=== PATIENT | female | born 1950 | race Caucasian/White ===

== ENCOUNTER → 2017-05-27 14:20 | Outpatient (CLI) | payer MEDICARE, OTHER, SELFPAY ==
[2017-05-27 20:05] LABS: Amphetamine/Metha Screen,Urine Negative ng/mL (<1000); Barbiturates Screen,Urine Negative ng/mL (<200); Benzodiazepines Screen,Urine Negative ng/mL (200); Cannabinoid Screen,Urine Negative ng/mL (<50); Cocaine Screen,Urine Negative ng/g (<300); Methadone Screen,Urine Negative ng/mL (<300); Opiate Screen,Urine Positive ng/mL (<300); Phencyclidine Screen,Urine Negative ng/mL (<25)
[2017-06-05 09:18] LABS: Oxycodone (GC/MS) 1440 ng/mL (Cutoff=100)
[2017-06-06 11:06] LABS: Opiates Negative (Cutoff=100); Oxymorphone (GC/MS) 922 ng/mL (Cutoff=100)
== END ==
PROVIDERS: PCP Family Medicine; Visit Provider Anesthesiology
DX: Z79.899 Other long term (current) drug therapy (principal)
CPT/HCPCS: 80305; 80361; G0480

== ENCOUNTER → 2017-06-06 11:23 | Day surgery (SDC) | payer MEDICARE, OTHER, SELFPAY ==
[2017-06-06 11:33] VITALS: BP 138/75; PULSE 75; RESP 18; TEMP 36.2; O2SAT 95; BMI 25.8
[2017-06-06 11:51] LABS: POC Glucose,Bedside 110 mg/dL
--- NOTE | 2017-06-06 12:01 | HMH.PMPROC ---
- Procedure Date: 06/06/17 Time: 12:01 Anesthesiologist:: Hemant Del Real MD Complications:: None Pre-procedure Diagnosis:: Sacroiliitis Post-procedure Diagnosis:: Same Indications for Procedure:: This patient is a pleasant 66-year-old white female who we are treating for neck pain and right hip pain. She has right-sided sacroiliitis with tenderness over the right SI joint. She does have positive Rebekah's test on the right side. She is also medically managed with Percocet 5 g 3 times a day. This does help her pain symptoms. Her Farhan and urine drug screen have been appropriate. We will do a right SI joint injection today to see if this helps further with her pain symptoms. Procedure Details:: Right SI joint injection under fluoroscopy Informed consent was obtained and the risks and benefits of the procedure was going to the patient. Patient was taken to the procedure room. Patient was placed prone on the procedure table. The right hip was prepped using ChloraPrep. The skin and subcutaneous tissues were anesthetized using lidocaine. I placed a 22-gauge spinal needle into the inferior aspect of the right SI joint. Needle placement was confirmed with dye. After this we injected 5 mL bupivacaine 0.25% and Depo-Medrol 20 mg into the right SI joint. The patient tolerated the procedure well with no complication. Plan and Disposition:: We will follow her in 2 weeks. We will reevaluate her symptoms at that time.
[2017-06-06 12:02] VITALS: BP 155/93; PULSE 75; RESP 20; O2SAT 99
[2017-06-06 12:03] VITALS: BP 153/85; PULSE 75; RESP 18; O2SAT 98
[2017-06-06 12:08] VITALS: BP 140/92; PULSE 81; RESP 16
== END ==
PROVIDERS: Family Provider Family Medicine; PCP Family Medicine; Visit Provider Anesthesiology
DX: M46.1 Sacroiliitis, not elsewhere classified (principal); Z79.899 Other long term (current) drug therapy
CPT/HCPCS: 27096; 82962; G0260; J1030; Q9966

== ENCOUNTER → 2017-07-14 14:13 | Outpatient (POV) | payer MEDICARE, OTHER, SELFPAY ==
[2017-07-14 14:21] VITALS: BP 126/70; PULSE 91; RESP 18; TEMP 36.4; O2SAT 100; BMI 25.8
--- NOTE | 2017-07-14 14:48 | HMH.PAINSOAP ---
[facility] Pain Management SOAP Note Subjective:: This patient is a pleasant 66-year-old white female who presents today to follow-up after a right SI joint injection. Patient states that she has 90% relief of her pain symptoms at this time. Patient states that her neck pain has become increasingly worse. Patient has had a cervical epidural steroid injection in the past and had significant relief with it. Patient states she had 80% relief for a year. Patient is also being managed medically managed on Percocet 5 mg 1 p.o. 3 times daily. Patient does not need any prescriptions today. She rates her pain a 6 out of 10 today. Most of her pain being in her neck and her right arm. She has shoulder trouble that she is seeing Dr. Taylor for. ROS General: no recent weight change, no fever, no sleep disturbances Respiratory: no cough, no shortness of air, no recurring pulmonary infections Cardiovascular/Peripheral Vascular: No chest pain, No palpitations, no edema, no shortness of breath. Gastrointestinal: no incontinence, normal bowel movements reported Genitourinary: no incontinence Musculoskeletal: Neck pain, right shoulder pain, sacroiliitis Psychiatric: normal mood/ affect, [denies depression], [denies anxiety] Neurological: [denies weakness in extremities], [denies balance issues] Objective:: Physical Exam General: Alert and oriented x3, no acute distress, pleasant and cooperative, [on room air] Lungs: Resps E/U, Symmetrical chest expansion, Eyes: PERRL Musculoskeletal: Flexion and extension of cervical spine somewhat guarded secondary to pain, deep tendon reflexes normal, strength in upper and lower extremities [5/5], normal gait noted Neurological: speech clear, transcription manager equal, no gross sensory deficits Assessment:: Cervical postlaminectomy, degenerative disc disease of the cervical spine, cervical radiculopathy, sacroiliitis, Plan:: We will plan a cervical epidural steroid injection for this patient. We will go and at C6-C7. Patient had 80% relief of her symptoms for a year after her last cervical epidural steroid injection. Patient's tried and failed medications, anti-inflammatories, physical therapy. Patient is also being medically managed with Percocet 5 mg 1 p.o. 3 times daily. She does not need prescriptions today. We will follow-up with this patient 2 weeks after her cervical epidural. This note was dictated using voice recognition software and may contain errors or omissions
--- NOTE | 2017-07-14 14:51 | P.CONS_ITS ---
[facility] Pain Management SOAP Note Subjective:: This patient is a pleasant 66-year-old white female who presents today to follow -up after a right SI joint injection. Patient states that she has 90% relief of her pain symptoms at this time. Patient states that her neck pain has become increasingly worse. Patient has had a cervical epidural steroid injection in the past and had significant relief with it. Patient states she had 80% relief for a year. Patient is also being managed medically managed on Percocet 5 mg 1 p.o. 3 times daily. Patient does not need any prescriptions today. She rates her pain a 6 out of 10 today. Most of her pain being in her neck and her right arm. She has shoulder trouble that she is seeing Dr. Taylor for. ROS General: no recent weight change, no fever, no sleep disturbances Respiratory: no cough, no shortness of air, no recurring pulmonary infections Cardiovascular/Peripheral Vascular: No chest pain, No palpitations, no edema, no shortness of breath. Gastrointestinal: no incontinence, normal bowel movements reported Genitourinary: no incontinence Musculoskeletal: Neck pain, right shoulder pain, sacroiliitis Psychiatric: normal mood/ affect, [denies depression], [denies anxiety] Neurological: [denies weakness in extremities], [denies balance issues] Objective:: Physical Exam General: Alert and oriented x3, no acute distress, pleasant and cooperative, [ on room air] Lungs: Resps E/U, Symmetrical chest expansion, Eyes: PERRL Musculoskeletal: Flexion and extension of cervical spine somewhat guarded secondary to pain, deep tendon reflexes normal, strength in upper and lower extremities [5/5], normal gait noted Neurological: speech clear, utility system repairer equal, no gross sensory deficits Assessment:: Cervical postlaminectomy, degenerative disc disease of the cervical spine, cervical radiculopathy, sacroiliitis, Plan:: We will plan a cervical epidural steroid injection for this patient. We will go and at C6-C7. Patient had 80% relief of her symptoms for a year after her last cervical epidural steroid injection. Patient's tried and failed medications, anti-inflammatories, physical therapy. Patient is also being medically managed with Percocet 5 mg 1 p.o. 3 times daily. She does not need prescriptions today. We will follow-up with this patient 2 weeks after her cervical epidural. This note was dictated using voice recognition software and may contain errors or omissions
== END ==
PROVIDERS: Family Provider Family Medicine; PCP Family Medicine; Visit Provider Clinical Nurse Specialist Family Health
DX: M54.12 Radiculopathy, cervical region (principal); M46.1 Sacroiliitis, not elsewhere classified
CPT/HCPCS: 99212

== ENCOUNTER → 2017-08-08 13:50 | Day surgery (SDC) | payer MEDICARE, OTHER, SELFPAY ==
[2017-08-08 13:54] VITALS: BP 148/83; PULSE 81; RESP 16; TEMP 36.6; O2SAT 95; BMI 25.8
[2017-08-08 14:22] VITALS: BP 136/91; PULSE 84; RESP 18
--- NOTE | 2017-08-08 14:25 | HMH.PMPROC ---
- Procedure Date: 08/08/17 Time: 14:25 Anesthesiologist:: Hemant Del Real MD Complications:: None Pre-procedure Diagnosis:: Degenerative disc disease of the cervical spine with previous cervical anterior cervical disc fusion and postlaminectomy syndrome of the cervical spine Post-procedure Diagnosis:: Same Indications for Procedure:: This patient is a pleasant 66-year-old white female who is doing well with her low back pain and right SI joint after injections. She presents with some neck pain. She has had previous ACDF. We will do a cervical epidural steroid injection today to see if this helps with her neck pain and cervical radicular symptoms. Procedure Details:: Cervical epidural steroid injection under fluoroscopy Informed consent was obtained and the risks and benefits of the procedure was explained to the patient. The patient was taken to the procedure room placed prone on the procedure table. The neck was prepped using ChloraPrep. The skin and subcutaneous tissues were anesthetized using lidocaine. I placed a 18-gauge epidural needle into the C5-C6 interspace and advanced using [id number] to air and fluoroscopic guidance. After confirmation of needle placement in the epidural space with dye, I injected 3 mL's lidocaine 1.5% and Depo-Medrol 20 mg. The patient tolerated the procedure well with no complications. We used less steroid because patient does have a reaction to increase steroid. Plan and Disposition:: We will follow-up with her in 2 weeks. We will reevaluate her symptoms at that time.
[2017-08-08 14:27] VITALS: BP 147/108; PULSE 89; RESP 20
--- NOTE | 2017-08-08 14:29 | P.PCN_ITS ---
- Procedure Date: 08/08/17 Time: 14:25 Anesthesiologist:: Hemant Del Real MD Complications:: None Pre-procedure Diagnosis:: Degenerative disc disease of the cervical spine with previous cervical anterior cervical disc fusion and postlaminectomy syndrome of the cervical spine Post-procedure Diagnosis:: Same Indications for Procedure:: This patient is a pleasant 66-year-old white female who is doing well with her low back pain and right SI joint after injections. She presents with some neck pain. She has had previous ACDF. We will do a cervical epidural steroid injection today to see if this helps with her neck pain and cervical radicular symptoms. Procedure Details:: Cervical epidural steroid injection under fluoroscopy Informed consent was obtained and the risks and benefits of the procedure was explained to the patient. The patient was taken to the procedure room placed prone on the procedure table. The neck was prepped using ChloraPrep. The skin and subcutaneous tissues were anesthetized using lidocaine. I placed a 18- gauge epidural needle into the C5-C6 interspace and advanced using loss-of- resistance to air and fluoroscopic guidance. After confirmation of needle placement in the epidural space with dye, I injected 3 mL's lidocaine 1.5% and Depo-Medrol 20 mg. The patient tolerated the procedure well with no complications. We used less steroid because patient does have a reaction to increase steroid. Plan and Disposition:: We will follow-up with her in 2 weeks. We will reevaluate her symptoms at that time.
[2017-08-08 14:31] LABS: POC Glucose,Bedside 103 (70-110)
[2017-08-08 14:38] VITALS: BP 131/79; PULSE 85; RESP 16; O2SAT 94
== END ==
PROVIDERS: Family Provider Family Medicine; PCP Family Medicine; Visit Provider Anesthesiology
DX: M50.30 Other cervical disc degeneration, unspecified cervical region (principal); M43.22 Fusion of spine, cervical region; M96.1 Postlaminectomy syndrome, not elsewhere classified; Z79.891 Long term (current) use of opiate analgesic
CPT/HCPCS: 62321; 82962; J1030; Q9966

== ENCOUNTER → 2017-08-25 15:00 | Outpatient (POV) | payer MEDICARE, OTHER, SELFPAY ==
[2017-08-25 15:34] VITALS: BP 129/82; PULSE 85; RESP 18; TEMP 36.6; BMI 26.6
--- NOTE | 2017-08-25 16:12 | P.CONS_ITS ---
[facility] Pain Management SOAP Note Subjective:: Patient is a pleasant 66-year-old white female who presents today for follow-up after cervical epidural steroid injection. Patient states that her neck pain has decreased however she is having extreme shoulder pain. Patient is seeing an orthopedic surgeon for this. Patient states that her neck pain is 80% better. Patient is also being medically managed with Percocet 5 mg 1 p.o. 3 times daily. Patient denies side effects to this medication. She states that it helps 60-70%. She rates her pain a 4 out of 10 today. Patient's CLAUDIO # [id number] reviewed and appropriate. ROS General: no recent weight change, no fever, no sleep disturbances Respiratory: no cough, no shortness of air, no recurring pulmonary infections Cardiovascular/Peripheral Vascular: No chest pain, No palpitations, no edema, no shortness of breath. Gastrointestinal: no incontinence, normal bowel movements reported Genitourinary: no incontinence Musculoskeletal: Neck pain, back pain, shoulder pain Psychiatric: normal mood/ affect, Neurological: [denies weakness in extremities], [denies balance issues] Objective:: Physical Exam General: Alert and oriented x3, no acute distress, pleasant and cooperative, [ on room air] Lungs: Resps E/U, Symmetrical chest expansion, Eyes: PERRL Musculoskeletal: Flexion and extension of cervical spine somewhat guarded secondary to pain, deep tendon reflexes normal, strength in upper and lower extremities [5/5], normal gait noted Neurological: speech clear, heel sprayer equal, no gross sensory deficits Assessment:: Cervical postlaminectomy, degenerative disc disease of the cervical spine, cervical radiculopathy, sacroiliitis, shoulder pain Plan:: We will follow-up with this patient in 3 months. She is going to call us if she needs this in the meantime. Patient is doing well after her cervical epidural steroid injection. Patient has been to continue with the orthopedic surgeon in regards to her shoulder. Patient is due medication refills today Percocet 5 mg 1 p.o. 3 times daily. We will give HER-2 months worth of prescriptions. Patient's Claudio and urine drug screen both reviewed. Dr. Del Real has reviewed this chart and agrees with this plan of care. This note was dictated using voice recognition software and may contain errors or omissions
== END ==
PROVIDERS: Family Provider Family Medicine; PCP Family Medicine; Visit Provider Clinical Nurse Specialist Family Health
DX: M46.1 Sacroiliitis, not elsewhere classified (principal); M54.12 Radiculopathy, cervical region
CPT/HCPCS: 99212

== ENCOUNTER → 2017-10-28 14:19 | Outpatient (CLI) | payer MEDICARE, OTHER, SELFPAY ==
[2017-10-28 16:37] LABS: Amphetamine/Metha Screen,Urine Negative ng/mL (<1000); Barbiturates Screen,Urine Negative ng/mL (<200); Benzodiazepines Screen,Urine Negative ng/mL (200); Cannabinoid Screen,Urine Negative ng/mL (<50); Cocaine Screen,Urine Negative ng/g (<300); Methadone Screen,Urine Negative ng/mL (<300); Opiate Screen,Urine Positive ng/mL (<300); Phencyclidine Screen,Urine Negative ng/mL (<25)
[2017-11-05 01:09] LABS: Codeine Negative (Cutoff=100); Hydrocodone Positive (.); Hydromorphone Negative (Cutoff=100); Morphine Negative (Cutoff=100); Oxycodone (GC/MS) 664 ng/mL (Cutoff=100)
[2017-11-05 12:25] LABS: Opiates Positive (.); Oxymorphone (GC/MS) 279 ng/mL (Cutoff=100)
== END ==
PROVIDERS: Visit Provider Clinical Nurse Specialist Family Health
DX: Z79.899 Other long term (current) drug therapy (principal)
CPT/HCPCS: 80305; 80361; 80365; G0480

== ENCOUNTER → 2017-11-24 13:28 | Outpatient (POV) | payer MEDICARE, OTHER, SELFPAY ==
--- NOTE | 2017-11-24 13:47 | HMH.PAINSOAP ---
[facility] Pain Management SOAP Note Subjective:: Patient is a pleasant 66-year-old white female who presents today for medication refills. Patient is currently being medically managed with Percocet 5 mg 1 p.o. 3 times daily. At her last urine drug screen she did test positive for [place] she states that she does not know how this happened. Patient is allergic to [place] and has reaction to it. We will send her for confirmation urine drug screen today. Patient has had injections in the past and done well with them. However at her last when she began to have an itching reaction to it. Patient has not had any recent lower back MRI or CT scan. Patient currently has a neurostimulator in place however she does not use it because she states it worsens her arthritic pain. She rates her pain a 7 out of 10 today. Mostly in her neck, shoulders and back. ROS General: no recent weight change, no fever, no sleep disturbances Respiratory: no cough, no shortness of air, no recurring pulmonary infections Cardiovascular/Peripheral Vascular: No chest pain, No palpitations, no edema, no shortness of breath. Gastrointestinal: no incontinence, normal bowel movements reported Genitourinary: no incontinence Musculoskeletal: Back pain, shoulder pain, neck pain Psychiatric: normal mood/ affect Neurological: [denies weakness in extremities], [denies balance issues] Objective:: Physical Exam General: Alert and oriented x3, no acute distress, pleasant and cooperative, [on room air] Lungs: Resps E/U, Symmetrical chest expansion, \ Eyes: PERRL Musculoskeletal: Flexion and extension of cervical and lumbar spine somewhat guarded secondary to pain, deep tendon reflexes normal, strength in upper and lower extremities [5/5], antalgic gait noted Neurological: speech clear, comptometrist equal, no gross sensory deficits Assessment:: Cervical postlaminectomy, degenerative disc disease of the cervical spine, cervical radiculopathy, sacroiliitis, shoulder pain Plan:: We will give the patient 1 month worth of Percocet 5 mg 1 p.o. 3 times daily after she produces a urine sample for us. We will continue to monitor for her for compliance. Patient's CLAUDIO #[id number] reviewed. Dr. Del Real has reviewed this chart and agrees with this plan of care. We will see the patient back in 1 month. Patient has been prescribed a controlled substance after being counseled on the medication, medication safety, and possible side effects. CLAUDIO report has been obtained and reviewed prior to prescription and found to be appropriate. Opioid contract was reviewed and signed by the patient, and that they have agreed to all of the terms set forth by our compliance program. This note was dictated using voice recognition software and may contain errors or omissions
[2017-11-24 13:50] VITALS: BP 141/82; PULSE 83; RESP 18; O2SAT 98; BMI 27.8
--- NOTE | 2017-11-24 13:50 | P.CONS_ITS ---
[facility] Pain Management SOAP Note Subjective:: Patient is a pleasant 66-year-old white female who presents today for medication refills. Patient is currently being medically managed with Percocet 5 mg 1 p.o. 3 times daily. At her last urine drug screen she did test positive for [place] she states that she does not know how this happened. Patient is allergic to [place] and has reaction to it. We will send her for confirmation urine drug screen today. Patient has had injections in the past and done well with them. However at her last when she began to have an itching reaction to it. Patient has not had any recent lower back MRI or CT scan. Patient currently has a neurostimulator in place however she does not use it because she states it worsens her arthritic pain. She rates her pain a 7 out of 10 today. Mostly in her neck, shoulders and back. ROS General: no recent weight change, no fever, no sleep disturbances Respiratory: no cough, no shortness of air, no recurring pulmonary infections Cardiovascular/Peripheral Vascular: No chest pain, No palpitations, no edema, no shortness of breath. Gastrointestinal: no incontinence, normal bowel movements reported Genitourinary: no incontinence Musculoskeletal: Back pain, shoulder pain, neck pain Psychiatric: normal mood/ affect Neurological: [denies weakness in extremities], [denies balance issues] Objective:: Physical Exam General: Alert and oriented x3, no acute distress, pleasant and cooperative, [ on room air] Lungs: Resps E/U, Symmetrical chest expansion, \ Eyes: PERRL Musculoskeletal: Flexion and extension of cervical and lumbar spine somewhat guarded secondary to pain, deep tendon reflexes normal, strength in upper and lower extremities [5/5], antalgic gait noted Neurological: speech clear, office associate equal, no gross sensory deficits Assessment:: Cervical postlaminectomy, degenerative disc disease of the cervical spine, cervical radiculopathy, sacroiliitis, shoulder pain Plan:: We will give the patient 1 month worth of Percocet 5 mg 1 p.o. 3 times daily after she produces a urine sample for us. We will continue to monitor for her for compliance. Patient's LCAUDIO #[id number] reviewed. Dr. Del Real has reviewed this chart and agrees with this plan of care. We will see the patient back in 1 month. Patient has been prescribed a controlled substance after being counseled on the medication, medication safety, and possible side effects. CLAUDIO report has been obtained and reviewed prior to prescription and found to be appropriate. Opioid contract was reviewed and signed by the patient, and that they have agreed to all of the terms set forth by our compliance program. This note was dictated using voice recognition software and may contain errors or omissions
[2017-11-24 17:49] LABS: Amphetamine/Metha Screen,Urine Negative ng/mL (<1000); Barbiturates Screen,Urine Negative ng/mL (<200); Benzodiazepines Screen,Urine Negative ng/mL (<200); Cannabinoid Screen,Urine Negative ng/mL (<50); Cocaine Screen,Urine Negative ng/mL (<300); Methadone Screen,Urine Negative ng/mL (<300); Opiate Screen,Urine Positive ng/mL (<300); Phencyclidine Screen,Urine Negative ng/mL (<25)
[2017-12-07 21:08] LABS: Oxycodone (GC/MS) 1471 ng/mL (Cutoff=100)
[2017-12-08 09:48] LABS: Opiates Negative (Cutoff=100); Oxymorphone (GC/MS) 438 ng/mL (Cutoff=100)
== END ==
PROVIDERS: Family Provider Family Medicine; PCP Family Medicine; Visit Provider Clinical Nurse Specialist Family Health
DX: M96.1 Postlaminectomy syndrome, not elsewhere classified (principal); M46.1 Sacroiliitis, not elsewhere classified; Z79.899 Other long term (current) drug therapy
CPT/HCPCS: 80305; 80361; 80365; 99212; G0480

== ENCOUNTER → 2017-11-26 08:08 | Outpatient (CLI) | payer MEDICARE, OTHER, SELFPAY ==
--- NOTE | 2017-11-26 08:11 | XR_ITS ---
XR shoulder RT min 2V Ordering Physician: Alan Santamaria MD Patient Age: 67 years: Female HISTORY: ITS.REASON: RT shoulder pain Right shoulder pain TECHNIQUE: 3 views right shoulder downward sloping acromion suggested on this study but adequate subacromial space on plain film. Underlying COPD. Post surgical changes right mike likely from previous right lobectomy COMPARISON previous right shoulder 10-15: FINDINGS Humeral head and neck intact. No fracture nor dislocation. There are degenerative changes at the glenohumeral joint with slight hypertrophic ridging inferior humeral head more so the glenoid at the glenohumeral joint on the [place] view IMPRESSION: No acute findings Degenerative changes at glenohumeral joint most evident at its inferior aspect.
== END ==
PROVIDERS: PCP Family Medicine; Visit Provider Orthopaedic Surgery
DX: M25.511 Pain in right shoulder (principal)
CPT/HCPCS: 73030

== ENCOUNTER → 2018-04-08 14:43 | Outpatient (CLI) | payer MEDICARE, SELFPAY ==
[2018-04-08 15:23] LABS: Amphetamine/Metha Screen,Urine Negative ng/mL (<1000); Barbiturates Screen,Urine Negative ng/mL (<200); Benzodiazepines Screen,Urine Negative ng/mL (<200); Cannabinoid Screen,Urine Negative ng/mL (<50); Cocaine Screen,Urine Negative ng/mL (<300); Methadone Screen,Urine Negative ng/mL (<300); Opiate Screen,Urine Negative ng/mL (<300); Phencyclidine Screen,Urine Negative ng/mL (<25)
[2018-04-15 07:03] LABS: Opiates Negative (Cutoff=100)
== END ==
PROVIDERS: Visit Provider Clinical Nurse Specialist Family Health
DX: Z79.899 Other long term (current) drug therapy (principal)
CPT/HCPCS: 80305; 80361; 80365; G0480

== ENCOUNTER → 2018-08-03 14:31 | Outpatient (POV) | payer MEDICARE, OTHER, SELFPAY ==
[2018-08-03 15:23] VITALS: BP 152/95; PULSE 92; RESP 18; O2SAT 98; BMI 26.6
--- NOTE | 2018-08-04 08:40 | HMH.PAINSOAP ---
[facility] Pain Management SOAP Note Subjective:: Patient is a pleasant 67-year-old white female who presents today for medication refills. She is currently being medically managed with Percocet 5 mg 1 p.o. 3 times daily. Patient states her pain has been quite a bit worse. Patient is being seen by orthopedics. Patient does have a [employer] stimulator however it has not been useful to her recently. Battery has been . Patient and I had a discussion about potentially switching this out. She may be interested in this in the future. She rates her pain 8 out of 10. She finds her medication not as effective as it has been. Patient Claudio #[id number] reviewed and appropriate. ROS General: no recent weight change, no fever, no sleep disturbances Respiratory: no cough, no shortness of air, no recurring pulmonary infections Cardiovascular/Peripheral Vascular: No chest pain, No palpitations, no edema, no shortness of breath. Gastrointestinal: no incontinence, normal bowel movements reported Genitourinary: no incontinence Musculoskeletal: Back pain, leg pain, shoulder pain Psychiatric: normal mood/ affect Neurological: [denies weakness in extremities], [denies balance issues] Objective:: Physical Exam General: Alert and oriented x3, no acute distress, pleasant and cooperative, on room air Lungs: Resps E/U, Symmetrical chest expansion, Eyes: PERRL Musculoskeletal: Flexion and extension of lumbar spine somewhat guarded secondary to pain, deep tendon reflexes normal, strength in upper and lower extremities [5/5], [abnormal gait noted] Neurological: speech clear, safety relief valve technician equal, no gross sensory deficits Assessment:: Cervical postlaminectomy, degenerative disc disease cervical spine with cervical radiculopathy sacroiliitis shoulder pain, back pain, leg pain Plan:: We will increase the patient's Percocet to 5 mg 1 p.o. 4 times daily. We will give her 2 months worth of medication see her back in 3 months. She has been instructed to call if she has any issues prior to her next appointment. She can picker and sorter load and unload her third month in the interim. Patient has been prescribed a controlled substance after being counseled on the medication, medication safety, and possible side effects. CLAUDIO report has been obtained and reviewed prior to prescription and found to be appropriate. Opioid contract was reviewed and signed by the patient, and that they have agreed to all of the terms set forth by our compliance program. Dr. Del Real has reviewed this note and agrees with this plan of care. This note was dictated using voice recognition software and may contain errors or omissions
== END ==
PROVIDERS: PCP Family Medicine; Visit Provider Clinical Nurse Specialist Family Health
DX: M96.1 Postlaminectomy syndrome, not elsewhere classified (principal); M50.10 Cervical disc disorder with radiculopathy, unspecified cervical region; M25.519 Pain in unspecified shoulder; M46.1 Sacroiliitis, not elsewhere classified; M54.9 Dorsalgia, unspecified; M79.606 Pain in leg, unspecified; Z79.899 Other long term (current) drug therapy
CPT/HCPCS: 80305; 80361; 80365; 99212; G0480

== ENCOUNTER → 2018-08-03 15:30 | Outpatient (CLI) | payer MEDICARE, OTHER, SELFPAY ==
[2018-08-03 18:28] LABS: Amphetamine/Metha Screen,Urine Positive ng/mL (<1000); Barbiturates Screen,Urine Negative ng/mL (<200); Benzodiazepines Screen,Urine Negative ng/mL (<200); Cannabinoid Screen,Urine Negative ng/mL (<50); Cocaine Screen,Urine Negative ng/mL (<300); Methadone Screen,Urine Negative ng/mL (<300); Opiate Screen,Urine Positive ng/mL (<300); Phencyclidine Screen,Urine Negative ng/mL (<25)
[2018-08-08 18:07] LABS: Oxycodone (GC/MS) >3000 ng/mL (Cutoff=100)
[2018-08-08 18:08] LABS: Opiates Negative (Cutoff=100); Oxymorphone (GC/MS) 1159 ng/mL (Cutoff=100)
== END ==
PROVIDERS: Visit Provider Clinical Nurse Specialist Family Health
DX: Z79.899 Other long term (current) drug therapy (principal)
CPT/HCPCS: 80305; 80361; 80365; G0480

== ENCOUNTER → 2018-08-11 13:33 | Outpatient (CLI) | payer MEDICARE, OTHER, SELFPAY ==
--- NOTE | 2018-08-11 13:41 | CT_ITS ---
CT CERVICAL SPINE WITHOUT CONTRAST CT RECONSTRUCTIONS HISTORY:Neck pain, cervical radiculopathy, degenerative changes of the spine, left arm weakness ORDERING PHYSICIAN: Romulo Francis MD PATIENT AGE: 67 years COMPARISON: 04/05/2015 Technique: All CT scans at the facility use one or more dose reduction, viz: automated exposure control, ma/kV adjustment per patient size (including targeted exams where dose is matched to indication, i.e. head), or iterative reconstruction technique PROCEDURE: Axial spiral CT scanning performed of the cervical spine beginning at the base of the skull and continuing to the upper T-spine. 3-D multiplanar reconstruction with 3-D manipulation of volumetric data set in image rendering was completed by the radiologist and/or technologist with the supervision of the radiologist on independent workstation. FINDINGS: There is no malalignment. There is slight reversal of the lower thoracic lordosis. There is multilevel cervical spondylosis and there has been prior anterior cervical disc fusion at C7-T1 There is opacification of the right aspect of the sphenoid sinus inferiorly and may be due to a retention cyst. Unremarkable craniocervical junction. C2-C3: Unremarkable. C3-C4: There is degenerative disc disease with mild facet arthritic changes on the left. Minimal anterolisthesis of C3 of 2 to 3 mm likely physiologic. C4-C5: Degenerative disc disease with mild uncovertebral hypertrophy on the left. C5-C6: Degenerative disc disease with endplate spurring and mild left-sided facet arthritic change. There is mild bilateral foraminal narrowing from the endplate and uncovertebral spurring. Is not significant change. C6-C7: Degenerative disc disease with mild endplate spurring and mild bilateral foraminal narrowing. C7-T1: Prior anterior cervical disc fusion. Fibrotic changes are present in the lung apices. IMPRESSION: Overall no significant change compared to the previous study with multilevel cervical spondylosis with degenerative disc disease and mild facet arthritic change. Please see above for detailed description at each level. Prior anterior cervical disc fusion C7-T1
== END ==
PROVIDERS: PCP Family Medicine; Visit Provider Family Medicine
DX: M47.22 Other spondylosis with radiculopathy, cervical region (principal); R29.898 Other symptoms and signs involving the musculoskeletal system; Z98.890 Other specified postprocedural states
CPT/HCPCS: 72125

== ENCOUNTER → 2018-08-31 13:43 | Outpatient (POV) | payer MEDICARE, OTHER, SELFPAY ==
[2018-08-31 13:55] VITALS: BP 137/86; PULSE 94; RESP 18; O2SAT 98; BMI 25.8
--- NOTE | 2018-09-01 08:31 | P.CONS_ITS ---
[facility] Pain Management SOAP Note Subjective:: She is a very pleasant 67-year-old white female who presents today for follow- up. Patient had new CT scan which did not show much change in regards to her cervical spine. She does have an appointment with Dr. Ehsan hernández to discuss potential options. Patient is currently being medically managed however she does not need refills today. Overall she rates her pain a 5 out of 10. Patient does have an old stimulator. We have discussed changing it out she is interested in this however she would like to wait until a better time and I believe that would be beneficial. I do think that she needs to see Dr. Dempsey for consultation. ROS General: no recent weight change, no fever, no sleep disturbances Respiratory: no cough, no shortness of air, no recurring pulmonary infections Cardiovascular/Peripheral Vascular: No chest pain, No palpitations, no edema, no shortness of breath. Gastrointestinal: no incontinence, normal bowel movements reported Genitourinary: no incontinence Musculoskeletal: Neck pain Psychiatric: normal mood/ affect Neurological: [denies weakness in extremities], [denies balance issues] Objective:: Physical Exam General: Alert and oriented x3, no acute distress, pleasant and cooperative, [on room air] Lungs: Resps E/U, Symmetrical chest expansion, Eyes: PERRL Musculoskeletal: Flexion and extension of cervical spine somewhat guarded secondary to pain, deep tendon reflexes normal, strength in upper and lower extremities [5/5], slightly antalgic gait noted Neurological: speech clear, deputy chief magistrate equal, no gross sensory deficits Assessment:: Cervical post laminectomy syndrome, degenerative disc disease cervical spine with cervical radiculopathy, sacroiliitis shoulder pain, back pain, leg pain Plan:: We will see the patient back for her next medication refills. She is been instructed call the office if she has any issues prior to her next appointment. Dr. Del Real has reviewed this note and agrees with this plan of care. This note was dictated using voice recognition software and may contain errors or omissions
== END ==
PROVIDERS: PCP Family Medicine; Visit Provider Clinical Nurse Specialist Family Health
DX: M96.1 Postlaminectomy syndrome, not elsewhere classified (principal); M50.10 Cervical disc disorder with radiculopathy, unspecified cervical region; M46.1 Sacroiliitis, not elsewhere classified; M54.9 Dorsalgia, unspecified; M79.606 Pain in leg, unspecified
CPT/HCPCS: 99212

== ENCOUNTER → 2018-11-11 15:14 | Outpatient (CLI) | payer MEDICARE, OTHER, SELFPAY ==
[2018-11-11 19:09] LABS: Amphetamine/Metha Screen,Urine Negative ng/mL (<1000); Barbiturates Screen,Urine Negative ng/mL (<200); Benzodiazepines Screen,Urine Negative ng/mL (<200); Cannabinoid Screen,Urine Negative ng/mL (<50); Cocaine Screen,Urine Negative ng/mL (<300); Methadone Screen,Urine Negative ng/mL (<300); Opiate Screen,Urine Negative ng/mL (<300); Phencyclidine Screen,Urine Negative ng/mL (<25)
[2018-11-18 04:00] LABS: Oxycodone (GC/MS) 1666 ng/mL (Cutoff=100)
[2018-11-19 19:59] LABS: Opiates Negative (Cutoff=100); Oxymorphone (GC/MS) 967 ng/mL (Cutoff=100)
== END ==
PROVIDERS: Visit Provider Clinical Nurse Specialist Family Health
DX: Z79.899 Other long term (current) drug therapy (principal)
CPT/HCPCS: 80305; 80361; 80365; G0480

== ENCOUNTER → 2018-12-07 13:20 | Outpatient (POV) | payer MEDICARE, OTHER, SELFPAY ==
[2018-12-07 14:04] VITALS: BP 157/98; PULSE 96; RESP 18; O2SAT 98; BMI 28.3
--- NOTE | 2018-12-14 13:10 | HMH.PAINSOAP ---
[facility] Pain Management SOAP Note Subjective:: She is a very pleasant 67-year-old white female who presents today for follow-up. Patient was seen by neurosurgery and it was recommended that she switch out her stimulator. I do believe that would be beneficial. At this point she is being medically managed with Percocet. She denies side effects. Claudio reviewed and appropriate. Patient is awaiting shoulder surgery she wants to complete this prior to changing her neurostimulator. She rates her pain a 5 out of 10 today. Respiratory: no cough, no shortness of air, no recurring pulmonary infections Cardiovascular/Peripheral Vascular: No chest pain, No palpitations, no edema, no shortness of breath. Gastrointestinal: no incontinence, normal bowel movements reported Genitourinary: no incontinence Musculoskeletal: Neck pain Psychiatric: normal mood/ affect Neurological: [denies weakness in extremities], [denies balance issues] Objective:: Physical Exam General: Alert and oriented x3, no acute distress, pleasant and cooperative, [on room air] Lungs: Resps E/U, Symmetrical chest expansion, Eyes: PERRL Musculoskeletal: Flexion and extension of cervical spine somewhat guarded secondary to pain, deep tendon reflexes normal, strength in upper and lower extremities [5/5], slightly antalgic gait noted Neurological: speech clear, oyster planter equal, no gross sensory deficits Assessment:: Degenerative disc disease cervical spine with cervical radiculopathy Plan:: We will refill the patient's Percocet 5 mg 1 p.o. 3 times daily give her 2 months worth of medication she can vegetable picker the third month in the interim. We will see her back in 3 months reassess her symptoms at that time. We will then discuss changing out her neurostimulator. Patient's been instructed to call the office if he has any issues prior to the next appointment. Patient has been prescribed a controlled substance after being counseled on the medication, medication safety, and possible side effects. CLAUDIO report has been obtained and reviewed prior to prescription and found to be appropriate. Opioid contract was reviewed and signed by the patient, and that they have agreed to all of the terms set forth by our compliance program. Dr. Del Real has reviewed this note and agrees with this plan of care. This note was dictated using voice recognition software and may contain errors or omissions Pain Management Hx Components *Have you ever received a pneumonia vaccine?: Yes *Have you received a flu vaccine this season?: Yes - *Social History *Occupational Status:: other *Travel in the last 8 weeks: None
--- NOTE | 2018-12-14 13:14 | P.CONS_ITS ---
[facility] Pain Management SOAP Note Subjective:: She is a very pleasant 67-year-old white female who presents today for follow- up. Patient was seen by neurosurgery and it was recommended that she switch out her stimulator. I do believe that would be beneficial. At this point she is being medically managed with Percocet. She denies side effects. Claudio reviewed and appropriate. Patient is awaiting shoulder surgery she wants to complete this prior to changing her neurostimulator. She rates her pain a 5 out of 10 today. Respiratory: no cough, no shortness of air, no recurring pulmonary infections Cardiovascular/Peripheral Vascular: No chest pain, No palpitations, no edema, no shortness of breath. Gastrointestinal: no incontinence, normal bowel movements reported Genitourinary: no incontinence Musculoskeletal: Neck pain Psychiatric: normal mood/ affect Neurological: [denies weakness in extremities], [denies balance issues] Objective:: Physical Exam General: Alert and oriented x3, no acute distress, pleasant and cooperative, [on room air] Lungs: Resps E/U, Symmetrical chest expansion, Eyes: PERRL Musculoskeletal: Flexion and extension of cervical spine somewhat guarded secondary to pain, deep tendon reflexes normal, strength in upper and lower extremities [5/5], slightly antalgic gait noted Neurological: speech clear, real estate closing coordinator equal, no gross sensory deficits Assessment:: Degenerative disc disease cervical spine with cervical radiculopathy Plan:: We will refill the patient's Percocet 5 mg 1 p.o. 3 times daily give her 2 months worth of medication she can pecan picker the third month in the interim. We will see her back in 3 months reassess her symptoms at that time. We will then discuss changing out her neurostimulator. Patient's been instructed to call the office if he has any issues prior to the next appointment. Patient has been prescribed a controlled substance after being counseled on the medication, medication safety, and possible side effects. CLAUDIO report has been obtained and reviewed prior to prescription and found to be appropriate. Opioid contract was reviewed and signed by the patient, and that they have agreed to all of the terms set forth by our compliance program. Dr. Del Real has reviewed this note and agrees with this plan of care. This note was dictated using voice recognition software and may contain errors or omissions Pain Management Hx Components *Have you ever received a pneumonia vaccine?: Yes *Have you received a flu vaccine this season?: Yes - *Social History *Occupational Status:: other *Travel in the last 8 weeks: None
== END ==
PROVIDERS: PCP Family Medicine; Visit Provider Clinical Nurse Specialist Family Health
DX: M50.10 Cervical disc disorder with radiculopathy, unspecified cervical region (principal)
CPT/HCPCS: 99212

== ENCOUNTER → 2018-12-18 14:58 | Outpatient (CLI) | payer MEDICARE, OTHER, SELFPAY ==
--- NOTE | 2018-12-18 15:09 | XR_ITS ---
PROCEDURE: XR MULTIPLE SPINE 4-5V CLINICAL INDICATION: BACK PAIN, STIMULATOR Low back pain COMPARISON: No exams were available for comparison FINDINGS: There is mild degenerate disc disease at L5-S1. There is normal alignment. No acute fracture or dislocation is evident. There is no epidural stimulator device which appears to enter the epidural region at L1-L2 with the upper aspect of the stimulator at the T9 level. IMPRESSION: The epidural stimulator device present with mild degenerative change Dictated by: Wade Calvo MD 12/18/2018 16:22 Signed by: <Electronically signed by Wade Calvo MD in [place]> 12/18/2018 16:22
== END ==
PROVIDERS: PCP Family Medicine; Visit Provider Anesthesiology
DX: M54.6 Pain in thoracic spine (principal); M54.5 Low back pain
CPT/HCPCS: 72083

== ENCOUNTER → 2018-12-21 14:37 | Outpatient (POV) | payer MEDICARE, OTHER, SELFPAY ==
[2018-12-21 15:01] VITALS: BP 148/88; PULSE 99; RESP 18; O2SAT 98; BMI 27.4
--- NOTE | 2018-12-21 15:20 | HMH.PAINSOAP ---
[facility] Pain Management SOAP Note Subjective:: Patient is a pleasant 68-year-old white female who presents today to discuss her neurostimulator. When the patient had not it was very beneficial for her. Patient rates her pain a 6 out of 10. Patient had x-ray showing leads were in good placement we will just get her prepared to change out the battery from a [employer] to a new [employer] system. ROS General: no recent weight change, no fever, no sleep disturbances Respiratory: no cough, no shortness of air, no recurring pulmonary infections Cardiovascular/Peripheral Vascular: No chest pain, No palpitations, no edema, no shortness of breath. Gastrointestinal: no incontinence, normal bowel movements reported Genitourinary: no incontinence Musculoskeletal: Back pain, leg pain Psychiatric: normal mood/ affect, Neurological: [denies weakness in extremities], [denies balance issues] Objective:: Physical Exam General: Alert and oriented x3, no acute distress, pleasant and cooperative, [on room air] Lungs: Resps E/U, Symmetrical chest expansion, Eyes: PERRL Musculoskeletal: Flexion and extension of lumbar spine somewhat guarded secondary to pain, deep tendon reflexes normal, strength in upper and lower extremities [5/5], slightly antalgic gait noted Neurological: speech clear, overlocker equal, no gross sensory deficits Assessment:: Degenerative disc disease cervical spinal cervical radiculopathy and degenerative disc disease lumbar spine with lumbar radiculopathy Plan:: We will get the patient to see Dr. Brooke Stockton for a generator change out. Dr. Del Real has reviewed this note and agrees with this plan of care. This note was dictated using voice recognition software and may contain errors or omissions Pain Management Hx Components *Have you ever received a pneumonia vaccine?: Yes *Have you received a flu vaccine this season?: Yes - *Social History *Occupational Status:: other *Travel in the last 8 weeks: None
== END ==
PROVIDERS: PCP Family Medicine; Visit Provider Clinical Nurse Specialist Family Health
DX: M50.10 Cervical disc disorder with radiculopathy, unspecified cervical region (principal); M51.16 Intervertebral disc disorders with radiculopathy, lumbar region
CPT/HCPCS: 99212

== ENCOUNTER → 2019-01-11 14:53 | Outpatient (POV) | payer MEDICARE, OTHER, SELFPAY ==
[2019-01-11 15:28] VITALS: BP 132/86; PULSE 89; RESP 18; O2SAT 98; BMI 27.4
--- NOTE | 2019-01-12 08:31 | P.CONS_ITS ---
[facility] Pain Management SOAP Note Subjective:: Patient is a very pleasant 68-year-old white female who presents today for medication refills. Patient is currently on Percocet 5 mg 1 p.o. 4 times daily she denies side effects. Claudio #[id number] reviewed and appropriate. Urine drug screens have been appropriate. Patient is being treated for pain secondary to degenerative disc disease lumbar spine with lumbar radiculopathy. She is also awaiting a consultation with Dr. Brooke Stockton for a generator change out for her neurostimulator. ROS General: no recent weight change, no fever, no sleep disturbances Respiratory: no cough, no shortness of air, no recurring pulmonary infections Cardiovascular/Peripheral Vascular: No chest pain, No palpitations, no edema, no shortness of breath. Gastrointestinal: no incontinence, normal bowel movements reported Genitourinary: no incontinence Musculoskeletal: Neck pain, back pain, leg pain, arm pain Psychiatric: normal mood/ affect Neurological: [denies weakness in extremities], [denies balance issues] Objective:: Physical Exam General: Alert and oriented x3, no acute distress, pleasant and cooperative, [on room air] Lungs: Resps E/U, Symmetrical chest expansion, Eyes: PERRL Musculoskeletal: Flexion and extension of cervical and lumbar spine somewhat guarded secondary to pain, deep tendon reflexes normal, strength in upper and lower extremities [5/5], slightly antalgic gait noted Neurological: speech clear, black pickler equal, no gross sensory deficits Assessment:: Degenerative disc disease cervical spinal cervical radiculopathy and degenerative disc disease lumbar spine with lumbar radiculopathy Plan:: We will refill her Percocet 5 mg 1 p.o. 4 times daily we will give her 2 months with medication. We will see her back at her next appointment. She is been instructed to call the office if she has any issues prior to her next appointment. Patient has been prescribed a controlled substance after being counseled on the medication, medication safety, and possible side effects. CLAUDIO report has been obtained and reviewed prior to prescription and found to be appropriate. Opioid contract was reviewed and signed by the patient, and that they have agreed to all of the terms set forth by our compliance program. Dr. Del Real has reviewed this note and agrees with this plan of care. This note was dictated using voice recognition software and may contain errors or omissions Pain Management Hx Components *Have you ever received a pneumonia vaccine?: Yes *Have you received a flu vaccine this season?: Yes - *Social History *Occupational Status:: other *Travel in the last 8 weeks: None
== END ==
PROVIDERS: PCP Family Medicine; Visit Provider Clinical Nurse Specialist Family Health
DX: M50.10 Cervical disc disorder with radiculopathy, unspecified cervical region (principal); M51.16 Intervertebral disc disorders with radiculopathy, lumbar region
CPT/HCPCS: 99212

== ENCOUNTER → 2019-01-20 07:55 | Outpatient (POV) | payer MEDICARE, OTHER, SELFPAY ==
--- NOTE | 2019-01-20 08:29 | HMH.PMCON ---
Assessment and Plan - Assessment and plan all Dx Assessment and Plan for all problems:: Mluuovgmgr-bbu-mt-life status, pain stimulator generator Plan-patient has upcoming shoulder surgery. After that procedure she will undergo removal and replacement of her pain stimulator generator HPI - Data of Consult Patient: new to practice Consult date: 01/20/19 Requesting Physician: Larry Gandara MD Primary Care Provider: Romulo Francis MD - Consult Narrative Reason for consult: End of life, pain stimulator generator History of present illness: Ms. Pennington is a 68 year old female who is referred for removal and replacement of pain stimulator generator. He this was replaced in the past approximately 11 years ago and is nearing end-of-life status. CC: Larry Gandara MD Back pain [facility] History I have reviewed the patient's past medical history: Yes Medical History: Reports:: Cancer, Diabetes Mellitus Type 2, Hyperlipidemia Denies:: Diabetes Mellitus Type 1, Internal Pacemaker, Lung Disease, MRSA, Seizures *Have you ever received a pneumonia vaccine?: Yes *Have you received a flu vaccine this season?: Yes Other Medical History: Reports: Arthritis. Denies: Blood Transfusion Reaction Comment:: Illnesses-degenerative disc disease of the cervical and lumbar spine, diabetes mellitus, GERD, hyperlipidemia, history of lung cancer Other Surgeries: No: Pacemaker Amputation: No Fractures: No Comment: Operations-TMJ surgery, cervical disc surgery, right wrist and ankle surgery, neurostimulator placement and replacement, cataract surgery, lung cancer surgery - *Social History Smoking Status: Never smoker Alcohol Intake: never *Occupational Status:: other Housing: house Household Members: spouse *Travel in the last 8 weeks: None Family Hx:: Cancer Review of Systems - Review of Systems Review of systems:: pertinent systems reviewed and negative unless documented below Meds Home Medications Medication Instructions Recorded Confirmed Type Dapagliflozin/Metformin HCl 1 each PO DAILY 08/08/17 03/11/18 History [Xigduo Xr 10 mg-1,000 mg Tab] Calcium Carbonate [Calcium] 500 mg PO DAILY 01/07/18 03/11/18 History Escitalopram Oxalate 10 mg PO DAILY 01/07/18 03/11/18 History Ibuprofen [Ibuprofen 600mg 600 mg PO DAILY 01/07/18 03/11/18 History Tablet] Omeprazole [Omeprazole 20mg 20 mg PO DAILY 01/07/18 03/11/18 History Capsule] Oxycodone HCl/Acetaminophen 0 each PO TID 01/07/18 03/11/18 History [Oxycodone W/Apap 325mg Tablet] Simvastatin 20 mg PO DAILY 01/07/18 03/11/18 History Syrge-Ndl,Ins 0.3 ml Half Lázaro 1 each MC DAILY 01/07/18 03/11/18 History [Insulin Syringe] Insulin Glargine,Hum.rec.anlog 20 unit SQ DAILY 01/26/18 03/11/18 History [Basaglar Kwikpen U-100] Allergies Allergy/AdvReac Type Severity Reaction Status Date / Time hydrocodone Allergy Intermediate I-HIVES Verified 03/11/18 10:05 [From Hycodan (with homatropin)] prednisone Allergy Intermediate I-HIVES Verified 03/11/18 10:05 sulfamethoxazole Allergy Intermediate I-HIVES Verified 03/11/18 10:05 [From Bactrim] trimethoprim [From Bactrim] Allergy Intermediate I-HIVES Verified 03/11/18 10:05 Objective Comments: Pale white female in no distress - *Routine Respiratory Exam Comments: Chest clear - *Routine Cardiovascular Exam Present: RRR - *Routine Abdominal Exam Present: soft
--- NOTE | 2019-01-20 08:33 | P.CONS_ITS ---
Assessment and Plan - Assessment and plan all Dx Assessment and Plan for all problems:: Iztsjhdxcg-iys-bj-life status, pain stimulator generator Plan-patient has upcoming shoulder surgery. After that procedure she will undergo removal and replacement of her pain stimulator generator HPI - Data of Consult Patient: new to practice Consult date: 01/20/19 Requesting Physician: Larry Gandara MD Primary Care Provider: Romulo Francis MD - Consult Narrative Reason for consult: End of life, pain stimulator generator History of present illness: Ms. Pennington is a 68 year old female who is referred for removal and replacement of pain stimulator generator. He this was replaced in the past approximately 11 years ago and is nearing end-of-life status. CC: Larry Gandara MD Back pain [facility] History I have reviewed the patient's past medical history: Yes Medical History: Reports:: Cancer, Diabetes Mellitus Type 2, Hyperlipidemia Denies:: Diabetes Mellitus Type 1, Internal Pacemaker, Lung Disease, MRSA, Seizures *Have you ever received a pneumonia vaccine?: Yes *Have you received a flu vaccine this season?: Yes Other Medical History: Reports: Arthritis. Denies: Blood Transfusion Reaction Comment:: Illnesses-degenerative disc disease of the cervical and lumbar spine, diabetes mellitus, GERD, hyperlipidemia, history of lung cancer Other Surgeries: No: Pacemaker Amputation: No Fractures: No Comment: Operations-TMJ surgery, cervical disc surgery, right wrist and ankle surgery, neurostimulator placement and replacement, cataract surgery, lung cancer surgery - *Social History Smoking Status: Never smoker Alcohol Intake: never *Occupational Status:: other Housing: house Household Members: spouse *Travel in the last 8 weeks: None Family Hx:: Cancer Review of Systems - Review of Systems Review of systems:: pertinent systems reviewed and negative unless documented below Meds Home Medications Medication Instructions Recorded Confirmed Type Dapagliflozin/Metformin HCl 1 each PO DAILY 08/08/17 03/11/18 History [Xigduo Xr 10 mg-1,000 mg Tab] Calcium Carbonate [Calcium] 500 mg PO DAILY 01/07/18 03/11/18 History Escitalopram Oxalate 10 mg PO DAILY 01/07/18 03/11/18 History Ibuprofen [Ibuprofen 600mg 600 mg PO DAILY 01/07/18 03/11/18 History Tablet] Omeprazole [Omeprazole 20mg 20 mg PO DAILY 01/07/18 03/11/18 History Capsule] Oxycodone HCl/Acetaminophen 0 each PO TID 01/07/18 03/11/18 History [Oxycodone W/Apap 325mg Tablet] Simvastatin 20 mg PO DAILY 01/07/18 03/11/18 History Syrge-Ndl,Ins 0.3 ml Half Lázaro 1 each MC DAILY 01/07/18 03/11/18 History [Insulin Syringe] Insulin Glargine,Hum.rec.anlog 20 unit SQ DAILY 01/26/18 03/11/18 History [Basaglar Kwikpen U-100] Allergies Allergy/AdvReac Type Severity Reaction Status Date / Time hydrocodone Allergy Intermediate I-HIVES Verified 03/11/18 10:05 [From Hycodan (with homatropin)] prednisone Allergy Intermediate I-HIVES Verified 03/11/18 10:05 sulfamethoxazole Allergy Intermediate I-HIVES Verified 03/11/18 10:05 [From Bactrim] trimethoprim [From Bactrim] Allergy Intermediate I-HIVES Verified 03/11/18 10:05 Objective Comments: Pale white female in no distress - *R
== END ==
PROVIDERS: PCP Family Medicine; Visit Provider Surgery
DX: Z45.1 Encounter for adjustment and management of infusion pump (principal)

== ENCOUNTER → 2019-03-03 11:40 | Outpatient (CLI) | payer MEDICARE, OTHER, SELFPAY ==
--- NOTE | 2019-03-03 11:43 | XR_ITS ---
PROCEDURE: XR SHOULDER RT MIN 2V CLINICAL INDICATION: right shoulder pain COMPARISON: [id number] VIEWS from 01/26/2013 SHOU3R [id number] VIEWS from 02/03/2015 SHOULDCMRT XR shoulder RT min 2V from 11/26/2017 FINDINGS: There are mild to moderate osteoarthritic changes of the glenohumeral joint with mild superior location of the humeral head. No fracture or dislocation. No lytic or blastic change. The AC joint has an unremarkable appearance. IMPRESSION: No change mild to moderate osteoarthritic change of the glenohumeral joint Dictated by: Wade Calvo MD 03/03/2019 12:31 Electronically signed by Wade Calvo MD in [place] 03/03/2019 12:31
== END ==
PROVIDERS: PCP Family Medicine; Visit Provider Orthopaedic Surgery
DX: M25.511 Pain in right shoulder (principal)
CPT/HCPCS: 73030

== ENCOUNTER 2019-03-03 14:36 | Outpatient (RCR) | payer MEDICARE, OTHER, SELFPAY | END 2019-03-03 14:53 | disposition home or self-care (01) | LOC: OT 14:36 | PROVIDERS: Visit Provider Orthopaedic Surgery | DX: G56.01 Carpal tunnel syndrome, right upper limb (principal) | CPT/HCPCS: 97763 ==

== ENCOUNTER → 2019-04-19 10:30 | Outpatient (POV) | payer MEDICARE, OTHER, SELFPAY ==
[2019-04-19 11:05] VITALS: BP 133/90; PULSE 88; RESP 18; O2SAT 99; BMI 27.4
--- NOTE | 2019-04-19 12:14 | HMH.PAINSOAP ---
[facility] Pain Management SOAP Note Subjective:: Patient is a very pleasant 68-year-old white female who presents today for medication refills. Patient is being treated for low back pain with lumbar radiculopathy symptoms. Patient has a [employer] spinal cord stimulator. She says that it is at end-of-life and she is scheduled to undergo a generator change, however, she is also scheduled for shoulder surgery. Patient says that Dr. Rivera's office did request an MRI, however, she was unable to undergo the MRI secondary to her spinal cord stimulator. She says she did try to explain this to Dr. Rivera's office, however, they were telling the patient that she was refusing the MRI . Patient says she is not refusing any type of treatment, that understands she is unable to undergo an MRI with her stimulator. Patient would like to postpone her generator change out until she completes her shoulder surgery. Patient also reports that her sister recently . She says that she is having a lot mental stress at this time. She says that she feels this is increased her pain. She was very close with her sister and says that she is having a hard time grieving at this time. She does, however, say that her medication regimen is working for her and gives her approximately 40% relief until she can get her stimulator working again. She does rate her pain is 7 out of 10 today. Patient is medically managed with Percocet 5 mg 1 tablet p.o. 4 times daily. She denies any side effects to her medications. Her Farhan #[id number] has been reviewed and is appropriate. Urine drug screens have been appropriate. Review of Systems General: No recent weight changes, no fever, no sleep disturbances Respiratory: No cough, no shortness of air, no recurring pulmonary infections Cardiovascular/peripheral vascular: No chest pain, no palpitations, no edema, no shortness of breath Gastrointestinal: No new onset incontinence, normal bowel movements reported Genitourinary: No new onset incontinence Musculoskeletal: Shoulder pain, low back pain Psychiatric: Normal mood/affect Neurological: [Denies weakness in extremities], [denies balance issues] Objective:: Physical exam General: Alert and oriented x3, no acute distress, pleasant and cooperative, [on room air] Lungs: Respirations even and unlabored, symmetrical chest expansion Eyes: PERRL Musculoskeletal: Flexion and extension of lumbar spine somewhat guarded secondary to pain, deep tendon reflexes normal, strength in upper and lower extremities [5/5], [abnormal gait noted] Neurological: Speech clear, defensive line coach equal, no gross sensory deficit Assessment:: Degenerative disc disease lumbar spine with lumbar radiculopathy symptoms Plan:: We will refill patient's Percocet 5 mg 1 tablet p.o. 4 times daily. She will continue with anti-inflammatories and a home stretching program. Following the patient's shoulder surgery, we will plan for the patient to undergo her generator change for her stimulator. We will also contact Dr. Rivera's office to inform them of why the patient cannot undergo an MRI. We will see the patient back in the clinic in 3 months to reassess her symptoms. We will give the patient 2 months worth of medication and she can shrimp picker her third month in the interim. Patient has been instructed to contact the clinic if she has any concerns before her next appointment. [facility] History I have reviewed the patient's past medical history: Yes Medical History: Reports:: Anxiety, Cancer (Lung), Depression, Diabetes Mellitus Type 2, Gastroesophageal Reflux Disease(GERD), Hyperlipidemia, Osteoporosis Denies:: Diabetes Mellitus Type 1, Internal Pacemaker, Lung Disease, MRSA, Seizures *Have you ever received a pneumonia vaccine?: Yes *Have you received a flu vaccine this season?: Yes Other Medical History: Reports: Arthritis, Osteoporosis. Denies: Blood Transfusion Reaction Laterality Cases: Right: Other
== END ==
PROVIDERS: PCP Family Medicine; Visit Provider Clinical Nurse Specialist Family Health
DX: M51.16 Intervertebral disc disorders with radiculopathy, lumbar region (principal)
CPT/HCPCS: 99212

== ENCOUNTER → 2019-07-05 12:38 | Outpatient (POV) | payer MEDICARE, OTHER, SELFPAY ==
[2019-07-05 13:07] VITALS: BP 152/77; PULSE 85; RESP 18; O2SAT 99
--- NOTE | 2019-07-05 13:18 | P.CONS_ITS ---
[facility] Pain Management SOAP Note Subjective:: Patient is a pleasant 68-year-old white female who presents today for medication refills he is being treated for low back pain with lumbar radiculopathy. Patient has a [employer] spinal cord stimulator which is at the end of life. At this time due to the factors in her personal life she is not wanting to move forward with the replacement. She does have surgery pending with Dr. Rivera for her shoulder. She rates her pain a 6 out of 10. She is currently on Percocet 5 mg 1 p.o. 4 times daily. She denies any side effects from this medication. She states it helps up to 80%. Patient's Farhan #[id number] reviewed and appropriate. ROS General: no recent weight change, no fever, no sleep disturbances Respiratory: no cough, no shortness of air, no recurring pulmonary infections Cardiovascular/Peripheral Vascular: No chest pain, No palpitations, no edema, no shortness of breath. Gastrointestinal: no new onset incontinence, normal bowel movements reported Genitourinary: no new onset incontinence Musculoskeletal: Back pain Psychiatric: normal mood/ affect Neurological: [denies new onset weakness in extremities], [denies new onset balance issues] Objective:: Physical Exam General: Alert and oriented x3, no acute distress, pleasant and cooperative, [on room air] Lungs: Resps E/U, Symmetrical chest expansion, Eyes: PERRL Musculoskeletal: Flexion and extension of lumbar spine somewhat guarded secondary to pain, deep tendon reflexes normal, strength in upper and lower extremities [5/5], [abnormal gait noted] Neurological: speech clear, foreign student adviser teacher equal, no gross sensory deficits Assessment:: Degenerative disc disease lumbar spine with lumbar radiculopathy Plan:: I will refill the patient's Percocet 5 mg 1 p.o. 4 times daily and give her 2 months worth of medication she can picker/puller the third month in her. I will follow-up with her in 3 months reassess her symptoms at that time she has been instructed to call the office if she has any issues prior to her next appointment. Dr. Del Real has reviewed this note and agrees with this plan of care. This note was dictated using voice recognition software and may contain errors or omissions [facility] History I have reviewed the patient's past medical history: Yes Medical History: Reports:: Anxiety, Cancer (Lung), Depression, Diabetes Mellitus Type 2, Gastroesophageal Reflux Disease(GERD), Hyperlipidemia, Osteoporosis Denies:: Diabetes Mellitus Type 1, Internal Pacemaker, Lung Disease, MRSA, Seizures *Have you ever received a pneumonia vaccine?: Yes *Have you received a flu vaccine this season?: Yes Other Medical History: Reports: Arthritis, Osteoporosis. Denies: Blood Transfusion Reaction Laterality Cases: Right: Other (RT wrist/ RT ankle) Other Surgeries: Yes: Cancer Surgery, Colonoscopy. No: Pacemaker Amputation: No Fractures: No - *Social History Smoking Status: Never smoker Alcohol Intake: never *Occupational Status:: other Housing: house Household Members: spouse *Travel in the last 8 weeks: None - Psychiatric History Pschychiatric History:: Reports:: Anxiety, Depression Family Hx:: Cancer
[2019-07-05 18:45] LABS: Amphetamine/Metha Screen,Urine Negative ng/ml (<1000); Barbiturates Screen,Urine Negative ng/ml (<200)
[2019-07-05 18:46] LABS: Benzodiazepines Screen,Urine Negative ng/ml (<200)
[2019-07-05 18:47] LABS: Cannabinoid Screen,Urine Negative ng/ml (<50); Cocaine Screen,Urine Negative ng/ml (<300)
[2019-07-05 18:48] LABS: Methadone Screen,Urine Negative ng/ml (<300); Opiate Screen,Urine Positive ng/ml (<300)
[2019-07-05 18:49] LABS: Phencyclidine Screen,Urine Negative ng/ml (<25)
[2019-07-10 03:14] LABS: Oxycodone (GC/MS) >3000 ng/mL (Cutoff=100)
[2019-07-10 20:41] LABS: Opiates Negative (Cutoff=100); Oxymorphone (GC/MS) >3000 ng/mL (Cutoff=100)
== END ==
PROVIDERS: PCP Family Medicine; Visit Provider Clinical Nurse Specialist Family Health
DX: M51.16 Intervertebral disc disorders with radiculopathy, lumbar region (principal); Z79.899 Other long term (current) drug therapy
CPT/HCPCS: 80305; 80361; 80365; 99212; G0480

== ENCOUNTER → 2019-07-14 06:22 | Outpatient (CLI) | payer MEDICARE, OTHER, SELFPAY ==
--- NOTE | 2019-07-14 06:54 | NM_ITS ---
APPROVED REPORT Exam: Nuclear Stress Test Indication: SOB, DM, High cholesterol, Former tobacco use, Family history Patient Location: Outpatient Stress Tech: Aure Flores PA Tech:Ivet Hoover, ARRT, RT (R)(N) Ht: 5 ft 6 in Wt: 173 lbs Bra Size: 40C HR: 72 bpm BP: 158/87 mmHg BSA: 1.88 m2 BMI: 27.9 History: SOB, DM, High cholesterol, Former tobacco use, Family history Procedure: Patient received a 0.4 mg of intravenous Lexiscan, resting heart rate 72 bpm, resting blood pressure 158/87 mmHg, with Lexiscan maximum heart rate achived was 105 bpm which is % of the maximum predicted heart rate and blood pressure was 133/99 mmHg. With Lexiscan, patient denied any complaint of chest pain. Cardiac Stress and Resting SPECT Images: Cardiac Stress and Resting SPECT images were obtained using technetium 99m Myoview 30.3 mCi stress and 10.13 mCi at rest. EF normal at 72% with no wall motion abnormalities No fixed or reversible defects Conclusion: Normal exam Electronically signed by : Wade Calvo MD 07/14/2019 17:12:40
--- NOTE | 2019-07-14 07:24 | HMH.ITSHM ---
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 []SIMVASTATIN OXYCODONE OMEPRAZOLE INSULIN IBUPROFEN ESCITALOPRAM METFORMIN CALCIUM
--- NOTE | 2019-07-14 08:00 | CA_ITS ---
APPROVED REPORT Exam: Pharmacologic Technologist: VERNELL JOHNSON, Ht: 5 ft 6 in Wt: 173 lbs BSA: 1.88 m2 HR: 72 bpm BP: 158/87 mmHg Rhythm: NSR Indications: CP Medical History Medications: Omeprazole,,,,, Metformin,,,,, Escitalopram,,,,, INSULIN,,,,, Calcium,,,,, Ibuprofen,,,,, OxYCODONE,,,,, SimIVASTATIN,,,,, Stress Test Details Test: LEXISCAN Reversal agent Aminophyline 100.0 mg, given intravenously for nauseadyspnea. HR Resting HR: 77 bpm Max Heart Rate (APMHR): 152 bpm Max HR Achieved: 106 bpm Target HR (85% APMHR): 129 bpm % of APMHR: 69 Recovery HR: 98 bpm BP Resting BP: 158/87 mmHg Max BP: 169/78 mmHg Recovery BP: 169.0/78.0 mmHg ECG Clinical Reason for Termination: Completed protocol Exercise duration: 04:01 min Highest Stage Achieved: Exercise capacity: 1.0 METs Stress ECG Conclusion Symptoms - SOA, stomach cramps, malaise, - no chest pain. No arrhythmias No ST-T changes. Conclusion - Umremarkable Lexiscan stree. Myoview images reported separately. Test Summary REST . . . . . . . Sitting REST 05:32 . . 77 . 158/ 87 . . Stage 1 01:00 . . 86 . . . . Stage 2 01:00 . . 102 . 160/ 86 . . Stage 3 01:00 . . 105 . 133/ 99 . . Stage 4 01:00 . . 99 . 154/ 78 . . Stage 4 01:01 . . 99 . 154/ 78 . Stop exercise at 04:01 RECOVERY 01:00 . . 95 . . . . RECOVERY 02:00 . . 92 . 164/ 86 . . RECOVERY 03:00 . . 96 . 151/ 80 . . RECOVERY 04:00 . . 96 . 151/ 80 . . RECOVERY 05:00 . . 100 . 169/ 78 . . RECOVERY 05:14 . . 94 . 169/ 78 . . Electronically signed by : Amos Cleveland, 07/15/2019 12:04:27
== END ==
PROVIDERS: PCP Family Medicine; Visit Provider Family Medicine
DX: I20.8 Other forms of angina pectoris (principal)
CPT/HCPCS: 78452; 93017; A9502; J2785

== ENCOUNTER → 2019-07-22 12:48 | Outpatient (CLI) | payer MEDICARE, OTHER, SELFPAY ==
--- NOTE | 2019-07-22 13:02 | CT_ITS ---
PROCEDURE: CT SHOULDER RT W CON CLINICAL HISTORY: CT arthrogram; evaluate for rotator cuff tear COMPARISON: IR ARTHROGRAM SHOULDER RT from 07/22/2019 TECHNIQUE: Axial images obtained with sagittal and coronal reformats. All CT scans at the facility use one or more dose reduction, viz: automated exposure control, ma/kV adjustment per patient size (including targeted exams where dose is matched to indication, i.e. head), or iterative reconstruction technique. FINDINGS: There is appropriate localization of contrast within the shoulder joint with no evidence of contrast in the infra acromial region. No evidence of rotator cuff tear. There is some irregularity of the superior aspect of the glenoid labrum best demonstrated on the oblique coronal re-formatted images suggesting a nondisplaced SLAP lesion of the superior labrum. The bicipital tendon is in place. Prominent osteophyte formation is present involving the humeral head anteriorly.. IMPRESSION: 1. No evidence of rotator cuff tear. 2. SLAP lesion of the glenoid labrum 3. Osteoarthritic change Dictated by: Wade Calvo MD 07/24/2019 08:57 Electronically signed by Wade Calvo MD in [place] 07/24/2019 08:57
--- NOTE | 2019-07-22 13:02 | IR_ITS ---
PROCEDURE: IR ARTHROGRAM SHOULDER RT CLINICAL INDICATION: CT arthogram; evaluate for rotator cuff tear Right shoulder pain with limited range of motion COMPARISON: XR SHOULDER RT MIN 2V from 03/03/2019 FINDINGS: Technique: Following obtaining informed consent and time-out procedure with fluoroscopic guidance and local anesthesia with 1 percent buffered lidocaine, a 22 gauge spinal needle was inserted into the shoulder joint capsule via the anterior approach. Approximately 10 mL of a 50: 50 mixture of Optiray 320 and lidocaine was injected into the shoulder joint. The patient tolerated the procedure well without evidence of immediate complication. Post exercise images within obtained. The patient was then taken to CT with thin section images were obtained with multiplanar reformats. Fluoroscopy time: 39 seconds There are mild osteoarthritic changes of the glenohumeral joint with mild superior location of the humeral head. There is appropriate localization of the contrast with no evidence of rotator cuff tear. Contrast injected easily with no evidence of adhesive capsulitis. IMPRESSION: 1. No evidence of rotator cuff tear. Please see CT arthrography report 2. Mild osteoarthritic change Dictated by: Wade Calvo MD 07/24/2019 08:32 Electronically signed by Wade Calvo MD in [place] 07/24/2019 08:32
== END ==
PROVIDERS: PCP Family Medicine; Visit Provider Orthopaedic Surgery
DX: G89.29 Other chronic pain (principal); M25.511 Pain in right shoulder
CPT/HCPCS: 73040; 73201; Q9967

== ENCOUNTER → 2019-09-20 14:25 | Outpatient (POV) | payer MEDICARE, OTHER, SELFPAY | PROVIDERS: PCP Specialist; Visit Provider Specialist | DX: M79.601 Pain in right arm (principal); R20.2 Paresthesia of skin | CPT/HCPCS: 95886; 95908 ==

== ENCOUNTER → 2019-10-05 10:05 | Outpatient (POV) | payer MEDICARE, OTHER, SELFPAY ==
[2019-10-05 10:27] VITALS: BP 148/75; PULSE 75; RESP 18; TEMP 36.8; O2SAT 97; BMI 27.4
--- NOTE | 2019-10-05 15:23 | HMH.PAINSOAP ---
[facility] Pain Management SOAP Note Subjective:: Patient is a pleasant 68-year-old white female who presents today for medication refills. She is being treated for low back pain with lumbar radiculopathy. She has a [employer] spinal cord stimulator which is at the end of life. At this time due to the factors in her personal life she is not wanting to move forward with a replacement. She has surgery pending with Dr. Rivera for her shoulder. She rates her pain a 7 out of 10 which is getting worse and worse. She is unable to take injective therapy due to a severe reaction to steroids. Patient and I discussed adding Lyrica to her Percocet regimen. She is currently on Percocet 5 mg 1 p.o. 4 times daily. [facility] #[id number] reviewed and appropriate. Urine drug screens have been appropriate. ROS General: no recent weight change, no fever, no sleep disturbances Respiratory: no cough, no shortness of air, no recurring pulmonary infections Cardiovascular/Peripheral Vascular: No chest pain, No palpitations, no edema, no shortness of breath. Gastrointestinal: no new onset incontinence, normal bowel movements reported Genitourinary: no new onset incontinence Musculoskeletal: Back pain, leg pain Psychiatric: normal mood/ affect Neurological: [denies new onset weakness in extremities], [denies new onset balance issues] Objective:: Physical Exam General: Alert and oriented x3, no acute distress, pleasant and cooperative, [on room air] Lungs: Resps E/U, Symmetrical chest expansion, Eyes: PERRL Musculoskeletal: Flexion and extension of lumbar spine somewhat guarded secondary to pain, deep tendon reflexes normal, strength in upper and lower extremities [5/5], [abnormal gait noted] Neurological: speech clear, account services manager equal, no gross sensory deficits Assessment:: Degenerative disc disease lumbar spine with lumbar radiculopathy and shoulder pain Plan:: We will refill the patient's Percocet 5 mg 1 p.o. 4 times daily give her 2 months with medication. We will also start her on Lyrica 75 mg 1 p.o. twice daily. I will follow-up with her 1 month reassess her symptoms at that time she has been instructed to call the office if she has any issues prior to her next appointment. Dr. Del Real has reviewed this note and agrees with this plan of care. This note was dictated using voice recognition software and may contain errors or omissions Patient has been prescribed a controlled substance after being counseled on the medication, medication safety, and possible side effects. CLAUDIO report has been obtained and reviewed prior to prescription and found to be appropriate. Opioid contract was reviewed and signed by the patient, and that they have agreed to all of the terms set forth by our compliance program. [facility] History I have reviewed the patient's past medical history: Yes Medical History: Reports:: Anxiety, Cancer, Depression, Diabetes Mellitus Type 2, Gastroesophageal Reflux Disease(GERD), Hyperlipidemia, Osteoporosis Denies:: Diabetes Mellitus Type 1, Internal Pacemaker, Lung Disease, MRSA, Seizures *Have you ever received a pneumonia vaccine?: Yes *Have you received a flu vaccine this season?: Yes Other Medical History: Reports: Arthritis, Osteoporosis. Denies: Blood Transfusion Reaction Laterality Cases: Right: Other Other Surgeries: Yes: Cancer Surgery, Colonoscopy. No: Pacemaker Amputation: No Fractures: No - *Social History Smoking Status: Never smoker Alcohol Intake: never *Occupational Status:: other Housing: house Household Members: spouse *Travel in the last 8 weeks: None - Psychiatric History Pschychiatric History:: Reports:: Anxiety, Depression Family Hx:: Cancer
== END ==
PROVIDERS: PCP Family Medicine; Visit Provider Clinical Nurse Specialist Family Health
DX: M51.16 Intervertebral disc disorders with radiculopathy, lumbar region (principal); M25.519 Pain in unspecified shoulder
CPT/HCPCS: 99212

== ENCOUNTER → 2019-10-26 11:07 | Outpatient (POV) | payer MEDICARE, OTHER, SELFPAY ==
[2019-10-26 11:47] VITALS: BP 131/78; PULSE 86; RESP 18; O2SAT 99; BMI 27.4
--- NOTE | 2019-10-26 14:48 | HMH.PAINSOAP ---
[facility] Pain Management SOAP Note Subjective:: Patient is a pleasant 68-year-old white female who presents today for medication refills. She is being treated for low back pain with lumbar radiculopathy. She has a [employer] spinal cord stimulator which is at end-of-life. At this time due to the factors in her personal life she is not wanting to move forward with a replacement. She is currently on Percocet 5 mg 1 p.o. 4 times daily we started her on Lyrica 75 mg 1 p.o. twice daily. She is doing well with this. Claudio reviewed and appropriate. We will continue her on this. She rates her pain a 7 out of 10. ROS General: no recent weight change, no fever, no sleep disturbances Respiratory: no cough, no shortness of air, no recurring pulmonary infections Cardiovascular/Peripheral Vascular: No chest pain, No palpitations, no edema, no shortness of breath. Gastrointestinal: no new onset incontinence, normal bowel movements reported Genitourinary: no new onset incontinence Musculoskeletal: Back pain, leg pain Psychiatric: normal mood/ affect Neurological: [denies new onset weakness in extremities], [denies new onset balance issues] Objective:: Physical Exam General: Alert and oriented x3, no acute distress, pleasant and cooperative, [on room air] Lungs: Resps E/U, Symmetrical chest expansion, Eyes: PERRL Musculoskeletal: Flexion and extension of lumbar spine somewhat guarded secondary to pain, deep tendon reflexes normal, strength in upper and lower extremities [5/5], slightly antalgic gait noted Neurological: speech clear, transverse abdominal muscle surgeon equal, no gross sensory deficits Assessment:: Degenerative disc disease lumbar spine with radiculopathy and shoulder pain Plan:: We will continue her Percocet 5 mg 1 p.o. 4 times daily and her Lyrica 75 mg 1 p.o. twice daily. We will follow-up with her in 3 months reassess her symptoms at that time she has been instructed to call the office if she has any issues prior to her next appointment. Claudio #[id number] reviewed and appropriate. Patient has been prescribed a controlled substance after being counseled on the medication, medication safety, and possible side effects. CLAUDIO report has been obtained and reviewed prior to prescription and found to be appropriate. Opioid contract was reviewed and signed by the patient, and that they have agreed to all of the terms set forth by our compliance program. Dr. Del Real has reviewed this note and agrees with this plan of care. This note was dictated using voice recognition software and may contain errors or omissions [facility] History I have reviewed the patient's past medical history: Yes Medical History: Reports:: Anxiety, Cancer, Depression, Diabetes Mellitus Type 2, Gastroesophageal Reflux Disease(GERD), Hyperlipidemia, Osteoporosis Denies:: Diabetes Mellitus Type 1, Internal Pacemaker, Lung Disease, MRSA, Seizures *Have you ever received a pneumonia vaccine?: Yes *Have you received a flu vaccine this season?: Yes Other Medical History: Reports: Arthritis, Osteoporosis. Denies: Blood Transfusion Reaction Laterality Cases: Right: Other Other Surgeries: Yes: Cancer Surgery, Colonoscopy. No: Pacemaker Amputation: No Fractures: No - *Social History Smoking Status: Never smoker Alcohol Intake: never *Occupational Status:: other Housing: house Household Members: spouse *Travel in the last 8 weeks: None - Psychiatric History Pschychiatric History:: Reports:: Anxiety, Depression Family Hx:: Cancer
== END ==
PROVIDERS: PCP Family Medicine; Visit Provider Clinical Nurse Specialist Family Health
DX: M51.16 Intervertebral disc disorders with radiculopathy, lumbar region (principal); M25.519 Pain in unspecified shoulder
CPT/HCPCS: 99212

== ENCOUNTER → 2020-01-31 11:01 | Outpatient (POV) | payer MEDICARE, OTHER, SELFPAY ==
[2020-01-31 11:19] VITALS: BP 154/89; PULSE 89; RESP 18; TEMP 36.8; O2SAT 98; BMI 27.4
--- NOTE | 2020-01-31 12:00 | HMH.PAINSOAP ---
[facility] Pain Management SOAP Note Subjective:: Patient is a pleasant 69-year-old white female who presents today for medication refills. She is being treated for pain secondary to lumbar degenerative disc disease and lumbar radiculopathy. She has a [employer] stimulator which is at end-of-life. Patient however is currently caring for her who has been diagnosed with stage IV cancer he is also been recently admitted into the hospital for blood clots in his lungs. At this time patient would like to hold off on any kind of adjustment in her regimen or replacement of her stimulator until things improve in her personal life. Claudio #[id number] reviewed and appropriate. Currently she is on Percocet 5 mg 1 p.o. 4 times daily. She denies side effects to this medication. She states that helps significantly. She rates her pain today an 8 out of 10. ROS General: no recent weight change, no fever, no sleep disturbances Respiratory: no cough, no shortness of air, no recurring pulmonary infections Cardiovascular/Peripheral Vascular: No chest pain, No palpitations, no edema, no shortness of breath. Gastrointestinal: no new onset incontinence, normal bowel movements reported Genitourinary: no new onset incontinence Musculoskeletal: Back pain, leg pain Psychiatric: normal mood/ affect Neurological: [denies new onset weakness in extremities], [denies new onset balance issues] Objective:: Physical Exam General: Alert and oriented x3, no acute distress, pleasant and cooperative, [on room air] Lungs: Resps E/U, Symmetrical chest expansion, Eyes: PERRL Musculoskeletal: Flexion and extension of lumbar spine somewhat guarded secondary to pain, deep tendon reflexes normal, strength in upper and lower extremities [5/5], [abnormal gait noted] Neurological: speech clear, pharm tech equal, no gross sensory deficits Assessment:: Degenerative disc disease lumbar spine lumbar radiculopathy Plan:: We will refill the patient's Percocet 5 mg 1 p.o. 4 times daily. She is due to fill on February 11. I will follow-up with her in 3 months reassess her symptoms at that time she has been instructed to call the office if she has any issues prior to her next appointment. Patient has been prescribed a controlled substance after being counseled on the medication, medication safety, and possible side effects. CLAUDIO report has been obtained and reviewed prior to prescription and found to be appropriate. Opioid contract was reviewed and signed by the patient, and that they have agreed to all of the terms set forth by our compliance program. Dr. Del Real has reviewed this note and agrees with this plan of care. This note was dictated using voice recognition software and may contain errors or omissions [facility] History I have reviewed the patient's past medical history: Yes Medical History: Reports:: Anxiety, Cancer, Depression, Diabetes Mellitus Type 2, Gastroesophageal Reflux Disease(GERD), Hyperlipidemia, Osteoporosis Denies:: Diabetes Mellitus Type 1, Internal Pacemaker, Lung Disease, MRSA, Seizures *Have you ever received a pneumonia vaccine?: Yes *Have you received a flu vaccine this season?: Yes Other Medical History: Reports: Arthritis, Osteoporosis. Denies: Blood Transfusion Reaction Laterality Cases: Right: Other Other Surgeries: Yes: Cancer Surgery, Colonoscopy. No: Pacemaker Amputation: No Fractures: No - *Social History Smoking Status: Never smoker Alcohol Intake: never *Occupational Status:: other Housing: house Household Members: spouse *Travel in the last 8 weeks: None - Psychiatric History Pschychiatric History:: Reports:: Anxiety, Depression Family Hx:: Cancer
== END ==
PROVIDERS: PCP Family Medicine; Visit Provider Clinical Nurse Specialist Family Health
DX: M51.36 Other intervertebral disc degeneration, lumbar region (principal)
CPT/HCPCS: 99212

== ENCOUNTER → 2020-05-01 11:22 | Outpatient (POV) | payer MEDICARE, OTHER, SELFPAY ==
[2020-05-01 11:44] VITALS: BP 133/77; PULSE 74; RESP 18; TEMP 36.8; O2SAT 98; BMI 28.2
--- NOTE | 2020-05-01 12:23 | P.CONS_ITS ---
[facility] Pain Management SOAP Note Subjective:: Patient is a pleasant 69-year-old white female who presents today for follow-up and medication refills. We are currently treating her for pain secondary to degenerative disc disease lumbar spine with lumbar radiculopathy. Patient's recently . Patient also is recently overcome Covid. She is currently on Percocet 5 mg 1 p.o. 4 times a day. She denies side effects to this medication. She states that is beneficial. Patient is having a lot of right SI joint pain. She rates her pain today a 7 out of 10. Patient has had SI joint injections in the past with good relief. She would like to repeat this. She has a positive Yasir test Rebekah's test SI joint compression test a nd distraction test on the right side. [facility] #[id number] reviewed and appropriate. ROS General: no recent weight change, no fever, no sleep disturbances Respiratory: no cough, no shortness of air, no recurring pulmonary infections Cardiovascular/Peripheral Vascular: No chest pain, No palpitations, no edema, no shortness of breath. Gastrointestinal: no new onset incontinence, normal bowel movements reported Genitourinary: no new onset incontinence Musculoskeletal: Back pain, SI joint pain Psychiatric: normal mood/ affect, Neurological: [denies new onset weakness in extremities], [denies new onset balance issues] Objective:: Physical Exam General: Alert and oriented x3, no acute distress, pleasant and cooperative, [on room air] Lungs: Resps E/U, Symmetrical chest expansion, Eyes: PERRL Musculoskeletal: Flexion and extension of lumbar spine somewhat guarded secondary to pain, deep tendon reflexes normal, strength in upper and lower extremities [5/5], [abnormal gait noted] Neurological: speech clear, director of vital statistics equal, no gross sensory deficits Assessment:: Degenerative disc disease lumbar spine lumbar radiculopathy Plan:: We will set the patient up for right SI joint injection. We will continue her Percocet at this time. Patient has tried over 6 months of conservative therapy. Patient does have a [employer] stimulator that is end-of-life. Patient and I discussed replacing this at a more opportune time for her. I will follow- up with her after her injection reassess her symptoms at that time she has been instructed to call the office if she has any issues prior to her next appointment. Dr. Del Real has reviewed this note and agrees with this plan of care. This note was dictated using voice recognition software and may contain errors or omissions [facility] History I have reviewed the patient's past medical history: Yes Medical History: Reports:: Anxiety, Cancer, Depression, Diabetes Mellitus Type 2, Gastroesophageal Reflux Disease(GERD), Hyperlipidemia, Osteoporosis Denies:: Diabetes Mellitus Type 1, Internal Pacemaker, Lung Disease, MRSA, Seizures *Have you ever received a pneumonia vaccine?: Yes *Have you received a flu vaccine this season?: Yes Other Medical History: Reports: Arthritis, Osteoporosis. Denies: Blood Transfusion Reaction Laterality Cases: Right: Other Other Surgeries: Yes: Cancer Surgery, Colonoscopy. No: Pacemaker Amputation: No Fractures: No - *Social History Smoking Status: Never smoker Alcohol Intake: never *Occupational Status:: other Housing: house Household Members: spouse *Travel in the last 8 weeks: None - Psychiatric History Pschychiatric History:: Reports:: Anxiety, Depression Family Hx:: Cancer
== END ==
PROVIDERS: PCP Family Medicine; Visit Provider Clinical Nurse Specialist Family Health
DX: M46.1 Sacroiliitis, not elsewhere classified (principal); M51.16 Intervertebral disc disorders with radiculopathy, lumbar region
CPT/HCPCS: 99212

== ENCOUNTER 2020-05-12 09:38 | Day surgery (SDC) | payer MEDICARE, OTHER, SELFPAY ==
[2020-05-12 10:11] VITALS: BP 141/84; PULSE 75; RESP 18; TEMP 36.4; O2SAT 98; BMI 28.2
[2020-05-12 10:42] LABS: POC Glucose,Bedside 133 (70-110)
[2020-05-12 10:52] VITALS: BP 132/85; PULSE 85; RESP 18
[2020-05-12 10:53] VITALS: BP 133/74; PULSE 85; RESP 18; O2SAT 98
--- NOTE | 2020-05-12 10:54 | HMH.PMPROC ---
- Procedure Date: 05/12/20 Time: 10:54 Anesthesiologist:: Hemant Del Real MD Complications:: None Pre-procedure Diagnosis:: Sacroiliitis Post-procedure Diagnosis:: Same Indications for Procedure:: Patient is a pleasant 69-year-old white female who we are treating for low back pain with lumbar radicular symptoms. She is having some increasing pain over her right SI joint. She is tender over her right SI joint. She has a positive Rebekah's test on the right side. She has a positive Yasir test on the right side. She has a positive SI joint compression test on the right side. She is positive SI distraction test on the right side. We will do a right SI joint injection under fluoroscopy today to help her with her pain symptoms. Procedure Details:: Right SI joint injection under fluoroscopy Informed consent was obtained and the risks and benefits of the procedure was going to the patient. Patient was taken to the procedure room. Patient was placed prone on the procedure table. The right hip was prepped using ChloraPrep. The skin and subcutaneous tissues were anesthetized using lidocaine. I placed a 22-gauge spinal needle into the inferior aspect of the right SI joint. Needle placement was confirmed with dye. After this we injected 5 mL bupivacaine 0.25% and Depo-Medrol 40 mg into the right SI joint. The patient tolerated the procedure well with no complication. Plan and Disposition:: We will follow-up with her in 2 weeks. Will reevaluate symptoms at that time.
[2020-05-12 11:00] VITALS: BP 160/76; PULSE 74; RESP 18; O2SAT 98
== END 2020-05-12 11:00 | disposition home or self-care (01) ==
LOC: SC.PAINP 09:39
PROVIDERS: PCP Family Medicine; Visit Provider Anesthesiology
DX: M46.1 Sacroiliitis, not elsewhere classified (principal); I10 Essential (primary) hypertension; E11.9 Type 2 diabetes mellitus without complications; K21.9 Gastro-esophageal reflux disease without esophagitis; F41.9 Anxiety disorder, unspecified; F32.9 Major depressive disorder, single episode, unspecified; Z85.118 Personal history of other malignant neoplasm of bronchus and lung; Z88.2 Allergy status to sulfonamides; Z79.899 Other long term (current) drug therapy; Z79.4 Long term (current) use of insulin
CPT/HCPCS: 27096; 82962; G0260; J1040; Q9966

== ENCOUNTER → 2020-06-08 10:57 | Outpatient (POV) | payer MEDICARE, OTHER, SELFPAY ==
[2020-06-08 11:19] VITALS: BP 138/88; PULSE 65; RESP 18; TEMP 36.8; O2SAT 98; BMI 28.2
--- NOTE | 2020-06-08 13:05 | P.CONS_ITS ---
[facility] Pain Management SOAP Note Subjective:: Patient is pleasant 69-year-old white female who presents today for follow-up after right SI joint injection. Patient got no relief from this. She rates her pain a 7 out of 10. Patient had a reaction to the medication having itching and other issues. Patient is also being medically managed with Percocet 5 mg 1 p.o. 4 times daily. She denies any issues with this. Patient Claudio #[id number] reviewed and appropriate. Patient currently does not need refills. We will continue these medications. ROS General: no recent weight change, no fever, no sleep disturbances Respiratory: no cough, no shortness of air, no recurring pulmonary infections Cardiovascular/Peripheral Vascular: No chest pain, No palpitations, no edema, no shortness of breath. Gastrointestinal: no new onset incontinence, normal bowel movements reported Genitourinary: no new onset incontinence Musculoskeletal: Back pain, leg pain Psychiatric: normal mood/ affect Neurological: [denies new onset weakness in extremities], [denies new onset balance issues] Objective:: Physical Exam General: Alert and oriented x3, no acute distress, pleasant and cooperative, [on room air] Lungs: Resps E/U, Symmetrical chest expansion, Eyes: PERRL Musculoskeletal: Flexion and extension of lumbar spine somewhat guarded secondary to pain, deep tendon reflexes normal, strength in upper and lower extremities [5/5], antalgic gait noted Neurological: speech clear, chain builder loom control equal, no gross sensory deficits Assessment:: Degenerative disc disease lumbar spine lumbar radiculopathy, sacroiliitis, back pain Plan:: we will Continue her medications Percocet 5 mg 1 p.o. 3 times daily. We'll see her back in 3 months reassess her symptoms at that time she has been instructed to call the office if she has any issues prior to her next appointment. Dr. Del Real has reviewed this note and agrees with this plan of care. This note was dictated using voice recognition software and may contain errors or omissions Patient has been prescribed a controlled substance after being counseled on the medication, medication safety, and possible side effects. CLAUDIO report has been obtained and reviewed prior to prescription and found to be appropriate. Opioid contract was reviewed and signed by the patient, and that they have agreed to all of the terms set forth by our compliance program. [facility] History I have reviewed the patient's past medical history: Yes Medical History: Reports:: Anxiety, Cancer, Depression, Diabetes Mellitus Type 1, Gastroesophageal Reflux Disease(GERD), Hyperlipidemia, Osteoporosis Denies:: Diabetes Mellitus Type 2, Internal Pacemaker, Lung Disease, MRSA, Seizures *Have you ever received a pneumonia vaccine?: Yes *Have you received a flu vaccine this season?: Yes Other Medical History: Reports: Arthritis, Osteoporosis. Denies: Blood Transfusion Reaction Laterality Cases: Right: Other Other Surgeries: Yes: Cancer Surgery (lobectomy right lung), Colonoscopy, Other (TMJ). No: Pacemaker Amputation: No Fractures: No - *Social History Smoking Status: Never smoker Alcohol Intake: never *Occupational Status:: other Housing: house Household Members: spouse *Travel in the last 8 weeks: None - Psychiatric History Pschychiatric History:: Reports:: Anxiety, Depression Family Hx:: Cancer
== END ==
PROVIDERS: PCP Family Medicine; Visit Provider Clinical Nurse Specialist Family Health
DX: M51.16 Intervertebral disc disorders with radiculopathy, lumbar region (principal); M46.1 Sacroiliitis, not elsewhere classified; M54.9 Dorsalgia, unspecified
CPT/HCPCS: 99212; G0463

== ENCOUNTER → 2020-09-07 09:15 | Outpatient (POV) | payer MEDICARE, OTHER, SELFPAY ==
[2020-09-07 09:29] VITALS: BP 154/83; PULSE 78; RESP 18; O2SAT 98; BMI 27.9
--- NOTE | 2020-09-07 09:44 | P.CONS_ITS ---
[facility] Pain Management SOAP Note Subjective:: She is a pleasant 69-year-old white female who presents today for follow-up. Patient currently rates her pain a 7 out of 10. Patient has bilateral shoulder pain. She would like a second orthopedic opinion. We will send her to Dr. Jensen again at [facility]. Patient currently not medically managed with Percocet 5 mg 1 p.o. 4 times daily for Claudio #[id number]. Patient denies any side effects to her medication and states that it is beneficial for her. ROS General: no recent weight change, no fever, no sleep disturbances Respiratory: no cough, no shortness of air, no recurring pulmonary infections Cardiovascular/Peripheral Vascular: No chest pain, No palpitations, no edema, no shortness of breath. Gastrointestinal: no new onset incontinence, normal bowel movements reported Genitourinary: no new onset incontinence Musculoskeletal: Back pain, leg pain, shoulder pain Psychiatric: normal mood/ affect Neurological: [denies new onset weakness in extremities], [denies new onset balance issues] Objective:: Physical Exam General: Alert and oriented x3, no acute distress, pleasant and cooperative, [on room air] Lungs: Resps E/U, Symmetrical chest expansion, Eyes: PERRL Musculoskeletal: Flexion and extension of lumbar spine somewhat guarded secondary to pain, deep tendon reflexes normal, strength in upper and lower extremities [5/5], slightly antalgic gait noted Neurological: speech clear, recreational therapy aide equal, no gross sensory deficits Assessment:: Degenerative disc disease lumbar spine lumbar radiculopathy, shoulder pain Plan:: We will set the patient to [facility] to Dr. Beyer for consultation in regards to her shoulders we will continue her Percocet 5 mg 1 p.o. 4 times daily. Patient's been instructed to call the office if she has any issues prior to her next appointment. We will follow up with her in 2 months reassess her symptoms at that time she has been instructed to call the office if she has any issues prior to her next appointment. Patient has been prescribed a controlled substance after being counseled on the medication, medication safety, and possible side effects. CLAUDIO report has been obtained and reviewed prior to prescription and found to be appropriate. Opioid contract was reviewed and signed by the patient, and that they have agreed to all of the terms set forth by our compliance program. Dr. Del Real has reviewed this note and agrees with this plan of care. This note was dictated using voice recognition software and may contain errors or omissions [facility] History I have reviewed the patient's past medical history: Yes Medical History: Reports:: Anxiety, Cancer, Depression, Diabetes Mellitus Type 1, Gastroesophageal Reflux Disease(GERD), Hyperlipidemia, Osteoporosis Denies:: Diabetes Mellitus Type 2, Internal Pacemaker, Lung Disease, MRSA, Seizures *Have you ever received a pneumonia vaccine?: Yes *Have you received a flu vaccine this season?: Yes Other Medical History: Reports: Arthritis, Osteoporosis. Denies: Blood Transfusion Reaction Laterality Cases: Right: Other Other Surgeries: Yes: Cancer Surgery (lobectomy right lung), Colonoscopy, Other (TMJ). No: Pacemaker Amputation: No Fractures: No - *Social History Smoking Status: Never smoker Alcohol Intake: never *Occupational Status:: other Housing: house Household Members: spouse *Travel in the last 8 weeks: None - Psychiatric History Pschychiatric History:: Reports:: Anxiety, Depression Family Hx:: Cancer
== END ==
PROVIDERS: Visit Provider Clinical Nurse Specialist Family Health
DX: M51.16 Intervertebral disc disorders with radiculopathy, lumbar region (principal); M25.519 Pain in unspecified shoulder
CPT/HCPCS: 99212; G0463

== ENCOUNTER → 2020-10-21 11:15 | Outpatient (CLI) | payer MEDICARE, OTHER, SELFPAY | PROVIDERS: Visit Provider Ophthalmology | DX: Z01.812 Encounter for preprocedural laboratory examination (principal); Z20.822 Contact with and (suspected) exposure to COVID-19 | CPT/HCPCS: U0003 ==

== ENCOUNTER → 2020-11-09 09:29 | Outpatient (POV) | payer MEDICARE, OTHER, SELFPAY ==
--- NOTE | 2020-11-09 10:11 | HMH.PAINSOAP ---
[facility] Pain Management SOAP Note Subjective:: Patient is a pleasant 69-year-old white female who presents today for follow-up. Patient is being treated for bilateral shoulder pain. She is also having worsening neck pain. She has tried injective therapy in our clinic in the past, however, did have a reaction to steroids despite lowering the dose of steroids she received. She was sent to Dr. Rivera back to our clinic. He did recommend the patient undergo shoulder surgery, however, she feels her pain is lower than her shoulders. As a result she was referred to [facility] for assessment of her cervical spine. She says they will be undergoing studies of her cervical spine on November 29. She has had cervical spine surgery in the past with Dr. Dempsey. She is managed in our clinic with Percocet 5 mg 1 tablet p.o. 4 times daily. She denies any side effects. The medicine is working well for her at this time. Her Claudio #[id number] has been reviewed. It is appropriate. Drug screen is appropriate. Patient does have a history of chronic low back pain as well. Review of Systems General: No recent weight changes, no fever, no sleep disturbances Respiratory: No cough, no shortness of air, no recurring pulmonary infections Cardiovascular/peripheral vascular: No chest pain, no palpitations, no edema, no shortness of breath Gastrointestinal: No new onset incontinence, normal bowel movements reported Genitourinary: No new onset incontinence Musculoskeletal: Neck pain Psychiatric: Normal mood/affect Neurological: [Denies weakness in extremities], [denies balance issues] Objective:: Physical exam General: Alert and oriented x3, no acute distress, pleasant and cooperative, [on room air] Lungs: Respirations even and unlabored, symmetrical chest expansion Eyes: PERRL Musculoskeletal: Flexion and extension of [] cervical and lumbar spine somewhat guarded secondary to pain, deep tendon reflexes normal, strength in upper and lower extremities [5/5], normal gait noted Neurological: Speech clear, cook fast food equal, no gross sensory deficit Assessment:: Degenerative disc disease cervical spine with cervical radicular symptoms, shoulder pain, degenerative disc disease lumbar spine with lumbar radiculopathy symptoms Plan:: We will refill the patient's Percocet 5 mg 1 tablet p.o. 4 times daily. She will get a month medication be seen in the clinic in 1 month for reevaluation of symptoms. Patient has been prescribed a controlled substance after being counseled on the medication, medication safety, and possible side effects. CLAUDIO report has been obtained and reviewed prior to prescription and found to be appropriate. Opioid contract was reviewed and signed by the patient, and that they have agreed to all of the terms set forth by our compliance program. Risks and benefits of the medication have been explained in detail to the patient. The patient has been advised to consult with his/her primary care provider and pharmacist regarding drug-drug interaction of medications currently prescribed. Patient has been instructed to contact the clinic with any concerns before the next appointment. Dr. Del Real has reviewed this note and agrees with this plan of care. This note was dictated using voice recognition software and make contain errors or omissions. [facility] History I have reviewed the patient's past medical history: Yes Medical History: Reports:: Anxiety, Cancer (lung), Depression, Diabetes Mellitus Type 2, Gastroesophageal Reflux Disease(GERD), Hyperlipidemia, Osteoporosis Denies:: Diabetes Mellitus Type 1, Internal Pacemaker, Lung Disease, MRSA, Seizures *Have you ever received a pneumonia vaccine?: Yes *Have you received a flu vaccine this season?: Yes Other Medical History: Reports: Arthritis, Osteoporosis. Denies: Blood Transfusion Reaction Laterality Cases: Right: Other Other Surgeries: Yes: Cancer Surgery (lobectomy right lung), Colonoscopy, Other (TMJ). N
[2020-11-09 10:26] VITALS: BP 149/84; PULSE 80; RESP 18; O2SAT 95; BMI 27.7
== END ==
PROVIDERS: Visit Provider Clinical Nurse Specialist Family Health
DX: M50.10 Cervical disc disorder with radiculopathy, unspecified cervical region (principal); M25.519 Pain in unspecified shoulder; M51.16 Intervertebral disc disorders with radiculopathy, lumbar region
CPT/HCPCS: 99212; G0463

== ENCOUNTER → 2020-12-07 09:23 | Outpatient (POV) | payer MEDICARE, OTHER, SELFPAY ==
[2020-12-07 09:34] VITALS: BP 154/76; PULSE 83; RESP 18; O2SAT 95; BMI 27.4
--- NOTE | 2020-12-07 09:37 | HMH.PAINSOAP ---
[facility] Pain Management SOAP Note Subjective:: Patient is a pleasant 70-year-old white female that presents today for follow-up and medication refills. Patient is currently being treated for degenerative disc disease of the cervical and lumbar spine with cervical and lumbar radiculopathy symptoms. The patient is currently also being treated at [facility] for discomfort in her neck and shoulder. The patient states that they are going to deaden the nerves in her neck. Apparently she went to [facility] for her shoulder and they determined that it might be coming from her neck so they started the process of RFA procedures to her neck. Patient is currently managed with Percocet five 1 tablet p.o. 4 times a day from our office. She states that this medication combination with are helping her discomfort. She is needing refills on this prescription her Farhan number she has active morphine 30. Objective:: Physical exam General: Alert and oriented x3 no acute distress, pleasant and cooperative, [on room air] Lungs: Respirations even and unlabored, symmetrical chest expansion Eyes: PERRL Musculoskeletal: Flexion and extension of the cervical and lumbar spine nonguarded, deep tendon reflexes normal, strength in upper and lower extremities 5 out of 5 normal gait noted Neurological: Speech clear, teletypewriter installer equal, no gross sensory deficit Assessment:: Degenerative disc disease of the cervical and lumbar spine with cervical and lumbar radiculopathy, shoulder pain Plan:: We will continue the patient's Percocet five 1 tablet p.o. 4 times a day. We will provide the patient with 1 month worth of medication refills. Will need to follow-up with the patient in the clinic in 1 month. She is welcome to contact clinic prior to her next appointment date if she has any questions or concerns. Dr. Del Real has reviewed this note and agrees with this plan of care. This note was dictated using voice recognition software and make contain errors or omissions. [facility] History Medical History: Reports:: Anxiety, Cancer (lung), Depression, Diabetes Mellitus Type 2, Gastroesophageal Reflux Disease(GERD), Hyperlipidemia, Osteoporosis Denies:: Diabetes Mellitus Type 1, Internal Pacemaker, Lung Disease, MRSA, Seizures *Have you ever received a pneumonia vaccine?: Yes *Have you received a flu vaccine this season?: Yes Other Medical History: Reports: Arthritis, Osteoporosis. Denies: Blood Transfusion Reaction Laterality Cases: Right: Other Other Surgeries: Yes: Cancer Surgery (lobectomy right lung), Colonoscopy, Other (TMJ). No: Pacemaker Amputation: No Fractures: No - *Social History Smoking Status: Never smoker Alcohol Intake: current Alcohol Intake Frequency:: holidays/special occasions only *Occupational Status:: unemployed Housing: house Household Members: spouse *Travel in the last 8 weeks: None - Psychiatric History Pschychiatric History:: Reports:: Anxiety, Depression Family Hx:: Cancer
== END ==
PROVIDERS: Visit Provider Family Medicine
DX: M50.10 Cervical disc disorder with radiculopathy, unspecified cervical region (principal); M51.16 Intervertebral disc disorders with radiculopathy, lumbar region; M25.519 Pain in unspecified shoulder
CPT/HCPCS: 99212; G0463

== ENCOUNTER → 2021-01-22 10:47 | Outpatient (POV) | payer MEDICARE, OTHER, SELFPAY ==
[2021-01-22 11:15] VITALS: BP 155/90; PULSE 83; RESP 18; O2SAT 97; BMI 28.0
--- NOTE | 2021-01-22 11:15 | HMH.PAINSOAP ---
[facility] Pain Management SOAP Note Subjective:: Patient is a 70-year-old white female who presents today for follow-up. She is being treated for degenerative disc disease lumbar spine with lumbar radiculopathy symptoms and degenerative disc disease cervical spine with cervical radicular symptoms. She does see [facility] as well for injective therapy. She is continued to have significant pain in her neck and low back. She reports to have a side effect to corticosteroids. When she does undergo injective therapy it is with lidocaine only. She is scheduled for an RFA of her cervical spine at [facility]. She is complaining of right low back pain with radiation into her right buttock and right hip today. She is also having severe right groin pain. The pain is worse when she is standing in 1 spot for prolonged period. She has tried a SI injection in the past, however, due to inability to have corticosteroid, the injection is short-term. We did discuss corner lock versus RFA. Patient is currently scheduled for cervical RFA at [facility]. She would like to complete this procedure and then discuss possible SI RFA in our clinic. She is managed in our clinic with oral medications of Percocet 5 mg 1 tablet p.o. 4 times daily. She denies any side effects to the medication. Patient is not due this medication until 02/10/2021. Patient was scheduled early for a follow-up appointment. Review of Systems General: No recent weight changes, no fever, no sleep disturbances Respiratory: No cough, no shortness of air, no recurring pulmonary infections Cardiovascular/peripheral vascular: No chest pain, no palpitations, no edema, no shortness of breath Gastrointestinal: No new onset incontinence, normal bowel movements reported Genitourinary: No new onset incontinence Musculoskeletal: Neck pain, bilateral arm pain, low back pain with radiation into right groin and right buttock and right hip Psychiatric: [Normal mood/affect] Neurological: [Denies weakness in extremities], [denies balance issues] Objective:: Physical exam General: Alert and oriented x3, no acute distress, pleasant and cooperative, [on room air] Lungs: Respirations even and unlabored, symmetrical chest expansion Eyes: PERRL Musculoskeletal: Flexion and extension of cervical and lumbar [spine] somewhat guarded secondary to pain, strength in upper and lower extremities [5/5], [antalgic gait noted], positive Rebekah's test, positive distraction test, positive compression test, positive Shira's test Neurological: Speech clear, [roll examiner equal], no gross sensory deficit Assessment:: Degenerative disc disease cervical and lumbar spine with cervical and lumbar radicular symptoms, facet arthropathy cervical spine, sacroiliitis right Plan:: We will refill the patient's Percocet 5 mg 1 tablet p.o. 4 times daily. She will get a month medication. We will also order the patient compounding cream to apply topically to her cervical lumbar spine as well as her SI joint right side. We will follow-up with the patient in 1 month for reevaluation of symptoms. Risks and benefits of the medication have been explained in detail to the patient. The patient has been advised to consult with his/her primary care provider and pharmacist regarding drug-drug interaction of medications currently prescribed. Patient has been prescribed a controlled substance after being counseled on the medication, medication safety, and possible side effects. CLAUDIO report has been obtained and reviewed prior to prescription and found to be appropriate. Opioid contract was reviewed and signed by the patient, and that they have agreed to all of the terms set forth by our compliance program. Patient has been instructed to contact the clinic with any concerns before the next appointment. Dr. Del Real has reviewed this note and agrees with this plan of care. This note was dictated using voice recognition softw
== END ==
PROVIDERS: Visit Provider Clinical Nurse Specialist Family Health
DX: M50.10 Cervical disc disorder with radiculopathy, unspecified cervical region (principal); M51.16 Intervertebral disc disorders with radiculopathy, lumbar region; M46.1 Sacroiliitis, not elsewhere classified; M47.896 Other spondylosis, lumbar region
CPT/HCPCS: 99212; G0463

== ENCOUNTER → 2021-02-12 09:57 | Outpatient (POV) | payer MEDICARE, OTHER, SELFPAY ==
[2021-02-12 10:26] VITALS: BP 153/86; PULSE 65; RESP 18; O2SAT 96; BMI 27.4
--- NOTE | 2021-02-12 10:40 | HMH.PAINSOAP ---
[facility] Pain Management SOAP Note Subjective:: Patient is a 70-year-old white female who presents today for follow-up. The patient is having low back pain with radiation into bilateral hips. Patient says that it is worse with standing. She is also having pain that is worse with bending forward and with extension at waist. She did undergo injective therapy in the past with corticosteroids, but had a severe reaction. The patient rates her pain a 7 out of 10 today. She says that she feels as though her legs are starting to weaken. She has taken gabapentin as well as Lyrica in the past and has not gotten any significant relief. She does have numbness in her bilateral lower extremities. She has had a lumbar epidural steroid injection in the past but got no significant relief. She does say undergoing injective therapy with lidocaine only does give her short-term relief. She says the pain gets worse when she is standing in 1 spot for prolonged periods such as well washing dishes or when cooking. Patient does have cervical RFA scheduled at [facility]. She understands we will not be able to perform injective therapy until she completes the RFA at [facility]. She does get Percocet 5 mg 1 tablet p.o. nightly day with her clinic as well. She does not need refills at this time. Review of Systems General: No recent weight changes, no fever, no sleep disturbances Respiratory: No cough, no shortness of air, no recurring pulmonary infections Cardiovascular/peripheral vascular: No chest pain, no palpitations, no edema, no shortness of breath Gastrointestinal: No new onset incontinence, normal bowel movements reported Genitourinary: No new onset incontinence Musculoskeletal: Low back pain with radiation into hips Psychiatric: [Normal mood/affect] Neurological: [Denies weakness in extremities], [denies balance issues] Objective:: Physical exam General: Alert and oriented x3, no acute distress, pleasant and cooperative Lungs: Respirations even and unlabored, symmetrical chest expansion Eyes: PERRL Musculoskeletal: Flexion and extension of lumbar [spine] somewhat guarded secondary to pain, [antalgic gait noted] Neurological: Speech clear, no gross sensory deficit Assessment:: 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 She does have pain with extension and twisting at waist. She will be having an RFA at the [facility] [place]. Following that RFA, we we will schedule her for the medial branch block/facet joint injections to the lumbar spine. She is continue with home stretching. She has tried failed conservative therapies of physical therapy for more than 6 weeks and has tried taking oral anti-inflammatories. She also uses compounding cream and Percocet. She is starting to develop worsening symptoms in her lower extremities with numbness and tingling as well. Gabapentin and Lyrica have not worked for the patient in the past. Epidural steroid injections have not given the patient relief. Patient is not on any anticoagulation therapy. Possible side effects of corticosteroids have been discussed with the patient. Risks and benefits of the procedure have been explained to the patient. Patient would like to proceed with the procedure. Patient has been instructed to contact the clinic with any concerns before the next appointment. Dr. Del Real has reviewed this note and agrees with this plan of care. This note was dictated using voice recognition software and make contain errors or omissions. [facility] History I have reviewed the patient's past medical history: Yes Medical History: Reports:: Anxiety, Cancer (lung), Depression, Diabetes Mellitus Type 2, Gastroesophageal Reflux Disease(GERD), Hyperlipidemia, Osteoporosis Denies:: Diabetes Mellitus T
== END ==
PROVIDERS: Visit Provider Clinical Nurse Specialist Family Health
DX: M51.36 Other intervertebral disc degeneration, lumbar region (principal); M47.816 Spondylosis without myelopathy or radiculopathy, lumbar region; M54.06 Panniculitis affecting regions of neck and back, lumbar region
CPT/HCPCS: 99212; G0463

== ENCOUNTER → 2021-03-20 11:07 | Outpatient (POV) | payer MEDICARE, OTHER, SELFPAY ==
[2021-03-20 11:38] VITALS: BP 147/82; PULSE 91; RESP 18; O2SAT 96; BMI 28.2
--- NOTE | 2021-03-20 12:26 | HMH.PAINSOAP ---
[facility] Pain Management SOAP Note Subjective:: Patient is a 70-year-old white female who presents today for medication review. The patient has chronic low back pain with radiation into bilateral legs and hips. Pain is made worse with standing and walking. She has had injective therapy in the past but does not do well with the injections. She had a severe reaction to the corticosteroids in the past. She does have weakness in her bilateral lower extremities. She has tried gabapentin as well as Lyrica in the past and has not gotten any significant relief. She did have a fall approximately 2 weeks ago. She has declined imaging at this time. We do manage patient with Percocet 5 mg 1 tablet p.o. 4 times daily. She denies any side effects to the medication. Does not need refills. [facility] #[id number] has been reviewed and is appropriate. Directions are appropriate. Morphine equivalent 30. She is reporting to be having significant depression since loss of her . She does say her medication for depression was recently changed. She feels that she is now numb and void since changing the medication dosing. She does report to be having a difficult time with coping. She denies any suicidal ideation or thoughts of harm. She does rate her pain an 8 out of 10 today. Review of Systems General: No recent weight changes, no fever, no sleep disturbances Respiratory: No cough, no shortness of air, no recurring pulmonary infections Cardiovascular/peripheral vascular: No chest pain, no palpitations, no edema, no shortness of breath Gastrointestinal: No new onset incontinence, normal bowel movements reported Genitourinary: No new onset incontinence Musculoskeletal: Low back pain with radiation into bilateral lower extremities with heaviness and weakness Psychiatric: [Normal mood/affect] Neurological: Heaviness weakness bilateral lower extremities Objective:: Physical exam General: Alert and oriented x3, no acute distress, pleasant and cooperative Lungs: Respirations even and unlabored, symmetrical chest expansion Eyes: PERRL Musculoskeletal: Flexion and extension of lumbar [spine] somewhat guarded secondary to pain, [antalgic gait noted] Neurological: Speech clear, no gross sensory deficit Assessment:: Degenerative disc disease lumbar spine with lumbar radiculopathy symptoms Plan:: We will continue the patient's Percocet 10 mg 1 tablet p.o. 4 times daily. She has deferred on any imaging at this time. Patient is having difficult time coping loss of her 1 year ago. We discussed a behavioral health referral to see if this will help with some of her symptoms and medication adjustment. Patient is on Lexapro and says that her dose was recently increased. She does not feel that that has helped but has caused her to become stoic. We will get her a referral to behavioral health implant see the patient back in 1 month for medication refill. Risks and benefits of the medication have been explained in detail to the patient. The patient does understand the risk of dependence on the medication when given over a prolonged period. Patient has been advised of risks of oversedation with the prescribed medication. Narcan has been offered to the paitent in the event of oversedation. Patient has been advised that a family member should also be educated regarding administration of Narcan. The patient has been advised to consult with his/her primary care provider and pharmacist regarding drug-drug interaction of medications currently prescribed. Patient has been prescribed a controlled substance after being counseled on the medication, medication safety, and possible side effects. CLAUDIO report has been obtained and reviewed prior to prescription and found to be appropriate. Opioid contract was reviewed and signed by the patient, and that they have agreed to all of the terms set forth by our compliance program. Patient has been in
[2021-03-20 13:28] LABS: Amphetamine/Metha Screen,Urine Negative ng/ml (<1000); Benzodiazepines Screen,Urine Negative ng/ml (<200)
[2021-03-20 13:29] LABS: Barbiturates Screen,Urine Negative ng/ml (<200)
[2021-03-20 13:30] LABS: Cannabinoid Screen,Urine Negative ng/ml (<50); Cocaine Screen,Urine Negative ng/ml (<300)
[2021-03-20 13:31] LABS: Methadone Screen,Urine Negative ng/ml (<300); Opiate Screen,Urine Positive ng/ml (<300)
[2021-03-20 13:32] LABS: Phencyclidine Screen,Urine Negative ng/ml (<25)
== END ==
PROVIDERS: Visit Provider Clinical Nurse Specialist Family Health
DX: M51.16 Intervertebral disc disorders with radiculopathy, lumbar region (principal); Z79.891 Long term (current) use of opiate analgesic
CPT/HCPCS: 80305; 99212; G0463

== ENCOUNTER → 2021-04-23 10:12 | Outpatient (POV) | payer MEDICARE, OTHER, SELFPAY ==
[2021-04-23 10:42] VITALS: BP 144/84; PULSE 84; RESP 18; O2SAT 95; BMI 28.2
--- NOTE | 2021-04-23 11:15 | HMH.PAINSOAP ---
[facility] Pain Management SOAP Note Subjective:: Patient is a pleasant 70-year-old female who comes in here today for follow-up and medication refills. She is currently being treated for degenerative disc disease of the lumbar spine with lumbar radiculopathy symptoms. Patient is currently being managed with Percocet 5 mg / 325 mg 4 times a day. Patient denies any side effects from this medication. Patient denies any change to location type of pain. Patient also states that she has a [employer] stimulator that was placed 12 years ago that she currently is not using. At some point next year, she wants to start her stimulator again. She says that she has similar things going on right now including oral surgery that she does not have time to get her stimulator going again. She rates her pain today as 7 out of 10. Her Claudio number is [id number] with an active morphine equivalent of 30. Review of Systems General: No recent weight changes, no fever, no sleep disturbances Respiratory: No cough, no shortness of air, no recurring pulmonary infections Cardiovascular/peripheral vascular: No chest pain, no palpitations, no edema, no shortness of breath Gastrointestinal: No new onset incontinence, normal bowel movements reported Genitourinary: No new onset incontinence Musculoskeletal: Low back pain Psychiatric: [Normal mood/affect] Neurological: [Denies weakness in extremities], [denies balance issues] Objective:: Physical exam General: Alert and oriented x3, no acute distress, pleasant and cooperative Lungs: Respirations even and unlabored, symmetrical chest expansion Eyes: PERRL Musculoskeletal: Flexion and extension of lumbar [spine] somewhat guarded secondary to pain, [antalgic gait noted] Neurological: Speech clear, no gross sensory deficit Assessment:: Degenerative disc disease of the lumbar spine with lumbar radiculopathy Plan:: We will continue the patient's Percocet 5 mg 4 times a day. We will provide the patient with [1 month] of refills. We would like to see the patient back in [1 month] for follow-up. Risks and benefits of the medication have been explained in detail to the patient. The patient does understand the risk of dependence on the medication when given over a prolonged period. Patient has been advised of risks of oversedation with the prescribed medication. Narcan has been offered to the paitent in the event of oversedation. Patient has been advised that a family member should also be educated regarding administration of Narcan. The patient has been advised to consult with his/her primary care provider and pharmacist regarding drug-drug interaction of medications currently prescribed. Patient has been prescribed a controlled substance after being counseled on the medication, medication safety, and possible side effects. CLAUDIO report has been obtained and reviewed prior to prescription and found to be appropriate. Opioid contract was reviewed and signed by the patient, and that they have agreed to all of the terms set forth by our compliance program. Patient has been instructed to contact the clinic with any concerns before the next appointment. Dr. Del Real has reviewed this note and agrees with this plan of care. This note was dictated using voice recognition software and make contain errors or omissions. [facility] History Medical History: Reports:: Anxiety, Cancer (lung), Depression, Diabetes Mellitus Type 2, Gastroesophageal Reflux Disease(GERD), Hyperlipidemia, Osteoporosis Denies:: Diabetes Mellitus Type 1, Internal Pacemaker, Lung Disease, MRSA, Seizures *Have you ever received a pneumonia vaccine?: Yes *Have you received a flu vaccine this season?: Yes Other Medical History: Reports: Arthritis, Osteoporosis. Denies: Blood Transfusion Reaction Laterality Cases: Right: Other Other Surgeries: Yes: Cancer Surgery (lobectomy right lung), Colonoscopy, Other (TMJ). No: Pacemaker Amputation: No
== END ==
PROVIDERS: Visit Provider Clinical Nurse Specialist Family Health
DX: M51.16 Intervertebral disc disorders with radiculopathy, lumbar region (principal)
CPT/HCPCS: 99212; G0463

== ENCOUNTER → 2021-06-04 08:41 | Outpatient (POV) | payer MEDICARE, OTHER, SELFPAY ==
--- NOTE | 2021-06-04 08:59 | HMH.PAINSOAP ---
[facility] Pain Management SOAP Note Subjective:: Patient is a pleasant 70-year-old female who comes in today for follow-up and medication refills. Patient is being treated for degenerative disc disease of lumbar spine with lumbar radiculopathy symptoms and osteoarthritis of shoulders, knees, hands. Patient is currently being managed with Percocet 5 mg 4 times a day. Patient denies any side effects from this medication. Today, patient is complaining of increasing pain on her joints. She is seeing ortho for this and was getting injections from them until she got reactions from the steroid injections. She feels like the Percocet is not helping her as much however, she states that she cannot take any higher dose than what she is taking because she gets a itchiness. Patient also has a [employer] stimulator has been placed 12 years ago. She says that she is not using this at the moment. She wants to turn it back on after her oral surgery in July. She rates her pain today as 7 out of 10. Her Farhan number is [id number] with an active morphine equivalent of 30. ORT score is 0, low risk. Drug screens have been reviewed and appropriate. Review of Systems General: No recent weight changes, no fever, no sleep disturbances Respiratory: No cough, no shortness of air, no recurring pulmonary infections Cardiovascular/peripheral vascular: No chest pain, no palpitations, no edema, no shortness of breath Gastrointestinal: No new onset incontinence, normal bowel movements reported Genitourinary: No new onset incontinence Musculoskeletal: Low back pain, joint pains Psychiatric: [Normal mood/affect] Neurological: [Denies weakness in extremities], [denies balance issues] Objective:: Physical exam General: Alert and oriented x3, no acute distress, pleasant and cooperative Lungs: Respirations even and unlabored, symmetrical chest expansion Eyes: PERRL Musculoskeletal: Flexion and extension of lumbar [spine] somewhat guarded secondary to pain, limited range of motion of shoulders and knees secondary to pain. Neurological: Speech clear, no gross sensory deficit Assessment:: Degenerative disease of lumbar spine with lumbar radiculopathy symptoms Osteoarthritis of the shoulders, hands, and knees Plan:: We will continue the patient's Percocet 5 mg 4 times a day. We will also start the patient on meloxicam 5 mg daily. Patient needs to take this medication with meals all the time. We will provide the patient with [1 month] of refills. We would like to see the patient back in [1 month] for follow-up and reevaluation of chronic pain syndrome. Patient likes the idea of scheduling joint injections with us in the future. She also would like to turn her stimulator on after her oral surgery in July. We will revisit this idea in July. Patient has been instructed to contact the clinic with any concerns before the next appointment. Dr. Del Real has reviewed this note and agrees with this plan of care. This note was dictated using voice recognition software and make contain errors or omissions. [facility] History Medical History: Reports:: Anxiety, Cancer (lung), Depression, Diabetes Mellitus Type 2, Gastroesophageal Reflux Disease(GERD), Hyperlipidemia, Osteoporosis Denies:: Diabetes Mellitus Type 1, Internal Pacemaker, Lung Disease, MRSA, Seizures *Have you ever received a pneumonia vaccine?: Yes *Have you received a flu vaccine this season?: Yes Other Medical History: Reports: Arthritis, Osteoporosis. Denies: Blood Transfusion Reaction Laterality Cases: Right: Other Other Surgeries: Yes: Cancer Surgery (lobectomy right lung), Colonoscopy, Other (TMJ). No: Pacemaker Amputation: No Fractures: No - *Social History Smoking Status: Never smoker Alcohol Intake: current Alcohol Intake Frequency:: holidays/special occasions only *Occupational Status:: unemployed Housing: house Household Members: spouse *Travel in the last 8 weeks: Inside
[2021-06-04 09:23] VITALS: BP 144/90; PULSE 85; RESP 18; O2SAT 95; BMI 27.4
== END ==
PROVIDERS: Visit Provider Clinical Nurse Specialist Family Health
DX: M51.16 Intervertebral disc disorders with radiculopathy, lumbar region (principal); M19.019 Primary osteoarthritis, unspecified shoulder; M19.049 Primary osteoarthritis, unspecified hand; M17.10 Unilateral primary osteoarthritis, unspecified knee
CPT/HCPCS: 99212; G0463

== ENCOUNTER → 2021-07-02 13:50 | Outpatient (POV) | payer MEDICARE, OTHER, SELFPAY ==
[2021-07-02 14:08] VITALS: BP 146/72; PULSE 88; RESP 20; O2SAT 94; BMI 27.9
[2021-07-02 17:08] LABS: Barbiturates Screen,Urine Negative ng/ml (<200); Benzodiazepines Screen,Urine Negative ng/ml (<200)
[2021-07-02 17:09] LABS: Cannabinoid Screen,Urine Negative ng/ml (<50); Cocaine Screen,Urine Negative ng/ml (<300)
[2021-07-02 17:10] LABS: Methadone Screen,Urine Negative ng/ml (<300)
[2021-07-02 17:11] LABS: Opiate Screen,Urine Negative ng/ml (<300); Phencyclidine Screen,Urine Negative ng/ml (<25)
[2021-07-02 17:18] LABS: Amphetamine/Metha Screen,Urine Negative ng/ml (<1000)
--- NOTE | 2021-07-07 13:48 | HMH.PAINSOAP ---
[facility] Pain Management SOAP Note Subjective:: This patient is a very pleasant 70 year old white female who presents today for follow up. She is currently being treated for DDD of the lumbar spine with lumbar radiculopathy. She is currently prescribed Percocet 5mg 4 times a day and states that this current pain regimen is adequately managing pain symptoms. She denies any adverse effects to this medication and is requesting refills on her medication today. She states the medication allows her to maintain functionality and overall mobility. She also has a SCS with the [employer] system and states that she would like to undergo reprogramming for better pain relief. She also notes pain in her neck and shoulder region. She rates her pain as a 7 out of 10. Objective:: General: Alert and oriented x3, no acute distress, pleasant and cooperative Lungs: Resps E/U, symmetric chest expansion Eyes: PERRL Musculoskeletal: limited flexion and extension of the lumbar spine secondary to pain. Deep tendon reflexes were normal in bilateral lower extremities. Motor exam was grossly intact in the bilateral lower extremities, antalgic gait noted. TTP over bilateral upper trapezius and cervical paraspinal muscles. Neurological: Speech is clear, clinical training specialist equal, no gross sensory deficits Assessment:: DDD of the lumbar spine lumbar radiculopathy myofascial pain Plan:: I discussed with the patient I will refill Percocet 5mg 1 tab qid #120 for a 1 month supply. We will also facilitate for the patient to undergo SCS reprogramming with the [employer] sales representative. I will also schedule her to undergo TPI to bilateral upper trapezius and cervical paraspinal muscles. We will follow up with the patient in 1 month for reassessment of her chronic pain symptoms and medication refills. [facility] #[id number] and prior drug screens were reviewed and appropriate. [facility] History Medical History: Reports:: Anxiety, Cancer (lung), Depression, Diabetes Mellitus Type 2, Gastroesophageal Reflux Disease(GERD), Hyperlipidemia, Osteoporosis Denies:: Diabetes Mellitus Type 1, Internal Pacemaker, Lung Disease, MRSA, Seizures *Have you ever received a pneumonia vaccine?: Yes *Have you received a flu vaccine this season?: Yes Other Medical History: Reports: Arthritis, Osteoporosis. Denies: Blood Transfusion Reaction Laterality Cases: Right: Other Other Surgeries: Yes: Cancer Surgery (lobectomy right lung), Colonoscopy, Other (TMJ). No: Pacemaker Amputation: No Fractures: No - *Social History Smoking Status: Never smoker Alcohol Intake: current Alcohol Intake Frequency:: holidays/special occasions only *Occupational Status:: other Housing: house Household Members: spouse *Travel in the last 8 weeks: None - Psychiatric History Pschychiatric History:: Reports:: Anxiety, Depression Family Hx:: Cancer
[2021-07-17 19:27] LABS: Opiates Negative (Cutoff=100); Oxycodone (GC/MS) 1301 ng/mL (Cutoff=100); Oxymorphone (GC/MS) 385 ng/mL (Cutoff=100)
== END ==
PROVIDERS: PCP Family Medicine; Visit Provider Anesthesiology Pain Medicine
DX: M51.16 Intervertebral disc disorders with radiculopathy, lumbar region (principal); M79.18 Myalgia, other site; Z79.891 Long term (current) use of opiate analgesic
CPT/HCPCS: 80305; 80361; 80365; 99212; G0463; G0480

== ENCOUNTER 2021-08-10 08:08 | Day surgery (SDC) | payer MEDICARE, OTHER, SELFPAY ==
[2021-08-10 08:34] VITALS: BP 144/84; BP 148/84; PULSE 91; PULSE 92; RESP 20; TEMP 36.7; O2SAT 93; BMI 27.4
[2021-08-10 08:40] VITALS: BP 145/88; PULSE 86; RESP 20; O2SAT 94
--- NOTE | 2021-08-10 08:42 | HMH.PMPROC ---
- Procedure Date: 08/10/21 Time: 08:30 Anesthesiologist:: Abbe Agosto CRNA Complications:: None Pre-procedure Diagnosis:: Bilateral cervical and trapezius muscle spasms. Post-procedure Diagnosis:: Same Indications for Procedure:: Pleasant 70-year-old white female who presents today for chronic treatment of cervical paraspinous as well as bilateral trapezius muscle spasm. However, she will not be injected with any steroid today. Patient is having allergy reactions to steroids in the past. We will simply inject her in 3-4 different places spanning the distal cervical paraspinals as well as bilateral trapezius muscles bilaterally. This will be done with a long and short acting local anesthetic. Procedure Details:: Details of the procedure were explained to the patient. The patient was placed in a sitting position. The area over this posterior cervical spinous muscles as well as bilateral trapezius muscle was cleaned using chlorhexidine as a cleansing solution. In a fanning fashion using a 25-gauge inch and a half needle a mixture of 5 cc of 0.5 Marcaine and 1% lidocaine was injected bilaterally. Patient tolerated the procedure without difficulty. There were no complications. Plan and Disposition:: Patient was essentially without posterior cervical and or bilateral trapezius pain when discharged. Patient tolerated procedure very well. She will return to see us as needed.
[2021-08-10 08:43] VITALS: BP 140/83; PULSE 91; RESP 20; TEMP 36.7; O2SAT 96
== END 2021-08-10 08:44 | disposition home or self-care (01) ==
LOC: SC.PAINP 08:10
PROVIDERS: PCP Internal Medicine Adolescent Medicine; Visit Provider Nurse Anesthetist, Certified Registered
DX: M79.12 Myalgia of auxiliary muscles, head and neck (principal); M79.18 Myalgia, other site; F41.9 Anxiety disorder, unspecified; F32.A Depression, unspecified; E11.9 Type 2 diabetes mellitus without complications; K21.9 Gastro-esophageal reflux disease without esophagitis; E78.5 Hyperlipidemia, unspecified; M81.0 Age-related osteoporosis without current pathological fracture; Z85.9 Personal history of malignant neoplasm, unspecified; Z88.2 Allergy status to sulfonamides; Z88.8 Allergy status to other drugs, medicaments and biological substances
CPT/HCPCS: 20552

== ENCOUNTER → 2021-08-30 14:38 | Outpatient (POV) | payer MEDICARE, OTHER, SELFPAY ==
[2021-08-30 14:59] VITALS: BP 116/77; PULSE 84; RESP 18; TEMP 36.7; O2SAT 96; BMI 30.4
--- NOTE | 2021-08-30 16:56 | HMH.PAINSOAP ---
[facility] Pain Management SOAP Note Subjective:: Patient is a pleasant 70-year-old female who presents today for follow-up after a trigger point injections on bilateral cervical and upper trapezius on August 10, 2021. After procedure, patient had significant relief of about 80 to 90%. Patient states that she has been able to increase the range of motion of her neck and shoulders since injection. Denies any issues with injections. Today, patient is complaining of right shoulder pain. She has had multiple steroid injections in the past that provided minimal relief. She was evaluated for a right shoulder replacement. Patient says that because of her age, she does not want to move forward with any surgical intervention. She wants to know if there is something else that we can do for her in regards to her shoulder pain. She rates her pain today as 6 out of 10. Patient is also prescribed Percocet 5 mg 4 times a day. Denies any side effects from these medications. Patient states that she does not need any refills at this time. We will refill her medication at the next visit. Review of Systems: General: No recent weight changes, no fever, no sleep disturbances Respiratory: No cough, no shortness of air, no recurring pulmonary infections Cardiovascular/peripheral vascular: No chest pain, no palpitations, no edema, no shortness of breath Gastrointestinal: No new onset incontinence, normal bowel movements reported Genitourinary: No new onset incontinence Musculoskeletal: Improving neck pain, right shoulder pain Psychiatric: [Normal mood/affect] Neurological: [Denies weakness in extremities], [denies balance issues] Objective:: Physical Exam: General: Alert and oriented x3, no acute distress, pleasant and cooperative Lungs: Respirations even and unlabored, symmetrical chest expansion Eyes: PERRL Musculoskeletal: Flexion and extension of lumbar [spine] somewhat guarded secondary to pain, [antalgic gait noted]; limited range of motion of the right shoulder secondary to pain Neurological: Speech clear, no gross sensory deficit Assessment:: Degenerative disc disease of lumbar spine with lumbar radiculopathy symptoms, myofascial pain, osteoarthritis of the right shoulder Plan:: Patient continues to have significant relief after the trigger point injections on bilateral cervical paraspinous and upper trapezius. Patient is complaining of right shoulder pain today. She states that she has had multiple steroid injections in her right shoulder. She does not want to move forward with any shoulder replacement surgeries. We will schedule the patient for a right suprascapular nerve block. Risks and benefits of the procedure have been explained to the patient. Patient would like to proceed with the procedure. Patient is also prescribed Percocet 5 mg 4 times a day. Patient is not needing refills at this time. We will refill the patient's medication at the next visit. Patient has been instructed to contact the clinic with any concerns before the next appointment. Dr. Del Real has reviewed this note and agrees with this plan of care. This note was dictated using voice recognition software and make contain errors or omissions. [facility] History Medical History: Reports:: Anxiety, Cancer (lung), Depression, Diabetes Mellitus Type 2, Gastroesophageal Reflux Disease(GERD), Hyperlipidemia, Hypertension, Osteoporosis Denies:: Diabetes Mellitus Type 1, Internal Pacemaker, Lung Disease, MRSA, Seizures *Have you ever received a pneumonia vaccine?: Yes *Have you received a flu vaccine this season?: Yes Other Medical History: Reports: Arthritis, Osteoporosis. Denies: Blood Transfusion Reaction Laterality Cases: Right: Other Other Surgeries: Yes: Cancer Surgery (lobectomy right lung), Colonoscopy, Other (TMJ). No: Pacemaker Amputation: No Fractures: No - *Social History Smoking Status: Never smoker Alcohol Intake: never Alcohol Intake Frequency:: holidays/special occa
== END ==
PROVIDERS: Visit Provider Student in an Organized Health Care Education/Training Program
DX: M51.16 Intervertebral disc disorders with radiculopathy, lumbar region (principal); M79.18 Myalgia, other site; M19.011 Primary osteoarthritis, right shoulder
CPT/HCPCS: 99212; G0463

== ENCOUNTER → 2021-10-15 08:51 | Outpatient (POV) | payer MEDICARE, OTHER, SELFPAY ==
[2021-10-15 11:00] VITALS: BP 118/87; PULSE 89; RESP 20; TEMP 36.2; O2SAT 95; BMI 29.9
--- NOTE | 2021-10-15 11:04 | HMH.PAINSOAP ---
[facility] Pain Management SOAP Note Subjective:: Patient is a pleasant 70-year-old female who is here for medication refill and follow-up. Patient is currently being treated for chronic neck pain, myofascial pain, osteoarthritis of the right shoulder, degenerative disc disease of cervical spine. Patient is being managed with Percocet 5 mg 4 times a day. Patient denies any side effects from the medications. Patient denies any changes to the location and type of pain. Patient states that this is adequately helping manage their pain. Rates pain as 5 out of 10. [facility] number [phone] with an active morphine equivalent 0. Drug screens have been reviewed and appropriate. When we last saw this patient, she was also complaining of right shoulder pain. She was considered a surgical candidate but she does not want to move forward with any surgical intervention at this time. We have scheduled the patient for a right suprascapular block but she had to cancel this appointment because she fell ill. She presents today to reschedule this injection. In the past, we also have done trigger point injections around her bilateral cervical and upper trapezius that provided her 80 to 90% relief. Her neck and upper trapezius are not bothering her as much today. Review of Systems: General: No recent weight changes, no fever, no sleep disturbances Respiratory: No cough, no shortness of air, no recurring pulmonary infections Cardiovascular/peripheral vascular: No chest pain, no palpitations, no edema, no shortness of breath Gastrointestinal: No new onset incontinence, normal bowel movements reported Genitourinary: No new onset incontinence Musculoskeletal: Neck pain, shoulder pain Psychiatric: [Normal mood/affect] Neurological: [Denies weakness in extremities], [denies balance issues] Objective:: Physical Exam: General: Alert and oriented x3, no acute distress, pleasant and cooperative Lungs: Respirations even and unlabored, symmetrical chest expansion Eyes: PERRL Musculoskeletal: Flexion and extension of cervical [spine] somewhat guarded secondary to pain, [antalgic gait noted]; limited range of motion of the right shoulder secondary to pain Neurological: Speech clear, no gross sensory deficit Assessment:: Degenerative disc disease of the cervical spine, myofascial pain, osteoarthritis of the right shoulder Plan:: We will schedule the patient for a right suprascapular nerve block. Risks and benefits of the procedure have been explained to the patient. Patient would like to proceed with the procedure. We will continue the patient's Percocet 5 mg 4 times a day. We will provide the patient with 1 month worth of refill. We will follow-up with this patient in 1 month for reevaluation of chronic pain syndrome and medication refill. Patient has been instructed to contact the clinic with any concerns before the next appointment. Dr. Del Real has reviewed this note and agrees with this plan of care. This note was dictated using voice recognition software and make contain errors or omissions. [facility] History Medical History: Reports:: Anxiety, Cancer (lung), Depression, Diabetes Mellitus Type 2, Gastroesophageal Reflux Disease(GERD), Hyperlipidemia, Hypertension, Osteoporosis Denies:: Diabetes Mellitus Type 1, Internal Pacemaker, Lung Disease, MRSA, Seizures *Have you ever received a pneumonia vaccine?: No *Have you received a flu vaccine this season?: No Other Medical History: Reports: Arthritis, Osteoporosis. Denies: Blood Transfusion Reaction Laterality Cases: Right: Other Other Surgeries: Yes: Cancer Surgery (lobectomy right lung), Colonoscopy, Other (TMJ). No: Pacemaker Amputation: No Fractures: No - *Social History Smoking Status: Never smoker Alcohol Intake: never Alcohol Intake Frequency:: holidays/special occasions only *Occupational Status:: retired Housing: house Household Members: spouse *Travel in the last 8 weeks: [facility]
== END ==
PROVIDERS: Visit Provider Student in an Organized Health Care Education/Training Program
DX: M50.30 Other cervical disc degeneration, unspecified cervical region (principal); M79.18 Myalgia, other site; M19.011 Primary osteoarthritis, right shoulder; Z79.891 Long term (current) use of opiate analgesic
CPT/HCPCS: 80305; 80361; 80365; 99212; G0463; G0480

== ENCOUNTER → 2021-10-15 09:33 | Outpatient (CLI) | payer MEDICARE, OTHER, SELFPAY ==
[2021-10-15 10:26] LABS: Barbiturates Screen,Urine Negative ng/ml (<200); Benzodiazepines Screen,Urine Negative ng/ml (<200)
[2021-10-15 10:27] LABS: Amphetamine/Metha Screen,Urine Negative ng/ml (<1000)
[2021-10-15 10:28] LABS: Cocaine Screen,Urine Negative ng/ml (<300); Methadone Screen,Urine Negative ng/ml (<300)
[2021-10-15 10:29] LABS: Cannabinoid Screen,Urine Negative ng/ml (<50)
[2021-10-15 10:30] LABS: Opiate Screen,Urine Negative ng/ml (<300); Phencyclidine Screen,Urine Negative ng/ml (<25)
[2021-10-23 23:07] LABS: Opiates Negative (Cutoff=100); Oxycodone (GC/MS) 2248 ng/mL (Cutoff=100); Oxymorphone (GC/MS) 806 ng/mL (Cutoff=100)
== END ==
PROVIDERS: Student in an Organized Health Care Education/Training Program; PCP Internal Medicine Adolescent Medicine; Visit Provider Anesthesiology
DX: Z79.891 Long term (current) use of opiate analgesic (principal)
CPT/HCPCS: 80305; 80361; 80365; G0480

== ENCOUNTER 2021-11-09 09:41 | Day surgery (SDC) | payer MEDICARE, OTHER, SELFPAY ==
[2021-11-09 09:49] VITALS: BP 133/73; PULSE 78; RESP 18; TEMP 36.3; O2SAT 93; BMI 29.5
[2021-11-09 10:16] VITALS: BP 118/81; PULSE 80; RESP 20; O2SAT 95
--- NOTE | 2021-11-09 10:16 | HMH.PMPROC ---
- Procedure Date: 11/09/21 Time: 10:16 Anesthesiologist:: Abbe Agosto CRNA Complications:: None Pre-procedure Diagnosis:: Osteoarthritis right shoulder. Chronic right shoulder pain. Post-procedure Diagnosis:: Same Indications for Procedure:: Patient is a very pleasant 70-year-old female who comes to our clinic today for suprascapular Marcaine and lidocaine injection on the right. Patient has had intra-articular shoulder injections on the right with minimal relief. She has chronic osteoarthritis pain in the right shoulder. Difficulty with range of motion. Procedure Details:: Details of the procedure were explained with the patient. The patient was taken the procedure room placed in the sitting position. The area of the right scapula was cleansed using chlorhexidine as a cleansing solution. 3 markers were placed on the across the suprascapular border. Medial to lateral. Using a solution of 0.25% Marcaine and 1% lidocaine as well as 40 mg of Depo-Medrol all 3 locations were injected with a 25-gauge needle making contact with the suprascapular border of the right scapula. 3 cc was injected into each location. Patient tolerated the procedure without difficulty. There are no complications. Plan and Disposition:: Patient was discharged without incident.
[2021-11-09 10:23] VITALS: BP 135/74; PULSE 80; RESP 20
== END 2021-11-09 10:17 | disposition home or self-care (01) ==
LOC: SC.PAINP 09:42
PROVIDERS: PCP Internal Medicine Adolescent Medicine; Visit Provider Nurse Anesthetist, Certified Registered
DX: M19.011 Primary osteoarthritis, right shoulder (principal); G89.29 Other chronic pain
CPT/HCPCS: 64418

== ENCOUNTER → 2021-11-26 14:30 | Outpatient (POV) | payer MEDICARE, OTHER, SELFPAY ==
[2021-11-26 15:09] VITALS: BP 148/88; PULSE 90; RESP 20; TEMP 36.7; O2SAT 95; BMI 29.5
--- NOTE | 2021-11-26 15:42 | HMH.PAINSOAP ---
[facility] Pain Management SOAP Note Subjective:: Patient is a pleasant 71-year-old female who presents today for follow-up. Patient is currently being treated for osteoarthritis of the right shoulder, chronic neck pain, myofascial pain, degenerative disc disease of the cervical spine. When we last saw this patient, she had a right-sided suprascapular nerve block. She states that she had significant relief for about 2 days however, she states that she had worsening neck and shoulder blade pain after 2 days. We also had the use just bupivacaine and no steroids for her injection. Patient is very sensitive to steroids. In regards to her right shoulder, she has been evaluated by orthopedics and was told that she is a good candidate for surgery. She is not interested in any surgical intervention at this time. Today, she is also complaining of pain around her bilateral shoulder blades. She previously had trigger point injections around this area that seem to have helped. She has not done any physical therapy lately. She rates her pain a 7 out of 10. Review of Systems: General: No recent weight changes, no fever, no sleep disturbances Respiratory: No cough, no shortness of air, no recurring pulmonary infections Cardiovascular/peripheral vascular: No chest pain, no palpitations, no edema, no shortness of breath Gastrointestinal: No new onset incontinence, normal bowel movements reported Genitourinary: No new onset incontinence Musculoskeletal: Right shoulder pain, neck pain Psychiatric: [Normal mood/affect] Neurological: [Denies weakness in extremities], [denies balance issues] Objective:: Physical Exam: General: Alert and oriented x3, no acute distress, pleasant and cooperative Lungs: Respirations even and unlabored, symmetrical chest expansion Eyes: PERRL Musculoskeletal: Flexion and extension of cervical [spine] somewhat guarded secondary to pain, [antalgic gait noted]; right shoulder is tender to palpation. Patient also has point of tenderness around the bilateral shoulder blades and cervical paraspinous muscles. Neurological: Speech clear, no gross sensory deficit Assessment:: Myofascial pain, right shoulder pain, degenerative disc disease of the cervical spine Plan:: I will refer this patient for physical therapy specifically for dry needling and deep tissue manipulation around her cervical paraspinous and bilateral shoulder blades. I will start this patient on a compounding cream. She states that she had this before and it worked really well. We will start the patient on lidocaine patches 5%. We are also managing this patient with Percocet 5 mg 4 times a day. She is not needing any refills at this time. We will follow up with this patient for her Rx refill before December 15. Patient has been instructed to contact the clinic with any concerns before the next appointment. Dr. Del Real has reviewed this note and agrees with this plan of care. This note was dictated using voice recognition software and make contain errors or omissions. [facility] History Medical History: Reports:: Anxiety, Cancer (lung), Depression, Diabetes Mellitus Type 2, Gastroesophageal Reflux Disease(GERD), Hyperlipidemia, Hypertension, Osteoporosis Denies:: Diabetes Mellitus Type 1, Internal Pacemaker, Lung Disease, MRSA, Seizures *Have you ever received a pneumonia vaccine?: Yes *Have you received a flu vaccine this season?: Yes Other Medical History: Reports: Arthritis, Osteoporosis. Denies: Blood Transfusion Reaction Laterality Cases: Right: Other Other Surgeries: Yes: Cancer Surgery (lobectomy right lung), Colonoscopy, Other (TMJ). No: Pacemaker Amputation: No Fractures: No - *Social History Smoking Status: Never smoker Alcohol Intake: never Alcohol Intake Frequency:: holidays/special occasions only *Occupational Status:: other Housing: house Household Members: spouse *Travel in the last 8 weeks: None - Psychiatric History Pschychiatric History:: Reports:: Anxi
== END ==
PROVIDERS: PCP Internal Medicine Adolescent Medicine; Visit Provider Student in an Organized Health Care Education/Training Program
DX: M50.30 Other cervical disc degeneration, unspecified cervical region (principal); M79.18 Myalgia, other site; M25.511 Pain in right shoulder
CPT/HCPCS: 99212; G0463

== ENCOUNTER 2021-12-10 13:53 | Outpatient (RCR) | payer MEDICARE, OTHER, SELFPAY ==
--- NOTE | 2021-12-10 14:48 | HMH.PTOPEV ---
PT Outpatient Evaluation Rehab PT Outpatient Evaluation Start: 12/10/21 14:36 Freq: Status: Active Protocol: Document 12/10/21 14:37 LATRICIAVICTOR MANUEL (Rec: 12/10/21 14:48 PAUL [id number]) Electronically Signed By Ozzie Iqbal, ROSEANNA 12/10/21 14:37 Outpatient Therapy Subjective History Subjective History This is the initial Physical Therapy evaluation for Domonique Pennington. Pt is a 71 y/o female referred to PT for c/o chronic neck, shoulder and christa-scapular pain. Pt reports long history of neck issues, including degenerative disc disease, arthritis and past surgical history. Pt states she had cervical disc replacement greater than 10-15 years ago. Pt has been to pain management had injections with decreasing benefits afterwards. Chief Complaint Pain,Spasms,Stiff Symptom Type Ache,Sharp,Dull Symptoms Relieved By Ice Symptoms Aggravated By Physical Activity,Lifting Prior Functional Limitations None Current Functional Limitations Lifting,Housework,Sleeping, Recreation Activity Symptom Description Constant but Variable Level of pain today (0-10) 7 Pain scale - at its best (0-10) 4 Pain scale - at its worst (0-10) 8 Cervical Eval Palpation Cervical Muscles R Cervical Paraspinal,L Cervical Paraspinal,R Suboccipital,L Suboccipital,R SCM,L SCM,R CT Junction,L CT Junction,R Upper Trapezius,L Upper Trapezius Cervical/Thoracic Palpation Findings Tenderness,Spasm,Muscle Guarding Posture Head/C-Spine Posture Sitting Position C-Spine Flattened Head/C-Spine Posture Standing Position C-Spine Flattened AROM Cervical Spine Extension Active Range of 20 Motion (degrees) Cervical Spine Flexion Active Range of 40 Motion (degrees) Cervical Spine Right Lateral Flexion 10 Active Range of Motion (degrees) Cervical Spine Left Lateral Flexion 15 Active Range of Motion (degrees) Cervical Spine Right Rotation Active 50 Range of Motion (degrees) Cervical Spine Left Rotation Active 40 Range of Motion (degrees) MMT Bilateral Deltoid (C5) 4 Good Biceps Brachii Strength Grade
== END 2021-12-10 13:55 | disposition home or self-care (01) ==
LOC: PT 13:53
PROVIDERS: PCP Internal Medicine Adolescent Medicine; Visit Provider Student in an Organized Health Care Education/Training Program
DX: M54.2 Cervicalgia (principal); M79.18 Myalgia, other site; M25.512 Pain in left shoulder; M25.511 Pain in right shoulder
CPT/HCPCS: 97110; 97163

== ENCOUNTER → 2021-12-13 14:05 | Outpatient (POV) | payer MEDICARE, OTHER, SELFPAY ==
[2021-12-13 14:10] VITALS: BP 147/84; PULSE 74; RESP 20; BMI 29.5
--- NOTE | 2021-12-13 14:20 | HMH.PAINSOAP ---
[facility] Pain Management SOAP Note Subjective:: Patient is a pleasant 71-year-old female who presents today for medication refill and follow-up. We are currently treating the patient for osteoarthritis of the right shoulder, chronic neck pain, myofascial pain, degenerative disc disease of cervical spine. Today she rates her pain a 7 out of 10. She states that majority of her pain today is in her right shoulder. She states that she felt like she slept funny on it last night however it does hurt all the time. Patient denies no new injury or trauma to this location. She denies any change to the location or type of pain she experiences. Patient has had injective therapy in the past however patient states she did develop an allergy to the steroid. She stated it burned her skin . Patient does currently use compounding cream and she states this does give relief. She is also managed with Percocet 5 mg 4 times a day. Patient denies any side effects from this medication. She states it does adequately manage her pain. She is requesting a refill at today's visit. She states she does take ibuprofen 600 mg however it does cause significant itching. She stated that she has started going to physical therapy. She has 2 visits this week and 2 visits next week. Her Farhan is [phone]. It has been reviewed and appropriate. Review of Systems: General: No recent weight changes, no fever, no sleep disturbances Respiratory: No cough, no shortness of air, no recurring pulmonary infections Cardiovascular/peripheral vascular: No chest pain, no palpitations, no edema, no shortness of breath Gastrointestinal: No new onset incontinence, normal bowel movements reported Genitourinary: No new onset incontinence Musculoskeletal: Right shoulder pain, chronic neck pain Psychiatric: [Normal mood/affect] Neurological: [Denies weakness in extremities], [denies balance issues] Objective:: Physical Exam: General: Alert and oriented x3, no acute distress, pleasant and cooperative Lungs: Respirations even and unlabored, symmetrical chest expansion Eyes: PERRL Musculoskeletal: Flexion and extension of cervical [spine] somewhat guarded secondary to pain, [antalgic gait noted] Neurological: Speech clear, no gross sensory deficit Assessment:: Degenerative disc disease of cervical spine, right shoulder pain, chronic neck pain, myofascial pain Plan:: Patient is adequately managing her pain with her current medication regimen. I will refill the patient's Percocet 5 mg 4 times a day. I will give her a 1 month supply of this medication. I did discuss with the patient regarding starting her on diclofenac 75 mg twice daily. Patient denies any cardiac or kidney issues. I have counseled her on taking this medication with food to decrease side effects as well as discontinuing her ibuprofen and any other NSAIDs while using this. I will give her a 1 month supply of this medication. Patient will follow-up in 1 month. Patient will return to clinic in 1 month for reevaluation of symptoms and follow-up. Patient has been instructed to contact the clinic with any concerns before the next appointment. Dr. Del Real has reviewed this note and agrees with this plan of care. This note was dictated using voice recognition software and make contain errors or omissions. [facility] History I have reviewed the patient's past medical history: Yes Medical History: Reports:: Anxiety, Cancer (lung), Depression, Diabetes Mellitus Type 2, Gastroesophageal Reflux Disease(GERD), Hyperlipidemia, Hypertension, Osteoporosis Denies:: Diabetes Mellitus Type 1, Internal Pacemaker, Lung Disease, MRSA, Seizures *Have you ever received a pneumonia vaccine?: Yes *Have you received a flu vaccine this season?: Yes Other Medical History: Reports: Arthritis, Osteoporosis. Denies: Blood Transfusion Reaction Laterality Cases: Right: Other Other Surgeries: Yes: Cancer Surgery (lobectomy right lung), Colonoscopy, Other (TMJ). No: Pacemaker
== END ==
PROVIDERS: PCP Internal Medicine Adolescent Medicine; Visit Provider Nurse Practitioner Family
DX: M50.30 Other cervical disc degeneration, unspecified cervical region (principal); M79.18 Myalgia, other site; M25.511 Pain in right shoulder; G89.29 Other chronic pain
CPT/HCPCS: 99212; G0463

== ENCOUNTER → 2022-01-10 14:00 | Outpatient (POV) | payer MEDICARE, OTHER, SELFPAY ==
[2022-01-10 14:09] VITALS: BP 147/99; PULSE 70; RESP 20; BMI 29.5
--- NOTE | 2022-01-10 14:28 | EXP.PAIN.SOA ---
[facility] Pain Management SOAP Note Subjective:: Patient is a pleasant 71-year-old female who presents today for medication refill and follow-up. We are currently treating the patient for osteoarthritis of the right shoulder, chronic neck pain, myofascial pain, degenerative disc disease of cervical spine. Today she rates her pain a 2 out of 10. She states the pain is primarily in her neck and shoulders and upper back. Patient denies any new trauma or injury to the site. She denies any change to the location or type of pain she experiences. Patient is not a candidate for injective therapy due to a allergy to steroids. We have tried injective therapy previously however she stated it felt like it burned her skin. Patient does currently use a compounding cream that she states gives some relief of her symptoms. She is also managed with Percocet 5 mg 4 times a day and diclofenac 75 mg twice daily. Patient denies any side effects from these medications. She states these medications are adequately managing her pain. Patient did states she does have GI issues in general and she has talked to her primary care regarding these for possible follow-up. Patient denies any cardiac or kidney issues. Patient had been going to physical therapy however she has stopped recently due to continued issues with her teeth. Patient had a tooth break that ultimately caused issues causing her to get a bone graft. Patient would like to restart physical therapy once she gets her dental issues taken care of. Her Farhan is [id number]. It is been reviewed and appropriate. Review of Systems: General: No recent weight changes, no fever, no sleep disturbances Respiratory: No cough, no shortness of air, no recurring pulmonary infections Cardiovascular/peripheral vascular: No chest pain, no palpitations, no edema, no shortness of breath Gastrointestinal: No new onset incontinence, normal bowel movements reported Genitourinary: No new onset incontinence Musculoskeletal: Shoulder pain, neck pain, upper back pain Psychiatric: [Normal mood/affect] Neurological: [Denies weakness in extremities], [denies balance issues] Objective:: Physical Exam: General: Alert and oriented x3, no acute distress, pleasant and cooperative Lungs: Respirations even and unlabored, symmetrical chest expansion Eyes: PERRL Musculoskeletal: Flexion and extension of cervical [spine] somewhat guarded secondary to pain, [antalgic gait noted] Neurological: Speech clear, no gross sensory deficit Assessment:: Degenerative disc disease of cervical spine, right shoulder pain, chronic neck pain, myofascial pain Plan:: Patient has had significant improvement in her pain symptoms with her current medication regimen. I will refill the patient's Percocet 5 mg 4 times a day and provide a 1 month supply. I will also give refills on her diclofenac 75 mg twice daily and do a 3-month supply. I have discussed with the patient regarding following up with gastroenterology and having an upper and lower endoscopy due to her continued GI issues of constipation and diarrhea. I have told the patient that when she is ready to restart physical therapy that we will send a new referral. Patient will follow-up in clinic in 1 month for reevaluation of symptoms and medication refill. Patient has been advised of risks of oversedation with the prescribed medication. Narcan has been offered to the patient in the event of oversedation. Patient has been advised that a family member should also be educated regarding administration of Narcan. Patient has been instructed to contact the clinic with any concerns before the next appointment. Dr. Del Real has reviewed this note and agrees with this plan of care. This note was dictated using voice recognition software and make contain errors or omissions. PFSH PFS Social History Smoking Status: Never smoker second hand exposure: No alcohol intake: never current occupational status: retired Travel in
== END | disposition home or self-care (01) ==
PROVIDERS: PCP Internal Medicine Adolescent Medicine; Visit Provider Nurse Practitioner Family
DX: M50.30 Other cervical disc degeneration, unspecified cervical region (principal); M25.511 Pain in right shoulder; G89.29 Other chronic pain; M79.18 Myalgia, other site
CPT/HCPCS: 99212; G0463

== ENCOUNTER → 2022-02-07 14:48 | Outpatient (POV) | payer MEDICARE, OTHER, SELFPAY ==
[2022-02-07 15:04] VITALS: BP 130/79; PULSE 81; RESP 18; TEMP 37.4; O2SAT 96; BMI 27.4
--- NOTE | 2022-02-07 15:16 | EXP.PAIN.SOA ---
[facility] Pain Management SOAP Note Subjective:: Patient is a pleasant 71-year-old female who presents today for follow-up and medication refill. We are currently treating the patient for osteoarthritis of her right shoulder, chronic neck pain, myofascial pain, degenerative disc disease of cervical spine. Today she rates her pain a 7 out of 10. She does states she has pain along her neck and shoulders and upper back. Patient denies any new trauma or injury. She denies any change to the location or type of pain she experiences. We have done injective therapy in the past however the patient did state that she felt like she had an allergy to the steroids and it caused burning sensation. Patient does use a compounding cream that provides significant improvement of her symptoms. She is also managed with Percocet 5 mg 4 times a day and diclofenac 75 mg twice a day. Patient denies any side effects from these medications. She states these medications do adequately help her pain. She is requesting refills at today's visit. Patient does have frequent flareups of her diverticulitis as well as allergy issues that do cause occasional dizziness. Patient still denies any cardiac or kidney issues. She has been going to physical therapy in the past however she did have to stop due to breaking a tooth that ultimately caused her to get a bone graft in her mouth. Patient states she is still dealing with this issue and has not started back or physical therapy. Her Farhan is [id number]. It has been reviewed and appropriate. Review of Systems: General: No recent weight changes, no fever, no sleep disturbances Respiratory: No cough, no shortness of air, no recurring pulmonary infections Cardiovascular/peripheral vascular: No chest pain, no palpitations, no edema, no shortness of breath Gastrointestinal: No new onset incontinence, normal bowel movements reported Genitourinary: No new onset incontinence Musculoskeletal: Shoulder pain, neck pain Psychiatric: [Normal mood/affect] Neurological: [Denies weakness in extremities], [denies balance issues] Objective:: Physical Exam: General: Alert and oriented x3, no acute distress, pleasant and cooperative Lungs: Respirations even and unlabored, symmetrical chest expansion Eyes: PERRL Musculoskeletal: Flexion and extension of cervical [spine] somewhat guarded secondary to pain, [antalgic gait noted] Neurological: Speech clear, no gross sensory deficit Assessment:: Degenerative disc disease of cervical spine, osteoarthritis right shoulder, chronic neck pain, myofascial pain Plan:: Patient continues to have significant pain in her neck and bilateral shoulders however she does do well with her current medication regimen. I will refill her diclofenac 75 mg twice daily and provide a 3-month supply of this medication. I will also refill her Percocet 5 mg 4 times a day and provide a 1 month supply of this medication. Patient will return to clinic in 1 month. I have also discussed with the patient regarding doing some trigger point injections at her cervical paraspinous and trapezius area on the right side and that we can do it without the steroid to help provide better relief. We will wait at this time for those injections. Patient will return to clinic in 1 month for reevaluation of symptoms and medication refill. Patient has been advised of risks of oversedation with the prescribed medication. Narcan has been offered to the patient in the event of oversedation. Patient has been advised that a family member should also be educated regarding administration of Narcan. Patient has been instructed to contact the clinic with any concerns before the next appointment. Dr. Del Real has reviewed this note and agrees with this plan of care. This note was dictated using voice recognition software and make contain errors or omissions. PFSH PFSH Social History Smoking Status: Never smoker second hand exposure: No alcohol intake: never cu
== END | disposition home or self-care (01) ==
PROVIDERS: Visit Provider Nurse Practitioner Family
DX: M50.30 Other cervical disc degeneration, unspecified cervical region (principal); M19.011 Primary osteoarthritis, right shoulder; M79.18 Myalgia, other site
CPT/HCPCS: 99212; G0463

== ENCOUNTER → 2022-03-14 11:17 | Outpatient (POV) | payer MEDICARE, OTHER, SELFPAY ==
[2022-03-14 11:36] VITALS: BP 151/86; PULSE 71; RESP 18; O2SAT 94; BMI 27.6
--- NOTE | 2022-03-14 11:40 | EXP.PAIN.SOA ---
[facility] Pain Management SOAP Note Subjective:: Patient is a pleasant 71-year-old female who presents today for medication refill and follow-up. We are currently treating the patient for osteoarthritis of her right shoulder, chronic neck pain, myofascial pain, degenerative disc disease of cervical spine. Today she rates her pain a 5 out of 10. Patient denies any new trauma or injury. Patient denies any change in location or type pain she experiences. Patient does describe this as a aching, throbbing sensation that is worse with increased activity or certain positioning. Patient states it has been quite a while since she has had imaging of her cervical spine. Patient states that she did notice that she has to use more support such as pillows at the base of her neck when she is sitting to help with the pain. Patient is managed with compounding cream that she states provides significant improvement however short-term. She is also prescribed Percocet 5 mg 4 times a day and diclofenac 75 mg twice a day. Patient denies any side effects from these medications. She states these medications do adequately help her pain symptoms. She is requesting a refill of both of these medications at today's visit. Patient states she is done much better following adding the diclofenac and stopping the ibuprofen. She states she did have significant itching with this medication. Patient did state that she has had several flareups of her diverticulitis and has been put on Linzess. Patient also states that she is scheduled for a colonoscopy coming up. Patient has seen physical therapy in the past however she had to stop due to getting a bone graft in her mouth following a chipped tooth. Patient has had injective therapy in the past however she had an allergic reaction to the steroids that caused a burning sensation that lasted for approximately 2 weeks. Her Farhan is [id number]. It has been reviewed and appropriate. Review of Systems: General: No recent weight changes, no fever, no sleep disturbances Respiratory: No cough, no shortness of air, no recurring pulmonary infections Cardiovascular/peripheral vascular: No chest pain, no palpitations, no edema, no shortness of breath Gastrointestinal: No new onset incontinence, normal bowel movements reported Genitourinary: No new onset incontinence Musculoskeletal: Neck pain Psychiatric: [Normal mood/affect] Neurological: [Denies weakness in extremities], [denies balance issues] Objective:: Physical Exam: General: Alert and oriented x3, no acute distress, pleasant and cooperative Lungs: Respirations even and unlabored, symmetrical chest expansion Eyes: PERRL Musculoskeletal: Flexion and extension of cervical [spine] somewhat guarded secondary to pain, [antalgic gait noted] Neurological: Speech clear, no gross sensory deficit Assessment:: Degenerative disc disease of cervical spine, chronic neck pain, osteoarthritis right shoulder, myofascial pain Plan:: Patient is experiencing significant pain in her neck during today's visit. She did have limited range of motion of her cervical spine. I will order the patient a cervical CT scan without contrast. I will refill the patient's diclofenac 75 mg twice daily and provide a 3-month supply of this medication as well as refill her Percocet 5 mg 4 times a day and provide a 1 month supply of this medication. Patient will return to clinic for follow-up and reevaluation of symptoms following her cervical CT. Patient has been advised of risks of oversedation with the prescribed medication. Narcan has been offered to the patient in the event of oversedation. Patient has been advised that a family member should also be educated regarding administration of Narcan. Patient has been instructed to contact the clinic with any concerns before the next appointment. Dr. Del Real has reviewed this note and agrees with this plan of care. This note was dictated using voice recognition software and make contain er
== END | disposition home or self-care (01) ==
PROVIDERS: PCP Internal Medicine Adolescent Medicine; Visit Provider Nurse Practitioner Family
DX: M19.011 Primary osteoarthritis, right shoulder (principal); M79.18 Myalgia, other site; M50.10 Cervical disc disorder with radiculopathy, unspecified cervical region
CPT/HCPCS: 99212; G0463

== ENCOUNTER → 2022-03-14 11:52 | Outpatient (CLI) | payer MEDICARE, OTHER, SELFPAY ==
[2022-03-14 12:49] LABS: Amphetamine/Metha Screen,Urine Negative ng/ml (<1000)
[2022-03-14 12:50] LABS: Barbiturates Screen,Urine Negative ng/ml (<200); Benzodiazepines Screen,Urine Negative ng/ml (<200)
[2022-03-14 12:51] LABS: Cannabinoid Screen,Urine Negative ng/ml (<50)
[2022-03-14 12:52] LABS: Cocaine Screen,Urine Negative ng/ml (<300); Methadone Screen,Urine Negative ng/ml (<300)
[2022-03-14 12:53] LABS: Opiate Screen,Urine Negative ng/ml (<300); Phencyclidine Screen,Urine Negative ng/ml (<25)
[2022-03-22 00:07] LABS: Opiates Negative (Cutoff=100); Oxycodone (GC/MS) 1493 ng/mL (Cutoff=100); Oxymorphone (GC/MS) 970 ng/mL (Cutoff=100)
== END ==
PROVIDERS: Nurse Practitioner Family; PCP Internal Medicine Adolescent Medicine; Visit Provider Anesthesiology
DX: Z79.891 Long term (current) use of opiate analgesic (principal); Z79.899 Other long term (current) drug therapy
CPT/HCPCS: 80305; 80361; 80365; 99212; G0463; G0480

== ENCOUNTER → 2022-04-08 14:41 | Outpatient (CLI) | payer MEDICARE, OTHER, SELFPAY ==
--- NOTE | 2022-04-08 14:46 | CT_ITS ---
FINAL REPORT TECHNIQUE: Axial images were obtained from skull base to the thoracic inlet by computed tomography. Coronal and sagittal reconstruction process performed. This study was performed with techniques to keep radiation doses as low as reasonably achievable (ALARA). Individualized dose reduction techniques using automated exposure control or adjustment of mA and/or kV according to the patient''s size were employed. CLINICAL HISTORY: NECK PAIN, postoperative COMPARISON: 08/11/2018 FINDINGS: There are postoperative changes of fusion at C7 and T1. There are multilevel, moderate degenerative changes with disc space narrowing and osteophytes. There is mild kyphosis centered at C5. There is no acute fracture or subluxation. The facets are normally aligned. The soft tissues are unremarkable. Limited images of the lung apices are unremarkable. C2-3: Unremarkable. C3-4: Unremarkable. C4-5: Disc osteophyte complex with mild left neural foraminal narrowing. C5-6: Disc osteophyte complex with mild right and moderate left neural foraminal narrowing. C6-7: Disc osteophyte complex with mild right and moderate left neural foraminal narrowing. C7-T1: Postoperative changes of fusion. IMPRESSION: Postoperative and degenerative changes as above with moderate left neural foraminal narrowing at C5-6 and C6-7. Reviewed, Interpreted and Dictated by Darius Sosa III, MD Transcribed by Moriah Kapadia Authenticated and [facility]
== END ==
PROVIDERS: PCP Internal Medicine Adolescent Medicine; Visit Provider Nurse Practitioner Family
DX: M54.2 Cervicalgia (principal)
CPT/HCPCS: 72125

== ENCOUNTER → 2022-04-15 10:08 | Outpatient (POV) | payer MEDICARE, OTHER, SELFPAY ==
[2022-04-15 10:41] VITALS: BP 123/78; PULSE 78; RESP 18; O2SAT 95; BMI 28.3
--- NOTE | 2022-04-15 10:58 | EXP.PAIN.SOA ---
[facility] Pain Management SOAP Note Subjective:: Patient is a pleasant 71-year-old female who presents today for medication refill, and MRI follow-up. We are currently treating the patient for osteoarthritis right shoulder, chronic neck pain, myofascial pain, degenerative disc disease of cervical spine with cervical radiculopathy symptoms. Today the patient rates her pain a 6 out of 10. Patient denies any new trauma or injury. Patient denies any change location or type of pain she experiences. Patient states her pain is in her upper back and neck with continued pain along her right jaw from a previous bone graft. Patient is currently managed with Percocet 5 mg 4 times a day. Patient denies any side effects from this medication. She states this medication does help her pain symptoms. She is requesting a refill at today's visit. She is also prescribed compounding cream along with diclofenac 75 mg twice daily. Patient denies any side effects from these medications. Patient states the cream does provide significant improvement. Patient states she does occasionally have constipation issues and was given Linzess which did help with the symptoms. Patient states she is scheduled for colonoscopy and esophagogastroduodenoscopy in June. Patient states she has not had any recent follow-ups with her bone graft surgeon. Her Farhan is [id number]. It is been reviewed and appropriate. Review of Systems: General: No recent weight changes, no fever, no sleep disturbances Respiratory: No cough, no shortness of air, no recurring pulmonary infections Cardiovascular/peripheral vascular: No chest pain, no palpitations, no edema, no shortness of breath Gastrointestinal: No new onset incontinence, normal bowel movements reported Genitourinary: No new onset incontinence Musculoskeletal: Upper back pain/right jaw pain Psychiatric: [Normal mood/affect] Neurological: [Denies weakness in extremities], [denies balance issues] Objective:: Physical Exam: General: Alert and oriented x3, no acute distress, pleasant and cooperative Lungs: Respirations even and unlabored, symmetrical chest expansion Eyes: PERRL Musculoskeletal: Flexion and extension of cervical [spine] somewhat guarded secondary to pain, [antalgic gait noted] Neurological: Speech clear, no gross sensory deficit FINAL REPORT TECHNIQUE: Axial images were obtained from skull base to the thoracic inlet by computed tomography.? Coronal and sagittal reconstruction process performed. This study was performed with techniques to keep radiation doses as low as reasonably achievable (ALARA). Individualized dose reduction techniques using automated exposure control or adjustment of mA and/or kV according to the patient''s size were employed. CLINICAL HISTORY: NECK PAIN, postoperative COMPARISON: 08/11/2018 FINDINGS: There are postoperative changes of fusion at C7 and T1.? There are multilevel, moderate degenerative changes with disc space narrowing and osteophytes.? There is mild kyphosis centered at C5.? There is no acute fracture or subluxation.? The facets are normally aligned.? The soft tissues are unremarkable.? Limited images of the lung apices are unremarkable.? C2-3: Unremarkable. C3-4: Unremarkable.? ? C4-5:? Disc osteophyte complex with mild left neural foraminal narrowing.? ? C5-6:? Disc osteophyte complex with mild right and moderate left neural foraminal narrowing.? ? C6-7:? Disc osteophyte complex with mild right and moderate left neural foraminal narrowing.? ? C7-T1: Postoperative changes of fusion. IMPRESSION: Postoperative and degenerative changes as above with moderate left neural foraminal narrowing at C5-6 and C6-7. Reviewed, Interpreted and Dictated by Darius Sosa III, MD Transcribed by Moriah Kapadia Authenticated and [facility] Assessment:: Degenerative disc disease of cervical spine with cervical
== END | disposition home or self-care (01) ==
PROVIDERS: PCP Internal Medicine Adolescent Medicine; Visit Provider Nurse Practitioner Family
DX: M50.123 Cervical disc disorder at C6-C7 level with radiculopathy (principal); M19.011 Primary osteoarthritis, right shoulder; M79.10 Myalgia, unspecified site
CPT/HCPCS: 99212; G0463

== ENCOUNTER → 2022-05-16 13:17 | Outpatient (POV) | payer MEDICARE, OTHER, SELFPAY ==
[2022-05-16 13:29] VITALS: BP 149/92; PULSE 89; RESP 18; O2SAT 97; BMI 20.3
--- NOTE | 2022-05-16 13:36 | A.OFFVIS_ITS ---
[facility] Pain Management SOAP Note Subjective:: Patient is a pleasant 71-year-old female who presents today for medication refill and follow-up. We are currently treating the patient for jaw pain, osteoarthritis right shoulder, chronic neck pain, myofascial pain, degenerative disc disease of cervical spine with cervical radiculopathy symptoms. Today the patient rates her pain a 7 out of 10. Patient denies any new trauma or injury. Patient denies any change location or type of pain she experiences. Patient does state that from our last visit where we had to change her medication to oxycodone 5 mg 3 times a day due to her pharmacy not having her Percocet that she has had increased pain. Patient would like to be put back on her Percocet 5 mg 4 times a day. Patient is also prescribed compounding cream and diclofenac 75 mg twice daily. Patient denies any side effects from these medications. She states they do significantly improve her symptoms. Patient states she does occasionally have constipation still but she does take Linzess as needed. Patient does have a colonoscopy and EGD scheduled in June. Patient did pre viously have a issue with her teeth that did end up requiring a bone graft and caused significant pain. Patient's Farhan is [id number]. Its been reviewed and appropriate. Review of Systems: General: No recent weight changes, no fever, no sleep disturbances Respiratory: No cough, no shortness of air, no recurring pulmonary infections Cardiovascular/peripheral vascular: No chest pain, no palpitations, no edema, no shortness of breath Gastrointestinal: No new onset incontinence, normal bowel movements reported Genitourinary: No new onset incontinence Musculoskeletal: Neck pain, jaw pain Psychiatric: [Normal mood/affect] Neurological: [Denies weakness in extremities], [denies balance issues] Objective:: Physical Exam: General: Alert and oriented x3, no acute distress, pleasant and cooperative Lungs: Respirations even and unlabored, symmetrical chest expansion Eyes: PERRL Musculoskeletal: Flexion and extension of cervical [spine] somewhat guarded secondary to pain, [antalgic gait noted] Neurological: Speech clear, no gross sensory deficit ORT score updated with minimal risk Assessment:: Jaw pain, osteoarthritis right shoulder, chronic neck pain, myofascial pain, degenerative disc disease of cervical spine with cervical radiculopathy symptoms Plan:: Patient is experiencing significant pain in her neck and jaw however she does do well with her previous medication of Percocet 5 mg 4 times a day. I will send in a refill of this medication along with her diclofenac 75 mg twice daily and provide a 1 month supply of these. I have counseled the patient to contact our office if her pharmacy continues to have trouble with the Percocet prescription. Patient will return to clinic in 1 month for reevaluation of symptoms, medication refill and follow-up. Patient has been instructed to contact the clinic with any concerns before the next appointment. Dr. Del Real has reviewed this note and agrees with this plan of care. This note was dictated using voice recognition software and make contain errors or omissions. [facility] Disclaimer: The information contained in this section may have been updated after the patient was seen, as this information can be updated by other users. Social History Smoking Status: Never smoker second hand exposure: No alcohol intake: never current occupational status: retired Travel in the last 8 weeks: None household members: spouse housing: house current occupational exposures/hazards: No caffeine:
== END | disposition home or self-care (01) ==
PROVIDERS: PCP Internal Medicine Adolescent Medicine; Visit Provider Nurse Practitioner Family
DX: M50.10 Cervical disc disorder with radiculopathy, unspecified cervical region (principal); M79.10 Myalgia, unspecified site; G89.29 Other chronic pain; M19.011 Primary osteoarthritis, right shoulder; R68.84 Jaw pain
CPT/HCPCS: 99212; G0463

== ENCOUNTER → 2022-05-16 13:56 | Outpatient (CLI) | payer MEDICARE, OTHER, SELFPAY ==
[2022-05-16 15:13] LABS: Amphetamine/Metha Screen,Urine Negative ng/ml (<1000); Barbiturates Screen,Urine Negative ng/ml (<200)
[2022-05-16 15:14] LABS: Benzodiazepines Screen,Urine Negative ng/ml (<200)
[2022-05-16 15:15] LABS: Cannabinoid Screen,Urine Negative ng/ml (<50); Cocaine Screen,Urine Negative ng/ml (<300)
[2022-05-16 15:16] LABS: Methadone Screen,Urine Negative ng/ml (<300)
[2022-05-16 15:17] LABS: Opiate Screen,Urine Positive ng/ml (<300); Phencyclidine Screen,Urine Negative ng/ml (<25)
[2022-05-22 14:17] LABS: Codeine Negative (Cutoff=100); Hydrocodone Positive (.); Hydromorphone Negative (Cutoff=100); Morphine Negative (Cutoff=100); Opiates Positive (.); Oxymorphone (GC/MS) 130 ng/mL (Cutoff=100)
== END ==
PROVIDERS: Nurse Practitioner Family; PCP Internal Medicine Adolescent Medicine; Visit Provider Anesthesiology
DX: Z79.891 Long term (current) use of opiate analgesic (principal)
CPT/HCPCS: 80305; 80361; 80365; 99212; G0463; G0480

== ENCOUNTER → 2022-06-19 13:13 | Outpatient (POV) | payer MEDICARE, OTHER, SELFPAY ==
[2022-06-19 13:37] VITALS: BP 130/81; PULSE 89; RESP 18; O2SAT 97; BMI 29.2
--- NOTE | 2022-06-19 13:44 | EXP.PAIN.SOA ---
[facility] Pain Management SOAP Note Subjective:: Patient is a pleasant 71-year-old female who presents today for medication refill and follow-up. We are currently treating the patient for jaw pain, osteoarthritis right shoulder, chronic neck pain, myofascial pain, degenerative disc disease of cervical spine with cervical radiculopathy symptoms. Today she rates her pain a 5 out of 10. Patient denies any new trauma or injury. Patient denies any change to the location or type of pain she experiences. Patient is currently managed with Percocet 5 mg 4 times a day. Patient denies any side effects from this medication. Patient is also prescribed compounding cream and diclofenac 75 mg twice a day. Patient does state these medications do help improve her symptoms. Patient does occasionally have constipation issues however she takes Linzess as needed. Patient states she has recently been under the weather the last 2 weeks with the virus and did have to reschedule her EGD and colonoscopy for sometime in August. Patient states as of right now her previous jaw pain is doing well and that she has not been back to see the doctor who did the bone graft. Her Farhan is [id number]. Its been reviewed and appropriate. Review of Systems: General: No recent weight changes, no fever, no sleep disturbances Respiratory: No cough, no shortness of air, no recurring pulmonary infections Cardiovascular/peripheral vascular: No chest pain, no palpitations, no edema, no shortness of breath Gastrointestinal: No new onset incontinence, normal bowel movements reported Genitourinary: No new onset incontinence Musculoskeletal: Neck pain Psychiatric: [Normal mood/affect] Neurological: [Denies weakness in extremities], [denies balance issues] Objective:: Physical Exam: General: Alert and oriented x3, no acute distress, pleasant and cooperative Lungs: Respirations even and unlabored, symmetrical chest expansion Eyes: PERRL Musculoskeletal: Flexion and extension of cervical [spine] somewhat guarded secondary to pain, [antalgic gait noted] Neurological: Speech clear, no gross sensory deficit Assessment:: Jaw pain, osteoarthritis right shoulder, chronic neck pain, myofascial pain, degenerative disc disease of cervical spine with cervical radiculopathy symptoms Plan:: Patient continues to experience significant pain in her neck however she is doing well with her current medication regiment. We will refill her Percocet 5 mg 4 times a day and provide a 1 month supply of this medication as well as refill her diclofenac 75 mg twice daily with a 3-month supply of this medication. Patient will return to clinic in 1 month for reevaluation of symptoms, medication refill and follow-up. Patient has been advised of risks of oversedation with the prescribed medication. Narcan has been offered to the patient in the event of oversedation. Patient has been advised that a family member should also be educated regarding administration of Narcan. Patient has been instructed to contact the clinic with any concerns before the next appointment. Dr. Del Real has reviewed this note and agrees with this plan of care. This note was dictated using voice recognition software and make contain errors or omissions. [facility] Disclaimer: The information contained in this section may have been updated after the patient was seen, as this information can be updated by other users. Medical History (Updated 06/04/22 @ 09:04 by Quynh Ramirez RN) Hx of cancer of lung Surgical History (Updated 06/04/22 @ 09:05 by Quynh Ramirez RN) History of appendectomy History of section Hx of neck surgery S/P insertion of spinal cord stimulator Family History (Updated 06/04/22 @ 09:03 by Quynh Ramirez RN) Other Family history of acute heart failure Family history of hyperlipidemia Lung cancer Social History (Updated 06/04/22 @ 09:02 by Quynh Ramirez RN) Smoking Status: Never smoker second hand exposure:
== END | disposition home or self-care (01) ==
PROVIDERS: PCP Internal Medicine Adolescent Medicine; Visit Provider Nurse Practitioner Family
DX: M50.10 Cervical disc disorder with radiculopathy, unspecified cervical region (principal); M79.10 Myalgia, unspecified site; M19.011 Primary osteoarthritis, right shoulder; R68.84 Jaw pain; G89.29 Other chronic pain
CPT/HCPCS: 99212; G0463

== ENCOUNTER → 2022-06-19 13:53 | Outpatient (CLI) | payer MEDICARE, OTHER, SELFPAY ==
[2022-06-19 16:08] LABS: Amphetamine/Metha Screen,Urine Negative ng/ml (<1000)
[2022-06-19 16:09] LABS: Barbiturates Screen,Urine Negative ng/ml (<200); Benzodiazepines Screen,Urine Negative ng/ml (<200)
[2022-06-19 16:10] LABS: Cannabinoid Screen,Urine Negative ng/ml (<50)
[2022-06-19 16:11] LABS: Cocaine Screen,Urine Negative ng/ml (<300); Methadone Screen,Urine Negative ng/ml (<300)
[2022-06-19 16:12] LABS: Opiate Screen,Urine Negative ng/ml (<300); Phencyclidine Screen,Urine Negative ng/ml (<25)
[2022-06-25 08:15] LABS: Opiates Negative (Cutoff=100); Oxycodone (GC/MS) 1259 ng/mL (Cutoff=100); Oxymorphone (GC/MS) 424 ng/mL (Cutoff=100)
== END ==
PROVIDERS: PCP Internal Medicine Adolescent Medicine; Visit Provider Nurse Practitioner Family
DX: Z79.891 Long term (current) use of opiate analgesic (principal)
CPT/HCPCS: 80305; 80361; 80365; 99212; G0463; G0480

== ENCOUNTER → 2022-07-17 12:47 | Outpatient (POV) | payer MEDICARE, OTHER, SELFPAY ==
--- NOTE | 2022-07-17 13:11 | EXP.PAIN.SOA ---
[facility] Pain Management SOAP Note Subjective:: Patient is a pleasant 71-year-old female who presents today for medication refill and follow-up. We are currently treating the patient for chronic neck pain, osteoarthritis right shoulder, myofascial pain, degenerative disc disease of cervical spine with cervical radiculopathy symptoms. Today she rates her pain a 7 out of 10. Patient denies any new trauma or injury. She does state that she feels like her right leg and right hip pain has gotten worse. She describes this as a aching sensation that does seem sore in general to touch and that it does seem weaker when she is walking. Patient is currently managed with Percocet 5 mg 4 times a day, diclofenac 75 mg twice a day and compounding cream. Patient denies any side effects from this medication. She does take Linzess as needed for constipation issues. She is still scheduled for an EGD and colonoscopy on August 09. Patient has done injections in the past however she did have a reaction to the steroid of rash and has not had any additional injective therapy since. She does state that she has had oral steroids in the past and not had any issues with these. Her Farhan is [id number]. Its been reviewed and appropriate. Review of Systems: General: No recent weight changes, no fever, no sleep disturbances Respiratory: No cough, no shortness of air, no recurring pulmonary infections Cardiovascular/peripheral vascular: No chest pain, no palpitations, no edema, no shortness of breath Gastrointestinal: No new onset incontinence, normal bowel movements reported Genitourinary: No new onset incontinence Musculoskeletal: Right hip pain, right leg pain Psychiatric: [Normal mood/affect] Neurological: [Denies weakness in extremities], [denies balance issues] Objective:: Physical Exam: General: Alert and oriented x3, no acute distress, pleasant and cooperative Lungs: Respirations even and unlabored, symmetrical chest expansion Eyes: PERRL Musculoskeletal: Flexion and extension of lumbar [spine] somewhat guarded secondary to pain, [antalgic gait noted] Neurological: Speech clear, no gross sensory deficit Assessment:: Degenerative disc disease of cervical spine with cervical and lumbar radiculopathy symptoms, chronic neck pain, osteoarthritis right shoulder, myofascial pain Plan:: Patient is experiencing worsening symptoms in her right leg and right hip with limited range of motion. I we will refill her Percocet 5 mg 4 times a day, diclofenac 75 mg twice a day and provide a 1 month supply of this medication. I will also order the patient prednisone 20 mg twice daily for 5 days. I have counseled the patient to discontinue this medication if she has any side effects such as rash. Patient will return to clinic in 1 month for reevaluation of symptoms, medication refill and follow-up. Patient has been advised of risks of oversedation with the prescribed medication. Narcan has been offered to the patient in the event of oversedation. Patient has been advised that a family member should also be educated regarding administration of Narcan. Patient has been instructed to contact the clinic with any concerns before the next appointment. Dr. Del Real has reviewed this note and agrees with this plan of care. This note was dictated using voice recognition software and make contain errors or omissions. [facility] Disclaimer: The information contained in this section may have been updated after the patient was seen, as this information can be updated by other users. Medical History (Updated 06/04/22 @ 09:04 by Quynh Ramirez RN) Hx of cancer of lung Surgical History (Updated 06/04/22 @ 09:05 by Quynh Ramirez RN) History of appendectomy History of section Hx of neck surgery S/P insertion of spinal cord stimulator Family History (Updated 06/04/22 @ 09:03 by Quynh Ramirez RN) Other Family history of acute heart failure Family history of hyperlipidemia Lung canc
[2022-07-17 13:40] VITALS: BP 150/85; PULSE 83; RESP 18; O2SAT 98; BMI 28.7
== END | disposition home or self-care (01) ==
PROVIDERS: PCP Internal Medicine Adolescent Medicine; Visit Provider Nurse Practitioner Family
DX: M50.10 Cervical disc disorder with radiculopathy, unspecified cervical region (principal); M51.36 Other intervertebral disc degeneration, lumbar region; M19.011 Primary osteoarthritis, right shoulder; M79.10 Myalgia, unspecified site
CPT/HCPCS: 99212; G0463

== ENCOUNTER 2022-08-09 07:29 | Day surgery (SDC) | payer MEDICARE, OTHER, SELFPAY ==
[2022-06-04 09:05] VITALS: BMI 29.2
[2022-08-08 13:38] VITALS: BMI 27.8
[2022-08-09 07:51] VITALS: BP 125/69; PULSE 76; RESP 18; TEMP 36.4; O2SAT 98
[2022-08-09 08:34] VITALS: O2SAT 98
--- NOTE | 2022-08-09 09:16 | HMH.SCOPE ---
Procedure: Date: 08/09/22 Patient Date of :: 1950 Procedure Performed:: EGD with biopsy Total colonoscopy to terminal ileum Indications:: Patient is a 71-year-old female from [facility] with referred by Dr. Romulo Gleason for EGD and colonoscopy.? She has numerous drug allergies. She has been extensively under the care of of pain management. She does state that she had previously undergone EGD and colonoscopy many years ago.? Exact details are unknown and I detect no record at this facility. She describes a lot of stomach pain. .? She describes a longstanding history of reflux type symptoms.? She has been on omeprazole for some time but this no longer seems to be helping her.? She also has some chronic constipation.? She states that she does often move her bowels daily but it starts out of rather hard and then proceeds to looser bowel movement throughout the day.? She also feels incomplete evacuation.? This is been ongoing for couple of years.? She has been started on Linzess.? She states that her abdomen is generally sore to touch.? She has had some symptoms also of fecal incontinence/soiling.? She has a prior history of lung cancer 13 years ago.? Her had esophageal cancer. Performing Provider:: Darius Foley MD Referring Provider:: Romulo Gleason MD Sedation:: MAC sedation Procedure:: Patient history was obtained and appropriate physical examination was performed. Patient's medications and allergies were reviewed. Informed consent was obtained after explaining the benefits, alternatives, and risks of the procedure including, but not limited to, bleeding, perforation, missed lesions, and adverse reaction to anesthesia medications. Patient was transported to endoscopy procedure room. Patient was connected to monitoring devices. Throughout the procedure the patient's blood pressure, pulse, and oxygen saturations were monitored continuously. Patient identification and planned procedure were verified by the staff. Attention was first turned to upper endoscopy. Olympus endoscope was inserted via the oropharynx. Esophagus was cannulated. There were findings consistent with possible esophageal dysmotility. Gastroesophageal junction was encountered at approximately 40 cm. Stomach was cannulated and insufflated. Retroflexion revealed no evidence of any significant hiatal hernia. There was some diffuse nonerosive moderate gastropathy. Pylorus was traversed. Duodenum appeared unremarkable. Biopsy was obtained in the gastric lumen. Biopsy was obtained at the gastroesophageal junction. Stomach was desufflated. Patient was positioned in lateral decubitus position. Digital anorectal exam was performed. Variable stiffness Olympus colonoscope was inserted and advanced under direct visualization to the cecum. Adequacy of the colonic preparation was noted. The colonoscope was advanced a short distance into the terminal ileum. The colonoscope was then slowly withdrawn while carefully examining the color, texture, anatomy, and integrity of the mucosoa circumferentially. Within the rectum retroflexion was unable to safely be performed. Colonoscope was then withdrawn. She had rather poor colonic preparation with particulate liquid stool and undigested vegetable matter throughout the colon. With extensive suctioning and high-volume trans colonoscopic irrigation decent visualization was achieved. There was a nonbleeding AVM in the right colon. Overall colonoscopy unremarkable for any polyps, masses, or diverticuli. She did have some redundancy of the colon. Findings:: Possible esophageal dysmotility Gastroesophageal junction at 40 cm Diffuse moderate nonerosive gastropathy Fair colonic preparation Single nonbleeding AVM Recommendations:: Etiology of patient's symptoms of abdominal pain which is sore to touch and alteration of bowel habits likely functional. May benefit from actual gastroenterology evaluation. Likely
[2022-08-09 09:17] VITALS: BP 88/58; PULSE 100; RESP 14; TEMP 36.6; O2SAT 91
[2022-08-09 09:27] VITALS: BP 92/54; PULSE 94; RESP 16; O2SAT 92
[2022-08-09 09:37] VITALS: BP 116/68; PULSE 93; RESP 17; O2SAT 94
[2022-08-09 09:47] VITALS: BP 113/64; PULSE 91; RESP 16; O2SAT 94
[2022-08-09 10:20] LABS: POC Glucose,Bedside 131 (70-110)
== END 2022-08-09 10:25 | disposition home or self-care (01) ==
PROVIDERS: PCP Internal Medicine Adolescent Medicine; Visit Provider Surgery
PROC: 0DJ08ZZ Inspection of Upper Intestinal Tract, Via Natural or Artificial Opening Endoscopic (ICD-10-PCS; CPT 43235; principal; 2022-08-09 08:30)
DX: R10.9 Unspecified abdominal pain (principal); Z79.899 Other long term (current) drug therapy; K31.9 Disease of stomach and duodenum, unspecified
CPT/HCPCS: 43239; 45378; 82962; 88305; 88313; J2704

== ENCOUNTER → 2022-08-15 14:37 | Outpatient (POV) | payer MEDICARE, OTHER, SELFPAY ==
--- NOTE | 2022-08-15 15:07 | EXP.PAIN.SOA ---
[facility] Pain Management SOAP Note Subjective:: Patient is a pleasant 71-year-old female who presents today for medication refill and follow-up. We are currently treating the patient for degenerative disc disease of cervical spine with cervical radiculopathy symptoms, chronic neck pain, osteoarthritis right shoulder, myofascial pain. Today she rates her pain a 7 out of 10. Patient denies any new trauma or injury. She does state that she recently had to drive for long distance to take her brother to his consulting practice director and this along with the recent colonoscopy and EGD may have worsened her symptoms overall. She does state her pain is all in her neck with radiating symptoms into her bilateral shoulders and arms. She does describe it as an aching, stiff soreness that is worse with increased activity. She does state it interferes with her ability to perform activities of daily living such as cooking and cleaning. Patient has had injections in the past that did provide significant relief however she did have a reaction to a steroid and now only gets the numbing medication. Patient at our last visit was given oral steroids that she had had in the past with no reactions however she states the prednisone did cause significant itching so she stopped after 2 pills. Patient is currently managed with Percocet 5 mg 4 times a day and diclofenac 75 mg twice a day. Patient denies any side effects from these medications. She also continues to use her compounding cream. Her Farhan is [id number]. Its been reviewed and appropriate. Review of Systems: General: No recent weight changes, no fever, no sleep disturbances Respiratory: No cough, no shortness of air, no recurring pulmonary infections Cardiovascular/peripheral vascular: No chest pain, no palpitations, no edema, no shortness of breath Gastrointestinal: No new onset incontinence, normal bowel movements reported Genitourinary: No new onset incontinence Musculoskeletal: Neck pain, shoulder pain Psychiatric: [Normal mood/affect] Neurological: [Denies weakness in extremities], [denies balance issues] Objective:: Physical Exam: General: Alert and oriented x3, no acute distress, pleasant and cooperative Lungs: Respirations even and unlabored, symmetrical chest expansion Eyes: PERRL Musculoskeletal: Flexion and extension of cervical [spine] somewhat guarded secondary to pain, [antalgic gait noted] Neurological: Speech clear, no gross sensory deficit Assessment:: Degenerative disc disease of cervical spine with cervical radiculopathy symptoms, chronic neck pain, osteoarthritis right shoulder, myofascial pain Plan:: Patient is experiencing significant pain in her neck with radiating symptoms to her bilateral upper extremities. Patient did have limited range of motion of her cervical spine during today's visit. I have discussed with the patient that she may benefit from a cervical epidural. Risk and benefits were discussed with the patient and she would like to proceed forward with this plan of care. I will also refill her diclofenac 75 mg twice daily and Percocet 5 mg 4 times a day and provide a 1 month supply of this medication. Patient will be scheduled for a cervical epidural injection of C6-C7 with no steroid. Patient has been advised of risks of oversedation with the prescribed medication. Narcan has been offered to the patient in the event of oversedation. Patient has been advised that a family member should also be educated regarding administration of Narcan. Patient has been instructed to contact the clinic with any concerns before the next appointment. Dr. Del Real has reviewed this note and agrees with this plan of care. This note was dictated using voice recognition software and make contain errors or omissions. [facility] Disclaimer: The information contained in this section may have been updated after the patient was seen, as this information can be updated by other users. Medical History (Reviewed
[2022-08-15 15:17] VITALS: BP 117/76; PULSE 81; RESP 18; O2SAT 98; BMI 27.8
== END | disposition home or self-care (01) ==
PROVIDERS: PCP Internal Medicine Adolescent Medicine; Visit Provider Nurse Practitioner Family
DX: M50.123 Cervical disc disorder at C6-C7 level with radiculopathy (principal); M19.011 Primary osteoarthritis, right shoulder; M79.10 Myalgia, unspecified site
CPT/HCPCS: 99212; G0463

== ENCOUNTER → 2022-08-20 14:25 | Outpatient (POV) | payer MEDICARE, OTHER, SELFPAY ==
--- NOTE | 2022-08-20 14:41 | EXP.PAIN.PRO ---
Procedure Date: 08/20/22 Time: 14:45 Anesthesiologist:: Abbe Agosto CRNA Complications:: None
[2022-08-20 14:43] VITALS: BP 124/69; PULSE 86; RESP 18; TEMP 36.1; O2SAT 95; BMI 27.8
--- NOTE | 2022-08-20 14:43 | A.OFFVIS_ITS ---
[facility] Pain Management SOAP Note Subjective:: This patient is a pleasant 71-year-old female that comes our clinic today for proposed cervical epidural steroid injection. However, patient is highly allergic to steroids. She has had difficulty with injected and/or p.o. steroids. Patient's CT scan from 1 year ago of the cervical spine shows Postoperative and degenerative changes as above with moderate left neural foraminal narrowing at C5-6 and C6-7. Patient has difficulty with flexion, extension, left and right rotation at times. Patient not really interested in repeating CT scan due to increased radiation exposure. Patient unable to have MRI due to battery pack for an old stimulator that is no longer functioning. Robert salgado describes her cervical neck pain as intermittent, aching at times. Objective:: Patient is awake alert [place] x3. No acute distress. Flexion-extension cervical spine guarded secondary to pain deep tendon reflexes upper lower extremities normal. Motor strength upper and lower extremities normal. There is no gross sensory deficit. Gait is normal. Assessment:: Degenerative disc disease cervical spine multilevels. Cervical postlaminectomy syndrome. Plan:: Discussed in detail with the patient regarding treatment options. Patient had some moderate degree of success with physical therapy in 2020. I recommend we repeat physical therapy for the cervical spine. We will schedule this for her today. Patient will return to see us following physical therapy. [facility] Disclaimer: The information contained in this section may have been updated after the patient was seen, as this information can be updated by other users. Medical History Hx of cancer of lung Surgical History History of appendectomy History of section Hx of neck surgery S/P insertion of spinal cord stimulator Family History Other Family history of acute heart failure Family history of hyperlipidemia Lung cancer Social History Smoking Status: Never smoker second hand exposure: No alcohol intake: never substance use type: denies use current occupational status: retired Travel in the last 8 weeks: None household members: family housing: house marital status: education level: college current occupational exposures/hazards: No caffeine: Yes special alison needs: No agree to transfusion: No do you feel safe at home: Yes victim of physical abuse: No victim of emotional abuse: No victim of sexual abuse: No would you like helpful sources: No
== END | disposition home or self-care (01) ==
PROVIDERS: PCP Internal Medicine Adolescent Medicine; Visit Provider Nurse Anesthetist, Certified Registered
DX: M50.323 Other cervical disc degeneration at C6-C7 level (principal); M96.1 Postlaminectomy syndrome, not elsewhere classified
CPT/HCPCS: 99212; G0463

== ENCOUNTER → 2022-09-09 15:18 | Outpatient (POV) | payer MEDICARE, OTHER, SELFPAY ==
--- NOTE | 2022-09-09 15:24 | EXP.PAIN.SOA ---
[facility] Pain Management SOAP Note Subjective:: Patient is a pleasant 71-year-old female who presents today for medication refill and follow-up.? We are currently treating the patient for degenerative disc disease of cervical spine with cervical radiculopathy symptoms, chronic neck pain, osteoarthritis right shoulder, myofascial pain.? She does rate her pain today an 8 out of 10. Patient denies any new trauma or injury. She does state that she is having more increased pain that runs down her right leg. She states this has just been going on the last couple days and now is experiencing an aching sensation with spasms down the leg. She states that she did go to her great nieces birthday libertarian here recently and that she was sitting on a picnic table for an extended period of time and believes this may be related to the new pain. She also states that she is concerned that she may be allergic to the diclofenac. She states that she has noticed more itching around her legs and scalp. Patient does have allergies to ibuprofen and steroids for this side effects alone. She was scheduled for physical therapy last week as well however she had a severe sinus headache and had to reschedule this appointment to next week. Patient is currently managed with Percocet 5 mg 4 times a day.? Patient denies any side effects from these medications.? She also continues to use her compounding cream.? Her Farhan is [id number]. Its been reviewed and appropriate..? Its been reviewed and appropriate. Review of Systems: General: No recent weight changes, no fever, no sleep disturbances Respiratory: No cough, no shortness of air, no recurring pulmonary infections Cardiovascular/peripheral vascular: No chest pain, no palpitations,? no edema, no shortness of breath Gastrointestinal: No new onset incontinence, normal bowel movements reported Genitourinary: No new onset incontinence Musculoskeletal: Neck pain, shoulder pain Psychiatric: [Normal mood/affect] Neurological: [Denies weakness in extremities], [denies balance issues] Objective:: Physical Exam: General: Alert and oriented x3, no acute distress, pleasant and cooperative Lungs: Respirations even and unlabored, symmetrical chest expansion Eyes: PERRL Musculoskeletal: Flexion and extension of cervical [spine] somewhat guarded secondary to pain, [antalgic gait noted] Neurological: Speech clear, no gross sensory deficit Assessment:: Degenerative disc disease of cervical spine with cervical radiculopathy symptoms, chronic neck pain, osteoarthritis right shoulder, myofascial pain Plan:: I will refill the patient's Percocet 5 mg 4 times a day and provide a 1 month supply of this medication. I have counseled the patient to try Tylenol arthritis and to discontinue her diclofenac at this time to see if the itching resolves. Patient has been counseled to contact our office and let us know if the itching remains unchanged and if she would like additional refills on the diclofenac. Patient will return to clinic in 1 month for reevaluation of symptoms and plan of care. Patient has been advised of risks of oversedation with the prescribed medication. Narcan has been offered to the patient in the event of oversedation. Patient has been advised that a family member should also be educated regarding administration of Narcan. Patient has been instructed to contact the clinic with any concerns before the next appointment. Dr. Del Real has reviewed this note and agrees with this plan of care. This note was dictated using voice recognition software and make contain errors or omissions. [facility] Disclaimer: The information contained in this section may have been updated after the patient was seen, as this information can be updated by other users. Medical History Hx of cancer of lung Surgical History History of appendectomy History of
[2022-09-09 15:32] VITALS: BP 127/78; PULSE 81; RESP 18; O2SAT 97; BMI 27.4
== END ==
PROVIDERS: PCP Internal Medicine Adolescent Medicine; Visit Provider Nurse Practitioner Family
DX: M50.10 Cervical disc disorder with radiculopathy, unspecified cervical region (principal); M79.10 Myalgia, unspecified site; M19.011 Primary osteoarthritis, right shoulder
CPT/HCPCS: 99212; G0463

== ENCOUNTER → 2022-09-09 15:52 | Outpatient (CLI) | payer MEDICARE, OTHER, SELFPAY ==
[2022-09-09 17:00] LABS: Barbiturates Screen,Urine Negative ng/ml (<200)
[2022-09-09 17:01] LABS: Amphetamine/Metha Screen,Urine Negative ng/ml (<1000); Benzodiazepines Screen,Urine Negative ng/ml (<200)
[2022-09-09 17:02] LABS: Cannabinoid Screen,Urine Negative ng/ml (<50)
[2022-09-09 17:03] LABS: Cocaine Screen,Urine Negative ng/ml (<300); Methadone Screen,Urine Negative ng/ml (<300)
[2022-09-09 17:04] LABS: Opiate Screen,Urine Negative ng/ml (<300); Phencyclidine Screen,Urine Negative ng/ml (<25)
[2022-09-17 20:15] LABS: Opiates Negative (Cutoff=100); Oxycodone (GC/MS) 1947 ng/mL (Cutoff=100); Oxymorphone (GC/MS) 681 ng/mL (Cutoff=100)
== END ==
PROVIDERS: PCP Internal Medicine Adolescent Medicine; Visit Provider Nurse Practitioner Family
DX: Z79.891 Long term (current) use of opiate analgesic (principal)
CPT/HCPCS: 80305; 80361; 80365; 99212; G0463; G0480

== ENCOUNTER → 2022-10-10 14:18 | Outpatient (POV) | payer MEDICARE, OTHER, SELFPAY ==
--- NOTE | 2022-10-10 14:33 | EXP.PAIN.SOA ---
[facility] Pain Management SOAP Note Subjective:: Patient is a pleasant 71-year-old female who presents today for medication refill and follow-up. We are currently treating the patient for degenerative disc disease of cervical spine with cervical radiculopathy symptoms, chronic neck pain, osteoarthritis right shoulder, myofascial pain. Today she rates her pain a 6 out of 10. Patient states she has been experiencing more pain in her left shoulder with limited range of motion. She does describe this as an aching sensation that is worse with increased activity. She states that she has been having extreme difficulty with range of motion. She states she is able to raise that arm however bringing it back down causes significant pain. She does state this is interfering with her ability to perform activities of daily living such as cooking and cleaning. Patient denies any imaging on this joint. Patient is currently managed with Percocet 5 mg 4 times a day. Patient denies any side effects from this medication. She is also prescribed compounding cream that she is requesting a new order for today. Her Farhan is [id number]. Its been reviewed and appropriate. Review of Systems: General: No recent weight changes, no fever, no sleep disturbances Respiratory: No cough, no shortness of air, no recurring pulmonary infections Cardiovascular/peripheral vascular: No chest pain, no palpitations, no edema, no shortness of breath Gastrointestinal: No new onset incontinence, normal bowel movements reported Genitourinary: No new onset incontinence Musculoskeletal: Left shoulder pain Psychiatric: [Normal mood/affect] Neurological: [Denies weakness in extremities], [denies balance issues] Objective:: Physical Exam: General: Alert and oriented x3, no acute distress, pleasant and cooperative Lungs: Respirations even and unlabored, symmetrical chest expansion Eyes: PERRL Musculoskeletal: Flexion and extension of left shoulder somewhat guarded secondary to pain, [antalgic gait noted] Neurological: Speech clear, no gross sensory deficit Assessment:: Degenerative disc disease of cervical spine with cervical radiculopathy symptoms, chronic neck pain, osteoarthritis right shoulder, myofascial pain, left shoulder pain Plan:: Patient is experiencing significant pain in her left shoulder with limited range of motion. I will send the patient for referral for Dr. Isauro Lu office for possible surgical intervention. I will also order x-ray imaging of the left shoulder during today's visit and proceed forward with ordering a CT without contrast as well. Patient does have a implantable device and cannot tolerate an MRI. I will refill the patient's Percocet 5 mg 4 times a day and provide a 1 month supply of this medication. I will also send in a new order of her compounding cream. Patient will return to clinic in 1 month for reevaluation of symptoms, medication refill and follow-up. Patient has been advised of risks of oversedation with the prescribed medication. Narcan has been offered to the patient in the event of oversedation. Patient has been advised that a family member should also be educated regarding administration of Narcan. Patient has been instructed to contact the clinic with any concerns before the next appointment. Dr. Del Real has reviewed this note and agrees with this plan of care. This note was dictated using voice recognition software and make contain errors or omissions. [facility] Disclaimer: The information contained in this section may have been updated after the patient was seen, as this information can be updated by other users. Medical History Hx of cancer of lung Surgical History History of appendectomy History of section Hx of neck surgery S/P insertion of spinal cord stimulator Family History (Reviewed 08/20/22 @ 14:36 by Zahra
[2022-10-10 14:46] VITALS: BP 123/88; PULSE 79; RESP 18; O2SAT 97; BMI 28.3
== END | disposition home or self-care (01) ==
PROVIDERS: PCP Internal Medicine Adolescent Medicine; Visit Provider Nurse Practitioner Family
DX: M50.10 Cervical disc disorder with radiculopathy, unspecified cervical region (principal); M19.011 Primary osteoarthritis, right shoulder; M25.512 Pain in left shoulder; M79.10 Myalgia, unspecified site
CPT/HCPCS: 99212; G0463

== ENCOUNTER → 2022-10-10 14:42 | Outpatient (CLI) | payer MEDICARE, OTHER, SELFPAY ==
--- NOTE | 2022-10-10 14:48 | XR_ITS ---
FINAL REPORT CLINICAL HISTORY: WEAR AND TEAR COMPARISON: 03/03/2019 FINDINGS: Three views of the left shoulder show no evidence of acute displaced fracture or dislocation of the visualized bony architecture. There are severe degenerative changes of the glenohumeral joint. Mild degenerative changes of the AC joint. There is calcification along the lateral humeral head which could be joint body or calcific tendinitis. IMPRESSION: Degenerative changes. Possible joint body versus calcific tendinitis. Reviewed, Interpreted and Dictated by Odilon Malave MD Transcribed by Destiny De Luna Authenticated and [facility]
== END ==
PROVIDERS: PCP Internal Medicine Adolescent Medicine; Visit Provider Anesthesiology
DX: M25.512 Pain in left shoulder (principal); M25.612 Stiffness of left shoulder, not elsewhere classified
CPT/HCPCS: 73030; 99212; G0463

== ENCOUNTER → 2022-11-07 14:34 | Outpatient (POV) | payer MEDICARE, OTHER, SELFPAY ==
--- NOTE | 2022-11-07 14:52 | EXP.PAIN.SOA ---
[facility] Pain Management SOAP Note Subjective:: Patient is a pleasant 71-year-old female who presents today for medication refill and follow-up. We are currently treating the patient for degenerative disc disease of cervical spine with cervical radiculopathy symptoms, chronic neck pain, osteoarthritis right shoulder, myofascial pain, left shoulder pain. Today she rates her pain a 5 out of 10. Patient denies any new trauma or injury. Patient denies any change to location or type of pain she experiences. At our last visit she had came down with a stomach bug from a grandchild and she states this continued to be an issue over the last several weeks. She states just yesterday was the first time she was able to cook and start feeling a little bit more like herself. We did previously order a CT without contrast of her left shoulder however she stated that she was unable to go to this appointment due to her illness and will be calling to reschedule the imaging. We were waiting to send the referral to Dr. Isauro Lu office until we had the CT imaging. Patient is currently managed with compounding cream and Percocet 5 mg 4 times a day. Patient denies any side effects from this medication. Her Farhan is [id number]. Its been reviewed and appropriate. Review of Systems: General: No recent weight changes, no fever, no sleep disturbances Respiratory: No cough, no shortness of air, no recurring pulmonary infections Cardiovascular/peripheral vascular: No chest pain, no palpitations, no edema, no shortness of breath Gastrointestinal: No new onset incontinence, normal bowel movements reported Genitourinary: No new onset incontinence Musculoskeletal: Neck pain, left shoulder pain Psychiatric: [Normal mood/affect] Neurological: [Denies weakness in extremities], [denies balance issues] Objective:: Physical Exam: General: Alert and oriented x3, no acute distress, pleasant and cooperative Lungs: Respirations even and unlabored, symmetrical chest expansion Eyes: PERRL Musculoskeletal: Flexion and extension of cervical [spine] somewhat guarded secondary to pain, [antalgic gait noted] Neurological: Speech clear, no gross sensory deficit Assessment:: Degenerative disc disease of cervical spine with cervical radiculopathy symptoms, chronic neck pain, osteoarthritis right shoulder, myofascial pain, left shoulder pain Plan:: I will refill the patient's Percocet 5 mg 4 times a day and provide a 1 month supply of this medication. I have counseled the patient to let us know if she has any difficulty rescheduling her CT imaging. We will plan on sending the orthopedic referral once this imaging is complete. Patient will return to clinic in 1 month for reevaluation of symptoms and medication refill. Patient has been advised of risks of oversedation with the prescribed medication. Narcan has been offered to the patient in the event of oversedation. Patient has been advised that a family member should also be educated regarding administration of Narcan. Patient has been instructed to contact the clinic with any concerns before the next appointment. Dr. Del Real has reviewed this note and agrees with this plan of care. This note was dictated using voice recognition software and make contain errors or omissions. [facility] Disclaimer: The information contained in this section may have been updated after the patient was seen, as this information can be updated by other users. Medical History Hx of cancer of lung Surgical History History of appendectomy History of section Hx of neck surgery S/P insertion of spinal cord stimulator Family History Other Family history of acute heart failure Family history of hyperlipidemia Lung cancer Social History (Reviewed 08/20/22 @ 14:36 by Geraldine Jacobson
[2022-11-07 16:01] VITALS: BP 136/93; PULSE 85; RESP 18; O2SAT 98; BMI 27.8
== END | disposition home or self-care (01) ==
PROVIDERS: PCP Internal Medicine Adolescent Medicine; Visit Provider Nurse Practitioner Family
DX: M50.10 Cervical disc disorder with radiculopathy, unspecified cervical region (principal); G89.29 Other chronic pain; M19.011 Primary osteoarthritis, right shoulder; M79.10 Myalgia, unspecified site; M25.512 Pain in left shoulder
CPT/HCPCS: 99212; G0463

== ENCOUNTER → 2022-12-05 11:36 | Outpatient (POV) | payer MEDICARE, OTHER, SELFPAY ==
--- NOTE | 2022-12-05 11:46 | EXP.PAIN.SOA ---
[facility] Pain Management SOAP Note Subjective:: Patient is a pleasant 72-year-old female who presents today for follow-up and medication refill. We are currently treating the patient for degenerative disc disease of cervical spine with cervical radiculopathy symptoms, chronic pain syndrome, neck pain, osteoarthritis bilateral shoulders, myofascial pain. Today she rates her pain a 7 out of 10. Patient denies any new trauma or injury. At our last visit she was trying to get a CT without contrast of her left shoulder however she had to reschedule the appointments and she does state that she needs a new order today. Patient is currently waiting to be sent for referral to Dr. uL office once this imaging is complete. Patient is currently managed with compounding cream and Percocet 5 mg 4 times a day. She denies any side effects from this medication. Her Farhan is [phone]. Its been reviewed and appropriate. Review of Systems: General: No recent weight changes, no fever, no sleep disturbances Respiratory: No cough, no shortness of air, no recurring pulmonary infections Cardiovascular/peripheral vascular: No chest pain, no palpitations, no edema, no shortness of breath Gastrointestinal: No new onset incontinence, normal bowel movements reported Genitourinary: No new onset incontinence Musculoskeletal: Left shoulder pain Psychiatric: [Normal mood/affect] Neurological: [Denies weakness in extremities], [denies balance issues] Objective:: Physical Exam: General: Alert and oriented x3, no acute distress, pleasant and cooperative Lungs: Respirations even and unlabored, symmetrical chest expansion Eyes: PERRL Musculoskeletal: Flexion and extension of left shoulder somewhat guarded secondary to pain, [antalgic gait noted] Neurological: Speech clear, no gross sensory deficit Assessment:: Degenerative disc disease of cervical spine with cervical radiculopathy symptoms, chronic pain syndrome, neck pain, osteoarthritis bilateral shoulders, myofascial pain, left shoulder pain Plan:: .I will refill the patient's Percocet 5 mg for 4 times a day and provide a 1 month supply of this medication. I will also order a new left shoulder CT without contrast patient will return to clinic in 1 month for reevaluation of symptoms, medication refill and follow-up. Patient has been advised of risks of oversedation with the prescribed medication. Narcan has been offered to the patient in the event of oversedation. Patient has been advised that a family member should also be educated regarding administration of Narcan. Patient has been instructed to contact the clinic with any concerns before the next appointment. Dr. Del Real has reviewed this note and agrees with this plan of care. This note was dictated using voice recognition software and make contain errors or omissions. [facility] Disclaimer: The information contained in this section may have been updated after the patient was seen, as this information can be updated by other users. Medical History Hx of cancer of lung Surgical History History of appendectomy History of section Hx of neck surgery S/P insertion of spinal cord stimulator Family History Other Family history of acute heart failure Family history of hyperlipidemia Lung cancer Social History Smoking Status: Former smoker second hand exposure: No alcohol intake: never substance use type: denies use current occupational status: retired Travel in the last 8 weeks: None household members: family housing: house marital status: education level: college current occupational exposures/hazards: No caffeine: Yes special alison needs: No agree to transfusion: No do you feel saf
[2022-12-05 13:20] VITALS: BP 135/81; PULSE 76; RESP 20; O2SAT 94; BMI 27.4
== END | disposition home or self-care (01) ==
PROVIDERS: Visit Provider Nurse Practitioner Family
DX: M50.10 Cervical disc disorder with radiculopathy, unspecified cervical region (principal); G89.4 Chronic pain syndrome; M19.011 Primary osteoarthritis, right shoulder; M19.012 Primary osteoarthritis, left shoulder; M79.10 Myalgia, unspecified site; M25.512 Pain in left shoulder
CPT/HCPCS: 99212; G0463

== ENCOUNTER → 2022-12-16 15:12 | Outpatient (CLI) | payer MEDICARE, OTHER, SELFPAY ==
--- NOTE | 2022-12-16 15:16 | CT_ITS ---
FINAL REPORT CLINICAL HISTORY: LT SHOULDER PAIN FINDINGS: Axial CT images of the left shoulder were obtained without contrast. Multiplanar and 3D reformatted images were obtained and reviewed. There is no evidence of fracture or dislocation. Mild degenerative changes are noted at the AC joint. There are moderate degenerative changes of the glenohumeral joint. Subchondral cysts are noted in the glenoid. There is probable calcification of the posterior labrum. A calcification is seen in and adjacent to the long head of the biceps tendon in the bicipital groove measuring up to 12 mm in length. A 2 mm calcification is seen superior to the glenohumeral joint of uncertain etiology. The musculature is intact. No soft tissue mass is identified. IMPRESSION: Mild and moderate degenerative changes. Calcification in and adjacent to the long head of the biceps tendon in the bicipital groove worrisome for calcific tendinitis. Small calcification superior to the glenohumeral joint of uncertain etiology but could represent a small loose body. Authenticated and ERN
== END ==
PROVIDERS: PCP Internal Medicine Adolescent Medicine; Visit Provider Nurse Practitioner Family
DX: M25.512 Pain in left shoulder (principal)
CPT/HCPCS: 73200

== ENCOUNTER → 2023-01-13 12:42 | Outpatient (POV) | payer MEDICARE, OTHER, SELFPAY ==
--- NOTE | 2023-01-13 13:35 | EXP.PAIN.SOA ---
[facility] Pain Management SOAP Note Subjective:: Patient is a pleasant 72-year-old female who presents today for medication refill. We are currently treating the patient for degenerative disc disease of cervical spine with cervical radiculopathy symptoms, chronic pain, neck pain, osteoarthritis bilateral shoulders, myofascial pain, low back pain, left leg pain. Today she rates her pain an 8 out of 10. Patient denies any new trauma or injury. She is scheduled to see orthopedics this coming Friday for her shoulder pain. Patient did also have updated imaging of her left shoulder done and is here to review the findings. Patient is currently managed with compounded cream and Percocet 5 mg 4 times a day. She denies any side effects from this medication. Patient does state that this morning she got out of the shower and noticed a rash on her forehead as well as a fever blister however she denies any recent changes to her laundry soap or body wash. She states she has been having worsening itching all over and has taken Benadryl. Patient does state that she has tried a new shampoo but she has used it a few times with no issues. Patient does have a history of reaction to steroids and cannot tolerate injections due to this. Her Farhan is [phone]. Its been reviewed and appropriate. Review of Systems: General: No recent weight changes, no fever, no sleep disturbances Respiratory: No cough, no shortness of air, no recurring pulmonary infections Cardiovascular/peripheral vascular: No chest pain, no palpitations, no edema, no shortness of breath Gastrointestinal: No new onset incontinence, normal bowel movements reported Genitourinary: No new onset incontinence Musculoskeletal: Low back pain, left leg pain Psychiatric: [Normal mood/affect] Neurological: [Denies weakness in extremities], [denies balance issues] Objective:: Physical Exam: General: Alert and oriented x3, no acute distress, pleasant and cooperative Lungs: Respirations even and unlabored, symmetrical chest expansion Eyes: PERRL Musculoskeletal: Flexion and extension of lumbar [spine] somewhat guarded secondary to pain, [antalgic gait noted] Neurological: Speech clear, no gross sensory deficit Assessment:: Degenerative disc disease of cervical spine with cervical radiculopathy symptoms, chronic pain, neck pain, osteoarthritis bilateral shoulders, myofascial pain, low back pain with left leg pain Plan:: Patient is doing well with her current medication regimen. I will refill her Percocet 5 mg 4 times a day and provide a 1 month supply of this medication. I will also send in a prescription of hydroxyzine 25 mg twice daily as needed for her itching and provide a 1 month supply of this medication. Patient will return to clinic in 1 month for reevaluation of symptoms and plan of care. Patient has been advised of risks of oversedation with the prescribed medication. Narcan has been offered to the patient in the event of oversedation. Patient has been advised that a family member should also be educated regarding administration of Narcan. Patient has been instructed to contact the clinic with any concerns before the next appointment. Dr. Del Real has reviewed this note and agrees with this plan of care. This note was dictated using voice recognition software and make contain errors or omissions. [facility] Disclaimer: The information contained in this section may have been updated after the patient was seen, as this information can be updated by other users. Medical History Hx of cancer of lung Surgical History History of appendectomy History of section Hx of neck surgery S/P insertion of spinal cord stimulator Family History Other Family history of acute heart failure Family history of hyperlipidemia Lung canc
[2023-01-13 14:24] VITALS: BP 149/87; PULSE 86; RESP 18; O2SAT 96; BMI 27.1
== END | disposition home or self-care (01) ==
PROVIDERS: PCP Internal Medicine Adolescent Medicine; Visit Provider Nurse Practitioner Family
DX: M50.10 Cervical disc disorder with radiculopathy, unspecified cervical region (principal); G89.29 Other chronic pain; M19.011 Primary osteoarthritis, right shoulder; M19.012 Primary osteoarthritis, left shoulder; M79.10 Myalgia, unspecified site; M79.605 Pain in left leg
CPT/HCPCS: 99212; G0463

== ENCOUNTER 2023-01-19 18:10 | Emergency (ER) | payer MEDICARE, OTHER, SELFPAY ==
[2023-01-19 18:15] VITALS: BP 186/103; PULSE 89; RESP 20; TEMP 36.8; O2SAT 96; BMI 23.0
--- NOTE | 2023-01-19 18:51 | XR_ITS ---
PROCEDURE INFORMATION: Exam: XR Left Forearm Exam date and time: 01/19/2023 7:12 PM Age: 72 years old Clinical indication: Pain; Lower or forearm; Left; Additional info: Fall, deformity TECHNIQUE: Imaging protocol: Radiologic exam of the left forearm. Views: 2 views. COMPARISON: No relevant prior studies available. FINDINGS: Bones/joints: Mildly displaced, mildly comminuted, fracture of the distal radial metaphysis with extension to the distal articular surface. Ulnar styloid fracture could be old. Severe degenerative change at the distal radioulnar joint. Soft tissues: Normal. IMPRESSION: 1. Mildly displaced, mildly comminuted, fracture of the distal radial metaphysis with extension to the distal articular surface. 2. Ulnar styloid fracture could be old.
--- NOTE | 2023-01-19 18:51 | XR_ITS ---
PROCEDURE INFORMATION: Exam: XR Left Humerus Exam date and time: 01/19/2023 7:12 PM Age: 72 years old Clinical indication: Pain; Upper arm; Left; Additional info: Fall, deformity TECHNIQUE: Imaging protocol: Radiologic exam of the left humerus. Views: 2 or more views. COMPARISON: CT SHOULDER LT WO CON 12/16/2022 3:19 PM FINDINGS: Bones/joints: Mildly displaced and mildly angulated fracture of the mid left humeral diaphysis. The distal humeral shaft is displaced medially approximately a half shaft width. Mild degenerative change of the acromioclavicular and glenohumeral joints. Soft tissues: Normal. IMPRESSION: Mildly displaced and mildly angulated fracture of the mid left humeral diaphysis.
--- NOTE | 2023-01-19 18:51 | XR_ITS ---
PROCEDURE INFORMATION: Exam: XR Left Wrist Exam date and time: 01/19/2023 7:12 PM Age: 72 years old Clinical indication: Pain; Wrist; Left; Additional info: Fall deformity TECHNIQUE: Imaging protocol: Radiologic exam of the left wrist. Views: 3 or more views. COMPARISON: No relevant prior studies available. FINDINGS: Bones/joints: Mildly displaced, mildly comminuted, fracture of the distal radial metaphysis with intra-articular extension. Old ulnar styloid fracture. Severe degenerative change of the distal radioulnar joint. Moderate degenerative change of the 1st carpometacarpal joint. Soft tissues: Normal. IMPRESSION: 1. Mildly displaced, mildly comminuted, fracture of the distal radial metaphysis with intra-articular extension. 2. Old ulnar styloid fracture.
--- NOTE | 2023-01-19 18:52 | HMH.EDGENADL ---
Discharge Plan Disposition Patient Disposition: Home, Self-Care Prescriptions Prescriptions: New oxycodone 5 mg capsule 5 mg PO Q8H PRN (Reason: pain) 3 Days Qty: 12 0RF No Action alendronate 70 MG tablet, effervescent 70 mg PO WEEKLY rosuvastatin 20 mg Tablet 20 mg PO DAILY oxycodone-acetaminophen [Percocet] 5-325 mg tablet 1 tab PO QID Qty: 120 0RF fexofenadine 60 mg tablet 60 mg PO BID Qty: 60 0RF omeprazole 20 MG capsule,delayed release(DR/EC) 20 mg PO DAILY calcium carbonate 500 MG tablet,chewable 500 mg PO DAILY escitalopram oxalate 10 MG tablet 20 mg PO DAILY insulin glargine 100 UNIT/ML insulin pen 25 unit SQ DAILY dapaglifloz propaned-metformin 1 EACH tablet, IR - ER, biphasic 24hr 10 - 1,000 tab PO DAILY diclofenac sodium 75 mg tablet,delayed release (DR/EC) 75 mg PO BID Qty: 60 0RF Referrals Follow up/Referrals: Carmelo Singh DO [Staff Physician] - See instructions (next available appointment ) Romulo Gleason MD [Primary Care Provider] - See instructions Activity Restrictions/Add. Instructions Additional Instructions/Restrictions: Call and make next available ointment with Dr. Singh's return to the emergency part with any worsening symptoms or concerns. Please keep your splints and your sling on as often as you can. You may take it off to change or bathe. Clinical Impressions Clinical Impression: Fracture, humerus, Distal radius fracture, left, Fracture of styloid process of left ulna Discharge ED Provider: Bobbi Stockton General Adult HPI General Chief complaint: PAIN Stated complaint: left arm injury Time Seen by Provider: 01/19/23 18:47 Mode of Arrival: Ambulatory Source of Information: Patient Limitations: No Limitations Description of Symptoms (Recalled from ER Triage Doc. by RN): pt to ed c/o left arm pain. pt states she fell off the porch and fell onto her arm. pt denies hitting her head and denies LOC. History of Present Illness HPI narrative: Patient is a 72-year-old female here with a left upper extremity injury after mechanical fall. She missed stepped walking downstairs and fell down a few stairs landing onto her left arm having an obvious deformity of the left humerus and left distal radius location. She states she is able to extend and flex and has normal sensation in her distal left upper extremity. She denies any injuries elsewhere did not hit her head is not on any anticoagulants denies any neck chest abdomen pelvis or other long bone pain. Related Data Home Medications Medication Instructions Recorded Confirmed calcium carbonate 500 mg calcium 500 mg PO DAILY Supplement 01/07/18 01/13/23 (1,250 mg) chewable tablet escitalopram oxalate 10 mg tablet 20 mg PO DAILY Anxiety 01/07/18 01/13/23 omeprazole 20 mg capsule,delayed 20 mg PO DAILY stomach 01/07/18 01/13/23 release insulin glargine 100 unit/mL (3 25 unit SQ DAILY Diabetes 01/26/18 01/13/23 mL) subcutaneous pen dapagliflozin propaned 10 10 - 1,000 tab PO DAILY Diabetes 10/15/21 01/13/23 mg-metformin ER 1,000 mg tablet,ext rel 24hr alendronate 70 mg effervescent 70 mg PO WEEKLY Osteoarthritis 12/13/21 01/13/23 tablet rosuvastatin 20 mg tablet 20 mg PO DAILY Cholesterol 08/08/22 01/13/23 Previous Rx's Medication Instructions Recorded diclofenac sodium 75 mg 75 mg PO BID Pain #60 tabs 08/15/22 tablet,delayed release fexofenadine 60 mg tablet 60 mg PO BID #60 tabs 01/13/23 oxycodone-acetaminophen 5 mg-325 1 tab PO QID Pain #120 tabs 01/13/23 mg tablet (Percocet) oxycodone 5 mg capsule 5 mg PO Q8H PRN pain 3 days #12 01/19/23 caps Allergies Allergy/AdvReac Type Severity Reaction Status Date / Time methylprednisolone Allergy Intermediate Rash Verified 08/20/22 14:36 [From Depo-Medrol] prednisone Allergy Intermediate I-HIVES Verified 08/20/22 14:36 sulfamethoxazole Allergy Intermediate I-HIVES Verified 08/20/22 14:36
[2023-01-19 19:30] VITALS: BP 148/86; PULSE 85; O2SAT 94
[2023-01-19 21:12] VITALS: BP 142/82; PULSE 74; RESP 20; TEMP 36.8; O2SAT 99
--- NOTE | 2023-01-20 09:01 | PC.NURSE ---
[facility] pharmacy called stated oxycodone capsules prescription for pt, pharmacist states unable to get capsules of this medication. Notified Dr. Hicks who is on shift today, notified him of what pt was in ED for. States to have pharmacist cancel the capsules prescription and he will send in an a new RX for pt.
== END 2023-01-19 21:14 | disposition home or self-care (01) ==
PROVIDERS: Emergency Provider Student in an Organized Health Care Education/Training Program; PCP Internal Medicine Adolescent Medicine
DX: S42.302A Unspecified fracture of shaft of humerus, left arm, initial encounter for closed fracture (principal); S52.572A Other intraarticular fracture of lower end of left radius, initial encounter for closed fracture; S52.612A Displaced fracture of left ulna styloid process, initial encounter for closed fracture; W10.9XXA Fall (on) (from) unspecified stairs and steps, initial encounter
CPT/HCPCS: 73060; 73090; 73110; 96374; 96375; 99284; J2405

== ENCOUNTER → 2023-02-27 14:12 | Outpatient (POV) | payer MEDICARE, OTHER, SELFPAY ==
--- NOTE | 2023-02-27 14:13 | EXP.PAIN.SOA ---
[facility] Pain Management SOAP Note Subjective:: Patient is a pleasant 72-year-old female who presents today for 1 month follow-up and medication refill. We are currently treating the patient for degenerative disc disease of cervical spine with cervical radiculopathy symptoms, chronic pain, neck pain, osteoarthritis bilateral shoulders, myofascial pain, low back pain, left leg pain. Today she rates her pain an 5 out of 10. Since our last visit she has had a fall and broke her left humerus and wrist in multiple places. Patient states this occurred on February 18 and that she did come to [facility] for evaluation and had imaging done that showed the multiple fractures. She states she could not get into Ortho here quickly so she did end up going on to . She states initially they had just done a cast however she had significant swelling and blisters around this area. She stated that she did end up having to have surgery and is doing much better today. She is still experiencing an aching sensation that is worse with increased activity. She states she has very limited range of motion in her left arm and shoulder due to this injury. She does still have swelling to her left hand and is in a sling today. Patient is currently managed with compounded cream and Percocet 5 mg 4 times a day. She denies any side effects from this medication. Her Farhan has been reviewed. Review of Systems: General: No recent weight changes, no fever, no sleep disturbances Respiratory: No cough, no shortness of air, no recurring pulmonary infections Cardiovascular/peripheral vascular: No chest pain, no palpitations, no edema, no shortness of breath Gastrointestinal: No new onset incontinence, normal bowel movements reported Genitourinary: No new onset incontinence Musculoskeletal: Left shoulder pain, left arm pain, left hand pain Psychiatric: [Normal mood/affect] Neurological: [Denies weakness in extremities], [denies balance issues] Objective:: Physical Exam: General: Alert and oriented x3, no acute distress, pleasant and cooperative Lungs: Respirations even and unlabored, symmetrical chest expansion Eyes: PERRL Musculoskeletal: Flexion and extension of left shoulder somewhat guarded secondary to pain, [antalgic gait noted] Neurological: Speech clear, no gross sensory deficit Assessment:: Degenerative disc disease of cervical spine with cervical radiculopathy symptoms, chronic pain syndrome, neck pain, osteoarthritis bilateral shoulders, myofascial pain, low back pain, left leg pain Plan:: Patient is experiencing more pain related to a recent fall that resulted in multiple fractures of her left arm and wrist. I have discussed with the patient in future we can see about possibly doing injections once she is healed. I will refill the patient's Percocet 5 mg 4 times a day and provide a 1 month supply of this medication. Patient will return to clinic in 1 month for reevaluation of symptoms and medication refill. Patient has been advised of risks of oversedation with the prescribed medication. Narcan has been offered to the patient in the event of oversedation. Patient has been advised that a family member should also be educated regarding administration of Narcan. Patient has been instructed to contact the clinic with any concerns before the next appointment. Dr. Del Real has reviewed this note and agrees with this plan of care. This note was dictated using voice recognition software and make contain errors or omissions. [facility] Disclaimer: The information contained in this section may have been updated after the patient was seen, as this information can be updated by other users. Medical History (Updated 01/19/23 @ 21:07 by Bobbi Stockton MD) Hx of cancer of lung Surgical History History of appendectomy History of section Hx of neck surgery S/P insertion of spinal cord stimulator Family Hist
[2023-02-27 15:03] VITALS: BP 148/86; PULSE 98; RESP 18; O2SAT 95; BMI 26.6
== END | disposition home or self-care (01) ==
PROVIDERS: PCP Internal Medicine Adolescent Medicine; Visit Provider Nurse Practitioner Family
DX: M50.10 Cervical disc disorder with radiculopathy, unspecified cervical region (principal); G89.4 Chronic pain syndrome; M19.011 Primary osteoarthritis, right shoulder; M19.012 Primary osteoarthritis, left shoulder; M79.10 Myalgia, unspecified site; M54.50 Low back pain, unspecified; M79.605 Pain in left leg
CPT/HCPCS: 99212; G0463

== ENCOUNTER → 2023-02-27 14:40 | Outpatient (CLI) | payer MEDICARE, OTHER, SELFPAY ==
[2023-02-27 16:09] LABS: Amphetamine/Metha Screen,Urine Negative ng/ml (<1000); Barbiturates Screen,Urine Negative ng/ml (<200)
[2023-02-27 16:10] LABS: Benzodiazepines Screen,Urine Negative ng/ml (<200)
[2023-02-27 16:11] LABS: Cannabinoid Screen,Urine Negative ng/ml (<50); Cocaine Screen,Urine Negative ng/ml (<300)
[2023-02-27 16:12] LABS: Methadone Screen,Urine Negative ng/ml (<300); Opiate Screen,Urine Positive ng/ml (<300)
[2023-02-27 16:13] LABS: Phencyclidine Screen,Urine Negative ng/ml (<25)
[2023-03-05 13:04] LABS: Opiates Negative (Cutoff=100); Oxycodone (GC/MS) >3000 ng/mL (Cutoff=100); Oxymorphone (GC/MS) 1747 ng/mL (Cutoff=100)
== END ==
LOC: LAB 14:41
PROVIDERS: PCP Internal Medicine Adolescent Medicine; Visit Provider Nurse Practitioner Family
DX: Z79.891 Long term (current) use of opiate analgesic (principal)
CPT/HCPCS: 80305; 80307; 80361; 80365; 99212; G0463; G0480

== ENCOUNTER → 2023-03-26 13:23 | Outpatient (POV) | payer MEDICARE, OTHER, SELFPAY ==
[2023-03-26 13:33] VITALS: BP 129/84; PULSE 91; RESP 18; O2SAT 95; BMI 25.4
--- NOTE | 2023-03-26 13:52 | EXP.PAIN.SOA ---
[facility] Pain Management SOAP Note Subjective:: Patient is a pleasant 72-year-old female who presents today for medication refill. We are currently treating the patient for degenerative disc disease of cervical spine with cervical radiculopathy symptoms, chronic pain syndrome, neck pain, osteoarthritis bilateral shoulders, myofascial pain, low back pain with lumbar radiculopathy symptoms. Today she rates her pain a 4 out of 10. Patient states she is doing better from our last visit. She states she does continue to have some swelling in her left arm related to her fracture with some limited range of motion still. She states she has been able to increase her activity and today was the first day that she is driven since her surgery. Patient also states she has been able to start doing more around the kitchen and cooking. She does state that her pain medication helps manage her pain on a daily basis. Patient is currently prescribed Percocet 5 mg 4 times a day and compounded cream. She denies any side effects from this medication. Her Farhan has been reviewed and is appropriate. Review of Systems: General: No recent weight changes, no fever, no sleep disturbances Respiratory: No cough, no shortness of air, no recurring pulmonary infections Cardiovascular/peripheral vascular: No chest pain, no palpitations, no edema, no shortness of breath Gastrointestinal: No new onset incontinence, normal bowel movements reported Genitourinary: No new onset incontinence Musculoskeletal: Left arm pain Psychiatric: [Normal mood/affect] Neurological: [Denies weakness in extremities], [denies balance issues] Objective:: Physical Exam: General: Alert and oriented x3, no acute distress, pleasant and cooperative Lungs: Respirations even and unlabored, symmetrical chest expansion Eyes: PERRL Musculoskeletal: Flexion and extension of left arm somewhat guarded secondary to pain, [antalgic gait noted] Neurological: Speech clear, no gross sensory deficit Assessment:: Degenerative disc disease of cervical spine with cervical radiculopathy symptoms, chronic pain syndrome, neck pain, osteoarthritis bilateral shoulders, myofascial pain, low back pain with lumbar radiculopathy symptoms, left arm pain related to recent fracture Plan:: Patient is doing well with her current medication regimen. I will refill her Percocet 5 mg 4 times a day and provide 1 month of his medication. Patient will return to clinic in 1 month for reevaluation of symptoms and plan of care. Patient has been advised of risks of oversedation with the prescribed medication. Narcan has been offered to the patient in the event of oversedation. Patient has been advised that a family member should also be educated regarding administration of Narcan. Patient has been instructed to contact the clinic with any concerns before the next appointment. Dr. Del Real has reviewed this note and agrees with this plan of care. This note was dictated using voice recognition software and make contain errors or omissions. [facility] Disclaimer: The information contained in this section may have been updated after the patient was seen, as this information can be updated by other users. Medical History (Updated 01/19/23 @ 21:07 by Bobbi Stockton MD) Hx of cancer of lung Surgical History History of appendectomy History of section Hx of neck surgery S/P insertion of spinal cord stimulator Family History Other Family history of acute heart failure Family history of hyperlipidemia Lung cancer Social History Smoking Status: Never smoker second hand exposure: No alcohol intake: never substance use type: denies use current occupational status: retired Travel in the last 8 weeks: None household members: family housing: house
== END | disposition home or self-care (01) ==
PROVIDERS: PCP Internal Medicine Adolescent Medicine; Visit Provider Nurse Practitioner Family
DX: M50.10 Cervical disc disorder with radiculopathy, unspecified cervical region (principal); G89.29 Other chronic pain; M19.011 Primary osteoarthritis, right shoulder; M19.012 Primary osteoarthritis, left shoulder; M79.10 Myalgia, unspecified site; M54.16 Radiculopathy, lumbar region; M79.602 Pain in left arm
CPT/HCPCS: 99212; G0463

== ENCOUNTER → 2023-05-12 10:53 | Outpatient (POV) | payer MEDICARE, OTHER, SELFPAY ==
--- NOTE | 2023-05-12 11:56 | EXP.PAIN.SOA ---
[facility] Pain Management SOAP Note Subjective:: Patient is a pleasant 72-year-old female who presents today for medication refill and follow-up. We are currently treating the patient for degenerative disc disease of cervical spine with cervical radiculopathy symptoms, chronic pain syndrome, neck pain, osteoarthritis bilateral shoulders, myofascial pain, low back pain with lumbar radiculopathy symptoms. Today she rates her pain a 10 out of 10. Patient denies any new trauma or injury. Patient does state that she is experiencing worsening pain in and around her hips and low back. Patient does state that the pain is often directly under where her spinal cord stimulator is as well. Patient does state that it is very tender and painful and that she does not really even use this device and has thought about having it explanted. Patient states it has been over a year since she has had this reprogrammed by [employer]. Patient does state initially that it did really seem to help and that she has had a spinal cord stimulator in approximately 15 years in total between the different devices. Patient is currently managed with Percocet 5 mg 4 times a day and compounded cream. Patient denies any side effects from this medication. She is requesting refills on both of these. Patient has had an issue with steroids in the past and cannot tolerate the steroid injections. Her Farhan has been reviewed and is appropriate. Review of Systems: General: No recent weight changes, no fever, no sleep disturbances Respiratory: No cough, no shortness of air, no recurring pulmonary infections Cardiovascular/peripheral vascular: No chest pain, no palpitations, no edema, no shortness of breath Gastrointestinal: No new onset incontinence, normal bowel movements reported Genitourinary: No new onset incontinence Musculoskeletal: Low back pain, bilateral hip pain Psychiatric: [Normal mood/affect] Neurological: [Denies weakness in extremities], [denies balance issues] Objective:: Physical Exam: General: Alert and oriented x3, no acute distress, pleasant and cooperative Lungs: Respirations even and unlabored, symmetrical chest expansion Eyes: PERRL Musculoskeletal: Flexion and extension of lumbar [spine] somewhat guarded secondary to pain, [antalgic gait noted] point tenderness along bilateral SIs with positive bilateral Rebekah's, Shira's, Gaenslen's, compression and distraction exam Neurological: Speech clear, no gross sensory deficit Assessment:: Degenerative disc disease of cervical spine with cervical radiculopathy symptoms, chronic pain syndrome, neck pain, osteoarthritis bilateral shoulders, myofascial pain, low back pain with lumbar radiculopathy symptoms, sacroiliitis Plan:: Patient is experiencing significant pain in her low back and hips with limited range of motion. Patient did have bilateral point tenderness along her bilateral SIs and a positive bilateral Rebekah's, Shira's, Gaenslen's, compression and distraction exam. I have discussed with the patient due to her inability to have the steroid injections due to a reaction that I do think it would be beneficial to reach out to [employer] premium service representative for reprogramming. I have discussed with the patient the risk and benefits of having the device explanted and we will follow-up with this after her reprogramming to see if she still would like to proceed forward with this option. I will refill the patient's Percocet 5 mg 4 times a day and compounded cream with an additional 5 refills. Patient will return to clinic in 1 month for reevaluation of symptoms and plan of care. Patient has been advised of risks of oversedation with the prescribed medication. Narcan has been offered to the patient in the event of oversedation. Patient has been advised that a family member should also be educated regarding administration of Narcan. Patient has been instructed to contact the clinic with any concerns before the next appointment. Dr. Del Real has reviewed this note and agrees with this plan of care. This note was dictated using voice recognition software and make contain errors or omissions. [facility] Disclaimer: The information contained in this section may have been updated after the patient was seen, as this information can be updated by other users. Medical History (Updated 01/19/23 @ 21:07 by Bobbi Stockton MD) Hx of cancer of lung Surgical History History of appendectomy History of section Hx of neck surgery S/P insertion of spinal cord stimulator Family History Other Family history of acute heart failure Family history of hyperlipidemia Lung cancer Social History Smoking Status: Never smoker second hand exposure: No alcohol intake: never substance use type: denies use current occupational status: retired Travel in the last 8 weeks: None household members: family housing: house marital status: education level: college current occupational exposures/hazards: No caffeine: Yes special alison needs: No agree to transfusion: No do you feel safe at home: Yes victim of physical abuse: No victim of emotional abuse: No victim of sexual abuse: No would you like helpful sources: No
[2023-05-12 12:21] VITALS: BP 151/83; PULSE 78; RESP 18; O2SAT 95; BMI 24.3
== END | disposition home or self-care (01) ==
PROVIDERS: PCP Internal Medicine Adolescent Medicine; Visit Provider Nurse Practitioner Family
DX: M50.10 Cervical disc disorder with radiculopathy, unspecified cervical region (principal); G89.4 Chronic pain syndrome; M19.011 Primary osteoarthritis, right shoulder; M19.012 Primary osteoarthritis, left shoulder; M79.10 Myalgia, unspecified site; M54.16 Radiculopathy, lumbar region; M46.1 Sacroiliitis, not elsewhere classified; Z96.82 Presence of neurostimulator
CPT/HCPCS: 99212; G0463

== ENCOUNTER → 2023-06-12 13:33 | Outpatient (POV) | payer MEDICARE, OTHER, SELFPAY ==
[2023-06-12 14:39] VITALS: BP 126/84; PULSE 86; RESP 18; O2SAT 95; BMI 24.5
--- NOTE | 2023-06-12 14:53 | A.OFFVIS_ITS ---
[facility] Pain Management SOAP Note Subjective:: Patient is a pleasant 72-year-old female who presents today for medication refill and 1 month follow-up. We are currently treating the patient for degenerative disc disease of cervical spine with cervical radiculopathy symptoms, chronic pain syndrome, neck pain, bilateral shoulder pain, myofascial pain, low back pain with lumbar radiculopathy symptoms. Today she rates her pain a 9 out of 10. Patient denies any new trauma or injury from our last visit. She does state that she continues to have tenderness around the lower portion of her spinal cord stimulator. Patient did hear from [employer] representatives to be reprogrammed however she could not find her device application programmer analyst and that she stated that she is planning on contacting representatives once she locates this at the house. Patient did previously have a fall months ago and that the pain around her SCS device started months later. Patient does state that she is unsure if she did anything more significant. Patient is currently managed with Percocet 5 mg 4 times a day and compounded cream. She denies any side effects from this medication. Patient is unable to tolerate steroids. Her Farhan has been reviewed and is appropriate. Review of Systems: General: No recent weight changes, no fever, no sleep disturbances Respiratory: No cough, no shortness of air, no recurring pulmonary infections Cardiovascular/peripheral vascular: No chest pain, no palpitations, no edema, no shortness of breath Gastrointestinal: No new onset incontinence, normal bowel movements reported Genitourinary: No new onset incontinence Musculoskeletal: Low back pain, left hip pain/buttocks pain Psychiatric: [Normal mood/affect] Neurological: [Denies weakness in extremities], [denies balance issues] Objective:: Physical Exam: General: Alert and oriented x3, no acute distress, pleasant and cooperative Lungs: Respirations even and unlabored, symmetrical chest expansion Eyes: PERRL Musculoskeletal: Flexion and extension of lumbar [spine] somewhat guarded secondary to pain, [antalgic gait noted] Neurological: Speech clear, no gross sensory deficit Assessment:: Degenerative disc disease of cervical spine with cervical radiculopathy symptoms, chronic pain syndrome, neck pain, bilateral shoulder pain, myofascial pain, low back pain with lumbar radiculopathy symptoms Plan:: I will refill the patient's Percocet 5 mg 4 times a day and provide a 1 month supply of this medication. I have discussed with the patient that I will order x-ray imaging of her lumbar spine and left SI joint as well as more advanced imaging of a CT with contrast of her lumbar and sacral spine. Patient will return to clinic in 1 month for reevaluation of symptoms and plan of care. Risks and benefits of the medication have been explained in detail to the patient. The patient does understand the risk of dependence on the medication when given over a prolonged period. Patient has been advised of risks of oversedation with the prescribed medication. Narcan has been offered to the paitent in the event of oversedation. Patient has been advised that a family member should also be educated regarding administration of Narcan. The patient has been advised to consult with his/her primary care provider and pharmacist regarding drug-drug interaction of medications currently prescribed. Patient has been prescribed a controlled substance after being counseled on the medication, medication safety, and possible side effects. Opioid contract was reviewed and signed by the patient, and that they have agreed to all of the terms set forth by our compliance program. Patient has been instructed to contact the clinic with any concerns before the next appointment. Dr. Del Real has reviewed this note and agrees with this plan of care. This note was dictated using voice recognition software and make contain errors or omissions. [facility] Disclaimer: The information contained in this section may have been updated after the patient was seen, as this information can be updated by other users. Medical History (Updated 01/19/23 @ 21:07 by Bobbi Stockton MD) Hx of cancer of lung Surgical History History of appendectomy History of section Hx of neck surgery S/P insertion of spinal cord stimulator Family History Other Family history of acute heart failure Family history of hyperlipidemia Lung cancer Social History Smoking Status: Never smoker second hand exposure: No alcohol intake: never substance use type: denies use current occupational status: retired Travel in the last 8 weeks: None household members: family housing: house marital status: education level: college current occupational exposures/hazards: No caffeine: Yes special alison needs: No agree to transfusion: No do you feel safe at home: Yes victim of physical abuse: No victim of emotional abuse: No victim of sexual abuse: No would you like helpful sources: No
[2023-06-12 16:53] LABS: Phencyclidine Screen,Urine Negative ng/ml (<25)
[2023-06-12 17:14] LABS: Amphetamine/Metha Screen,Urine Negative ng/ml (<1000)
[2023-06-12 17:19] LABS: Opiate Screen,Urine Negative ng/ml (<300)
[2023-06-12 17:27] LABS: Barbiturates Screen,Urine Negative ng/ml (<200)
[2023-06-12 17:29] LABS: Cocaine Screen,Urine Negative ng/ml (<300)
[2023-06-12 18:22] LABS: Benzodiazepines Screen,Urine Negative ng/ml (<200)
[2023-06-12 18:24] LABS: Methadone Screen,Urine Negative ng/ml (<300)
[2023-06-12 22:13] LABS: Cannabinoid Screen,Urine Negative ng/ml (<50)
== END | disposition home or self-care (01) ==
PROVIDERS: PCP Internal Medicine Adolescent Medicine; Visit Provider Nurse Practitioner Family
DX: Z79.891 Long term (current) use of opiate analgesic (principal); M50.10 Cervical disc disorder with radiculopathy, unspecified cervical region; G89.4 Chronic pain syndrome; M25.511 Pain in right shoulder; M25.512 Pain in left shoulder; M79.10 Myalgia, unspecified site
CPT/HCPCS: 80307; 99212; G0463

== ENCOUNTER 2023-06-12 14:35 | Outpatient (CLI) | payer MEDICARE, OTHER, SELFPAY ==
--- NOTE | 2023-06-12 15:03 | XR_ITS ---
FINAL REPORT CLINICAL HISTORY: . FINDINGS: 5 views of the lumbar spine were obtained. There is no evidence of fracture or dislocation. The vertebral alignment is normal. There are mild and moderate degenerative changes with multilevel facet arthropathy. A spinal stimulator is noted. There are mild vascular calcifications present. No paraspinous soft tissue abnormalities identified. IMPRESSION: No acute bony abnormality. Reviewed, Interpreted and Dictated by Darius Sosa III, MD Transcribed by Moriah Kapadia Authenticated and [facility]
--- NOTE | 2023-06-12 15:03 | XR_ITS ---
FINAL REPORT CLINICAL HISTORY: LBP W LT HIP PAIN FINDINGS: SI JOINTS 3 views were obtained. There is no acute fracture or dislocation. Visualized joint spaces are normally aligned. There are mild degenerative changes. Soft tissues are unremarkable. IMPRESSION: No acute bony abnormality. Reviewed, Interpreted and Dictated by Darius Sosa III, MD Transcribed by Moriah Kapadia Authenticated and [facility]
== END 2023-06-12 23:59 ==
LOC: LAB 14:36
PROVIDERS: PCP Internal Medicine Adolescent Medicine; Visit Provider Nurse Practitioner Family
DX: M54.50 Low back pain, unspecified (principal); M25.552 Pain in left hip; M53.3 Sacrococcygeal disorders, not elsewhere classified; Z79.891 Long term (current) use of opiate analgesic
CPT/HCPCS: 72110; 72202; 80307; 99212; G0463

== ENCOUNTER → 2023-07-10 13:00 | Outpatient (POV) | payer MEDICARE, OTHER, SELFPAY ==
[2023-07-10 13:06] VITALS: BP 111/72; PULSE 77; RESP 20; BMI 24.9
--- NOTE | 2023-07-10 13:20 | EXP.PAIN.SOA ---
[facility] Pain Management SOAP Note Subjective:: Patient is a pleasant 72-year-old female who presents today for medication refill. Today she rates her pain a 6 out of 10. Patient denies any new trauma or injury. She does state that she still has not found her spinal cord stimulator remote. Patient is planning on still looking around and contacting [employer] sales representative wire rope once she finds this to get reprogrammed. Patient does also state that that she has since been diagnosed with an abdominal hernia along the right side and states that her provider is concerned that they may need to do something regarding this in the future. She states she is scheduled for CT coming up for this hernia. Patient does also state that she has been having a little bit more pain and trouble with the previous bone graft and around her jaw along the right side. She states that she does note that she is needing to make a follow-up appointment with that specialist soon. Patient states she is expecting her twin grandchildren coming up soon. Patient does have family who have moved in with her and states that there is been a lot going on since then. Patient is currently managed with Percocet 5 mg 4 times a day and compounded cream. She denies any side effects from this medication. Her Farhan has been reviewed and is appropriate. Review of Systems: General: No recent weight changes, no fever, no sleep disturbances Respiratory: No cough, no shortness of air, no recurring pulmonary infections Cardiovascular/peripheral vascular: No chest pain, no palpitations, no edema, no shortness of breath Gastrointestinal: No new onset incontinence, normal bowel movements reported Genitourinary: No new onset incontinence Musculoskeletal: Abdominal pain right-sided Psychiatric: [Normal mood/affect] Neurological: [Denies weakness in extremities], [denies balance issues] Objective:: Physical Exam: General: Alert and oriented x3, no acute distress, pleasant and cooperative Lungs: Respirations even and unlabored, symmetrical chest expansion Eyes: PERRL Musculoskeletal: Flexion and extension of lumbar [spine] somewhat guarded secondary to pain, [antalgic gait noted] Neurological: Speech clear, no gross sensory deficit Assessment:: Degenerative disc disease of cervical and lumbar spine with cervical and lumbar radiculopathy symptoms, shoulder pain, myofascial pain Plan:: I will refill the patient's Percocet 5 mg 4 times a day and provide a 1 month supply of this medication. Patient will return to clinic in 1 month for reevaluation of symptoms and plan of care. Risks and benefits of the medication have been explained in detail to the patient. The patient does understand the risk of dependence on the medication when given over a prolonged period. Patient has been advised of risks of oversedation with the prescribed medication. Narcan has been offered to the paitent in the event of oversedation. Patient has been advised that a family member should also be educated regarding administration of Narcan. The patient has been advised to consult with his/her primary care provider and pharmacist regarding drug-drug interaction of medications currently prescribed. Patient has been prescribed a controlled substance after being counseled on the medication, medication safety, and possible side effects. Opioid contract was reviewed and signed by the patient, and that they have agreed to all of the terms set forth by our compliance program. Patient has been instructed to contact the clinic with any concerns before the next appointment. Dr. Del Real has reviewed this note and agrees with this plan of care. This note was dictated using voice recognition software and make contain errors or omissions. [facility] Disclaimer: The information contained in this section may have been updated after the patient was seen, as this information can be updated by other users. Medical History (Updated 01/19/23 @ 21:07 by Bobbi Stockton MD) Hx of cancer of lung Surgical History S/P insertion of spinal cord stimulator Hx of neck surgery History of appendectomy History of section Family History Other Family history of acute heart failure Family history of hyperlipidemia Lung cancer Social History Smoking Status: Never smoker second hand exposure: No alcohol intake: never substance use type: denies use current occupational status: other Travel in the last 8 weeks: None household members: family housing: house marital status: education level: college current occupational exposures/hazards: No caffeine: Yes special alison needs: No agree to transfusion: No do you feel safe at home: Yes victim of physical abuse: No victim of emotional abuse: No victim of sexual abuse: No would you like helpful sources: No
== END | disposition home or self-care (01) ==
PROVIDERS: PCP Internal Medicine Adolescent Medicine; Visit Provider Nurse Practitioner Family
DX: M50.10 Cervical disc disorder with radiculopathy, unspecified cervical region (principal); M51.16 Intervertebral disc disorders with radiculopathy, lumbar region; M25.519 Pain in unspecified shoulder; M79.10 Myalgia, unspecified site
CPT/HCPCS: 99212; G0463

== ENCOUNTER 2023-08-11 13:32 | Outpatient (POV) | payer MEDICARE, OTHER, SELFPAY ==
[2023-08-11 13:40] VITALS: BP 134/72; PULSE 85; RESP 18; O2SAT 95; BMI 24.9
--- NOTE | 2023-08-11 13:47 | EXP.PAIN.SOA ---
[facility] Pain Management SOAP Note Subjective:: Patient is a pleasant 72-year-old female who presents today for medication refill and 1 month follow-up. Today she rates her pain a 6 out of 10. She denies any new trauma or injury. She does state that she is still not found her spinal cord stimulator remote. She does also state that from her last visit her [id number] did give to her twins and they are doing well. Patient denies any other updates from our last appointment. She is managed with Percocet 5 mg 4 times a day and compounded cream. She denies any side effects from this medication. Her Farhan has been reviewed and is appropriate. Review of Systems: General: No recent weight changes, no fever, no sleep disturbances Respiratory: No cough, no shortness of air, no recurring pulmonary infections Cardiovascular/peripheral vascular: No chest pain, no palpitations, no edema, no shortness of breath Gastrointestinal: No new onset incontinence, normal bowel movements reported Genitourinary: No new onset incontinence Musculoskeletal: Low back pain Psychiatric: [Normal mood/affect] Neurological: [Denies weakness in extremities], [denies balance issues] Objective:: Physical Exam: General: Alert and oriented x3, no acute distress, pleasant and cooperative Lungs: Respirations even and unlabored, symmetrical chest expansion Eyes: PERRL Musculoskeletal: Flexion and extension of lumbar [spine] somewhat guarded secondary to pain, [antalgic gait noted] Neurological: Speech clear, no gross sensory deficit Assessment:: Degenerative disc disease of cervical and lumbar spine with cervical and lumbar radiculopathy symptoms, shoulder pain, myofascial pain Plan:: I will refill the patient's Percocet 5 mg 4 times a day and provide a 1 month supply of this medication. I will also reach out to [employer] sales representative about seeing about a replacement for her stimulator device. Patient will return to clinic in 1 month for reevaluation of symptoms and plan of care. Risks and benefits of the medication have been explained in detail to the patient. The patient does understand the risk of dependence on the medication when given over a prolonged period. Patient has been advised of risks of oversedation with the prescribed medication. Narcan has been offered to the paitent in the event of oversedation. Patient has been advised that a family member should also be educated regarding administration of Narcan. The patient has been advised to consult with his/her primary care provider and pharmacist regarding drug-drug interaction of medications currently prescribed. Patient has been prescribed a controlled substance after being counseled on the medication, medication safety, and possible side effects. Opioid contract was reviewed and signed by the patient, and that they have agreed to all of the terms set forth by our compliance program. Patient has been instructed to contact the clinic with any concerns before the next appointment. Dr. Del Real has reviewed this note and agrees with this plan of care. This note was dictated using voice recognition software and make contain errors or omissions. [facility] Disclaimer: The information contained in this section may have been updated after the patient was seen, as this information can be updated by other users. Medical History (Updated 01/19/23 @ 21:07 by Bobbi Stockton MD) Hx of cancer of lung Surgical History S/P insertion of spinal cord stimulator Hx of neck surgery History of appendectomy History of section Family History Other Family history of acute heart failure Family history of hyperlipidemia Lung cancer Social History Smoking Status: Never smoker second hand exposure: No alcohol intake: never substance use type: denies use current occupational status: retired Travel in the last 8 weeks: None household members: family housing: house marital status: education level: college current occupational exposures/hazards: No caffeine: Yes special alison needs: No agree to transfusion: No do you feel safe at home: Yes victim of physical abuse: No victim of emotional abuse: No victim of sexual abuse: No would you like helpful sources: No
== END 2023-08-11 23:59 | disposition home or self-care (01) ==
PROVIDERS: PCP Internal Medicine Adolescent Medicine; Visit Provider Nurse Practitioner Family
DX: M50.10 Cervical disc disorder with radiculopathy, unspecified cervical region (principal); M51.16 Intervertebral disc disorders with radiculopathy, lumbar region; M25.519 Pain in unspecified shoulder; M79.10 Myalgia, unspecified site
CPT/HCPCS: 99212; G0463

== ENCOUNTER 2023-08-18 10:35 | Outpatient (CLI) | payer MEDICARE, OTHER, SELFPAY ==
--- NOTE | 2023-08-18 10:39 | CT_ITS ---
FINAL REPORT TECHNIQUE: Axial images through the abdomen and pelvis were performed without contrast. This study was performed with techniques to keep radiation doses as low as reasonably achievable, (ALARA). Individualized dose reduction techniques using automated exposure control or adjustment of mA and/or kV according to the patient's size were employed. CLINICAL HISTORY: INGUINAL BULGE COMPARISON: None FINDINGS: Abdomen: Scarring is present in the lung bases. The liver parenchyma is homogeneous. The gallbladder is present and distended. The spleen, pancreas, adrenals and kidneys are unremarkable. Pelvis: The urinary bladder is unremarkable. The uterus is retroverted. The appendix is not visualized. There is no pelvic mass or inflammation. There is streak artifact overlying the pelvis from a left gluteal stimulator device. IMPRESSION: No acute abnormality. Reviewed, Interpreted and Dictated by Kip Joshi MD Transcribed by Danyell Freire Authenticated and [facility]
== END 2023-08-18 23:59 ==
LOC: RAD 10:36
PROVIDERS: PCP Internal Medicine Adolescent Medicine; Visit Provider Internal Medicine Adolescent Medicine
DX: R19.09 Other intra-abdominal and pelvic swelling, mass and lump (principal)
CPT/HCPCS: 74176

== ENCOUNTER 2023-09-10 13:25 | Outpatient (POV) | payer MEDICARE, OTHER, SELFPAY ==
[2023-09-10 14:44] VITALS: BP 116/70; PULSE 81; RESP 18; O2SAT 94; BMI 24.9
--- NOTE | 2023-09-10 15:47 | A.OFFVIS_ITS ---
[facility] Pain Management SOAP Note Subjective:: Patient is a pleasant 72-year-old female who presents today for medication refill. Today she rates her pain a 5 out of 10. She states overall she is doing well. She does states she still has been having issues with the hernia and that she does have a follow-up appointment with Dr. Gleason coming up regarding this. She states that between the hernia and her IBS it seems to cause flareups between the 2. She does state that she sometimes will have to stop and sit down and take a break due to the worsening pain. Patient does have a spinal cord stimulator in place however has misplaced her device remote. Patient is prescribed Percocet 5 mg 4 times a day and compounded cream. She denies any side effects from this medication. Her Farhan has been reviewed and is appropriate. Review of Systems: General: No recent weight changes, no fever, no sleep disturbances Respiratory: No cough, no shortness of air, no recurring pulmonary infections Cardiovascular/peripheral vascular: No chest pain, no palpitations, no edema, no shortness of breath Gastrointestinal: No new onset incontinence, normal bowel movements reported Genitourinary: No new onset incontinence Musculoskeletal: Abdominal pain Psychiatric: [Normal mood/affect] Neurological: [Denies weakness in extremities], [denies balance issues] Objective:: Physical Exam: General: Alert and oriented x3, no acute distress, pleasant and cooperative Lungs: Respirations even and unlabored, symmetrical chest expansion Eyes: PERRL Musculoskeletal: Flexion and extension of lumbar [spine] somewhat guarded secondary to pain, [antalgic gait noted] Neurological: Speech clear, no gross sensory deficit Assessment:: Degenerative disc disease of cervical and lumbar spine with cervical and lumbar radiculopathy symptoms, myofascial pain, shoulder pain Plan:: I will refill the patient's Percocet and provide a 1 month supply of this medication. Patient will return to clinic in 1 month for reevaluation of symptoms and plan of care. Risks and benefits of the medication have been explained in detail to the patient. The patient does understand the risk of dependence on the medication when given over a prolonged period. Patient has been advised of risks of oversedation with the prescribed medication. Narcan has been offered to the paitent in the event of oversedation. Patient has been advised that a family member should also be educated regarding administration of Narcan. The patient has been advised to consult with his/her primary care provider and pharmacist regarding drug-drug interaction of medications currently prescribed. Patient has been prescribed a controlled substance after being counseled on the medication, medication safety, and possible side effects. Opioid contract was reviewed and signed by the patient, and that they have agreed to all of the terms set forth by our compliance program. Patient has been instructed to contact the clinic with any concerns before the next appointment. Dr. Del Real has reviewed this note and agrees with this plan of care. This note was dictated using voice recognition software and make contain errors or omissions. [facility] Disclaimer: The information contained in this section may have been updated after the patient was seen, as this information can be updated by other users. Medical History (Updated 01/19/23 @ 21:07 by Bobbi Stockton MD) Hx of cancer of lung Surgical History S/P insertion of spinal cord stimulator Hx of neck surgery History of appendectomy History of section Family History Other Family history of acute heart failure Family history of hyperlipidemia Lung cancer Social History Smoking Status: Never smoker second hand exposure: No alcohol intake: never substance use type: denies use current occupational status: retired Travel in the last 8 weeks: None household members: family housing: house marital status: education level: college current occupational exposures/hazards: No caffeine: Yes special alison needs: No agree to transfusion: No do you feel safe at home: Yes victim of physical abuse: No victim of emotional abuse: No victim of sexual abuse: No would you like helpful sources: No
== END 2023-09-10 23:59 | disposition home or self-care (01) ==
PROVIDERS: PCP Internal Medicine Adolescent Medicine; Visit Provider Nurse Practitioner Family
DX: M50.10 Cervical disc disorder with radiculopathy, unspecified cervical region (principal); M51.16 Intervertebral disc disorders with radiculopathy, lumbar region; M79.10 Myalgia, unspecified site; M25.519 Pain in unspecified shoulder
CPT/HCPCS: 99212; G0463

== ENCOUNTER 2023-10-20 10:00 | Outpatient (POV) | payer MEDICARE, OTHER, SELFPAY ==
--- NOTE | 2023-10-20 10:04 | EXP.PAIN.SOA ---
[facility] Pain Management SOAP Note Subjective:: Patient is a pleasant 72-year-old female who presents today for medication refill and follow-up. Today she rates her pain a 7 out of 10. She denies any new trauma or injury. She does state however she is experiencing more pain in and around her low back with radiating symptoms down her right leg. Patient states that her medicine does help however she still feels like she may be having more allergic reaction to Tylenol so she has decreased how much she is using of it. Patient states that the Benadryl just does not seem like it is working as well as it did. Patient does states she also uses Claritin. Patient does state that she recently saw Benadryl specifically for hives and is going to try and see about ordering some of this medication. Patient does have a [employer] spinal cord stimulator in place however she has misplaced her remote. Patient is prescribed Percocet 5 mg 4 times a day and compounded cream. She denies any side effects from this medication. She has been tried on injections in the past and got really good relief however over time she ended up having allergic reaction to the steroid and cannot do these injections except with local and that she only typically gets a day or 2 out of them. Her Farhan has been reviewed and is appropriate. Review of Systems: General: No recent weight changes, no fever, no sleep disturbances Respiratory: No cough, no shortness of air, no recurring pulmonary infections Cardiovascular/peripheral vascular: No chest pain, no palpitations, no edema, no shortness of breath Gastrointestinal: No new onset incontinence, normal bowel movements reported Genitourinary: No new onset incontinence Musculoskeletal: Low back pain, right leg pain Psychiatric: [Normal mood/affect] Neurological: [Denies weakness in extremities], [denies balance issues] Objective:: Physical Exam: General: Alert and oriented x3, no acute distress, pleasant and cooperative Lungs: Respirations even and unlabored, symmetrical chest expansion Eyes: PERRL Musculoskeletal: Flexion and extension of lumbar [spine] somewhat guarded secondary to pain, [antalgic gait noted] Neurological: Speech clear, no gross sensory deficit Assessment:: Degenerative disc disease of cervical and lumbar spine with cervical and lumbar radiculopathy symptoms, myofascial pain, shoulder pain Plan:: We will refill the patient's Percocet and provide a 1 month supply of this medication. Will also send in a 14-day supply of methocarbamol 500 mg twice daily. I have counseled patient to contact our office if it helps and she would like additional refills between now and her next visit. I will also send in refills of her compounded cream. Patient will return to clinic in 1 month for reevaluation of symptoms and plan of care. Risks and benefits of the medication have been explained in detail to the patient. The patient does understand the risk of dependence on the medication when given over a prolonged period. Patient has been advised of risks of oversedation with the prescribed medication. Narcan has been offered to the paitent in the event of oversedation. Patient has been advised that a family member should also be educated regarding administration of Narcan. The patient has been advised to consult with his/her primary care provider and pharmacist regarding drug-drug interaction of medications currently prescribed. Patient has been prescribed a controlled substance after being counseled on the medication, medication safety, and possible side effects. Opioid contract was reviewed and signed by the patient, and that they have agreed to all of the terms set forth by our compliance program. Patient has been instructed to contact the clinic with any concerns before the next appointment. Dr. Del Real has reviewed this note and agrees with this plan of care. This note was dictated using voice recognition software and make contain errors or omissions. [facility] Disclaimer: The information contained in this section may have been updated after the patient was seen, as this information can be updated by other users. Medical History (Updated 01/19/23 @ 21:07 by Bobbi Stockton MD) Hx of cancer of lung Surgical History S/P insertion of spinal cord stimulator Hx of neck surgery History of appendectomy History of section Family History Other Family history of acute heart failure Family history of hyperlipidemia Lung cancer Social History Smoking Status: Never smoker second hand exposure: No alcohol intake: never substance use type: denies use current occupational status: retired Travel in the last 8 weeks: None household members: family housing: house marital status: education level: college current occupational exposures/hazards: No caffeine: Yes special alison needs: No agree to transfusion: No do you feel safe at home: Yes victim of physical abuse: No victim of emotional abuse: No victim of sexual abuse: No would you like helpful sources: No
[2023-10-20 10:20] VITALS: BP 129/78; PULSE 99; RESP 18; O2SAT 96; BMI 24.9
== END 2023-10-20 23:59 | disposition home or self-care (01) ==
PROVIDERS: PCP Internal Medicine Adolescent Medicine; Visit Provider Nurse Practitioner Family
DX: M50.10 Cervical disc disorder with radiculopathy, unspecified cervical region (principal); M51.16 Intervertebral disc disorders with radiculopathy, lumbar region; M79.10 Myalgia, unspecified site; M25.519 Pain in unspecified shoulder; Z96.82 Presence of neurostimulator
CPT/HCPCS: 99212; G0463

== ENCOUNTER 2023-11-19 13:07 | Outpatient (POV) | payer MEDICARE, OTHER, SELFPAY ==
--- NOTE | 2023-11-19 13:12 | A.OFFVIS_ITS ---
[facility] Disclaimer: The information contained in this section may have been updated after the patient was seen, as this information can be updated by other users. Medical History (Updated 11/19/23 @ 13:14 by Jerrica Singh APRN) Hx of cancer of lung Surgical History S/P insertion of spinal cord stimulator Hx of neck surgery History of appendectomy History of section Family History Other Family history of acute heart failure Family history of hyperlipidemia Lung cancer Social History Smoking Status: Never smoker second hand exposure: No alcohol intake: never substance use type: denies use current occupational status: retired Travel in the last 8 weeks: None household members: family housing: house marital status: education level: college current occupational exposures/hazards: No caffeine: Yes special alison needs: No agree to transfusion: No do you feel safe at home: Yes victim of physical abuse: No victim of emotional abuse: No victim of sexual abuse: No would you like helpful sources: No PM Subjective & Objective Subjective Subjective:: Patient is a pleasant 72-year-old female who presents today for medication refill and follow-up. Today she rates her pain a 6 out of 10. She denies any new trauma or injury. She does state that the muscle relaxer we sent in last month made no change to her symptoms. Patient states that she does recall that she had been tried on that once before by the hand doctor and does not think she had improvement then either. Patient does state today she just feels like that she has no energy that she does not want to do anything due to the pain. patient does have a [employer] spinal cord stimulator in place however she still has not been able to locate her remote for this device. Patient is prescribed Percocet 5 mg 4 times a day and compounded cream. She denies any side effects from this medication.Her Farhan has been reviewed and is appropriate. Review of Systems: General: No recent weight changes, no fever, no sleep disturbances Respiratory: No cough, no shortness of air, no recurring pulmonary infections Cardiovascular/peripheral vascular: No chest pain, no palpitations, no edema, no shortness of breath Gastrointestinal: No new onset incontinence, normal bowel movements reported Genitourinary: No new onset incontinence Musculoskeletal: Low back pain Psychiatric: [Normal mood/affect] Neurological: [Denies weakness in extremities], [denies balance issues] Pain at rest (0-10 scale): 6 Objective Objective:: Physical Exam: General: Alert and oriented x3, no acute distress, pleasant and cooperative Lungs: Respirations even and unlabored, symmetrical chest expansion Eyes: PERRL Musculoskeletal: Flexion and extension of lumbar [spine] somewhat guarded secondary to pain, [antalgic gait noted] Neurological: Speech clear, no gross sensory deficit Has patient had previous pain injection?: No Conservative treatment options previously tried: Home exercise plan Length of treatment: Longer than 6 weeks and Prescription medications Length of treatment: Longer than 6 weeks Meds Home Medications and Allergies Home Medications Medication Instructions Recorded Confirmed Type calcium carbonate 500 mg PO DAILY Supplement 01/07/18 11/19/23 History escitalopram oxalate 10 mg tablet 20 mg PO DAILY Anxiety 01/07/18 11/19/23 History omeprazole 20 mg capsule,delayed 20 mg PO DAILY stomach 01/07/18 11/19/23 History release insulin glargine 100 unit/mL (3 25 unit SQ DAILY Diabetes 01/26/18 11/19/23 History mL) subcutaneous pen dapagliflozin propaned 10 10 - 1,000 tab PO DAILY Diabetes 10/15/21 11/19/23 History mg-metformin ER 1,000 mg tablet,ext rel 24hr alendronate 70 mg effervescent 70 mg PO WEEKLY Osteoarthritis 12/13/21 11/19/23 History tablet rosuvastatin 20 mg tablet 20 mg PO DAILY Cholesterol 08/08/22 11/19/23 History diclofenac sodium 75 mg 75 mg PO BID Pain #60 tabs 08/15/22 11/19/23 Rx tablet,delayed release fexofenadine 60 mg tablet 60 mg PO BID #60 tabs 06/25/23 11/19/23 Rx methocarbamol 500 mg tablet 500 mg PO BID #28 tabs 10/20/23 11/19/23 Rx oxycodone-acetaminophen 5 mg-325 1 tab PO QID #120 tabs 10/20/23 11/19/23 Rx mg tablet (Percocet) New Prescriptions to Start Prescriptions: Allergies Allergy/AdvReac Type Severity Reaction Status Date / Time methylprednisolone Allergy Intermediate Rash Verified 08/20/22 14:36 [From Depo-Medrol] prednisone Allergy Intermediate I-HIVES Verified 08/20/22 14:36 sulfamethoxazole Allergy Intermediate I-HIVES Verified 08/20/22 14:36 [From Bactrim] trimethoprim [From Bactrim] Allergy Intermediate I-HIVES Verified 08/20/22 14:36 hydrocodone Allergy Mild I-HIVES Verified 08/20/22 14:36 [From Hycodan (with homatropin)] ibuprofen Allergy Mild Verified 08/20/22 14:36 Corticosteroids Allergy Hives Verified 08/20/22 14:36 (Glucocorticoids) Assessment and Plan *Assessment and plan (1) Degenerative disc disease, lumbar: Status: Acute Category: Medical Code(s): M51.36 - Other intervertebral disc degeneration, lumbar region (2) Lumbar radiculopathy: Status: Acute Category: Medical Code(s): M54.16 - Radiculopathy, lumbar region Plan We will refill the patient's Percocet and provide a 1 month supply of this medication. I will also send in a 2-week supply of tizanidine 4 mg at bedtime. Patient was counseled that I will reach back out to [employer] representatives and see whether or not if they can supply her with a new remote and also schedule them to be here for her next follow-up for reprogramming. Patient is agreeable to this plan of care. Patient will return to clinic in 1 month for reevaluation of symptoms and plan of care. Risks and benefits of the medication have been explained in detail to the patient. The patient does understand the risk of dependence on the medication when given over a prolonged period. Patient has been advised of risks of oversedation with the prescribed medication. Narcan has been offered to the paitent in the event of oversedation. Patient has been advised that a family member should also be e ducated regarding administration of Narcan. The patient has been advised to consult with his/her primary care provider and pharmacist regarding drug-drug interaction of medications currently prescribed. Patient has been prescribed a controlled substance after being counseled on the medication, medication safety, and possible side effects. Opioid contract was reviewed and signed by the patient, and that they have agreed to all of the terms set forth by our compliance program. Patient has been instructed to contact the clinic with any concerns before the next appointment. Dr. Del Real has reviewed this note and agrees with this plan of care. This note was dictated using voice recognition software and make contain errors or omissions.
[2023-11-19 13:24] VITALS: BP 113/69; PULSE 79; RESP 18; O2SAT 95; BMI 24.9
== END 2023-11-19 23:59 | disposition home or self-care (01) ==
PROVIDERS: PCP Internal Medicine Adolescent Medicine; Visit Provider Nurse Practitioner Family
DX: M51.36 Other intervertebral disc degeneration, lumbar region (principal); M54.16 Radiculopathy, lumbar region
CPT/HCPCS: 99212; G0463

== ENCOUNTER 2023-12-17 15:16 | Outpatient (CLI) | payer MEDICARE, OTHER, SELFPAY ==
--- NOTE | 2023-12-17 15:19 | XR_ITS ---
FINAL REPORT TECHNIQUE: Bone densitometry calculations of the lumbar spine and left hip were obtained. CLINICAL HISTORY: SCREENING FINDINGS: Using L1-4, the bone mineral density of the spine is 1.012 g/cm2, corresponding to T-score of -0.3. Using the left hip, the bone mineral density of the femoral neck is 0.556 g/cm2, corresponding to a T-score of -2.6. NOTE: T-score: Standard deviation compared with peak bone mass of young adult mean. *Following the recommendations of the International Society of Bone Densitometry, classification of hip BMD is based on the lower of two T-scores; total hip or femoral neck. IMPRESSION: Osteoporosis: Lowest T-score is at or below -2.5. This patient''s T-score meets the World Health Organization criteria for osteoporosis. Normal bone mineral density of the lumbar spine, although this likely is falsely elevated secondary to sclerotic changes in the lumbar spine. Reviewed, Interpreted and Dictated by Darius Sosa III, MD Transcribed by Danyell Freire Authenticated and [facility]
== END 2023-12-17 23:59 | disposition home or self-care (01) ==
LOC: RAD 15:17
PROVIDERS: PCP Internal Medicine Adolescent Medicine; Visit Provider Internal Medicine Adolescent Medicine
DX: M81.0 Age-related osteoporosis without current pathological fracture (principal)
CPT/HCPCS: 77080

== ENCOUNTER 2023-12-18 14:51 | Outpatient (POV) | payer MEDICARE, OTHER, SELFPAY ==
[2023-12-18 14:58] VITALS: BP 144/83; PULSE 84; RESP 16; O2SAT 96; BMI 25.5
--- NOTE | 2023-12-18 16:25 | EXP.PAIN.SOA ---
[facility] Disclaimer: The information contained in this section may have been updated after the patient was seen, as this information can be updated by other users. Medical History (Updated 11/19/23 @ 13:14 by Jerrica Singh APRN) Hx of cancer of lung Surgical History S/P insertion of spinal cord stimulator Hx of neck surgery History of appendectomy History of section Family History Other Family history of acute heart failure Family history of hyperlipidemia Lung cancer Social History Smoking Status: Never smoker second hand exposure: No alcohol intake: never substance use type: denies use current occupational status: other Travel in the last 8 weeks: None household members: family housing: house marital status: education level: college current occupational exposures/hazards: No caffeine: Yes special alison needs: No agree to transfusion: No do you feel safe at home: Yes victim of physical abuse: No victim of emotional abuse: No victim of sexual abuse: No would you like helpful sources: No PM Subjective & Objective Subjective Subjective:: Patient is a pleasant 77-year-old female who presents today for medication refill and follow-up. Today she rates her pain a 5 out of 10. Patient denies any new trauma or injury. Patient does state that she continues to have her chronic pain throughout her low back and legs. Patient does have a [employer] spinal cord stimulator in place however this was implanted back in 2007. Patient no longer has a functioning remote and is not able to charge the device either. Patient does state when it was working she did get significant relief. She does state that she is interested in replacing her generator battery. Patient is still having active pain throughout her low back that is an aching, throbbing sensation with numbness and tingling down into her extremities. She does state the pain interferes with her ability perform activities of daily living such as cooking and cleaning. Patient is currently managed with Percocet 5 mg 4 times a day and compounded cream. She denies any side effects from this medication. At her last visit we did try her on tizanidine however it ended up keeping her awake at night and did even cause some blurred vision. Patient does state that she discontinued this medication. Her Farhan has been reviewed and is appropriate. Review of Systems: General: No recent weight changes, no fever, no sleep disturbances Respiratory: No cough, no shortness of air, no recurring pulmonary infections Cardiovascular/peripheral vascular: No chest pain, no palpitations, no edema, no shortness of breath Gastrointestinal: No new onset incontinence, normal bowel movements reported Genitourinary: No new onset incontinence Musculoskeletal: Low back pain, leg pain Psychiatric: [Normal mood/affect] Neurological: [Denies weakness in extremities], [denies balance issues] Pain at rest (0-10 scale): 5 Objective Objective:: Physical Exam: General: Alert and oriented x3, no acute distress, pleasant and cooperative Lungs: Respirations even and unlabored, symmetrical chest expansion Eyes: PERRL Musculoskeletal: Flexion and extension of lumbar [spine] somewhat guarded secondary to pain, [antalgic gait noted] Neurological: Speech clear, no gross sensory deficit Has patient had previous pain injection?: No Conservative treatment options previously tried: Home exercise plan Length of treatment: Longer than 6 weeks and Prescription medications Length of treatment: Longer than 6 weeks Meds Home Medications and Allergies Home Medications ?Medication ?Instructions ?Recorded ?Confirmed ?Type calcium carbonate 500 mg PO DAILY Supplement 01/07/18 12/18/23 History escitalopram oxalate 10 mg tablet 20 mg PO DAILY Anxiety 01/07/18 12/18/23 History omeprazole 20 mg capsule,delayed 20 mg PO DAILY stomach 01/07/18 12/18/23 History release insulin glargine 100 unit/mL (3 25 unit SQ DAILY Diabetes 01/26/18 12/18/23 History mL) subcutaneous pen dapagliflozin propaned 10 10 - 1,000 tab PO DAILY Diabetes 10/15/21 12/18/23 History mg-metformin ER 1,000 mg tablet,ext rel 24hr alendronate 70 mg effervescent 70 mg PO WEEKLY Osteoarthritis 12/13/21 12/18/23 History tablet rosuvastatin 20 mg tablet 20 mg PO DAILY Cholesterol 08/08/22 12/18/23 History diclofenac sodium 75 mg 75 mg PO BID Pain #60 tabs 08/15/22 12/18/23 Rx tablet,delayed release fexofenadine 60 mg tablet 60 mg PO BID #60 tabs 02/21/24 08/15/24 Rx methocarbamol 500 mg tablet 500 mg PO BID #28 tabs 10/20/23 12/18/23 Rx oxycodone-acetaminophen 5 mg-325 1 tab PO QID #120 tabs 11/19/23 12/18/23 Rx mg tablet (Percocet) tizanidine 4 mg tablet (Zanaflex) 4 mg PO BID #28 tabs 11/19/23 12/18/23 Rx New Prescriptions to Start Prescriptions: Allergies Allergy/AdvReac Type Severity Reaction Status Date / Time methylprednisolone Allergy Intermediate Rash Verified 08/20/22 14:36 [From Depo-Medrol] prednisone Allergy Intermediate I-HIVES Verified 08/20/22 14:36 sulfamethoxazole Allergy Intermediate I-HIVES Verified 08/20/22 14:36 [From Bactrim] trimethoprim [From Bactrim] Allergy Intermediate I-HIVES Verified 08/20/22 14:36 hydrocodone Allergy Mild I-HIVES Verified 08/20/22 14:36 [From Hycodan (with homatropin)] ibuprofen Allergy Mild Verified 08/20/22 14:36 Corticosteroids Allergy Hives Verified 08/20/22 14:36 (Glucocorticoids) Assessment and Plan *Assessment and plan (1) Degenerative disc disease, lumbar: Status: Acute Category: Medical Code(s): M51.36 - Other intervertebral disc degeneration, lumbar region (2) Lumbar radiculopathy: Status: Acute Category: Medical Code(s): M54.16 - Radiculopathy, lumbar region Plan I will refill the patient's Percocet and provide a 1 month supply of this medication. Patient was also discussed regarding her spinal cord stimulator replacement due to end-of-life and is no longer functioning. Risk and benefits were discussed with the patient and she would like to proceed forward with this plan of care. Patient is not on any blood thinners. Patient has had this device since 2007 and did have significant improvement of her overall function with this device. Patient would like to proceed forward with the generator/battery replacement. Patient has tried and failed conservative therapy including continued at home stretching exercise for longer than 12 weeks. We will submit to insurance for the spinal cord stimulator generator/battery replacement due to end-of-life. Risks and benefits of the medication have been explained in detail to the patient. The patient does understand the risk of dependence on the medication when given over a prolonged period. Patient has been advised of risks of oversedation with the prescribed medication. Narcan has been offered to the paitent in the event of oversedation. Patient has been advised that a family member should also be educated regarding administration of Narcan. The patient has been advised to consult with his/her primary care provider and pharmacist regarding drug-drug interaction of medications currently prescribed. Patient has been prescribed a controlled substance after being counseled on the medication, medication safety, and possible side effects. Opioid contract was reviewed and signed by the patient, and that they have agreed to all of the terms set forth by our compliance program. Patient has been instructed to contact the clinic with any concerns before the next appointment. Dr. Del Real has reviewed this note and agrees with this plan of care. This note was dictated using voice recognition software and make contain errors or omissions.
== END 2023-12-18 23:59 | disposition home or self-care (01) ==
PROVIDERS: PCP Internal Medicine Adolescent Medicine; Visit Provider Nurse Practitioner Family
DX: M51.16 Intervertebral disc disorders with radiculopathy, lumbar region (principal); Z96.82 Presence of neurostimulator; Z73.89 Other problems related to life management difficulty; Z79.899 Other long term (current) drug therapy
CPT/HCPCS: 99212; G0463

== ENCOUNTER 2024-01-19 13:39 | Outpatient (POV) | payer MEDICARE, OTHER, SELFPAY ==
--- NOTE | 2024-01-19 14:37 | A.OFFVIS_ITS ---
[facility] Disclaimer: The information contained in this section may have been updated after the patient was seen, as this information can be updated by other users. Medical History (Updated 11/19/23 @ 13:14 by Jerrica Singh APRN) Hx of cancer of lung Surgical History S/P insertion of spinal cord stimulator Hx of neck surgery History of appendectomy History of section Family History Other Family history of acute heart failure Family history of hyperlipidemia Lung cancer Social History Smoking Status: Never smoker second hand exposure: No alcohol intake: never substance use type: denies use current occupational status: other Travel in the last 8 weeks: None household members: family housing: house marital status: education level: college current occupational exposures/hazards: No caffeine: Yes special alison needs: No agree to transfusion: No do you feel safe at home: Yes victim of physical abuse: No victim of emotional abuse: No victim of sexual abuse: No would you like helpful sources: No PM Subjective & Objective Subjective Subjective:: Patient is a pleasant 73-year-old female who presents today for medication refill and follow-up. Today she rates her pain a 6 out of 10. She denies any new trauma or injury. She does state that she has not heard a surgical date for her spinal cord stimulator replacement yet. Patient does state that she is assuming that it is still pending. Patient is currently managed with Percocet 5 mg 4 times a day and compounded cream. She denies any side effects from this medication. Her Farhan has been reviewed and is appropriate. Review of Systems: General: No recent weight changes, no fever, no sleep disturbances Respiratory: No cough, no shortness of air, no recurring pulmonary infections Cardiovascular/peripheral vascular: No chest pain, no palpitations, no edema, no shortness of breath Gastrointestinal: No new onset incontinence, normal bowel movements reported Genitourinary: No new onset incontinence Musculoskeletal: Low back pain, leg pain, Psychiatric: [Normal mood/affect] Neurological: [Denies weakness in extremities], [denies balance issues] Pain at rest (0-10 scale): 6 Objective Objective:: Physical Exam: General: Alert and oriented x3, no acute distress, pleasant and cooperative Lungs: Respirations even and unlabored, symmetrical chest expansion Eyes: PERRL Musculoskeletal: Flexion and extension of lumbar [spine] somewhat guarded secondary to pain, [antalgic gait noted] Neurological: Speech clear, no gross sensory deficit Has patient had previous pain injection?: No Conservative treatment options previously tried: Home exercise plan Length of treatment: Longer than 12 weeks and Prescription medications Length of treatment: Longer than 12 weeks Meds Home Medications and Allergies Home Medications ?Medication ?Instructions ?Recorded ?Confirmed ?Type calcium carbonate 500 mg PO DAILY Supplement 01/07/18 12/18/23 History escitalopram oxalate 10 mg tablet 20 mg PO DAILY Anxiety 01/07/18 12/18/23 History omeprazole 20 mg capsule,delayed 20 mg PO DAILY stomach 01/07/18 12/18/23 History release insulin glargine 100 unit/mL (3 25 unit SQ DAILY Diabetes 01/26/18 12/18/23 History mL) subcutaneous pen dapagliflozin propaned 10 10 - 1,000 tab PO DAILY Diabetes 10/15/21 12/18/23 History mg-metformin ER 1,000 mg tablet,ext rel 24hr alendronate 70 mg effervescent 70 mg PO WEEKLY Osteoarthritis 12/13/21 12/18/23 History tablet rosuvastatin 20 mg tablet 20 mg PO DAILY Cholesterol 08/08/22 12/18/23 History diclofenac sodium 75 mg 75 mg PO BID Pain #60 tabs 08/15/22 12/18/23 Rx tablet,delayed release fexofenadine 60 mg tablet 60 mg PO BID #60 tabs 06/25/23 12/18/23 Rx methocarbamol 500 mg tablet 500 mg PO BID #28 tabs 10/20/23 12/18/23 Rx tizanidine 4 mg tablet (Zanaflex) 4 mg PO BID #28 tabs 11/19/23 12/18/23 Rx oxycodone-acetaminophen 5 mg-325 1 tab PO QID #120 tabs 12/18/23 Rx mg tablet (Percocet) New Prescriptions to Start Prescriptions: Allergies Allergy/AdvReac Type Severity Reaction Status Date / Time methylprednisolone Allergy Intermediate Rash Verified 08/20/22 14:36 [From Depo-Medrol] prednisone Allergy Intermediate I-HIVES Verified 08/20/22 14:36 sulfamethoxazole Allergy Intermediate I-HIVES Verified 08/20/22 14:36 [From Bactrim] trimethoprim [From Bactrim] Allergy Intermediate I-HIVES Verified 08/20/22 14:36 hydrocodone Allergy Mild I-HIVES Verified 08/20/22 14:36 [From Hycodan (with homatropin)] ibuprofen Allergy Mild Verified 08/20/22 14:36 Corticosteroids Allergy Hives Verified 08/20/22 14:36 (Glucocorticoids) Assessment and Plan *Assessment and plan (1) Lumbar radiculopathy: Status: Acute Category: Medical Code(s): M54.16 - Radiculopathy, lumbar region (2) Degenerative disc disease, lumbar: Status: Acute Category: Medical Code(s): M51.36 - Other intervertebral disc degeneration, lumbar region Plan We will refill the patient's Percocet and provide a 1 month supply of this medication. Patient is still scheduled for upcoming spinal cord stimulator replacement. Patient is scheduled to go on vacation around February 08. We will plan on doing the spinal cord stimulator replacement after she returns from this. Patient agrees with this plan of care. Risks and benefits of the medication have been explained in detail to the patient. The patient does understand the risk of dependence on the medication when given over a prolonged period. Patient has been advised of risks of oversedation with the prescribed medication. Narcan has been offered to the paitent in the event of oversedation. Patient has been advised that a family member should also be edu cated regarding administration of Narcan. The patient has been advised to consult with his/her primary care provider and pharmacist regarding drug-drug interaction of medications currently prescribed. Patient has been prescribed a controlled substance after being counseled on the medication, medication safety, and possible side effects. Opioid contract was reviewed and signed by the patient, and that they have agreed to all of the terms set forth by our compliance program. Patient has been instructed to contact the clinic with any concerns before the next appointment. Dr. Del Real has reviewed this note and agrees with this plan of care. This note was dictated using voice recognition software and make contain errors or omissions.
[2024-01-19 16:06] VITALS: BP 116/72; PULSE 81; RESP 16; O2SAT 95; BMI 25.2
== END 2024-01-19 23:59 | disposition home or self-care (01) ==
PROVIDERS: PCP Internal Medicine Adolescent Medicine; Visit Provider Nurse Practitioner Family
DX: M51.16 Intervertebral disc disorders with radiculopathy, lumbar region (principal); Z79.899 Other long term (current) drug therapy
CPT/HCPCS: 99212; G0463

== ENCOUNTER 2024-03-03 10:56 | Outpatient (POV) | payer MEDICARE, OTHER, SELFPAY ==
[2024-03-03 11:15] VITALS: BP 112/71; PULSE 79; RESP 16; O2SAT 94; BMI 29.0
--- NOTE | 2024-03-03 11:20 | EXP.PAIN.SOA ---
[facility] Disclaimer: The information contained in this section may have been updated after the patient was seen, as this information can be updated by other users. Medical History (Updated 11/19/23 @ 13:14 by Jerrica Singh APRN) Hx of cancer of lung Surgical History S/P insertion of spinal cord stimulator Hx of neck surgery History of appendectomy History of section Family History Other Family history of acute heart failure Family history of hyperlipidemia Lung cancer Social History Smoking Status: Never smoker second hand exposure: No alcohol intake: never substance use type: denies use current occupational status: other Travel in the last 8 weeks: None household members: family housing: house marital status: education level: college current occupational exposures/hazards: No caffeine: Yes special alison needs: No agree to transfusion: No do you feel safe at home: Yes victim of physical abuse: No victim of emotional abuse: No victim of sexual abuse: No would you like helpful sources: No PM Subjective & Objective Subjective Subjective:: Patient is a pleasant 73-year-old female who presents today for medication refill and follow-up. Today she rates her pain a 8 out of 10. Patient denies any new trauma or injury however does state over the last week or 2 she has had much worse pain all in her low back with radiating symptoms down into her right leg. She describes this as an aching, throbbing sensation and that she states the only thing she is really done is picked up her grandbaby's which they are getting bigger. Patient is scheduled for her spinal cord stimulator replacement coming up on March 19. She is currently managed with Percocet 5 mg 4 times a day and compounded cream. She is requesting refills. Her Farhan has been reviewed and is appropriate. Review of Systems: General: No recent weight changes, no fever, no sleep disturbances Respiratory: No cough, no shortness of air, no recurring pulmonary infections Cardiovascular/peripheral vascular: No chest pain, no palpitations, no edema, no shortness of breath Gastrointestinal: No new onset incontinence, normal bowel movements reported Genitourinary: No new onset incontinence Musculoskeletal: Low back pain, right leg pain Psychiatric: [Normal mood/affect] Neurological: [Denies weakness in extremities], [denies balance issues] Pain at rest (0-10 scale): 8 Objective Objective:: Physical Exam: General: Alert and oriented x3, no acute distress, pleasant and cooperative Lungs: Respirations even and unlabored, symmetrical chest expansion Eyes: PERRL Musculoskeletal: Flexion and extension of lumbar [spine] somewhat guarded secondary to pain, [antalgic gait noted] Neurological: Speech clear, no gross sensory deficit Has patient had previous pain injection?: No Conservative treatment options previously tried: Home exercise plan Length of treatment: Longer than 12 weeks Meds Home Medications and Allergies Home Medications ?Medication ?Instructions ?Recorded ?Confirmed ?Type calcium carbonate 500 mg PO DAILY Supplement 01/07/18 03/03/24 History escitalopram oxalate 10 mg tablet 20 mg PO DAILY Anxiety 01/07/18 03/03/24 History omeprazole 20 mg capsule,delayed 20 mg PO DAILY stomach 01/07/18 03/03/24 History release insulin glargine 100 unit/mL (3 25 unit SQ DAILY Diabetes 01/26/18 03/03/24 History mL) subcutaneous pen dapagliflozin propaned 10 10 - 1,000 tab PO DAILY Diabetes 10/15/21 03/03/24 History mg-metformin ER 1,000 mg tablet,ext rel 24hr alendronate 70 mg effervescent 70 mg PO WEEKLY Osteoarthritis 12/13/21 03/03/24 History tablet rosuvastatin 20 mg tablet 20 mg PO DAILY Cholesterol 08/08/22 03/03/24 History diclofenac sodium 75 mg 75 mg PO BID Pain #60 tabs 08/15/22 03/03/24 Rx tablet,delayed release fexofenadine 60 mg tablet 60 mg PO BID #60 tabs 06/25/23 03/03/24 Rx methocarbamol 500 mg tablet 500 mg PO BID #28 tabs 10/20/23 03/03/24 Rx tizanidine 4 mg tablet (Zanaflex) 4 mg PO BID #28 tabs 11/19/23 03/03/24 Rx oxycodone-acetaminophen 5 mg-325 1 tab PO QID #120 tabs 01/19/24 03/03/24 Rx mg tablet (Percocet) oxycodone-acetaminophen 5 mg-325 1 tab PO QID #44 tabs 02/23/24 03/03/24 Rx mg tablet (Percocet) New Prescriptions to Start Prescriptions: Allergies Allergy/AdvReac Type Severity Reaction Status Date / Time methylprednisolone Allergy Intermediate Rash Verified 08/20/22 14:36 [From Depo-Medrol] prednisone Allergy Intermediate I-HIVES Verified 08/20/22 14:36 sulfamethoxazole Allergy Intermediate I-HIVES Verified 08/20/22 14:36 [From Bactrim] trimethoprim [From Bactrim] Allergy Intermediate I-HIVES Verified 08/20/22 14:36 hydrocodone Allergy Mild I-HIVES Verified 08/20/22 14:36 [From Hycodan (with homatropin)] ibuprofen Allergy Mild Verified 08/20/22 14:36 Corticosteroids Allergy Hives Verified 08/20/22 14:36 (Glucocorticoids) Assessment and Plan *Assessment and plan (1) Lumbar radiculopathy: Status: Acute Category: Medical Code(s): M54.16 - Radiculopathy, lumbar region (2) Degenerative disc disease, lumbar: Status: Acute Category: Medical Code(s): M51.36 - Other intervertebral disc degeneration, lumbar region Plan We will refill the patient's Percocet and compounded cream. Due to the patient's worsening pain I did discuss with her that I will order a CT of her lumbar spine to see if there have been any significant changes from her prior imaging. Patient agrees with this plan of care. Patient is scheduled for her upcoming surgery on March 19 and we will follow-up with her 1 week postop. Risks and benefits of the medication have been explained in detail to the patient. The patient does understand the risk of dependence on the medication when given over a prolonged period. Patient has been advised of risks of oversedation with the prescribed medication. Narcan has been offered to the paitent in the event of oversedation. Patient has been advised that a family member should also be educated regarding administration of Narcan. The patient has been advised to consult with his/her primary care provider and pharmacist regarding drug-drug interaction of medications currently prescribed. Patient has been prescribed a controlled substance after being counseled on the medication, medication safety, and possible side effects. Opioid contract was reviewed and signed by the patient, and that they have agreed to all of the terms set forth by our compliance program. Patient has been instructed to contact the clinic with any concerns before the next appointment. Dr. Del Real has reviewed this note and agrees with this plan of care. This note was dictated using voice recognition software and make contain errors or omissions.
== END 2024-03-03 23:59 | disposition home or self-care (01) ==
PROVIDERS: PCP Internal Medicine Adolescent Medicine; Visit Provider Nurse Practitioner Family
DX: M51.16 Intervertebral disc disorders with radiculopathy, lumbar region (principal); Z96.82 Presence of neurostimulator
CPT/HCPCS: 99212; G0463

== ENCOUNTER → 2024-03-19 07:57 | Day surgery (SDC) | payer MEDICARE, OTHER, SELFPAY ==
[2024-03-17 10:04] VITALS: BMI 25.5
--- OUTSIDE RECORDS SUMMARY | 2024-03-19 07:58 | XMS_ITS | Encounter Summary ---
Author Organization [facility] Address [address] [place] [address] Care Team Providers Care Hard Rock Miner Blasting Name Role Phone Romulo Francis MD Primary Care Provider + Encounter Details Date Type Department Care Team (Latest Contact Info) Description 03/20/2015 2:32 PM EST - 03/20/2015 11:59 PM EST Hospital Encounter [facility] DEPART[facility] [address] [place] [phone] Deon Yeager MD [address] [place] [phone] Discharge Disposition: Home or Self Care Social History Tobacco Use Types Packs/Day Years Used Date Smoking Tobacco: Never Assessed Comments Unknown Sex and Gender Information Value Date Recorded Sex Assigned at Not on file Legal Sex Female 10:55 AM EDT Gender Identity Not on file Sexual Orientation Not on file documented as of this encounter Plan of Treatment Not on file documented as of this encounter Procedures Procedure Name Priority Date/Time Associated Diagnosis Comments POCT CREATININE Routine 03/20/2015 2:[address] CHEST W CONTRAST Routine 03/20/2015 2 :41 PM EST documented in this encounter Results * POCT creatinine (03/20/2015 2:52 PM EST) Creatinine 0.8 0.6 - 1.3 mg/dL [facility] Blood specimen (specimen) 03/20/2015 2:52 PM EST 03/21/2015 8:10 AM EST Narrative [facility] - 03/21/2015 8:10 AM EST Specimen Type : Blood Deon Yeager MD POINT OF CARE TEST ORDERABLES Final Result [facility]
[address] [id number], * CT chest w contrast (03/20/2015 2:41 PM EST) Anatomical Region Laterality Modality Chest N/A Computed Tomogra phy 03/20/2015 2:41 PM EST Narrative 03/23/2015 2:20 PM EST EXAMINATION- OC-CHEST W CONTRAST INDICATION-CARCINOMA OF LUNG ? TECHNIQUE- Multiple axial CT imaging was obtained of the chest from the thoracic inlet through the adrenal glands following administration of intravenous contrast. The radiation dose reduction device was turned on for each scan per the ALARA (As Low as Reasonably Achievable) protocol. COMPARISON- 01/31/2014 FINDINGS- Thyroid is homogeneous in appearance. There is no mediastinal mass or lymphadenopathy. Cardiac chambers are within normal limits. No pericardial effusion. There is an area of pleural thickening seen along the right lateral chest wall which is stable when compared to the prior study. The lung parenchyma itself is otherwise unremarkable. Minimal scarring seen anteriorly within the right upper lung field as well as within the right lung base. Surgical clips are present. No evidence of recurrence. There is a low-density area seen within the liver as well as within the spleen which are stable and unchanged in the interval. One area seen near the dome of the liver has decreased in size in the interval. IMPRESSION- Decrease seen in size of one of the liver lesions at the dome. The appearance of the chest is stable and unremarkable with no evidence of recurrence or progression of disease. DT- ??03/20/2015 DE- ??03/20/2015 ? Reading Radiologist- SUSAN BYRD ? Releasing Radiologist- SUSAN BYRD ? Released Date Time- 03/23/15 1420 ? Dispatch Manager- Felipe Procedure Note Susan Ferrera MD - 03/23/2015 EXAMINATION- OC-CHEST W CONTRAST INDICATION-CARCINOMA OF LUNG TECHNIQUE- Multiple axial CT imaging was obtained of the chest from the thoracic inlet through the adrenal glands following administration of intravenous contrast. The radiation dose reduction device was turned on for each scan per the ALARA (As Low as Reasonably Achievable) protocol. COMPARISON- 01/31/2014 FINDINGS- Thyroid is homogeneous in appearance. There is no mediastinal mass or lymphadenopathy. Cardiac chambers are within normal limits. No pericardial effusion. There is an area of pleural thickening seen along the right lateral chest wall which is stable when compared to the prior study. The lung parenchyma itself is otherwise unremarkable. Minimal scarring seen anteriorly within the right upper lung field as well as within the right lung base. Surgical clips are present. No evidence of recurrence. There is a low-density area seen within the liver as well as within the spleen which are stable and unchanged in the interval. One area seen near the dome of the liver has decreased in size in the interval. IMPRESSION- Decrease seen in size of one of the liver lesions at the dome. The appearance of the chest is stable and unremarkable with no evidence of recurrence or progression of disease. DT- 03/20/2015 DE- 03/20/2015 Reading Radiologist- SUSAN BYRD Releasing Radiologist- SUSAN BYRD Released Date Time- 03/23/15 1420 Dispatch Manager- D.M.EKristy Deon LAM CT ORDERABLES Final Resul t documented in this encounter Visit Diagnoses Not on filedocumented in this encounter Care Teams Hard Rock Miner Blasting Relationship Specialty Start Date End Date Romulo Francis MD PCP - General 03/08/15 documented as of this encounter
--- OUTSIDE RECORDS SUMMARY | 2024-03-19 07:58 | XMS_ITS | Clinical Summary ---
Author Organization [facility] Address [address] [place] [id number] Care Team Providers Care Motion Picture Projectionist Name Role Phone Romulo Francis MD Primary Care Provider + Social History Tobacco Use Types Packs/Day Years Used Date Smoking Tobacco: Never Assessed Abuse Screen Answer Date Recorded Unsafe at Home or Work/School Not on file Feels Threatened by Someone? Not on file 01/2023 Does Anyone Keep You from Co ntacting Others or Doint Things Outside the Home? Not on file 02/10/2023 Physical Sign of Abuse Present Not on file 1 Housing Stability Answer Date Recorded Current Living Arrangements Not on file 01/2023 Potentially Unsafe Housing Conditions Not on oriana e 02/10/2023 Family and Community Support Answer Luis e Recorded Help with Day-to-Day Activities Not on file 02/10/2023 Lonely or Isolated Not on file 02/10/2023 Employment Answer Date Recorded Do you want help finding or keeping work or a ligia b? Not on file 02/10/2023 Disabilities Answer Date Recorded Concentrating, Remembering, or Making Decisions Difficulty Not on file 02/10/2023 Doing Errands Independently Difficulty Not on fi le 02/10/2023 Education Answer Date Recorded Help with school or training? Not on file Preferred Language Not on file 02/10/2023 Comments Unknown Sex and Gender Information Value Date Recorded Sex Assigned at Not on file Legal Sex Female 10:55 AM EDT Gender Identity Not on file Sexual Orientation Not on file Last Filed Vital Signs Vital Sign Reading Time Taken Comments Blood Pressure 119/86 03/18/2014 10:09 AM EST Pulse 90 01/19/2013 3:11 PM EDT Temperature 35.8 ??C (96.4 ??F) 03/18/2014 10:[address] Respiratory Rate - - Oxygen Saturation 94% 01/19/2013 3:11 PM EDT Inhaled Oxygen Concentration - - Weight 72.6 kg (160 lb 0.2 oz) 03/18/2014 10:09 AM EST Height 165.1 cm (5' 5 ) 03/18/2014 10:09 AM EST Body Mass Index 26.63 03/18/2014 10:09 AM EST Plan of Treatment Health Maintenance Due Date Last Done Comments ANNUAL PHYSICAL 1950 COLOGUARD 1950 COLON CANCER SCREENING 5 YEAR SIGMOIDOSCOPY 1950 COLONOSCOPY 1950 COLORECTAL CANCER SCREENING 1950 CT COLONOGRAPHY 1950 DXA SCAN 1950 FECAL OCCULT BLOOD TEST 1950 FIT Testing (1 year) 1950 HEPATITIS C SCREENING 1950 MAMMOGRAM 1950 TDAP/TD VACCINES (1 - Tdap) 1969 ZOSTER VACCINE (1 of 2) 2000 Pneumococcal Vaccine 65+ (1 of 1 - PCV) 11/27/2015 INFLUENZA VACCINE 12/04/2023 COVID-19 Vaccine (1 - 2023- season) 2024 Care Teams Motion Picture Projectionist Relationship Specialty Start Date End Date Romulo Francis MD PCP - General 03/08/15
--- OUTSIDE RECORDS SUMMARY | 2024-03-19 07:58 | XMS_ITS | Encounter Summary ---
Author Organization [facility] Address [address] [place] [address] Care Team Providers Care Lead Furnace Operator Name Role Phone Unavailable Primary Care Provider Unavailabl e Encounter Details Date Type Department Care Team (Late st Contact Info) Description 01/31/2014 12:54 PM EDT - 01/31/2014 11:59 PM EDT Hospital Encounter [facility] DEPARTMENT [address] [place] [phone] Deon Yeager MD [address] [address] Social History Tobacco Use Types Packs/Day Years [...] Procedure Name Priority Date/Time Associated Diagnosis Comments CT CHEST WO CONTRAST DIAGNOSTIC Routine 01/31/2014 1:01 PM EDT documented in this encounter Results * CT chest wo contrast (01/31/2014 1:01 PM EDT) Anatomical Region Laterality Modality Chest N/A Computed Tomogra phy 01/31/2014 1:01 PM EDT Narrative 01/31/2014 3:[address] CHEST WITHOUT CONTRAST ON 01/31/2014: INDICATION: ??Lung cancer. TECHNIQUE: ??Multiple axial CT imaging was obtained of the chest from the thoracic inlet through the adrenal glands without the administration of intravenous contrast. The radiation dose reduction device was turned on for each scan per the ALARA (As Low as Reasonably Achievable) protocol. COMPARISON: ??The study is compared to a prior study done on 01/06/2013. FINDINGS: ?? CHEST: There is a surgical staple line identified within the right upper lobe. ?? Increased markings are identified within the left lung base. There is no pleural effusion or pneumothorax identified. No parenchymal consolidation, pulmonary mass or nodule present. Degenerative changes are identified within the spine. The thyroid is homogeneous. No mediastinal mass or lymphadenopathy. Cardiac chambers are within normal limits. No pericardial effusion. Cysts are identified at the dome of the liver. There is also a cyst identified within the left lobe of the liver. Spleen is homogeneous. Degenerative changes are identified within the spine. The axillary regions are unremarkable. Surgical clips are seen within the right hilar region. There is no evidence of recurrence or metastatic disease. IMPRESSION- Stable appearance of the chest with no evidence of progression of disease or recurrence. DT: ??01/31/2014 DE: ??01/31/2014 ? Reading Radiologist- SUSAN BYRD ? Releasing Radiologist- SUSAN BYRD ? Released Date Time- 01/31/14 1559 ? Mud Mill Tender- D.M.E. Procedure Note Susan Ferrera MD - 01/25/2015 CT CHEST WITHOUT CONTRAST ON 01/31/2014: INDICATION: Lung cancer. TECHNIQUE: Multiple axial CT imaging was obtained of the chest from the thoracic inlet through the adrenal glands without the administration of intravenous contrast. The radiation dose reduction device was turned on for each scan per the ALARA (As Low as Reasonably Achievable) protocol. COMPARISON: The study is compared to a prior study done on 01/06/2013. FINDINGS: CHEST: There is a surgical staple line identified within the right upper lobe. Increased markings are identified within the left lung base. There is no pleural effusion or pneumothorax identified. No parenchymal consolidation, pulmonary mass or nodule present. Degenerative changes are identified within the spine. The thyroid is homogeneous. No mediastinal mass or lymphadenopathy. Cardiac chambers are within normal limits. No pericardial effusion. Cysts are identified at the dome of the liver. There is also a cyst identified within the left lobe of the liver. Spleen is homogeneous. Degenerative changes are identified within the spine. The axillary regions are unremarkable. Surgical clips are seen within the right hilar region. There is no evidence of recurrence or metastatic disease. IMPRESSION- Stable appearance of the chest with no evidence of progression of disease or recurrence. DE: 01/31/2014 Reading Radiologist- SUSAN BYRD Releasing Radiologist- SUSAN BYRD Released Date Time- 01/31/14 3680 Mud Mill Tender- Felipe us Deon Yeager MD IMG CT ORDERABLES Final Resul t documented in this encounter Visit Diagnoses Not on filedocumented in this encounter
--- OUTSIDE RECORDS SUMMARY | 2024-03-19 07:58 | XMS_ITS | Encounter Summary ---
Author Organization [facility] Address [address] [place] [address] Care Team Providers Care Logistics Project Manager Name Role Phone Unavailable Primary Care Provider Unavailabl e Encounter Details Date Type Department Care Team (Late st Contact Info) Description 03/18/2014 Office Visit Converted [facility] [address] [facility] [address] [place] [phone] Deon Yeager MD [address] [facility] [address] [place] [address] Social History Tobacco Use Types Packs/Day Years Used Date Smoking Tobacco: Never Assessed Comments Unknown Sex and Gender Information Value Date Recorded Sex Assigned at Not on file Legal Sex Female 10:55 AM EDT Gender Identity Not on file Sexual Orientation Not on file documented as of this encounter Last Filed Vital Signs Vital Sign Reading Time Taken Comments Blood Pressure 119/86 03/18/2014 10:09 AM EST Pulse - - Temperature 35.8 ??C (96.4 ??F) 03/18/2014 10:[address] Respiratory Rate - - Oxygen Saturation - - Inhaled Oxygen Concentration - - Weight 72.6 kg (160 lb 0.2 oz) 03/18/2014 10:09 AM EST Height 165.1 cm (5' 5 ) 03/18/2014 10:09 AM EST Body Mass Index 26.63 03/18/2014 10:09 AM EST documented in this encounter Progress Notes * Deon Yeager - 03/18/2014 10:00 AM EST 'PCP/Referring Physician' Primary Care Provider: Dr. Romulo Francis. Chief Complaint [address] Chest Per [facility] 01/19/13 Hx of Right Upper Lobectomy by [facility] History of Present Illness HPI: Mrs. Pennington is here today for follow-up. She has a known history of Stage 1 lung cancer, treated with a right upper lobectomy by Dr. Underwood. She is complaining of some weight loss over the last year or so. She is scheduled to see her family doctor this afternoon. The patient denies any hemoptysis, chest pain, abdominal pain or any symptoms whatsoever except for her back which she has had fora long time. Review of Systems Constitutional: fatigued, recent weight loss and 40 LBs in 1 YR, but no fever, no chills, showed nodiaphoresis and no recent weight gain. Eyes: no double vision and no glaucoma. ENT: no hearing loss, no nosebleeds, no mouth sores, no sore throat and no dysphagia. Respiratory: shortness of breath during exertion, but no cough, no wheezing and no hemoptysis. Gastrointestinal: diarrhea, but no abdominal pain, no vomiting and no nausea. Cardiovascular: pain in legs when walking, but no swelling in legs, no loss of hair on legs, no discoloration of legs and no chest pain or discomfort. Right Leg Numbness Related to Back Pain Hematology: a tendency for easy bruising, but no tendency for easy bleeding, no venous thrombosis of the deep vessels of the lower extremity and no intermittent claudication. Musculoskeletal: joint pain, but no limb swelling. Skin: no rashes, no itching and no open wounds. Neurological: headache, but no seizures, not feeling weak, no numbness, no passing out, no fainting, no tingling and no stroke like symptoms. Psychiatric: no known mental illness and no depression. Endocrine: no goiter and no tremor was seen. Genitourinary: no difficulty urinating, no blood in urine, no burning sensation during urination and no dysuria. Active Problems 1. History of Adenocarcinoma Of The Lung (V10.11) 2. History of Ankle Surgery 3. History of Back Pain 4. History of Section ?? x2 5. History of CT Lung Pulmonary Nodule Multiple, Bilateral 6. 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 History of blurred vision (V12.49) 8. History of heartburn (V12.79) 9. History of pneumothorax (V12.69) 10. History of shortness of breath (V13.89) 11. History of shortness of breath (V13.89) 12. History of Lung Lobectomy 13. History of Wrist Surgery Past Medical History 1. History of Adenocarcinoma Of The Lung (V10.11) 2. History of Back Pain 3. History of CT Lung Pulmonary Nodule Multiple, Bilateral 4. History of Hepatic cyst (573.8) 5. History of blurred vision (V12.49) 6. History of heartburn (V12.79) 7. History of pneumothorax (V12.69) 8. History of shortness of breath (V13.89) 9. History of shortness of breath (V13.89) Surgical History 1. History of Ankle Surgery 2. History of Section ?? x2 3. History of Lung Lobectomy 4. Thoracotomy 5. History of Wrist Surgery Family History 1. Family history of Cancer 2. Family history of Cancer 3. Family history of Cancer 4. Family history of Diabetes Mellitus (V18.0) 5. Family history of Hypertension (V17.49) 6. Family history of Stroke Syndrome (V17.1) Social History 1. Denied: History of Alcohol 2. Daily Coffee Consumption (2 Cups/Day) 3. Former smoker (V15.82) ?? Previously smoked 1 pack per day for 20 years, stopped 17 years ago (07/05/08) Current Meds Medication Name Instruction Ibuprofen CAPS Omeprazole 20 MG Oral Capsule Delayed Release Oxycodone-Acetaminophen 5-325 MG Oral Tablet Progesterone Micronized 200 MG Oral Capsule Simvastatin 40 MG Oral Tablet Super B Complex TABS Venlafaxine HCl ER 75 MG Oral Capsule Extended Release 24 Hour Allergies 1. Hydrocodone-Acetaminophen TABS 2. PredniSONE TABS Vitals Recorded: 18Mar2014 10:09AM Temperature 96.4 F Systolic 119, RUE, Sitting Diastolic 86, RUE, Sitting Height 5 ft 5 in Weight 160 lb BMI Calculated 26.63 BSA Calculated 1.8 Physical Exam CHEST: Incision healed well. LUNGS: Good breath sounds bilaterally. ABDOMEN: Soft and nontender. There are no masses palpable. Results/Data I reviewed her CT scan which revealed a stable appearance with no evidence of progression of disease. Assessment Doing well with no evidence of progression of disease. Plan I think that we just need to follow-up with another CT scan in a year. She can follow-up with her family physician. She is scheduled to see her family physician this afternoon about her weight loss. I will see her back in about a year. End of Encounter Meds Medication Name Instruction Ibuprofen CAPS Omeprazole 20 MG Oral Capsule Delayed Release Oxycodone-Acetaminophen 5-325 MG Oral Tablet Progesterone Micronized 200 MG Oral Capsule Simvastatin 40 MG Oral Tablet Super B Complex TABS Venlafaxine HCl ER 75 MG Oral Capsule Extended Release 24 Hour Signatures Electronically signed by : Deon Yeager M.D.; Mar 23 2014 11:24AM EST (Author) documented in this encounter Miscellaneous Notes * Letter - Deon Yeager - 03/18/2014 10:00 AM EST Chief Complaint [address] Chest Per [facility] 01/19/13 Hx of Right Upper Lobectomy by MICHAEL History of Present Illness HPI: Mrs. Pennington is here today for follow-up. She has a known history of Stage 1 lung cancer, treated with a right upper lobectomy by Dr. Underwood. She is complaining of some weight loss over the last year or so. She is scheduled to see her family doctor this afternoon. The patient denies any hemoptysis, chest pain, abdominal pain or any symptoms whatsoever except for her back which she has had fora long time. Review of Systems Constitutional: fatigued, recent weight loss and 40 LBs in 1 YR, but no fever, no chills, showed nodiaphoresis and no recent weight gain. Eyes: no double vision and no glaucoma. ENT: no hearing loss, no nosebleeds, no mouth sores, no sore throat and no dysphagia. Respiratory: shortness of breath during exertion, but no cough, no wheezing and no hemoptysis. Gastrointestinal: diarrhea, but no abdominal pain, no vomiting and no nausea. Cardiovascular: pain in legs when walking, but no swelling in legs, no loss of hair on legs, no discoloration of legs and no chest pain or discomfort. Right Leg Numbness Related to Back Pain Hematology: a tendency for easy bruising, but no tendency for easy bleeding, no venous thrombosis of the deep vessels of the lower extremity and no intermittent claudication. Musculoskeletal: joint pain, but no limb swelling. Skin: no rashes, no itching and no open wounds. Neurological: headache, but no seizures, not feeling weak, no numbness, no passing out, no fainting, no tingling and no stroke like symptoms. Psychiatric: no known mental illness and no depression. Endocrine: no goiter and no tremor was seen. Genitourinary: no difficulty urinating, no blood in urine, no burning sensation during urination and no dysuria. Active Problems 1. History of Adenocarcinoma Of The Lung (V10.11) 2. History of Ankle Surgery 3. History of Back Pain 4. History of Section ?? x2 5. History of CT Lung Pulmonary Nodule Multiple, Bilateral 6. 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 History of blurred vision (V12.49) 8. History of heartburn (V12.79) 9. History of pneumothorax (V12.69) 10. History of shortness of breath (V13.89) 11. History of shortness of breath (V13.89) 12. History of Lung Lobectomy 13. History of Wrist Surgery Past Medical History ?? History of Adenocarcinoma Of The Lung (V10.11) ?? History of Back Pain ?? History of CT Lung Pulmonary Nodule Multiple, Bilateral ?? History of Hepatic cyst (573.8) ?? History of blurred vision (V12.49) ?? History of heartburn (V12.79) ?? History of pneumothorax (V12.69) ?? History of shortness of breath (V13.89) ?? History of shortness of breath (V13.89) Surgical History ?? History of Ankle Surgery ?? History of Section ?? x2 ?? History of Lung Lobectomy ?? Thoracotomy ?? History of Wrist Surgery Family History ?? Family history of Cancer ?? Family history of Cancer ?? Family history of Cancer ?? Family history of Diabetes Mellitus (V18.0) ?? Family history of Hypertension (V17.49) ?? Family history of Stroke Syndrome (V17.1) Social History ?? Denied: History of Alcohol ?? Daily Coffee Consumption (2 Cups/Day) ?? Former smoker (V15.82) ?? Previously smoked 1 pack per day for 20 years, stopped 17 years ago (07/05/08) Current Meds Medication Name Instruction Ibuprofen CAPS Omeprazole 20 MG Oral Capsule Delayed Release Oxycodone-Acetaminophen 5-325 MG Oral Tablet Progesterone Micronized 200 MG Oral Capsule Simvastatin 40 MG Oral Tablet Super B Complex TABS Venlafaxine HCl ER 75 MG Oral Capsule Extended Release 24 Hour Allergies 1. Hydrocodone-Acetaminophen TABS Recorded By: Rowena Cuba; 03/18/2014 10:16:06 AM 2. PredniSONE TABS Recorded By: Xuan Zuñiga; 01/19/2013 3:20:49 PM Vitals Recorded: 18Mar2014 10:09AM Temperature 96.4 F Systolic 119, RUE, Sitting Diastolic 86, RUE, Sitting Height 5 ft 5 in Weight 160 lb BMI Calculated 26.63 BSA Calculated 1.8 Physical Exam CHEST: Incision healed well. LUNGS: Good breath sounds bilaterally. ABDOMEN: Soft and nontender. There are no masses palpable. Results/Data I reviewed her CT scan which revealed a stable appearance with no evidence of progression of disease. Assessment Doing well with no evidence of progression of disease. Plan I think that we just need to follow-up with another CT scan in a year. She can follow-up with her family physician. She is scheduled to see her family physician this afternoon about her weight loss. I will see her back in about a year. End of Encounter Meds Medication Name Instruction Ibuprofen CAPS Omeprazole 20 MG Oral Capsule Delayed Release Oxycodone-Acetaminophen 5-325 MG Oral Tablet Progesterone Micronized 200 MG Oral Capsule Simvastatin 40 MG Oral Tablet Super B Complex TABS Venlafaxine HCl ER 75 MG Oral Capsule Extended Release 24 Hour 'PCP/Referring Physician' BH PCP_Requesting Physician: Primary Care Provider: Dr. Romulo Francis. Signatures Electronically signed by : Deon Yeager M.D.; Mar 23 2014 11:24AM EST (Author) documented in this encounter Plan of Treatment Not on file documented as of this encounter Visit Diagnoses Not on filedocumented in this encounter
--- OUTSIDE RECORDS SUMMARY | 2024-03-19 07:58 | XMS_ITS | Encounter Summary ---
Author Organization [facility] Address [address] [place] [id number] Care Team Providers Care Embossing Press Operator Apprentice Name Role Phone Unavailable Primary Care Provider Unavailabl e Encounter Details Date Type Department Care Team (Late st Contact Info) Description 01/19/2013 Office Visit Converted [facility] [address] [place] [address] Bari Easton MD [address] [place] [address] Social History Tobacco Use Types Packs/Day Years Used Date Smoking Tobacco: Never Assessed Comments Unknown Sex and Gender Information Value Date Recorded Sex Assigned at Not on file Legal Sex Female 10:55 AM EDT Gender Identity Not on file Sexual Orientation Not on file documented as of this encounter Last Filed Vital Signs Vital Sign Reading Time Taken Comments Blood Pressure 124/76 01/19/2013 3:11 PM EDT Pulse 90 01/19/2013 3:11 PM EDT Temperature 36.8 ??C (98.2 ??F) 01/19/2013 3:11 PM ED T Respiratory Rate - - Oxygen Saturation 94% 01/19/2013 3:11 PM EDT Inhaled Oxygen Concentration - - Weight 83 kg (183 lb 0.1 oz) 01/19/2013 3:11 PM EDT Height 165.1 cm (5' 5 ) 01/19/2013 3:11 PM EDT Body Mass Index 30.45 01/19/2013 3:11 PM EDT documented in this encounter Progress Notes * Bari Easton MD - 01/19/2013 2:45 PM EDT Chief Complaint 1YR FU WITH CT CHEST/HX OF LUNG CANCER History of Present Illness Patient returns for annual followup status post 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 She has had no weight loss and no constitutional symptoms. She denies cough or sputum production. CT scan of the chest mediastinum done on 01/06/2013 reveals no evidence of residual or recurrent disease or malignancy in the chest. No distractive component 2 rib fractures involving the anterolateral left mid to upper chest which have occurred since the previous examinations but again no distractive component. Review of Systems Constitutional: negative. Eyes: negative. ENT: negative. Respiratory: negative. Gastrointestinal: negative. Cardiovascular: lower extremity edema, but negative. Hematology: a tendency for easy bruising, but negative. Musculoskeletal: joint pain, but negative. Skin: negative. Neurological: negative. Psychiatric: negative. Endocrine: negative. Genitourinary: negative. Active Problems 1. History of Adenocarcinoma Of The Lung V10.11 2. History of Ankle Surgery Right 3. History of Back Pain 4. History of Blurry Vision 368.8 5. History of Section x2 6. History of CT Lung Pulmonary Nodule Multiple, Bilateral 7. History of Heartburn 787.1 8. History of Hepatic Cyst 573.8 9. History of Lung Lobectomy Right V45.76 10. History of Pneumothorax 512.8 11. History of Shortness Of Breath 786.05 12. History of Shortness Of Breath 786.05 13. History of Wrist Surgery Right Past Medical History ?? History of Adenocarcinoma Of The Lung V10.11 ?? History of Back Pain ?? History of Blurry Vision 368.8 ?? History of CT Lung Pulmonary Nodule Multiple, Bilateral ?? History of Heartburn 787.1 ?? History of Hepatic Cyst 573.8 ?? History of Pneumothorax 512.8 ?? History of Shortness Of Breath 786.05 ?? History of Shortness Of Breath 786.05 Surgical History ?? History of Ankle Surgery Right ?? History of Section x2 ?? History of Lung Lobectomy Right V45.76 ?? Thoracotomy Right ?? History of Wrist Surgery Right Family History ?? Family history of Cancer ?? Family history of Diabetes Mellitus V18.0 ?? Family history of Hypertension V17.49 ?? Family history of Stroke Syndrome V17.1 Social History ?? Daily Coffee Consumption (2 Cups/Day) ?? Former Smoker V15.82 Previously smoked 1 pack per day for 20 years, stopped 17 years ago (07/05/08) Denied ?? History of Alcohol Current Meds 1. Actonel 35 MG Oral Tablet; Therapy: (Recorded:[id number]) to Recorded; Dispense: 0 Days ; #: Sufficient TABS; Refill: 0; Record; Last Updated By: Xuan Zuñiga 2. Ibuprofen CAPS; Therapy: (Recorded:19Jan2013) to Recorded; Dispense: 0 Days ; #: Sufficient CAPS; Refill: 0; Record; Last Updated By: Xuan Zuñiga 3. Meloxicam 15 MG Oral Tablet; Therapy: (Recorded:[id number]) to Recorded; Dispense: 0 Days ; #: Sufficient TABS; Refill: 0; Record; Last Updated By: Xuan Zuñiga 4. Omeprazole 20 MG Oral Capsule Delayed Release; Therapy: (Recorded:19Jan2013) to Recorded; Dispense: 0 Days ; #: Sufficient CPDR; Refill: 0; Record; Last Updated By: Xuan Zuñiga 5. Progesterone Micronized 200 MG Oral Capsule; Therapy: (Recorded:19Jan2013) to Recorded; Dispense: 0 Days ; #: Sufficient CAPS; Refill: 0; Record; Last Updated By: Xuan Zuñiga 6. Simvastatin 40 MG Oral Tablet; Therapy: (Recorded:[id number]) to Recorded; Dispense: 0 Days ; #: Sufficient TABS; Refill: 0; Record; Last Updated By: Xuan Zuñiga 7. Venlafaxine HCl ER 75 MG Oral Capsule Extended Release 24 Hour; Therapy: (Recorded:[id number]) to Recorded; Dispense: 0 Days ; #: Sufficient CP24; Refill: 0; Record; Last Updated By: Xuan Zuñiga Allergies 1. PredniSONE TABS Vitals Signs [Data Includes: Current Encounter] Temperature: 98.2 F, Heart Rate: 90, Systolic: 124, Diastolic: 76, BMI Calculated: 30.49, BSA Calculated: 1.9, Height: 5 ft 5 in, Weight: 183 lb , O2 Saturation: 94 Physical Exam Lungs clear bilaterally. Surgical site incision is well healed cardiac regular rate and rhythm. Assessment History of stage I adenocarcinoma, status post right upper lobectomy. There are no signs of recurrence or new disease. Discussion/Summary REFERRING DOCTOR ANANTH JIMENEZ Plan ?? CT CHEST WO CONTRAST - 22348 Requested for: [id number] ?? 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 She has had no weight loss and no constitutional symptoms. She denies cough or sputum production. CT scan of the chest mediastinum done on 01/06/2013 reveals no evidence of residual or recurrent disease or malignancy in the chest. No distractive component 2 rib fractures involving the anterolateral left mid to upper chest which have occurred since the previous examinations but again no distractive component. Review of Systems Constitutional: negative. Eyes: negative. ENT: negative. Respiratory: negative. Gastrointestinal: negative. Cardiovascular: lower extremity edema, but negative. Hematology: a tendency for easy bruising, but negative. Musculoskeletal: joint pain, but negative. Skin: negative. Neurological: negative. Psychiatric: negative. Endocrine: negative. Genitourinary: negative. Active Problems 1. History of Adenocarcinoma Of The Lung V10.11 2. History of Ankle Surgery Right 3. History of Back Pain 4. History of Blurry Vision 368.8 5. History of Section x2 6. History of CT Lung Pulmonary Nodule Multiple, Bilateral 7. History of Heartburn 787.1 8. History of Hepatic Cyst 573.8 9. History of Lung Lobectomy Right V45.76 10. History of Pneumothorax 512.8 11. History of Shortness Of Breath 786.05 12. History of Shortness Of Breath 786.05 13. History of Wrist Surgery Right Past Medical History ?? History of Adenocarcinoma Of The Lung V10.11 ?? History of Back Pain ?? History of Blurry Vision 368.8 ?? History of CT Lung Pulmonary Nodule Multiple, Bilateral ?? History of Heartburn 787.1 ?? History of Hepatic Cyst 573.8 ?? History of Pneumothorax 512.8 ?? History of Shortness Of Breath 786.05 ?? History of Shortness Of Breath 786.05 Surgical History ?? History of Ankle Surgery Right ?? History of Section x2 ?? History of Lung Lobectomy Right V45.76 ?? Thoracotomy Right ?? History of Wrist Surgery Right Family History ?? Family history of Cancer ?? Family history of Diabetes Mellitus V18.0 ?? Family history of Hypertension V17.49 ?? Family history of Stroke Syndrome V17.1 Social History ?? Daily Coffee Consumption (2 Cups/Day) ?? Former Smoker V15.82 Previously smoked 1 pack per day for 20 years, stopped 17 years ago (07/05/08) Denied ?? History of Alcohol Current Meds 1. Actonel 35 MG Oral Tablet; Therapy: (Recorded:19Jan2013) to Recorded; Dispense: 0 Days ; #: Sufficient TABS; Refill: 0; Record; Last Updated By: Xuan Zuñiga 2. Ibuprofen CAPS; Therapy: (Recorded:19Jan2013) to Recorded; Dispense: 0 Days ; #: Sufficient CAPS; Refill: 0; Record; Last Updated By: Xuan Zuñiga 3. Meloxicam 15 MG Oral Tablet; Therapy: (Recorded:[id number]) to Recorded; Dispense: 0 Days ; #: Sufficient TABS; Refill: 0; Record; Last Updated By: Xuan Zuñiga 4. Omeprazole 20 MG Oral Capsule Delayed Release; Therapy: (Recorded:[id number]) to Recorded; Dispense: 0 Days ; #: Sufficient CPDR; Refill: 0; Record; Last Updated By: Xuan Zuñiga 5. Progesterone Micronized 200 MG Oral Capsule; Therapy: (Recorded:[id number]) to Recorded; Dispense: 0 Days ; #: Sufficient CAPS; Refill: 0; Record; Last Updated By: Xuan Zuñiga 6. Simvastatin 40 MG Oral Tablet; Therapy: (Recorded:[id number]) to Recorded; Dispense: 0 Days ; #: Sufficient TABS; Refill: 0; Record; Last Updated By: Xuan Zuñiga 7. Venlafaxine HCl ER 75 MG Oral Capsule Extended Release 24 Hour; Therapy: (Recorded:[id number]) to Recorded; Dispense: 0 Days ; #: Sufficient CP24; Refill: 0; Record; Last Updated By: Xuan Zuñiga Allergies 1. PredniSONE TABS Vitals Signs [Data Includes: Current Encounter] Temperature: 98.2 F, Heart Rate: 90, Systolic: 124, Diastolic: 76, BMI Calculated: 30.49, BSA Calculated: 1.9, Height: 5 ft 5 in, Weight: 183 lb , O2 Saturation: 94 Physical Exam Lungs clear bilaterally. Surgical site incision is well healed cardiac regular rate and rhythm. Assessment History of stage I adenocarcinoma, status post right upper lobectomy. There are no signs of recurrence or new disease. Discussion/Summary REFERRING DOCTOR ANANTH JIMENEZ Plan ?? CT CHEST WO CONTRAST - [id number] Requested for: [id number] ?? Follow-up visit in 1 year Evaluation and Treatment Follow-up Done: [id number] Return in one year with a repeat CT scan of the chest the Signatures Electronically signed by : Bari Easton M.D.; Jan 22 2013 3:09PM (Author) documented in this encounter Plan of Treatment Not on file documented as of this encounter Visit Diagnoses Not on filedocumented in this encounter
--- OUTSIDE RECORDS SUMMARY | 2024-03-19 07:59 | XMS_ITS | Encounter Summary ---
Author Organization Healthcare Address [address] [place] [address] Care Team Providers Care Lining Ironer Name Role Phone Romulo Francis MD Primary Care Provider Encounter Details Date Type Department Care Team (Late st Contact Info) Description 10/23/2020 Abstract DSB [facility] [address] [place] [address] Dental, Provider, DDS [address] [place], [place] [id number] Social History Tobacco Use Types Packs/Day Years Used Date Smoking Tobacco: Former Comments Unknown Sex and Gender Information Value Date Recorded Sex Assigned at Not on file Legal Sex Female 8:32 PM EDT Gender Identity Not on file Sexual Orientation Not on file documented as of this encounter Plan of Treatment Not on file documented as of this encounter Procedures Procedure Name Priority Date/Time Associated Diagnosis Comments ARTHROCENTESIS Routine 11/11/1996 12:00 AM EDT MANIPULATION UNDER ANESTHESIA Routine 11/11/1996 12:00 AM EDT OCCLUSAL ORTHOTIC DEVICE, BY REPORT Routine 04/09/1996 12:00 AM EST documented in this encounter Visit Diagnoses Not on filedocumented in this encounter Care Teams Lining Ironer Relationship Specialty Start Date End Date Romulo Francis MD [address] [place] [address] PCP - General 09/15/20 01/19/23 documented as of this encounter
--- OUTSIDE RECORDS SUMMARY | 2024-03-19 07:59 | XMS_ITS | Encounter Summary ---
Author Organization Healthcare Address [address] [place] [id number] Care Team Providers Care Sloop Captain Name Role Phone Romulo Gleason MD Primary Care Provider + [phone] Encounter Details Date Type Department Care Team (Latest Contact Info) Description 02/17/2023 8:03 AM EDT - 02/17/2023 11:59 PM EDT Hospital Encounter [facility] X-Ray [address], [address] [place] [address] Other closed intra-articular fracture of distal end of left radius, initial encounter Discharge Disposition: Home or Self Care Social History Tobacco Use Types Packs/Day Years Used Date Smoking Tobacco: Former Smokeless Tobacco: Never PHQ-2 Answer Date Recorded Patient Health Questionnaire-2 Score 0 01/31/2023 PHQ-2A Answer Date Recorded Patient Health Questionnaire-2 Score 0 01/31/2023 Comments Unknown Sex and Gender Information Value Date Recorded Sex Assigned at Not on file Legal Sex Female 8:32 PM EDT Gender Identity Not on file Sexual Orientation Not on file documented as of this encounter Medications at Time of Discharge alendronate (Fosamax) 70 MG tablet Take 1 tablet (70 mg) by mouth. 01/13/2023 calcium carbonate-vitamin D 600-200 MG-UNIT tablet 10/13/2018 escitalopram (Lexapro) 20 MG tablet Take 2 tablets (40 mg) by mouth 1 (one) time each day. 09/11/2022 hydrOXYzine HCl (Atarax) 25 MG tablet TAKE 1 TABLET BY MOUTH 4 TIMES DAILY NEEDED 07/14/2022 omeprazole (PriLOSEC) [address] capsule TAKE 1 CAPSULE BY MOUTH 30 MINUTES BEFORE MORNING MEAL 09/11/2022 oxyCODONE (Roxicodone) 5 MG immediate release tablet TAKE 1 TABLET BY MOUTH EVERY 8 HOURS NEEDED FOR PAIN. DO NOT COMBINE WITH OTHER OPIATES 01/20/2023 rosuvastatin (Crestor) 20 MG tablet Take 1 tablet (20 mg) by mouth 1 (one) time each day. 01/13/2023 Xigduo XR 10-1000 MG TAKE 1 TABLET BY MOUTH ONCE DAILY IN THE MORNING FOR 30 DAYS 01/13/2023 documented as of this encounter Plan of Treatment Not on file documented as of this encounter Goals Goal Patient Goal Type Associated Problems Recent Progress Patient-Stated? Author Pain: Patient will report a pain score of < 1/10 with functional movement within 8 weeks. Occupational Therapy On track(2022 10:50 AM EDT) No Sancho Ashraf ROM: Patient will demonstrate ability to show AROM euqal to unaffected arm within 8 weeks. Occupational Therapy On track(2022 10:50 AM EDT) No Sancho Ashraf Patient will dmeonstrate correct performance of HEP within 1 week. Occupational Therapy On track(2022 10:50 AM EDT) Sancho Pop LTG OT Impaired Function: Patient will decrease QUICK DASH score to < 18% within 8 weeks. Occupational Therapy On track(2022 10:50 AM EDT) Sancho Pop Patient will verbalize understanding of orthotic wear , care and precautions within 1 week. Occupational Therapy On track(2022 10:50 AM EDT) Sancho Pop documented as of this encounter Procedures Procedure Name Priority Date/Time Associated Diagnosis Comments XR WRIST LEFT 3+ VIEWS Routine 02/17/2023 8:14 AM EDT Other closed intra-articular fracture of distal end of left radius, initial encounter XR HUMERUS LEFT 2+ VIEWS Routine 02/17/2023 8:14 AM EDT Other closed intra-articular fracture of distal end of left radius, initial encounter documented in this encounter Results * XR Humerus Left 2+ Views (02/17/2023 8:14 AM EDT) Anatomical Region Laterality Modality Upper Extremities, Humerus Left Digit al Radiography Impressions 02/17/2023 8:44 AM EDT 1.Healing fracture of the humerus following internal fixation. No hardware complication. 2.Healing fracture of the distal left radius following plate and screw fixation. No hardware complication. CRITICAL RESULT: ?? No. COMMUNICATION: Per this written report. Drafted by Howie Tomlin MD on 02/17/2023 8:40 AM Final report signed by Howie Tomlin MD on 02/17/2023 8:44 AM Narrative 02/17/2023 8:44 AM EDT CLINICAL INDICATION: pain TECHNIQUE: XR HUMERUS ??LEFT 2+ VIEWS, XR WRIST LEFT 3+ VIEWS COMPARISON: January 27, 2023 and January 31, 2023 FINDINGS: 2 views of the left humerus show healing fracture of the midshaft of the humerus spanned by plate and screws. Hardware complication. Fracture fragment alignment is anatomic. Moderate glenohumeral osteoarthritis. Elbow joint space and alignment is grossly normal. Old healed left rib fractures. 3 views of the left wrist show volar plate and screw fixation of healing comminuted intra-articular fracture of the distal radius. No hardware complication. 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 No carpal bone fracture. Soft tissues are normal. Procedure Note Howie Tomlin MD - 02/17/2023 CLINICAL INDICATION: pain TECHNIQUE: XR HUMERUS LEFT 2+ VIEWS, XR WRIST LEFT 3+ VIEWS COMPARISON: January 27, 2023 and January 31, 2023 FINDINGS: 2 views of the left humerus show healing fracture of the midshaft of thehumerus spanned by plate and screws. Hardware complication. Fracturefragment alignment is anatomic. Moderate glenohumeral osteoarthritis.Elbow joint space and alignment is grossly normal. Old healed left ribfractures. 3 views of the left wrist show volar plate and screw fixation of healingcomminuted intra-articular fracture of the distal radius. No hardwarecomplication. Moderate to severe osteoarthritis of the distal radioulnarjoint and severe osteoarthritis of the first carpometacarpal joint. Nocarpal bone fracture. Soft tissues are normal. IMPRESSION: 1.Healing fracture of the humerus following internal fixation. No hardwarecomplication. 2.Healing fracture of the distal left radius following plate and screwfixation. No hardware complication. CRITICAL RESULT: No. COMMUNICATION: Per this written report. Drafted by Howie Tomlin MD on 02/17/2023 8:40 AM Final report signed by Howie Tomlin MD on 02/17/2023 8:44 AM Bonifacio Garcia MD IMG XR PROCEDURES Final Resu lt * XR Wrist Left 3+ Views (02/17/2023 8:14 AM EDT) Anatomical Region Laterality Modality Upper Extremities, Wrist Left Digital Radiography Impressions 02/17/2023 8:44 AM EDT 1.Healing fracture of the humerus following internal fixation. No hardware complication. 2.Healing fracture of the distal left radius following plate and screw fixation. No hardware complication. CRITICAL RESULT: ?? No. COMMUNICATION: Per this written report. Drafted by Howie Tomlin MD on 02/17/2023 8:40 AM Final report signed by Howie Tomlin MD on 02/17/2023 8:44 AM Narrative 02/17/2023 8:44 AM EDT CLINICAL INDICATION: pain TECHNIQUE: XR HUMERUS ??LEFT 2+ VIEWS, XR WRIST LEFT 3+ VIEWS COMPARISON: January 27, 2023 and January 31, 2023 FINDINGS: 2 views of the left humerus show healing fracture of the midshaft of the humerus spanned by plate and screws. Hardware complication. Fracture fragment alignment is anatomic. Moderate glenohumeral osteoarthritis. Elbow joint space and alignment is grossly normal. Old healed left rib fractures. 3 views of the left wrist show volar plate and screw fixation of healing comminuted intra-articular fracture of the distal radius. No hardware complication. 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 No carpal bone fracture. Soft tissues are normal. Procedure Note Howie Tomlin MD - 02/17/2023 CLINICAL INDICATION: pain TECHNIQUE: XR HUMERUS LEFT 2+ VIEWS, XR WRIST LEFT 3+ VIEWS COMPARISON: January 27, 2023 and January 31, 2023 FINDINGS: 2 views of the left humerus show healing fracture of the midshaft of thehumerus spanned by plate and screws. Hardware complication. Fracturefragment alignment is anatomic. Moderate glenohumeral osteoarthritis.Elbow joint space and alignment is grossly normal. Old healed left ribfractures. 3 views of the left wrist show volar plate and screw fixation of healingcomminuted intra-articular fracture of the distal radius. No hardwarecomplication. Moderate to severe osteoarthritis of the distal radioulnarjoint and severe osteoarthritis of the first carpometacarpal joint. Nocarpal bone fracture. Soft tissues are normal. IMPRESSION: 1.Healing fracture of the humerus following internal fixation. No hardwarecomplication. 2.Healing fracture of the distal left radius following plate and screwfixation. No hardware complication. CRITICAL RESULT: No. COMMUNICATION: Per this written report. Drafted by Howie Tomlin MD on 02/17/2023 8:40 AM Final report signed by Howie Tomlin MD on 02/17/2023 8:44 AM Bonifacio Garcia MD IMG XR PROCEDURES Final Resu lt documented in this encounter Visit Diagnoses Diagnosis Other closed intra-articular fracture of distal end of left radius, initial encounter documented in this encounter Additional Health Concerns Assessment Noted Time A fall risk assessment has been complete d for the patient 02/17/2023 7:57 AM EDT A Body Mass Index follow-up plan has been documented for the patient 02/17/2023 10:54 AM EDT documented as of this encounter Care Teams Sloop Captain Relationship Specialty Start Date End Date Romulo Gleason MD [address] [place] [address] [place] [address] PCP - General Internal Medicine 01/20/23 documented as of this encounter
--- OUTSIDE RECORDS SUMMARY | 2024-03-19 07:59 | XMS_ITS | Encounter Summary ---
Author Organization Healthcare Address [address] [place] [id number] Care Team Providers Care Channel Director Name Role Phone Romulo Gleason MD Primary Care Provider + [phone] Encounter Details Date Type Department Care Team (Latest Contact Info) Description 08/18/2023 Travel Social History Tobacco Use Types Packs/Day Years Used Date Smoking Tobacco: Former Smokeless Tobacco: Never Alcohol Use Standard Drinks/Week Comments Never 0 (1 standard drink = 0.6 oz pur e alcohol) PHQ-2 Answer Date Recorded Patient Health Questionnaire-2 [...] track(2022 10:50 AM EDT) No Sancho Ashraf LTG OT Impaired Function: Patient will decrease QUICK DASH score to < 18% within 8 weeks. Occupational Therapy On track(2022 10:50 AM EDT) No Sancho Ashraf Patient will verbalize understanding of orthotic wear , care and precautions within 1 week. Occupational Therapy On track(2022 10:50 AM EDT) No Sancho Ashraf documented as of this encounter Visit Diagnoses Not on filedocumented in this encounter Additional Health Concerns Assessment Noted Time A fall risk assessment has been complete d for the patient 08/18/2023 1:37 PM EDT A Body Mass Index follow-up plan has been documented for the patient 08/18/2023 2:59 PM EDT documented as of this encounter Care Teams Channel Director Relationship Specialty Start Date End Date Romulo Gleason MD [address] [place] [address] [place] [address] PCP - General Internal Medicine 01/20/23 documented as of this encounter
--- OUTSIDE RECORDS SUMMARY | 2024-03-19 07:59 | XMS_ITS | Encounter Summary ---
Author Organization Healthcare Address [address] [place] [address] Care Team Providers Care Head Knitting Machine Fixer Name Role Phone Romulo Gleason MD Primary Care Provider + [phone] Reason for Visit * Reason Comments Injury Injury Injury Injury Encounter Details Date Type Department Care Team (Late st Contact Info) Description 01/21/2023 8:50 AM EDT Office Visit [facility] Orth[facility] & [facility] Medicine [address] [place] [address] Rodney Graves MD [address] [place] [address] Left wrist pain (Primary Dx); Pain of left humerus Social History Tobacco Use Types Packs/Day Years Used Date Smoking Tobacco: Former PHQ-2 Answer Date Recorded Patient Health Questionnaire-2 Score 0 01/21/2023 Comments Unknown Sex and Gender Information Value Date Recorded Sex Assigned at Not on file Legal Sex Female 8:32 PM EDT Gender Identity Not on file Sexual Orientation Not on file documented as of this encounter Last Filed Vital Signs Vital Sign Reading Time Taken Comments Blood Pressure 120/75 01/21/2023 9:05 AM EDT Pulse 75 01/21/2023 9:05 AM EDT Temperature 36.8 ??C (98.3 ??F) 01/21/2023 9:05 AM ED T Respiratory Rate - - Oxygen Saturation 94% 01/21/2023 9:05 AM EDT Inhaled Oxygen Concentration - - Weight 73.5 kg (162 lb) 01/21/2023 9:05 AM EDT Height 162.6 cm (5' 4 ) 01/21/2023 9:05 AM EDT Body Mass Index 27.81 01/21/2023 9:05 AM EDT documented in this encounter Miscellaneous Notes * Progress Notes - Rodney Graves MD - 01/21/2023 8:50 AM EDT 01/21/2023 ORTHOPEDIC TRAUMA CLINIC NOTE Injury/Tx: HPI: Domonique Pennington 72 y.o. female who presents with history of having fallen at her niece's house 2days ago injuring her left upper extremity. She then was seen in [facility] placed in a sugar-tong splint and a sling for fractures of her left humerus and left distal radius. She presents today for further treatment. She gives no history of other injuries. She did not strike her head or she knocked out. Her past medical history is significant for insulin- dependent diabetes. PAST MEDICAL HISTORY: Past Medical History: Diagnosis Date Personal history of other diseases of the musculoskeletal system and connective tissue History of arthritis Personal history of other diseases of the musculoskeletal system and connective tissue History of back pain Personal history of other diseases of the musculoskeletal system and connective tissue History of osteoporosis Personal history of other endocrine, nutritional and metabolic disease History of high cholesterol Personal history of other malignant neoplasm of bronchus and lung History of malignant neoplasm of lung Personal history of other mental and behavioral disorders History of anxiety Personal history of urinary (tract) infections History of bladder infections Past Surgical History: Past Surgical History: Procedure Laterality Date ANKLE SURGERY N/A Ankle Surgery from [email or web address] CATARACT EXTRACTION N/A Cataract Surgery from [email or web address] COLONOSCOPY N/A Colonoscopy from [email or web address] LUNG LOBECTOMY N/A Lung Lobectomy from [email or web address] NECK SURGERY N/A Neck Surgery from [email or web address] OTHER SURGICAL HISTORY N/A Spinal Stereotaxis Stimulation Of Cord from [email or web address] WRIST SURGERY N/A Wrist Surgery from [email or web address] Review of Systems: General: no fatigue, no weakness, no fevers, no chills, no night sweats Skin:no rashes, no sores, no lumps Head: no recent trauma Eyes:no blurring, no tearing, no itching Nose: no sneezing, no itching, no epistaxis Mouth: no hoarseness, no sore throat, no neck swelling Cardiac: no HTN, no palpitations, no dyspnea on exertion, no PND Respiratory: no shortness of air, no coughing, no wheezing, no sputum production GI: no loss of appetite, no nausea,no vomiting, no constipation, no diarrhea, no blood per rectum, no abdominal pain, no jaundice Urinary: no dysuria, no hematuria, no polyuria, no incontinence Vascular: no leg edema, no claudication Neurologic: no loss of sensation, no tingling, no numbness, no fainting, no blackouts, no seizures Family History: Family History Problem Relation Name Age of Onset Asthma Other Cardiac disorder Other Stroke Other Depression Other Kidney disease Other Other cancer Other Thyroid disease Other Tuberculosis Other Medications: Current Outpatient Medications: calcium carbonate-vitamin D 600-200 MG-UNIT tablet, , Disp: , Rfl: alendronate (Fosamax) 70 MG tablet, Take 1 tablet (70 mg) by mouth., Disp: , Rfl: escitalopram (Lexapro) 20 MG tablet, Take 2 tablets (40 mg) by mouth 1 (one) time each day., Disp: , Rfl: hydrOXYzine HCl (Atarax) 25 MG tablet, TAKE 1 TABLET BY MOUTH 4 TIMES DAILY NEEDED, Disp: , Rfl: omeprazole (PriLOSEC) [address] capsule, TAKE 1 CAPSULE BY MOUTH 30 MINUTES BEFORE MORNING MEAL, Disp: , Rfl: oxyCODONE (Roxicodone) 5 MG immediate release tablet, TAKE 1 TABLET BY MOUTH EVERY 8 HOURS NEEDED FOR PAIN. DO NOT COMBINE WITH OTHER OPIATES, Disp: , Rfl: rosuvastatin (Crestor) 20 MG tablet, Take 1 tablet (20 mg) by mouth 1 (one) time each day., Disp: ,Rfl: Xigduo XR 10-1000 MG, TAKE 1 TABLET BY MOUTH ONCE DAILY IN THE MORNING FOR 30 DAYS, Disp: , Rfl: Allergies: Allergies Allergen Reactions Hydrocodone Unknown - Patient states they do not know rxn details Prednisone Unknown - Patient states they do not know rxn details Sulfamethoxazole-Trimethoprim Unknown - Patient states they do not know rxn details Social History Social History Occupational History Not on file Tobacco Use Smoking status: Former Smokeless tobacco: Not on file Substance and Sexual Activity Alcohol use: Not on file Drug use: Not on file Sexual activity: Not on file Vital signs: Visit Vitals BP 120/75 Pulse 75 Temp 36.8 ??C (98.3 ??F) Ht 1.626 m (5' 4 ) Wt 73.5 kg (162 lb) SpO2 94% BMI 27.81 kg/m?? Smoking Status Former BSA 1.82 m?? Constitutional: Well developed. Well nourished. Psychologic: Mood is appropriate. Appropriate affect. Head and Face: Normocephalic. No obvious deformities. Eyes: Extraocular movements intact Pulmonary: Unlabored, normal effort. Cardiac: well perfused, extremities pink. Skin: No rashes on exposed skin surface. Neuro: No focal neuro deficit, normal coordination, normal muscle tone MUSCULOSKELETAL EXAM: Presented in a sugar-tong splint on her left upper extremity and was also wearing a sling. She had good range of motion of her fingers and thumb without pain. Sensation was intact to light touch except for slight diminished sensation in the index finger. IMAGING: I have personally reviewed, and interpreted the patients imaging: X-rays of the left wrist in the splint today showed evidence of a comminuted on reduced fracture of the distal radius. X-rays of the humerus showed a midshaft humerus fracture in overall acceptable alignment. ASSESSMENT: Closed fractures left midshaft humerus and distal left radius PLAN: I am going to send her to our ED today for attempt at closed reduction of the distal radius fracture. She would like to avoid surgery on the humerus and the wrist if at all possible. I will seeher back in 1 week after her closed reduction for repeat x-rays of the left wrist and the left humerus. Rodney Graves MD documented in this encounter Plan of Treatment Not on file documented as of this encounter Results * XR Wrist Left 3+ Views (01/21/2023 9:29 AM EDT) Anatomical Region Laterality Modality Upper Extremities, Wrist Left Digital Radiography Impressions 01/21/2023 9:42 AM EDT As above. CRITICAL RESULT: ?? No. COMMUNICATION: Per this written report. Drafted by Prabhu Mello MD on 01/21/2023 9:41 AM Final report signed by Prabhu Mello MD on 01/21/2023 9:42 AM Narrative 01/21/2023 9:42 AM EDT CLINICAL INDICATION: pain TECHNIQUE: XR HUMERUS ??LEFT 2+ VIEWS, XR WRIST LEFT 3+ VIEWS COMPARISON: None. FINDINGS: Left humerus: There is an acute displaced fracture of the mid humeral diaphysis with medial displacement of the distal fracture fragment. Severe glenohumeral osteoarthrosis. Thoracic stimulator leads partially imaged. Left wrist: Overlying cast obscures bone detail. Marked demineralization. Severe narrowing of the distal radial ulnar joint. Ulnar styloid minimally displaced fracture. Impacted intra-articular distal radius fracture. There is slight apex dorsal angulation of distal fragment. Radiocarpal, triscaphe and thumb CMC narrowing. Procedure Note Prabhu Mello MD - 01/21/2023 CLINICAL INDICATION: pain TECHNIQUE: XR HUMERUS LEFT 2+ VIEWS, XR WRIST LEFT 3+ VIEWS COMPARISON: None. FINDINGS: Left humerus: There is an acute displaced fracture of the mid humeraldiaphysis with medial displacement of the distal fracture fragment. Severeglenohumeral osteoarthrosis. Thoracic stimulator leads partially imaged. Left wrist: Overlying cast obscures bone detail. Marked demineralization.Severe narrowing of the distal radial ulnar joint. Ulnar styloid minimallydisplaced fracture. Impacted intra-articular distal radius fracture. Thereis slight apex dorsal angulation of distal fragment. Radiocarpal,triscaphe and thumb CMC narrowing. IMPRESSION: As above. CRITICAL RESULT: No. COMMUNICATION: Per this written report. Drafted by Prabhu Mello MD on 01/21/2023 9:41 AM Final report signed by Prabhu Mello MD on 01/21/2023 9:42 AM Rodney Graves MD IMG XR PROCEDURES Final Result * XR Humerus Left 2+ Views (01/21/2023 9:29 AM EDT) Anatomical Region Laterality Modality Upper Extremities, Humerus Left Digit al Radiography Impressions 01/21/2023 9:42 AM EDT As above. CRITICAL RESULT: ?? No. COMMUNICATION: Per this written report. Drafted by Prabhu Mello MD on 01/21/2023 9:41 AM Final report signed by Prabhu Mello MD on 01/21/2023 9:42 AM Narrative 01/21/2023 9:42 AM EDT CLINICAL INDICATION: pain TECHNIQUE: XR HUMERUS ??LEFT 2+ VIEWS, XR WRIST LEFT 3+ VIEWS COMPARISON: None. FINDINGS: Left humerus: There is an acute displaced fracture of the mid humeral diaphysis with medial displacement of the distal fracture fragment. Severe glenohumeral osteoarthrosis. Thoracic stimulator leads partially imaged. Left wrist: Overlying cast obscures bone detail. Marked demineralization. Severe narrowing of the distal radial ulnar joint. Ulnar styloid minimally displaced fracture. Impacted intra-articular distal radius fracture. There is slight apex dorsal angulation of distal fragment. Radiocarpal, triscaphe and thumb CMC narrowing. Procedure Note Prabhu Mello MD - 01/21/2023 CLINICAL INDICATION: pain TECHNIQUE: XR HUMERUS LEFT 2+ VIEWS, XR WRIST LEFT 3+ VIEWS COMPARISON: None. FINDINGS: Left humerus: There is an acute displaced fracture of the mid humeraldiaphysis with medial displacement of the distal fracture fragment. Severeglenohumeral osteoarthrosis. Thoracic stimulator leads partially imaged. Left wrist: Overlying cast obscures bone detail. Marked demineralization.Severe narrowing of the distal radial ulnar joint. Ulnar styloid minimallydisplaced fracture. Impacted intra-articular distal radius fracture. Thereis slight apex dorsal angulation of distal fragment. Radiocarpal,triscaphe and thumb CMC narrowing. IMPRESSION: As above. CRITICAL RESULT: No. COMMUNICATION: Per this written report. Drafted by Prabhu Mello MD on 01/21/2023 9:41 AM Final report signed by Prabhu Mello MD on 01/21/2023 9:42 AM us Rodney Graves MD IMG XR PROCEDURES Final Result documented in this encounter Visit Diagnoses Diagnosis Left wrist pain- Primary Pain in joint, forearm Pain of left humerus Pain of left humerus Left wrist pain Pain in joint, forearm documented in this encounter Additional Health Concerns Assessment Noted Time A fall risk assessment has been complete d for the patient 01/21/2023 9:05 AM EDT A Body Mass Index follow-up plan has been documented for the patient 01/24/2023 12:03 PM EDT documented as of this encounter Care Teams Head Knitting Machine Fixer Relationship Specialty Start Date End Date Romulo Gleason MD [address] [place] [id number] PCP - General Internal Medicine 01/20/23 documented as of this encounter
--- OUTSIDE RECORDS SUMMARY | 2024-03-19 07:59 | XMS_ITS | Encounter Summary ---
Author Organization Healthcare Address [address] [place] [address] Care Team Providers Care Seo Strategist Name Role Phone Romulo Gleason MD Primary Care Provider + [phone] Encounter Details Date Type Department Care Team (Latest Contact Info) Description 02/03/2023 Travel Social History Tobacco Use Types Packs/Day [...] has been complete d for the patient 02/03/2023 1:05 PM EDT A Body Mass Index follow-up plan has been documented for the patient 01/31/2023 11:05 AM EDT documented as of this encounter Care Teams Seo Strategist Relationship Specialty Start Date End Date Romulo Gleason MD [address] [place] [address] PCP - General Internal Medicine 01/20/23 documented as of this encounter
--- OUTSIDE RECORDS SUMMARY | 2024-03-19 07:59 | XMS_ITS | Encounter Summary ---
Author Organization [facility] Address [address] [place] [address] Care Team Providers Care It Field Technician Name Role Phone Unavailable Primary Care Provider Unavailabl e Encounter Details Date Type Department Care Team (Late st Contact Info) Description 07/22/2008 Conversion Encounter [facility] HISTORICAL CONV [address] [place] [address] Interface, See Report Social History Tobacco Use Types Packs/Day Years [...] Procedure Name Priority Date/Time Associated Diagnosis Comments CONVERTED (HISTORICAL) SURGICAL PATHOLOGY Routine 07/22/2008 7:13 AM EDT documented in this encounter Results * Converted Surgical Pathology (07/22/2008 7:13 AM EDT) 07/22/2008 7:13 AM EDT [facility] LABORATORY - 07/23/2008 12:08 PM EDT [facility] SURGICAL PATHOLOGY REPORT Patient Name: KELLIE PENNINGTON MR#: [id number] : 1950 Gender: F Ordering Physician: JIM PERSON Copy To: PANTERA MATA :36A Location: [place] 112[address] Collected: 07/22/2008 Received: 07/22/2008 Reported: 07/23/2008 Clinical Diagnosis and History The working history is abnormal pet. 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 ??[facility] [place] Amendments: Electronically Signed Out By Bowen Haddad M.D. Specimen(s) Received: Biopsy Performed by Radiologist Gross Description The specimen, labeled FNA right lung nodule, received in formalin, consists of a 0.3x0.3x0.1 cm aggregate of verdugo/red soft tissue which is wrapped and submitted in toto in one cassette. ??/mbc Microscopic Description Examination of the smears shows some groups of atypical cells with high nuclear to cytoplasmic ratios with large atypical nuclei with nucleoli. ??Sections through the cell block show loosely aggregated cells again with high nuclear to cytoplasmic ratios with large pleomorphic nuclei. ??Focal abortive glands are noted. ??The background includes some giant cells. ??J/mbc Previous Pertinent History [id number], 07/18/2008. ??RIGHT LUNG MASS, FINE NEEDLE ASPIRATE: ??Rare atypical cells suspicious for carcinoma. (See Microscopic). ??(DGD) Procedures/Addenda us See Report Interface PATHOLOGY/CYTOLOGY ORDERABL ES Final Result [facility] [address] [id number], documented in this encounter Visit Diagnoses Not on filedocumented in this encounter
--- OUTSIDE RECORDS SUMMARY | 2024-03-19 07:59 | XMS_ITS | Encounter Summary ---
Author Organization Healthcare Address [address] [place] [address] Care Team Providers Care Electrician Telephone Name Role Phone Romulo Gleason MD Primary Care Provider + [phone] Encounter Details Date Type Department Care Team (Latest Contact Info) Description 01/31/2023 Travel Social History Tobacco Use Types Packs/Day [...] has been complete d for the patient 01/31/2023 9:18 AM EDT A Body Mass Index follow-up plan has been documented for the patient 01/31/2023 11:05 AM EDT documented as of this encounter Care Teams Electrician Telephone Relationship Specialty Start Date End Date Romulo Gleason MD [address] [place] [address] PCP - General Internal Medicine 01/20/23 documented as of this encounter
--- OUTSIDE RECORDS SUMMARY | 2024-03-19 07:59 | XMS_ITS | Encounter Summary ---
Author Organization Healthcare Address [address] [id number] Care Team Providers Care Steel Fabricating Supervisor Name Role Phone Romulo Gleason MD Primary Care Provider + [phone] Encounter Details Date Type Department Care Team (Latest Contact Info) Description 02/17/2023 Travel Social History Tobacco Use Types Packs/Day [...] Sancho Pop documented as of this encounter Visit Diagnoses Not on filedocumented in this encounter Additional Health Concerns Assessment Noted Time A fall risk assessment has been complete d for the patient 02/17/2023 7:57 AM EDT A Body Mass Index follow-up plan has been documented for the patient 02/17/2023 10:54 AM EDT documented as of this encounter Care Teams Steel Fabricating Supervisor Relationship Specialty Start Date End Date Romulo Gleason MD [address] [place] [address] PCP - General Internal Medicine 01/20/23 documented as of this encounter
--- OUTSIDE RECORDS SUMMARY | 2024-03-19 07:59 | XMS_ITS | Encounter Summary ---
Author Organization Healthcare Address [address] [id number] Care Team Providers Care Chemist Steroids Name Role Phone Romulo Gleason MD Primary Care Provider + [phone] Encounter Details Date Type Department Care Team (Latest Contact Info) Description 08/18/2023 1:43 PM EDT - 08/18/2023 11:59 PM EDT Hospital Encounter [facility] [address] [facility], [address] [place] [address] Other closed intra-articular fracture of distal end of left radius, initial encounter; Closed displaced comminuted fracture of shaft of left humerus, initial encounter Discharge Disposition: Home or Self [...] 1 tablet (70 mg) by mouth. 01/13/2023 Basaglar KwikPen 100 UNIT/ML injection pen INJECT 15 UNITS SUBCUTANEOUSLY IN THE EVENING 05/27/2023 calcium carbonate-vitam in D 600-200 MG-UNIT tablet 10/13/2018 escitalopram (Lexapro) 20 MG tablet Take 2 tablets (40 mg) by mouth 1 (one) time each day. 09/11/2022 fexofenadine (Mary) 60 MG tablet Take 1 tablet (60 mg) by mouth 2 (two) times a day. 06/25/2023 hydrOXYzine HCl (Atarax) 25 MG tablet TAKE 1 TABLET BY MOUTH 4 TIMES DAILY NEEDED 07/14/2022 omeprazole (PriLOSEC) [address] capsule TAKE 1 CAPSULE BY MOUTH 30 MINUTES BEFORE MORNING MEAL 09/11/2022 oxyCODONE (Roxicodone) 5 MG immediate release tablet TAKE 1 TABLET BY MOUTH EVERY 8 HOURS NEEDED FOR PAIN. DO NOT COMBINE WITH OTHER OPIATES 01/20/2023 oxyCODONE-aceta minophen (Percocet) 5-325 MG tablet Take 1 tablet by mouth 4 (four) times a day. 08/11/2023 rosuvastatin (Crestor) 20 MG tablet Take 1 [...] Sancho Ashraf documented as of this encounter Procedures Procedure Name Priority Date/Time Associated Diagnosis Comments XR WRIST LEFT 3+ VIEWS Routine 08/18/2023 1:53 PM EDT Other closed intra-articular fracture of distal end of left radius, initial encounter XR HUMERUS LEFT 2+ VIEWS Routine 08/18/2023 1:53 PM EDT Other closed intra-articular fracture of distal end of left radius, initial encounter Closed displaced comminuted fracture of shaft of left humerus, initial encounter documented in this encounter Results * XR Wrist Left 3+ Views (08/18/2023 1:53 PM EDT) Anatomical Region Laterality Modality Upper Extremities, Wrist Left Digital Radiography Impressions 08/18/2023 2:06 PM EDT Healed fractures of the left humerus and distal left radius following internal fixation. No hardware complication. CRITICAL RESULT: ?? No. COMMUNICATION: Per this written report. Drafted by Howie Tomlin MD on 08/18/2023 2:03 PM Final report signed by Howie Tomlin MD on 08/18/2023 2:06 PM Narrative 08/18/2023 2:06 PM EDT CLINICAL INDICATION: pain TECHNIQUE: XR WRIST LEFT 3+ VIEWS, XR HUMERUS ??LEFT 2+ VIEWS COMPARISON: February 17, 2023. FINDINGS: 2 views of the left humerus show shaft fracture spanned by plate and screws. Glenohumeral joint space narrowing and osteophyte formation. Elbow joint space and alignment are normal. Degenerative ossification in the common extensor tendon adjacent to the lateral distal humeral epicondyle. 3 views of the left wrist show volar plate and screw fixation of healed fracture of the distal radius. Moderate osteoarthritis of the distal radioulnar joint. Unchanged alignment of fracture involving the base of the ulnar styloid. Severe osteoarthritis of the first carpometacarpal joint. Post fracture osteopenia. Procedure Note Howie Tomlin MD - 08/18/2023 CLINICAL INDICATION: pain TECHNIQUE: XR WRIST LEFT 3+ VIEWS, XR HUMERUS LEFT 2+ VIEWS COMPARISON: February 17, 2023. FINDINGS: 2 views of the left humerus show shaft fracture spanned by plate andscrews. Glenohumeral joint space narrowing and osteophyte formation. Elbowjoint space and alignment are normal. Degenerative ossification in thecommon extensor tendon adjacent to the lateral distal humeralepicondyle. 3 views of the left wrist show volar plate and screw fixation of healedfracture of the distal radius. Moderate osteoarthritis of the distalradioulnar joint. Unchanged alignment of fracture involving the base ofthe ulnar styloid. Severe osteoarthritis of the first carpometacarpaljoint. Post fracture osteopenia. IMPRESSION: Healed fractures of the left humerus and distal left radius followinginternal fixation. No hardware complication. CRITICAL RESULT: No. COMMUNICATION: Per this written report. Drafted by Howie Tomlin MD on 08/18/2023 2:03 PM Final report signed by Howie Tomlin MD on 08/18/2023 2:06 PM Bonifacio Garcia MD IMG XR PROCEDURES Final Resu lt * XR Humerus Left 2+ Views (08/18/2023 1:53 PM EDT) Anatomical Region Laterality Modality Upper Extremities, Humerus Left Digit al Radiography Impressions 08/18/2023 2:06 PM EDT Healed fractures of the left humerus and distal left radius following internal fixation. No hardware complication. CRITICAL RESULT: ?? No. COMMUNICATION: Per this written report. Drafted by Howie Tomlin MD on 08/18/2023 2:03 PM Final report signed by Howie Tomlin MD on 08/18/2023 2:06 PM Narrative 08/18/2023 2:06 PM EDT CLINICAL INDICATION: pain TECHNIQUE: XR WRIST LEFT 3+ VIEWS, XR HUMERUS ??LEFT 2+ VIEWS COMPARISON: February 17, 2023. FINDINGS: 2 views of the left humerus show shaft fracture spanned by plate and screws. Glenohumeral joint space narrowing and osteophyte formation. Elbow joint space and alignment are normal. Degenerative ossification in the common extensor tendon adjacent to the lateral distal humeral epicondyle. 3 views of the left wrist show volar plate and screw fixation of healed fracture of the distal radius. Moderate osteoarthritis of the distal radioulnar joint. Unchanged alignment of fracture involving the base of the ulnar styloid. Severe osteoarthritis of the first carpometacarpal joint. Post fracture osteopenia. Procedure Note Howie Tomlin MD - 08/18/2023 CLINICAL INDICATION: pain TECHNIQUE: XR WRIST LEFT 3+ VIEWS, XR HUMERUS LEFT 2+ VIEWS COMPARISON: February 17, 2023. FINDINGS: 2 views of the left humerus show shaft fracture spanned by plate andscrews. Glenohumeral joint space narrowing and osteophyte formation. Elbowjoint space and alignment are normal. Degenerative ossification in thecommon extensor tendon adjacent to the lateral distal humeralepicondyle. 3 views of the left wrist show volar plate and screw fixation of healedfracture of the distal radius. Moderate osteoarthritis of the distalradioulnar joint. Unchanged alignment of fracture involving the base ofthe ulnar styloid. Severe osteoarthritis of the first carpometacarpaljoint. Post fracture osteopenia. IMPRESSION: Healed fractures of the left humerus and distal left radius followinginternal fixation. No hardware complication. CRITICAL RESULT: No. COMMUNICATION: Per this written report. Drafted by Howie Tomlin MD on 08/18/2023 2:03 PM Final report signed by Howie Tomlin MD on 08/18/2023 2:06 PM Bonifacio Garcia MD IMG XR PROCEDURES Final Resu lt documented in this encounter Visit Diagnoses Diagnosis Other closed intra-articular fracture of distal end of left radius, initial encounter Closed displaced comminuted fracture of shaft of left humerus, initial encounter documented in this encounter Additional Health Concerns Assessment Noted Time A fall risk assessment has been complete d for the patient 08/18/2023 1:37 PM EDT A Body Mass Index follow-up plan has been documented for the patient 08/18/2023 2:59 PM EDT documented as of this encounter Care Teams Chemist Steroids Relationship Specialty Start Date End Date Romulo Gleason MD [address] [place] [address] [place] [address] PCP - General Internal Medicine 01/20/23 documented as of this encounter
--- OUTSIDE RECORDS SUMMARY | 2024-03-19 07:59 | XMS_ITS | Encounter Summary ---
Author Organization Healthcare Address [address] [place] [address] Care Team Providers Care Care Provider Name Role Phone Romulo Gleason MD Primary Care Provider + [phone] Encounter Details Date Type Department Care Team (Late st Contact Info) Description 02/05/2023 Orders Only [facility] [address] [place] [address] Bonifacio Garcia MD [address] [facility] [address] [place] [address] Other closed intra-articular fracture of distal end of left radius, initial encounter (Primary Dx) Social History Tobacco Use Types Packs/Day Years [...] on file documented as of this encounter Miscellaneous Notes * Progress Notes - Shaina Little RN - 02/05/2023 12:07 PM EDT Called and spoke to Domonique, she will ice and elevate and loosen her bandage for comfort. We will send in some robaxin for her and see if this helps with the pain. She will call back with any questions. documented in this encounter Plan of Treatment Not on file documented as of this encounter Visit Diagnoses Diagnosis Other closed intra-articular fracture of distal end of left radius, initial encounter- Primary documented in this encounter Additional Health Concerns Assessment Noted Time A fall risk assessment has been complete d for the patient 02/03/2023 1:05 PM EDT A Body Mass Index follow-up plan has been documented for the patient 01/31/2023 11:05 AM EDT documented as of this encounter Care Teams Care Provider Relationship Specialty Start Date End Date Romulo Gleason MD [address] [place] [address] [place] [address] PCP - General Internal Medicine 01/20/23 documented as of this encounter
--- OUTSIDE RECORDS SUMMARY | 2024-03-19 07:59 | XMS_ITS | Encounter Summary ---
Author Organization Healthcare Address [address] [id number] Care Team Providers Care Dull Coat Mill Operator Name Role Phone Romulo Gleason MD Primary Care Provider + [phone] Encounter Details Date Type Department Care Team (Latest Contact Info) Description 01/21/2023 9:09 AM EDT - 01/21/2023 10:26 AM EDT [facility] [address], [address] [place] [address] Pain of left humerus; Left wrist pain Discharge Disposition: Home or Self Care Social [...] Comments XR WRIST LEFT 3+ VIEWS Routine 01/21/2023 9:29 AM EDT Left wrist pain XR HUMERUS LEFT 2+ VIEWS Routine 01/21/2023 9:29 AM EDT Pain of left humerus documented in this encounter Results * XR [...] documented in this encounter Visit Diagnoses Diagnosis Pain of left humerus Left wrist pain Pain in joint, forearm documented in this encounter Additional Health Concerns Assessment Noted Time A fall risk assessment has been complete d for the patient 01/21/2023 9:05 AM EDT A Body Mass Index follow-up plan has been documented for the patient 01/24/2023 12:03 PM EDT documented as of this encounter Care Teams Dull Coat Mill Operator Relationship Specialty Start Date End Date Romulo Gleason MD [address] [place] [address] [place] [address] PCP - General Internal Medicine 01/20/23 documented as of this encounter
--- OUTSIDE RECORDS SUMMARY | 2024-03-19 07:59 | XMS_ITS | Encounter Summary ---
Author Organization Healthcare Address [address] [place] [address] Care Team Providers Care Financial Systems Administrator Name Role Phone Romulo Gleason MD Primary Care Provider + [phone] Encounter Details Date Type Department Care Team (Late st Contact Info) Description 02/04/2023 Orders Only [facility] Orthopaedic Surgery & Sports Medicine [address] [place] [address] Romelia Richardson MD [address] [phone] Social History Tobacco Use Types Packs/Day Years [...] documented as of this encounter Care Teams Financial Systems Administrator Relationship Specialty Start Date End Date Romulo Gleason MD [address] [place] [address] [address] [place] [address] PCP - General Internal Medicine 01/20/23 documented as of this encounter
--- OUTSIDE RECORDS SUMMARY | 2024-03-19 07:59 | XMS_ITS | Encounter Summary ---
Author Organization Healthcare Address [address] [id number] Care Team Providers Care High Pressure Boiler Operator Name Role Phone Romulo Gleason MD Primary Care Provider + [phone] Reason for Visit * Consultation (Routine) - Closed Specialty Diagnoses / Procedures Referred By Allie mclaughlin Referred To Contact Occupational Therapy Diagnoses Other closed intra-articular fracture of distal end of left radius, initial encounter Bonifacio Garcia MD [address] [address] Phone: tel: fax: Referral ID Status Reason Start Date Expiration Date V isits Requested Visits Authorized [id number] Closed Specialty Services Required 02/17/2023 08/18/2024 1 1 Encounter Details Date Type Department Care Team (Late st Contact Info) Description 02/17/2023 9:30 AM EDT [facility] [address] [place] [address] Sancho Ashraf Other closed intra-articular fracture of distal end [...] encounter Miscellaneous Notes * Progress Notes - Pascale Sancho Martines - 02/17/2023 9:30 AM EDT [facility] Occupational Therapy Hand Evaluation Date: 02/17/23 Name: Domonique Pennington : 1950 Past Medical History: Diagnosis Date Diabetes mellitus (CMS/HCC) Osteoporosis Personal history of other diseases of the [...] History of bladder infections Past Surgical History: Procedure Laterality Date ANKLE SURGERY N/A Ankle Surgery from [facility] CATARACT EXTRACTION N/A Cataract Surgery from [facility] COLONOSCOPY N/A Colonoscopy from [facility] LUNG LOBECTOMY N/A Lung Lobectomy from [facility] NECK SURGERY N/A Neck Surgery from [facility] OTHER SURGICAL HISTORY N/A Spinal Stereotaxis Stimulation Of Cord from [facility] WRIST SURGERY N/A Wrist Surgery from [facility] Diagnosis: Encounter Diagnosis Name Primary? Other closed intra-articular fracture of distal end of left radius, initial encounter Yes Rehab Potential/Prognosis: excellent . Complexity: Low Complexity using Standard OT Assessment (52183). Time in: 9:40 am Time out: 10:35 am Reason for Referral: humeral and D radius fx Evaluate and treat AROM/PROM/AAROM Custom orthtosis Edema management History of Present Injury/Status: Domonique Pennington is a 72 y.o. y/o female who comes in today forevaluation of L humeral shaft fracture, status post ORIF; left intra-articular distal radius fracture status post ORIF. Patient initially sustained this injury on 01/21 after a fall off several porchsteps. Patient denies any issues with her incisions, denies any fevers, chills, nausea, vomiting. Patient reports that she is been moving her hand and extending her fingers without issues. Onset/Surgery Date: DOIL 01/21 and Surgery on 02/04 Mechanism Of Injury: Fall on porch steps Restriction/Precautions: NWB Patient accompanied by: Self Diagnostic Testing: X-Rays SUBJECTIVE I had a fall off the porch steps. 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 Social history: immediate family. The patient presents the following problems and concerns about performing occupational work (e.g., activities of daily living, Instrumental activities of daily living): ADLs and leisure activities Patient Goals: To get back to moving her arm normally. Quick DASH 84% Pain Location: Elbow, Forearm, Wrist, and Hand Current Pain: 5/10 Highest Pain: 8/10 Lowest Pain: 2/10 Description of Pain: aching and throbbing Aggravating Factors: elbow/wrist AROM Alleviating Factors: Rest, ice, and heat OBJECTIVE Active Motion: Limitations noted in wrist, elbow, shoulder, and finger AROM Passive Motion: NT Edema (cm) Edema noted throughout arm, forearm, wrist, and hand Sensation: Pt reported some numbness/tingling throughout radial/medial nerve distribution Strength: NT Modalities: None Procedure/Treatment: OT Evaluation Manual therapy: 5 min (not billed) STM to scars Therapeutic exercise: 15 min HEP - Wrist AROM Flexion Extension - 2-3 x daily - 7 x weekly - 2 sets - 10 reps - Seated Forearm Pronation and Supination AROM - 2-3 x daily - 7 x weekly - 2 sets - 10 reps - Wrist AROM Radial Ulnar Deviation - 2-3 x daily - 7 x weekly - 2 sets - 10 reps - Seated Elbow Flexion and Extension AROM - 2-3 x daily - 7 x weekly - 2 sets - 10 reps - Thumb Opposition - 2-3 x daily - 7 x weekly - 2 sets - 10 reps - Wrist Tendon Gliding - 2-3 x daily - 7 x weekly - 2 sets - 10 reps - Thumb Radial Adduction with Thumb Flexion AROM on Table - 2-3 x daily - 7 x weekly - 2 sets - 10 reps - Seated Composite Thumb Flexion AROM - 2-3 x daily - 7 x weekly - 2 sets - 10 reps Supplies: WHFO Static ( [id number]) Forearm based resting hand orthtotic per MD order Education Performed: Patient was educated in the following: anatomy related to injury, orthotic wear, care and precautions, precautions / activity restriction,home exercise program frequency and duration, progression of HEP, edema management techniques, scarmanagement strategies and techniques, use of heat, and use of ice Patient was educated through the following methods: OT hand education: verbally, with a demonstration, and with handouts. Treatment focused on: Soft tissue mobilization Decreasing edema Range of motion Stretching Custom orthotic fabrication. ASSESSMENT Domonique Pennington is a 72 y.o. female who presents 1 weeks/6 days s/p above injury/surgery with a primary complaint of Pain, edema, numbness/tingling, and loss of ROM/strength. Pt presents with limited AROM of fingers, wrist, elbow, and shoulder on this date. Pt presents with edema throughout arm and was educated to engage in RICE. Pt was issued edema glove on this date. Pt was issued HEP for AROM on finger, wrist, and elbow within pain free range of motion. Pt was instructed to perform scar massage of volar wrist/bicep. PT was fabricated resting hand orthotic on this date. Skilled therapy is appropriate at this time to address these impairments and to move the patient towards their goal of Increasing ROM of their left arm/hand. Primary Language: Malagasy Needs communication device: No Does the patient understand basic information? Yes, able to self manage. Barriers to learning: None Barriers to Rehabilitation: None Cultural/Anabaptist beliefs: None that will affect treatment PLAN Patient to be seen 1-2 times per week for 6-8 weeks. Pt reported interest in therapy here at [facility], but pt lives in [place], [place]. Pt requested that they speak with family before scheduling further therapy appts. Treatment may include patient education, position needs such as orthotics/braces, development of HEP, therapeutic exercise, Occupational based treatment, including ADLs, IADLs, work, leisure, joint protection, energy conservation, development and progression of HEP, therapeutic exercise, postural re-education, body mechanics training, joint/soft tissue mobilizations, joint protection, energy conservation, taping, and modalities as indicated to include heat, ice, ultrasound, TENS, iontophoresis with 1-3 ml of 4mg/ml of dexamethasone phosphate applied at 40-80mAm, and/or electrical stimulation.If patient does not return for 30 days, patient is considered to be discharged at this time and no discharge G code will be assigned. Patient agrees with/understands the plan of care. Patient advisedto call the clinic with any questions or concerns. Goals LTG OT Impaired Function: Patient will decrease QUICK DASH score to < 18% within 8 weeks. Pain: Patient will report a pain score of < 1/10 with functional movement within 8 weeks. Patient will dmeonstrate correct performance of HEP within 1 week. Patient will verbalize understanding of orthotic wear , care and precautions within 1 week. ROM: Patient will demonstrate ability to show AROM euqal to unaffected arm within 8 weeks. documented in this encounter Plan of Treatment [...] documented as of this encounter Care Teams High Pressure Boiler Operator Relationship Specialty Start Date End Date Romulo Gleason MD [address] [place] [address] [place] [address] PCP - General Internal Medicine 01/20/23 documented as of this encounter
--- OUTSIDE RECORDS SUMMARY | 2024-03-19 07:59 | XMS_ITS | Encounter Summary ---
Author Organization [facility] Address [address] [id number] Care Team Providers Care Step Down Specialist Name Role Phone Romulo Gleason MD Primary Care Provider + [phone] Reason for Referral * Consultation (Routine) - Closed Specialty Diagnoses / Procedures Referred By Allie mclaughlin Referred To Contact Occupational Therapy Diagnoses Other closed intra-articular fracture of distal end of left radius, initial encounter Bonifacio Garcia MD [address] [address] Phone: tel: fax: Referral ID Status Reason Start Date Expiration Date V isits Requested Visits Authorized [id number] Closed Specialty Services Required 02/17/2023 08/18/2024 1 1 * Consultation (Routine) - Authorized Specialty Diagnoses / Procedures Referred By Allie mclaughlin Referred To Contact Physical Therapy Diagnoses Other closed intra-articular fracture of distal end of left radius, initial encounter Bonifacio Garcia MD [address] [address] Phone: tel: fax: Provider, External Referral ID Status Reason Start Date Expiration Date Visits Requested Visits Authorized [id number] Authorized Consult and Treat 02/17/2023 08/18/2024 1 1 Scheduling Instructions Please work on left elbow, wrist, hand range of motion, patient is nonweightbearing. Patient can remove the sling for physical therapy, but however she should wear the sling when not doing physical therapy Reason for Visit * Reason Comments Post-op Encounter Details Date Type Department Care Team (Late st Contact Info) Description 02/17/2023 8:00 AM EDT Office Visit Debra Negron [address] [place] [id number] Bonifacio Garcia MD [address] [place] [address] Other closed intra-articular fracture of [...] Sign Reading Time Taken Comments Blood Pressure 135/76 02/17/2023 7:58 AM EDT Pulse 83 02/17/2023 7:58 AM EDT Temperature - - Respiratory Rate - - Oxygen Saturation 94% 02/17/2023 7:58 AM EDT Inhaled Oxygen Concentration - - Weight 72.6 kg (160 lb) 02/17/2023 7:58 AM EDT Height 162.6 cm (5' 4 ) 02/17/2023 7:58 AM EDT Body Mass Index 27.46 02/17/2023 7:58 AM EDT documented in this encounter Miscellaneous Notes * Progress Notes - Lázaro Gamino MD - 02/17/2023 8:00 AM EDT Surgery: L humeral shaft fracture, status post ORIF; left intra-articular distal radius fracture status post ORIF DOS: 02/04/23 Mech: fall off of porch, 01/21 Subjective: Domonique Pennington is a 72 y.o. y/o female who comes in today for evaluation of L humeral shaft fracture, status post ORIF; left intra-articular distal radius fracture status post ORIF. Patient initially sustained this injury on 01/21 after a fall off several porch steps. Patient denies any issues with her incisions, denies any fevers, chills, nausea, vomiting. Patient reports that she is been moving her hand and extending her fingers without issues. Patient does report mild pain however this is relatively well controlled. ROS: A 14 point review of systems was conducted and was negative except aforementioned in the HPI, and if present the following systems listed below: PHYSICAL EXAM General: No acute distress, well-nourished, well-developed. Neuro: A/Ox3, Speech is easily understandable, and the patient answers all questions appropriately. Resp: Good effort, symmetric chest expansion, no respiratory difficulty CV: No lymphedema, peripheral perfusion intact, pulses as below Upper Extremity Focused Musculoskeletal Exam: LUE Anterior lateral humeral incision, well healed, nylon sutures in place, no erythema fluctuance or drainage Volar FCR incision, well healed Monocryl sutures in place, no erythema fluctuance or [place] Motor: 5/5 FF, 5/5 FE, 5/5 APB, 5/5 EPL, 5/5 FPL Sensory: Median nerve dist: Normal, Ulnar Nerve dist: Normal, Radial nerve dist: normal Vascular: 2+ radial pulse, cap refill <2 sec, digits WWP Objective: BMI is Body mass index is 27.46 kg/m??. My independent interpretation of radiographic testing shows: X-ray, humerus, left, two view, demonstrates humeral plate in place, no signs of breakage or loosening, fracture line visible, mild callus formation X-ray, wrist, left, three view: Demonstrates volar plate, screws and plate in appropriate position,no signs of breakage or loosening, fracture line healing appreciated, maintained radiocarpal alignment Assessment and plan: Domonique Pennington is a 72 y.o. y/o female who comes in today for evaluation of L humeral shaft fracture, status post ORIF; left intra-articular distal radius fracture status post ORIF. Patient is overall doing well. Today her sutures were removed. Patient will continue be NWB LUE, as we want take it slow in regards to be humeral fracture, we will have the patient begin physical therapy. Patient r eturn to clinic in 4 weeks, with repeat x-rays of the left humerus, and left wrist. Patient factors increasing risk (Smoking/Diabetes): Diabetes, on insulin, last hemoglobin A1c 6 Cosigned by Bonifacio Garcia MD at 02/18/2023 11:48 AM EDT Associated attestation - Bonifacio Garcia MD - 02/18/2023 11:48 AM EDT I saw and evaluated the patient with the resident/fellow. I discussed the case with the resident/fellow and agree with the findings and plan as documented. documented in this encounter Plan of Treatment Scheduled Referrals Name Type Priority Associated Diagnoses Order Schedule Physical Therapy (outgoing) Outpatient Referral Routine Other closed intra-articular fracture of distal end of left radius, initial encounter 1 Occurrences starting 02/17/2023 until 08/18/2024 Ambulatory referral to Hand Therapy Outpatient Referral Routine Other closed intra-articular fracture of distal end of left radius, initial encounter Expected: 02/17/2023, Expires: 08/19/2023 documented as of this encounter Goals Goal [...] 10:50 AM EDT) Sancho Pop Patient will dmeonstrate correct performance of HEP [...] Sancho Ashraf documented as of this encounter Results * XR Humerus Left [...] end of left radius, initial encounter- Primary Other closed intra-articular fracture of distal end of left radius, initial encounter documented in this encounter Additional Health Concerns Assessment Noted Time A fall risk assessment has been complete d for the patient 02/17/2023 7:57 AM EDT A Body Mass Index follow-up plan has been documented for the patient 02/17/2023 10:54 AM EDT documented as of this encounter Care Teams Step Down Specialist Relationship Specialty Start Date End Date Romulo Gleason MD [address] [place] [address] PCP - General Internal Medicine 01/20/23 documented as of this encounter
--- OUTSIDE RECORDS SUMMARY | 2024-03-19 07:59 | XMS_ITS | Encounter Summary ---
Author Organization Healthcare Address [address] [place] [address] Care Team Providers Care [employer] French Teacher Name Role Phone Romulo Gleason MD Primary Care Provider + [phone] Encounter Details Date Type Department Care Team (Latest Contact Info) Description 01/27/2023 Travel Social History Tobacco Use Types Packs/Day [...] documented as of this encounter Care Teams Middle [employer] French Teacher Relationship Specialty Start Date End Date Romulo Gleason MD [address] [place] [address] PCP - General Internal Medicine 01/20/23 documented as of this encounter
--- OUTSIDE RECORDS SUMMARY | 2024-03-19 07:59 | XMS_ITS | Encounter Summary ---
Author Organization Healthcare Address [address] [place] [address] Care Team Providers Care Tube Teller Name Role Phone Romulo Gleason MD Primary Care Provider + [phone] Reason for Visit * Reason Comments Follow-up Encounter Details Date Type Department Care Team (Late st Contact Info) Description 01/31/2023 9:20 AM EDT Office Visit [facility]opa[facility] Surgery [facility] Medicine [address] [place] [address] Rodney Graves MD [address] [place] [address] Closed fracture of distal end of left radius with malunion, unspecified fracture morphology, subsequent encounter (Primary Dx); Pain of left humerus Social History Tobacco Use Types Packs/Day Years Used Date Smoking Tobacco: Former Smokeless Tobacco: Never Tobacco Cessation:Counseling Given: Not Answered PHQ-2 Answer Date Recorded Patient Health Questionnaire-2 [...] Sign Reading Time Taken Comments Blood Pressure 106/71 01/31/2023 9:18 AM EDT Pulse 73 01/31/2023 9:18 AM EDT Temperature 36.7 ??C (98 ??F) 01/31/2023 9:18 AM EDT Respiratory Rate - - Oxygen Saturation 94% 01/31/2023 9:18 AM EDT Inhaled Oxygen Concentration - - Weight 72.6 kg (160 lb) 01/31/2023 9:18 AM EDT Height 162.6 cm (5' 4 ) 01/31/2023 9:18 AM EDT Body Mass Index 27.46 01/31/2023 9:18 AM EDT documented in this encounter Miscellaneous Notes * Progress Notes - Grant Mckeon MD - 01/31/2023 9:20 AM EDT Trauma Clinic Note NAME: Domonique Pennington : 1950 DATE: 01/31/2023 CHIEF COMPLAINT: Chief Complaint Patient presents with Left Upper Arm - Follow-up HPI: Domonique Pennington is a 72 y.o. female who presents to follow-up in clinic after closed nonoperative management of a L distal radius fx and L mid-shaft humerus fx, injuries sustained 01/19. She was placed in a sugar tong splint, closed reduced, and transitioned to a short arm cast which was bivalveddue to swelling. She was placed into a jacob brace for nonoperative treatment of her humerus. She expresses she still has a high level of pain from both her arm and her wrist and wishes for operative fixation for both of these injuries. She says the wrist bothers her more than the arm at this time. Past Medical History: Past Medical History: Diagnosis Date Personal history [...] urinary (tract) infections History of bladder infections Surgical History: Past Surgical History: Procedure Laterality Date ANKLE SURGERY N/A Ankle Surgery from [facility] CATARACT EXTRACTION N/A Cataract Surgery from [facility] COLONOSCOPY N/A Colonoscopy from [facility] LUNG LOBECTOMY N/A Lung Lobectomy from [facility] NECK SURGERY N/A Neck Surgery from [facility] OTHER SURGICAL HISTORY N/A Spinal Stereotaxis Stimulation Of Cord from [facility] WRIST SURGERY N/A Wrist Surgery from [facility] Social History: Social History Socioeconomic History Marital status: Spouse name: Not on file Number of children: Not on file Years of education: Not on file Highest education level: Not on file Occupational History Not on file Tobacco Use Smoking status: Former Smokeless tobacco: Never Substance and Sexual Activity Alcohol use: Not on file Drug use: Not on file Sexual activity: Not on file Other Topics Concern Not on file Social History Narrative Not on file Social Determinants of Health Financial Resource Strain: Not on file Food Insecurity: Not on file Transportation Needs: Not on file Physical Activity: Not on file Stress: Not on file Social Connections: Not on file Intimate Partner Violence: Not on file Housing Stability: Not on file Family History: Family History Problem Relation Name Age of Onset Asthma Other Cardiac disorder Other Stroke Other Depression Other Kidney disease Other Other cancer Other Thyroid disease Other Tuberculosis Other REVIEW OF SYSTEMS: A 14-point review of systems was reviewed and is negative except as stated in the HPI. PHYSICAL EXAM: Vital signs: Visit Vitals BP 106/71 Pulse 73 Temp 36.7 ??C (98 ??F) Ht 1.626 m (5' 4 ) Wt 72.6 kg (160 lb) SpO2 94% BMI 27.46 kg/m?? Smoking Status Former BSA 1.81 m?? General: In no acute distress. Psychologic: Mood is appropriate. Appropriate affect. HEENT: Normocephalic. Extraocular movements intact Pulmonary: Unlabored, normal effort. Cardiac: well perfused, extremities pink. Skin: No rashes or lesions on exposed skin surface. Neuro: No focal neuro deficit, normal coordination, normal muscle tone Musculoskeletal: Left Upper Extremity: Inspection: Jacob brace and bivalved short arm cast clean, dry, and intact Motor: Intact 3/5 EPL, 3/5 FPL, 4/5 Finger Flexion, 4/5 Finger Extension Sensory: SILT 1/2 M with paresthesias / 1/2 U/ 1/2 R/ 2/2 A nerve dist Vascular: cap refill <2sec, fingers wwp. Trace edema IMAGING: I personally reviewed radiographs of the left wrist and left humerus. Left humerus films showing acceptable angulation with interval increased displacement. Left wrist films showing comminuted distal radius fracture with dorsal tilt. ASSESSMENT/ PLAN: 72 y.o. female presenting for follow-up after non-operative treatment of L distal radius fx and L mid-shaft humerus fx. She wishes to pursue operative management. Non-operative management of both of her injuries is still reasonable, however given her continued swelling, weakness, paresthesias, wrist alignment and desire for surgery, operative fixation with a hand specialist is a possibility. We will see her again in three weeks and discuss possible operative fixation of her left humerus. Plan: - Volar resting splint placed today - Scheduled appointment with Orthopaedics hand 02/03 - Follow-up in 3 weeks with x-rays left humerus Cosigned by Rodney Graves MD at 01/31/2023 11:28 AM EDT Associated attestation - Rodney Graves MD - 01/31/2023 11:28 AM EDT I saw and evaluated the patient with the resident/fellow. I discussed the case with the resident/fellow and agree with the findings and plan as documented. documented in this encounter Plan of Treatment Scheduled Orders Name Type Priority Associated Diagnoses Orde r Schedule Short Arm Procedures Routine Closed fracture of distal end of left radius with malunion, unspecified fracture morphology, subsequent encounter Ordered: 01/31/2023 documented as of this encounter Results * XR Humerus Left 2+ Views (01/31/2023 9:38 AM EDT) Anatomical Region Laterality Modality Upper Extremities, Humerus Left Digit al Radiography Impressions 01/31/2023 12:38 PM EDT As above. CRITICAL RESULT: ?? No. COMMUNICATION: Per this written report. Drafted by Rut Lara MD on 01/31/2023 12:35 PM Final report signed by Rut Lara MD on 01/31/2023 12:38 PM Narrative 01/31/2023 12:38 PM EDT Exam/Procedure: XR HUMERUS ??LEFT 2+ VIEWS ordered by RODNEY GRAVES CLINICAL INDICATION: pain TECHNIQUE: XR HUMERUS ??LEFT 2+ VIEWS COMPARISON: 01/21/2023 FINDINGS: Oblique fracture of the mid humeral diaphysis, with slightly increased medial displacement comparison to prior exam. However, this may be secondary to differences in patient position and projection. No interval healing. Procedure Note Rut Lara MD - 01/31/2023 Exam/Procedure: XR HUMERUS LEFT 2+ VIEWS ordered by RODNEY GRAVES CLINICAL INDICATION: pain TECHNIQUE: XR HUMERUS LEFT 2+ VIEWS COMPARISON: 01/21/2023 FINDINGS: Oblique fracture of the mid humeral diaphysis, with slightly increasedmedial displacement comparison to prior exam. However, this may besecondary to differences in patient position and projection. No intervalhealing. IMPRESSION: As above. CRITICAL RESULT: No. COMMUNICATION: Per this written report. Drafted by Rut Lara MD on 01/31/2023 12:35 PM Final report signed by Rut Lara MD on 01/31/2023 12:38 PM us Rodney Graves MD IMG XR PROCEDURES Final Result documented in this encounter Visit Diagnoses Diagnosis Closed fracture of distal end of left radius with malunion, unspecified fracture morphology, subsequent encounter- Primary Pain of left humerus Pain of left humerus documented in this encounter Additional Health Concerns Assessment Noted Time A fall risk assessment has been complete d for the patient 01/31/2023 9:18 AM EDT A Body Mass Index follow-up plan has been documented for the patient 01/31/2023 11:05 AM EDT documented as of this encounter Care Teams Tube Teller Relationship Specialty Start Date End Date Romulo Gleason MD [address] [place] [address] PCP - General Internal Medicine 01/20/23 documented as of this encounter
--- OUTSIDE RECORDS SUMMARY | 2024-03-19 07:59 | XMS_ITS | Encounter Summary ---
Author Organization Healthcare Address [address] [place] [address] Care Team Providers Care Modeling Analyst Name Role Phone Romulo Gleason MD Primary Care Provider + [phone] Encounter Details Date Type Department Care Team (Latest Contact Info) Description 01/31/2023 9:27 AM EDT - 01/31/2023 11:59 PM EDT Hospital Encounter [facility] [address], [address] [place] [address] Pain of left humerus Discharge Disposition: Home or Self Care Social [...] Name Priority Date/Time Associated Diagnosis Comments XR HUMERUS LEFT 2+ VIEWS Routine 01/31/2023 9:38 AM EDT Pain of left humerus documented [...] Rut Lara MD on 01/31/2023 12:38 PM Rodney Graves MD IMG XR PROCEDURES Final Result documented in this encounter Visit Diagnoses Diagnosis Pain of left humerus documented in this encounter Additional Health Concerns Assessment Noted Time A fall risk assessment has been complete d for the patient 01/31/2023 9:18 AM EDT A Body Mass Index follow-up plan has been documented for the patient 01/31/2023 11:05 AM EDT documented as of this encounter Care Teams Modeling Analyst Relationship Specialty Start Date End Date Romulo Gleason MD [address] [place] [address] PCP - General Internal Medicine 01/20/23 documented as of this encounter
--- OUTSIDE RECORDS SUMMARY | 2024-03-19 07:59 | XMS_ITS | Encounter Summary ---
Author Organization [facility] Address [address] [id number] Care Team Providers Care Track Service Worker Name Role Phone Romulo Gleason MD Primary Care Provider + [phone] Reason for Visit * Consultation (Routine) - Closed Specialty Diagnoses / Procedures Referred By Allie mclaughlin Referred To Contact Occupational Therapy Diagnoses Closed fracture of distal end of left radius with routine healing, unspecified fracture morphology, subsequent encounter Bonifacio Garcia MD [address] [address] Phone: tel: fax: Referral ID Status Reason Start Date Expiration Date V isits Requested Visits Authorized [id number] Closed Specialty Services Required 08/18/2023 02/16/2025 1 1 Encounter Details Date Type Department Care Team (Late st Contact Info) Description 08/18/2023 2:15 PM EDT [facility] [address] [place] [address] Merline Valadez Closed fracture of distal end of left radius with routine healing, unspecified fracture morphology, subsequent encounter Social History Tobacco Use Types Packs/Day Years [...] encounter Miscellaneous Notes * Progress Notes - Merline Valadez - 08/18/2023 2:15 PM EDT Occupational Therapy Orthotic Fitting Note Date: 08/18/23 Name: Domonique Pennington : 1950 Encounter Diagnosis Name Primary? Closed fracture of distal end of left radius with routine healing, unspecified fracture morphology,subsequent encounter Time in: 2:35 pm Time out: 2:55 pm SUBJECTIVE: Its just weak, I haven't done a lot with it. Pain: 4/10 location: left Forearm, Wrist, and Thumb. Description: aching OBJECTIVE: Quick DASH score: 38.6% Ecommerce Merchandising Manager R)44 L)20 2pt p R)8 L)8 Fitting of left Metagrip ([id number]) orthotic per physician orders status post L [facility] pain. Patient was educated on orthotic wear, care, donning, doffing and provided with any product information paperwork. Provided HEP for strengthening at home. Access Code: [email or web address] URL: [email or web address] Date: 08/18/2023 Prepared by: Merline Valadez Exercises - Seated Wrist Extension with Dumbbell - 1 x daily - 7 x weekly - 3 sets - 10 reps - 3 hold - Seated Wrist Flexion with Dumbbell - 1 x daily - 7 x weekly - 3 sets - 10 reps - 3 hold - Putty Squeezes - 1-2 x daily - 7 x weekly - 1 sets - 20 reps - Hook Fist with Putty - 1-2 x daily - 7 x weekly - 1 sets - 20 reps - Thumb MCP and IP Flexion with Putty - 1-2 x daily - 7 x weekly - 1 sets - 20 reps - 3-Point Pinch with Putty - 1-2 x daily - 7 x weekly - 1 sets - 20 reps Patient wore orthosis while in clinic for 5 minutes with no complaints of poor fit ASSESSMENT: Good orthotic fit and patient Verbalized and Demonstrated understanding of orthotic wear, care, andeducation. PLAN: Patient to return to clinic PRN for orthotic modification. This orthosis is medically necessary and required as part of this patients recovery. documented in this encounter Plan of Treatment Not on file documented as of this encounter Goals Goal Patient Goal Type Associated Problems Recent Progress Patient-Stated? Author Pain: Patient will report a pain score of < 1/10 with functional movement within 8 weeks. Occupational Therapy On track(2022 10:50 AM EDT) Sancho Pop ROM: Patient will demonstrate ability to show [...] as of this encounter Visit Diagnoses Diagnosis Closed fracture of distal end of left radius with routine healing, unspecified fracture morphology, subsequent encounter documented in this encounter Additional Health Concerns Assessment Noted Time A fall risk assessment has been complete d for the patient 08/18/2023 1:37 PM EDT A Body Mass Index follow-up plan has been documented for the patient 08/18/2023 2:59 PM EDT documented as of this encounter Care Teams Track Service Worker Relationship Specialty Start Date End Date Romulo Gleason MD [address] [place] [address] PCP - General Internal Medicine 01/20/23 documented as of this encounter
--- OUTSIDE RECORDS SUMMARY | 2024-03-19 07:59 | XMS_ITS | Encounter Summary ---
Author Organization Healthcare Address [address] [place] [address] Care Team Providers Care Property Consultant Name Role Phone Romulo Gleason MD Primary Care Provider + [phone] Encounter Details Date Type Department Care Team (Latest Contact Info) Description 01/21/2023 Travel Social History Tobacco Use Types Packs/Day [...] documented as of this encounter Care Teams Property Consultant Relationship Specialty Start Date End Date Romulo Gleason MD [address] [place] [address] PCP - General Internal Medicine 01/20/23 documented as of this encounter
--- OUTSIDE RECORDS SUMMARY | 2024-03-19 07:59 | XMS_ITS | Encounter Summary ---
Author Organization Healthcare Address [address] [place] [address] Care Team Providers Care Commanding Officer Traffic Division Name Role Phone Romulo Gleason MD Primary Care Provider + [phone] Reason for Visit * Reason Onset Date Comments [facility] Clinical Concern/Question 02/05/2023 Encounter Details Date Type Department Care Team (Late st Contact Info) Description 02/05/2023 Telephone [facility] [address] [place] [address] Bonifacio Garcia MD [address] [address] [facility] Clinical Concern/Question Social History Tobacco Use Types Packs/Day Years [...] as of this encounter Miscellaneous Notes * Telephone Encounter - Christ Regalado - 02/05/2023 10:10 AM EDT Clinical Concern/Question Reason for Call: Patient's niece Jayla is calling to report patient is still having a lot of pain despite taking the medication Oxycodone 5 MG. She believes since she is used to the dosage she has atolerance to the medicine. Was wanting to know if the doctor would prescribe a different medication. Best contact number: Other: [phone] Optimal time of day to reach caller: ANYTIME Additional comments/information from caller: Dr. Garcia Note: Please do not reply to this message. Follow-up communication and further actions as a result of this message need to be communicated with the patient directly, if the patient is not active onMyChart. If the patient is active on MyChart, they will receive notification of the communication/outcome via [employer]. documented in this encounter Plan of Treatment [...] documented as of this encounter Care Teams Commanding Officer Traffic Division Relationship Specialty Start Date End Date Romulo Gleason MD [address] [place] [address] PCP - General Internal Medicine 01/20/23 documented as of this encounter
--- OUTSIDE RECORDS SUMMARY | 2024-03-19 07:59 | XMS_ITS | Encounter Summary ---
Author Organization [facility] Address [address] [place] [address] Care Team Providers Care Food Service Specialist Name Role Phone Unavailable Primary Care Provider Unavailabl e Encounter Details Date Type Department Care Team (Late st Contact Info) Description 07/28/2008 Conversion Encounter [facility] HISTORICAL CONV [address] [place] [address] Interface, See Report Social History [...] Diagnosis Comments CONVERTED (HISTORICAL) SURGICAL PATHOLOGY Routine 07/28/2008 6:17 AM EDT documented in this encounter Results * Converted Surgical Pathology (07/28/2008 6:17 AM EDT) 07/28/2008 6:17 AM EDT [facility] LABORATORY - 08/01/2008 1:07 PM EDT [facility] SURGICAL PATHOLOGY REPORT Patient Name: KELLIE PENNINGTON MR#: [id number] : 1950 Gender: F Ordering Physician: PANTERA MATA :[id number] Copy To: ?? Location: [id number] Collected: 07/28/2008 Received: 07/28/2008 Reported: 07/29/2008 Clinical Diagnosis and History The working history is right upper lobe pulmonary nodule. Final Diagnosis 1. RIGHT UPPER LOBE, LOBECTOMY: ? 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 ? Gross tumor size = 1.8 x 1.7 x 1.5cm. ? No evidence of involvement of pleura. ? No angiolymphatic permeation by neoplasm identified. ? Nine peribronchial (level 12) lymph nodes with no evidence of metastatic carcinoma (0/9). ? Calcified granulomata identified. 2. LEVEL 3 LYMPH NODES: ? Seven lymph nodes with anthracosis and sinus histiocytosis. ? No evidence of metastatic carcinoma. 3. LEVEL 7 LYMPH NODES: ? One lymph node with anthrasilicosis. ? No evidence of metastatic carcinoma. SEE TEMPLATE. [facility]/rw LUNG TEMPLATE: TYPE OF SPECIMEN: Lobectomy LOCATION: Right upper lobe TUMOR SIZE: 1.8 x 1.7 x 1.5cm TUMOR CONFIGURATION: Nodule HISTOLOGIC TYPE (WHO CLASSIFICATION): Adenocarcinoma HISTOLOGIC GRADE: Grade 1 VISCERAL PLEURAL INVOLVEMENT: No PARIETAL PLEURA AND CHEST WALL INVOLVEMENT: No INVOLVEMENT OF MEDIASTINAL PLEURA, MEDIASTINUM, PERICARDIUM, HEART, AND GREAT VESSELS: No BRONCHIAL MARGIN: Free of neoplasm DISTANCE FROM BRONCHIAL MARGIN: 5.5cm DIRECT EXTENSION INTO HILAR NODES AND SOFT TISSUE: No SEPARATE TUMOR NODULE(S) IN LOBE: No VASCULAR/LYMPHATIC INVASION: No ARTERIAL/VENOUS (LARGE VESSEL) INVASION: No REGIONAL LYMPH NODE STATUS: 0/9 level 12, 0/7 level 3, 0/1 level 7 ADDITIONAL PATHOLOGIC FINDINGS: Old granulomata OTHER METASTATIC SITES: Unknown OTHER NEOPLASMS SITES: Unknown OTHER STUDIES: Not performed AJCC PATHOLOGIC STAGE: (COMPLETED BY PATHOLOGIST, BASED ONLY ON TISSUE FINDINGS, MORE EXTENSIVE DISEASE MAY NOT BE KNOWN TO THE PATHOLOGIST) pT=1, pN=0, pM=X; AJCC PATHOLOGIC STAGE IA B/rw Amendments: Electronically Signed Out By Bowen Haddad M.D. Specimen(s) Received: 1: Lung, resection or Lobe or Segment or Entire Lung 2: Lymph node, regional resection 3: Lymph node, biopsy Gross Description Specimen #1, labeled right upper lobe, received fresh for frozen section, check bronchial margins for tumor, received fresh for frozen section, consists of a 134 gram, 12.0 x 12.0 x 3.0 cm lobectomy specimen including up to 1.5 cm of attached bronchus. ??The pleura is verdugo red and wrinkled with moderate black anthracotic pigment. ??The pleura is inked blue and sectioning reveals a 1.8 x 1.7 x 1.5 cm well circumscribed simon white nodule, 0.2 cm from the closest blue inked pleura. ??The nodule is 5.5 cm from the bronchial resection margin. ??No involvement of the bronchus or pulmonary vasculature is identified. ??The remaining lung parenchyma is verdugo red and spongy. ??There are two calcified nodules identified at the hilum each averaging 0.8 cm in greatest dimension. Panel Machine Operator sections are submitted for frozen section. ??Summary of sections: 1A-1B frozen section residue; 1C vascular margin taken en face; 1D-1F mass to include closest blue inked pleura, 1G lung parenchyma away from mass; 1H intact lymph nodes; and 1I two bisected calcified nodules submitted following decalcification. ?? Specimen #2, labeled level 3 lymph node for staging, received in formalin, consists of a 3.0 x 3.0 x 1.0 cm aggregate of verdugo yellow lobular adipose tissue with multiple small anthracotic lymph nodes. ??There is one large lymph node identified measuring 1.0 cm in greatest dimension. ??The specimen is submitted entirely. ??Summary of sections: 2A intact lymph nodes; 2B one bisected lymph node. Specimen #3, labeled level 7 lymph node for staging, received in formalin, consists of a 2.2 cm in greatest dimension black anthracotic lymph node which is bisected and submitted entirely in cassettes 3A-3B. ??HM/my Microscopic Description Slides are reviewed and demonstrate features supporting the above-rendered diagnosis. ??See Diagnosis and Template for details. Previous Pertinent History [id number], 07/22/08. RIGHT LUNG NODULE FNA WITH CELL BLOCK: Poorly differentiated adenocarcinoma. (JFJ) Procedures/Addenda us See Report Interface PATHOLOGY/CYTOLOGY ORDERABL ES Final Result [facility] [address] [place] [address], documented in this encounter Visit Diagnoses Not on filedocumented in this encounter
--- OUTSIDE RECORDS SUMMARY | 2024-03-19 07:59 | XMS_ITS | Encounter Summary ---
Author Organization Healthcare Address [address] [place] [address] Care Team Providers Care Water Plumber Name Role Phone Romulo Gleason MD Primary Care Provider + [phone] Reason for Visit * Reason Comments Wound Check Encounter Details Date Type Department Care Team (Late st Contact Info) Description 01/27/2023 5:15 PM EDT - 01/27/2023 7:24 PM EDT [facility] [address] [place] [address] Cast discomfort (Primary Dx); Visit for wound check Discharge Disposition: Home or Self Care Social [...] Sign Reading Time Taken Comments Blood Pressure 118/80 01/27/2023 7:23 PM EDT Pulse 79 01/27/2023 7:23 PM EDT Temperature 36.7 ??C (98.1 ??F) 01/27/2023 7:23 PM ED T Respiratory Rate 16 01/27/2023 7:23 PM EDT Oxygen Saturation 99% 01/27/2023 7:23 PM EDT Inhaled Oxygen Concentration - - Weight - - Height - - Body Mass Index - - documented in this encounter Discharge Instructions * Discharge Instructions* Valery Huynh PA - 01/27/2023 7:15 PM EDT Follow-up with Dr. Graves as scheduled. Return to ER for any worsening symptoms including increased pain, numbness or tingling, increased swelling, or any other concerning symptom. documented in this encounter Medications at Time of Discharge [...] DAYS 01/13/2023 documented as of this encounter Miscellaneous Notes * Consults - Tala Palacios MD - 01/27/2023 7:13 PM EDTAssociated Order(s): IP CONSULT TO ORTHOPAEDICS Orthopaedic TRAUMA Surgery Consult Chief Complaint: Left wrist pain HPI: Domonique Pennington is a 72 y.o. female past medical history of diabetes type 2 presents to [facility] Emergency Department due to pain on her left wrist related to her cast feeling too tight. Patient initially presented to the emergency department on 01/21 which she was close reduced for her left distal radius fracture as well as for her left midshaft humerus fracture, she was placed in a Martin brace. She reports that for the past 3 days her swelling has increased and she is having more significant pain as well as numbness in all of her 5 digits. She also has developed fracture blisters. She has not taken her Martin brace off and has been compliant with no weight-bearing. Past Medical History: Past Medical History: Diagnosis [...] urinary (tract) infections History of bladder infections Metal Allergy: No Social History: Tobacco: denies Alcohol: denies Illicit substance use: denies Lives in [place], [place] Employment: Retired Past Surgical History: Past Surgical History: Procedure Laterality Date ANKLE SURGERY N/A Ankle Surgery from [facility] CATARACT EXTRACTION N/A Cataract Surgery from [facility] COLONOSCOPY N/A Colonoscopy from [facility] LUNG LOBECTOMY N/A Lung Lobectomy from [facility] NECK SURGERY N/A Neck Surgery from [facility] OTHER SURGICAL HISTORY N/A Spinal Stereotaxis Stimulation Of Cord from [employer] WRIST SURGERY N/A Wrist Surgery from [facility] Social History: Tobacco: see HPI EtOH: see HPI Illicits: see HPI Lives: see HPI Employment: see HPI Medications: No current facility-administered medications on file prior to encounter. Current Outpatient Medications on File Prior to Encounter Medication Sig Dispense Refill alendronate (Fosamax) 70 MG tablet Take 1 tablet (70 mg) by mouth. calcium carbonate-vitamin D 600-200 MG-UNIT tablet escitalopram (Lexapro) 20 MG tablet Take 2 tablets (40 mg) by mouth 1 (one) time each day. hydrOXYzine HCl (Atarax) 25 MG tablet TAKE 1 TABLET BY MOUTH 4 TIMES DAILY NEEDED omeprazole (PriLOSEC) [address] capsule TAKE 1 CAPSULE BY MOUTH 30 MINUTES BEFORE MORNING MEAL oxyCODONE (Roxicodone) 5 MG immediate release tablet TAKE 1 TABLET BY MOUTH EVERY 8 HOURS NEEDEDFOR PAIN. DO NOT COMBINE WITH OTHER OPIATES rosuvastatin (Crestor) 20 MG tablet Take 1 tablet (20 mg) by mouth 1 (one) time each day. Xigduo XR 10-1000 MG TAKE 1 TABLET BY MOUTH ONCE DAILY IN THE MORNING FOR 30 DAYS Allergies: Allergies Allergen Reactions Hydrocodone Unknown - Patient states they do not know rxn details Prednisone Unknown - Patient states they do not know rxn details Sulfamethoxazole-Trimethoprim Unknown - Patient states they do not know rxn details ROS: A 14 point review of systems was conducted and was negative except aforementioned in the HPI, and if present the following systems listed below: Physical Exam: Vitals: 01/27/23 1712 BP: 124/81 Pulse: 86 Resp: 18 Temp: 36.4 ??C (97.6 ??F) SpO2: 96% General: Alert. In no acute distress. Speech is easily understandable, and the patient answers all questions appropriately. Psych: Appropriate mood and affect Eyes: EOMI HEENT: NCAT, MMM Resp: Good effort, symmetric chest expansion, no respiratory difficulty CV: No lymphedema, peripheral perfusion intact, pulses as below Skin: No grossly palpable masses, rashes, or lesions are noted except those specifically mentioned below on each extremity. Musculoskeletal Exam: LUE: There is ecchymoses over the left arm there is also a fracture blister on the medial aspect ofher distal arm. I am able to sit to fingers distally over the past but unable to do so proximal, there is significant swelling. She is able to flex and extend all of her digits but reports numbness in all the digits. + AIN, PIN, ulnar nerve. Vascular: cap refill <2 sec, digits WWP Imaging: Radiographic studies were personally reviewed and demonstrate the following: -x-rays obtained today after bivalving her short-arm cast show similar alignment to post reduction and post cast x-rays obtained on 01/21/2023. Assessment & Plan: Domonique Pennington is a 72 y.o. female with the following orthopedic injuries: Left distal radius fracture and left midshaft humerus fracture We elected to bivalve the short-arm cast to allow for expansion and soft tissue swelling, this immediately resolve her numbness in all of her 5 digits. X-rays were obtained and show that alignment remain similar to post cast x-rays obtained on 01/21. An Yuval wrap was used to loosely wrap the cast. Pain control multimodal by ED Continue with her follow-up appointment on 01/[address] Graves. - Tala Young MD PGY-3, Orthopaedic Surgery Department [facility] Orthopaedic Consults Pager: [phone] Orthopaedic Trauma Service Pager: [phone] Orthopaedic Recon/Spine/Foot and Ankle Service Pager: [phone] Personal Pager: [phone] Cosigned by Rodney Graves MD at 01/28/2023 9:22 AM EDT * ED Provider Notes - Valery Huynh PA - 01/27/2023 5:02 PM EDT Images from the original note were not included. - HPI Chief Complaint Patient presents with Wound Check This is a 72-year-old female who fell on January 19 and sustained a midshaft humerus fracture as well as distal radius fracture to her left arm. She initially was evaluated in the ER that day andsent to orthopedist. She saw Dr. Graves in the office on 01/21 who sent her to the ER for reduction.Patient was placed in a [place] splint as well as short-arm cast after reduction was performed. Patient presents reporting that her cast is too tight. She states she can not feel her hand and can not stand leaving the cast on any longer. She also reports a blister to her upper arm that is weeping. No data recorded Patient History Past Medical History: Diagnosis Date Personal history [...] Touchworks NECK SURGERY N/A Neck Surgery from [facility] OTHER SURGICAL HISTORY N/A Spinal Stereotaxis Stimulation Of Cord from [employer] WRIST SURGERY N/A Wrist Surgery from [facility] Family History Problem Relation Name Age of Onset Asthma Other Cardiac disorder Other Stroke Other Depression Other Kidney disease Other Other cancer Other Thyroid disease Other Tuberculosis Other Tobacco Use Smoking status: Former Immunization History Immunization History: not reviewed Allergies: Allergies Allergen Reactions Hydrocodone Unknown - Patient states they do not know rxn details Prednisone Unknown - Patient states they do not know rxn details Sulfamethoxazole-Trimethoprim Unknown - Patient states they do not know rxn details Review of Systems Review of Systems Musculoskeletal: Left arm pain All other systems reviewed and are negative. Physical Exam ED Triage Vitals [01/27/23 1712] Temp Heart Rate Resp BP 36.4 ??C (97.6 ??F) 86 18 124/81 SpO2 Temp Source Heart Rate Source Patient Position 96 % Oral -- Sitting BP Location FiO2 (%) Right arm -- Physical Exam Constitutional: Appearance: Normal appearance. HENT: Head: Normocephalic and atraumatic. Musculoskeletal: Comments: Left arm: There is swelling to the left upper arm. There is a small blister to the lower aspect of the upper arm. There is normal capillary refill to the left hand. Neurological: Mental Status: She is alert. ED Course & MDM ED Course as of 01/27/232099Jan 27, 20231906 No significant change in aligment per my independent interpretation. [ER] ED Course User Index [ER] Rob Medeiros MD Clinical Impressions as of 01/27/232099 Cast discomfort Visit for wound check - Medical Decision Making The patient was evaluated by Vielka Huynh PA-C and discussed with Dr. Medeiros. History was obtained from the patient and in chart review. In summary, this is a 72 y/o female who present with increased pain to the left lower arm related to swelling. Patient was given morphine IM and zofran otd. The orthopedic team was consulted and saw the patient in the ER. Cast was bivalved in the ER and patient had complete relief of her significant pain and numbness to her hand. She has a follow-up appoint withthe orthopedist outpatient in 4 days. She was instructed to keep that appointment and to return to the ER for any worsening symptoms. Patient verbalized understanding of my instructions. ED Prescriptions None Discharge Instructions Follow-up with Dr. Graves as scheduled. Return to ER for any worsening symptoms including increased pain, numbness or tingling, increased swelling, or any other concerning symptom. Disposition Discharge AVS (Printed 01/27/2023) Sign Off Checklist Clinical Impression: Complete ED Disposition: Complete - Valery Huynh PA 01/27/23 2100 Cosigned by Rob Medeiros MD at 01/30/2023 12:54 AM EDT Associated attestation - Rob Medeiros MD - 01/30/2023 12:54 AM EDT I attest to being involved in more than half the total time in patient care. * ED Triage Notes - Rut Painter RN - 01/27/2023 5:02 PM EDT Pt c/o open blister that is leaking and states that her left arm is unbearable. States she cant feel her hand. Pt reports being seen at [facility] Friday and was placed in case and splint there. documented in this encounter Plan of Treatment Not on file documented as of this encounter Procedures Procedure Name Priority Date/Time Associated Diagnosis Comments XR WRIST LEFT 3+ VIEWS STAT 01/27/2023 7:05 PM EDT documented in this encounter Results * XR Wrist Left 3+ Views (01/27/2023 7:05 PM EDT) Anatomical Region Laterality Modality Upper Extremities, Wrist Left Digital Radiography Impressions 01/27/2023 7:38 PM EDT Prior post reduction and splinting of comminuted left distal radial fracture in similar alignment. No new fractures. Similar marked edema about the wrist soft tissue. CRITICAL RESULT: ?? No. COMMUNICATION: Per this written report. Drafted by Ciara Miller MD on 01/27/2023 7:30 PM Final report signed by Ciara Miller MD on 01/27/2023 7:38 PM Narrative 01/27/2023 7:38 PM EDT CLINICAL INDICATION: S/p univalve of cast. Eval alignment. TECHNIQUE: XR WRIST LEFT 3+ VIEWS COMPARISON: 01/21/2023 FINDINGS: Prior post reduction and splinting of comminuted left distal radial fracture in similar alignment. No new fractures. The scapholunate is intact. Similar marked edema about the wrist soft tissue. Procedure Note Ciara Miller MD - 01/27/2023 CLINICAL INDICATION: S/p univalve of cast. Eval alignment. TECHNIQUE: XR WRIST LEFT 3+ VIEWS COMPARISON: 01/21/2023 FINDINGS: Prior post reduction and splinting of comminuted left distal radialfracture in similar alignment. No new fractures. The scapholunate isintact. Similar marked edema about the wrist soft tissue. IMPRESSION: Prior post reduction and splinting of comminuted left distal radialfracture in similar alignment. No new fractures. Similar marked edemaabout the wrist soft tissue. CRITICAL RESULT: No. COMMUNICATION: Per this written report. Drafted by Ciara Miller MD on 01/27/2023 7:30 PM Final report signed by Ciara Miller MD on 01/27/2023 7:38 PM José Antonio Crowder MD IMG XR PROCEDURES Final Resu lt documented in this encounter Visit Diagnoses Diagnosis Cast discomfort- Primary Visit for wound check documented in this encounter Administered Medications Inactive Administered Medications - up to 3 most recent administrations Medication Order MAR Action Action Date Dose Rate Site morphine PF 8 mg 8 mg, Intramuscular, Once, 1 dose, On Fri01/27/23 at 1815, STAT Given 01/27/2023 6:54 PM EDT 8 mg Right Dorsogluteal ondansetron ODT (Zofran-ODT) disintegrating tablet 4 mg 4 mg, Oral, Once, 1 dose, On Fri01/27/23 at 1845, STAT Given 01/27/2023 6:53 PM EDT 4 mg documented in this encounter Active and Recently Administered Medications Times are shown in EDT. Scheduled Medication Order 01/25/2023 01/26/2023 01/27/2023 morphine PF 8 mg (COMPLETED) 8 mg, Intramuscular, Once, 1 dose, On Fri01/27/23 at 1815, STAT 1854 (Given - Provid er: Hawa Wolfe RN) ondansetron ODT (Zofran-ODT) disintegrating tablet 4 mg (COMPLETED) 4 mg, Oral, Once, 1 dose, On Fri01/27/23 at 1845, STAT 1853 (Given - Provid er: Hawa Wolfe RN) documented in this encounter Additional Health Concerns Assessment Noted Time A fall risk assessment has been complete d for the patient 01/21/2023 9:05 AM EDT A Body Mass Index follow-up plan has been documented for the patient 01/24/2023 12:03 PM EDT documented as of this encounter Care Teams Water Plumber Relationship Specialty Start Date End Date Romulo Gleason MD [address] [place] [address] [place] [address] PCP - General Internal Medicine 01/20/23 documented as of this encounter
--- OUTSIDE RECORDS SUMMARY | 2024-03-19 07:59 | XMS_ITS | Encounter Summary ---
Author Organization [facility] Address [address] [place] [address] Care Team Providers Care Engineering Test Mechanic Name Role Phone Unavailable Primary Care Provider Unavailabl e Encounter Details Date Type Department Care Team (Late st Contact Info) Description 07/15/2008 Conversion Encounter [facility] HISTORICAL CONV [address] [place] [address] Interface, See Report Social History [...] Diagnosis Comments CONVERTED (HISTORICAL) SURGICAL PATHOLOGY Routine 07/15/2008 7:21 AM EDT documented in this encounter Results * Converted Surgical Pathology (07/15/2008 7:21 AM EDT) 07/15/2008 7:21 AM EDT [facility] LABORATORY - 07/18/2008 4:18 PM EDT [facility] SURGICAL PATHOLOGY REPORT Patient Name: KELLIE PENNINGTON MR#: [id number] : 1950 Gender: F Ordering Physician: MICHAEL MORALES Copy To: PANTERA MTAA :36A Location: [place] 1123-1 Collected: 07/15/2008 Received: 07/15/2008 Reported: 07/18/2008 Clinical Diagnosis and History The working history is right lung mass; h/o tobacco use-quit 17 years ago, no history of cancer. . Final Diagnosis RIGHT LUNG MASS, FINE NEEDLE ASPIRATE: ? Rare atypical cells suspicious for carcinoma. ??(See Microscopic). ??DGD/my Amendments: Electronically Signed Out By BOB WINTERS Specimen(s) Received: Biopsy Performed by Radiologist Gross Description The specimen, labeled right lung mass, FNA, received in formalin, consists of a 0.2 x 0.2 x 0.1 cm aggregate of verdugo red clot which is wrapped and submitted in toto in one cassette. ??HM/my Microscopic Description Sections of the cell block contain very scant amounts of cellular material embedded in blood clot. ??The cellular elements appear predominantly to be reactive alveolar lining cells in clusters; however, scattered small clusters of cells show nuclei with increased basophilic hyperchromicity and increased pleomorphism. ??No mitotic activity is identified. ??The atypical cellular elements show no evidence of mitotic activity; however, the degree of nuclear atypia is very suspicious for neoplasia. ??Re-biopsy or fine needle aspiration is recommended. ??DGD/my Procedures/Addenda us See Report Interface PATHOLOGY/CYTOLOGY ORDERABL ES Final Result [facility] [address] [place] [address], documented in this encounter Visit Diagnoses Not on filedocumented in this encounter
--- OUTSIDE RECORDS SUMMARY | 2024-03-19 07:59 | XMS_ITS | Encounter Summary ---
Author Organization Healthcare Address [address] [place] [address] Care Team Providers Care Saddle Stitch Operator Name Role Phone Romulo Gleason MD Primary Care Provider + [phone] Reason for Visit * Reason Comments Consult Encounter Details Date Type Department Care Team (Late st Contact Info) Description 02/03/2023 12:50 PM EDT Office Visit Debra Negron [address] [place] [id number] Bonifacio Garcia MD [address] [phone] Other closed intra-articular fracture of distal end of left radius, initial encounter (Primary Dx); Closed displaced comminuted fracture of shaft of left humerus, initial encounter Social History Tobacco Use Types Packs/Day [...] Sign Reading Time Taken Comments Blood Pressure 128/77 02/03/2023 1:07 PM EDT Pulse 75 02/03/2023 1:07 PM EDT Temperature - - Respiratory Rate - - Oxygen Saturation 95% 02/03/2023 1:07 PM EDT Inhaled Oxygen Concentration - - Weight 72.6 kg (160 lb) 02/03/2023 1:07 PM EDT Height 162.6 cm (5' 4 ) 02/03/2023 1:07 PM EDT Body Mass Index 27.46 02/03/2023 1:07 PM EDT documented in this encounter Miscellaneous Notes * Progress Notes - Romelia Richardson MD - 02/03/2023 12:50 PM EDT Subjective: Domonique Pennington is a 72 y.o. y/o female who comes in today for evaluation of left distal radius and left humeral shaft fracture. Patient initially sustained this injury on 01/21 after a fall off several porch steps. Patient was initially seen in the emergency department and treated with a Martin and short-arm cast. She was referred to hand surgery by ortho Trauma for management of her left distal radius fracture after her cast was inadvertently removed. Patient presents today requesting operative intervention of her distal radius and humeral shaft fracture. She states that her pain and immobilization is interfering with her activities of daily living inability to care for herself. Past Medical History: Diagnosis Date Diabetes mellitus [...] urinary (tract) infections History of bladder infections ROS: A 14 point review of systems [...] below Upper Extremity Focused Musculoskeletal Exam: LUE Skin intact, soft compartments, no pain with passive stretch, ecchymosis and swelling to upper extremity in hand and forearm, tender to palpation at fracture site. Motor: 5/5 FF, 5/5 FE, 5/5 APB, 5/5 EPL, 5/5 FPL Sensory: Median nerve dist: Normal, Ulnar Nerve dist: Normal, Radial nerve dist: normal Vascular: 2+ radial pulse, cap refill <2 sec, digits WWP Objective: BMI is Body mass index is 27.46 kg/m??. My independent interpretation of radiographic testing shows: Right distal radius fracture with intra-articular radial styloid component with significant shortening and displacement. Chronic changes to the ulnar styloid. Right humeral shaft fracture with displacement in the coronal plane. Notes reviewed: ortho trauma Results of tests reviewed: previous radiographs Assessment and plan: Other closed intra-articular fracture of distal end of left radius, initial encounter Closed displaced comminuted fracture of shaft of left humerus, initial encounter Orders Placed This Encounter Type and screen CBC W/O Differential Basic metabolic panel Patient presents after a left distal radius and left humeral shaft fracture. Patient has trialed nonoperative management for the past 2 weeks. This has been complicated by continued swelling of her upper extremity, cast removal and loss of reduction. Discussed operative and nonoperative management with patient at length. Patient reports that she can no longer tolerate nonoperative management and bracing. Reports that immobilization and movement at her fracture site has interfered with her activities of daily living. We will schedule surgery for open reduction and internal fixation of her leftdistal radius and left humeral shaft fracture. Patient factors increasing risk (Smoking/Diabetes): Diabetes, on insulin, last hemoglobin A1c 6 Cosigned by Bonifacio Garcia MD at 02/04/2023 12:29 AM EDT Associated attestation - Bonifacio Garcai MD - 02/04/2023 12:29 AM EDT I saw and evaluated the patient with the resident/fellow. I discussed the case with the resident/fellow and agree with the findings and plan as documented. documented in this encounter Plan of Treatment Not on file documented as of this encounter Results * (ABNORMAL) Basic metabolic panel (02/03/2023 4:33 PM EDT) Glucose, Plasma 260(H) 74 - 99 mg/dL 02/03/2023 7:17 PM EDT [facility] BUN, Plasma 12 8 - 23 mg/dL 02/03/2023 7:17 PM EDT [facility] Creatinine, Plasma 0.57(L) 0.60 - 1.10 mg/dL 02/03/2023 7:17 PM EDT [facility] BUN/Creatinine Ratio 21 02/03/2023 7:17 PM EDT [facility] Sodium, Plasma 137 136 - 145 mmol/L 02/03/2023 7:17 PM EDT [facility] Potassium, Plasma 3.6(L) 3.7 - 4.8 mmol/L 02/03/2023 7:17 PM EDT [facility] Chloride, Plasma 101 97 - 107 mmol/L 02/03/2023 7:17 PM EDT [facility] CO2, Plasma 24 22 - 29 mmol/L 02/03/2023 7:17 PM EDT [facility] Anion Gap 12 6 - 16 mmol/L 02/03/2023 7:17 PM EDT [facility] Total Calcium, Plasma 9.0 8.9 - 10.2 mg/dL 02/03/2023 7:17 PM EDT [facility] eGFRcr 96.7 mL/min/1.7 3m*2 02/03/2023 7:17 PM EDT [facility] Comment:Reported eGFRcr in m L/min/1.73m2 is based the CKD-EPI 2020 equation that does not use a race coefficient. Blood Venous blood specimen / Unknown Venipuncture / Unknown 02/03/2023 4:33 PM EDT 02/03/2023 4:34 PM EDT us Bonifacio Garcia MD LAB BLOOD ORDERABLES Final [facility] [address] [place] [address] * CBC W/O Differential (02/03/2023 4:33 PM EDT) WBC Count 6.20 3.70 - 10.30 10*3/uL LAB HEMATOLOGY METHOD 02/03/2023 7:08 PM EDT [facility] RBC Count 4.76 3.90 - 5.20 10*6/uL LAB HEMATOLOGY METHOD 02/03/2023 7:08 PM EDT [facility] HGB 13.3 11.2 - 15.7 g/dL LAB HEMATOLOGY METHOD 02/03/2023 7:08 PM EDT [facility] HCT 41.9 34.0 - 45.0 % LAB HEMATOLOGY METHOD 02/03/2023 7:08 PM EDT [facility] Platelet Count 308 155 - 369 10*3/uL LAB HEMATOLOGY METHOD 02/03/2023 7:08 PM EDT [facility] MCV 88 79 - 98 fL LAB HEMATOLOGY METHOD 02/03/2023 7:08 PM EDT [facility] MCH 27.9 26.0 - 32.0 pg LAB HEMATOLOGY METHOD 02/03/2023 7:08 PM EDT [facility] MCHC 31.7 30.7 - 35.5 g/dL LAB HEMATOLOGY METHOD 02/03/2023 7:08 PM EDT [facility] RDW 14.4 11.5 - 14.5 % LAB HEMATOLOGY METHOD 02/03/2023 7:08 PM EDT [facility] MPV 9.7 8.8 - 12.5 fL LAB HEMATOLOGY METHOD 02/03/2023 7:08 PM EDT [facility] nRBC 0.0 <=0.0 per 100 WBCs LAB HEMATOLOGY METHOD 02/03/2023 7:08 PM EDT [facility] Blood Venous blood specimen / Unknown Venipuncture / Unknown 02/03/2023 4:33 PM EDT 02/03/2023 4:34 PM EDT Bonifacio Garcia MD LAB BLOOD ORDERABLES Final R esult [facility] [address] [place] [address] * Type and screen (02/03/2023 4:33 PM EDT) ABO/Rh O Positive 02/03/2023 4:29 PM EDT BLOOD BANK Antibody Screen Negative 02/03/2023 4:29 PM EDT BLO[facility] Specimen Expiration 02/06/2023 23:59 02/03/2023 4:29 PM EDT BLOOD BANK Blood Venous blood specimen / Unknown Venipuncture / Unknown 02/03/2023 4:33 PM EDT 02/03/2023 4:34 PM EDT us Bonifacio Garcia MD LAB BLOOD BANK TEST ORDERABL ES Final Result Performing Organization Address City/State/[facility] Co de Phone Number BLOOD BANK [address] [place] [address], documented in this encounter Visit Diagnoses Diagnosis Other closed intra-articular fracture of distal end of left radius, initial encounter- Primary Closed displaced comminuted fracture of shaft of left humerus, initial encounter documented in this encounter Additional Health Concerns Assessment Noted Time A fall risk assessment has been complete d for the patient 02/03/2023 1:05 PM EDT A Body Mass Index follow-up plan has been documented for the patient 01/31/2023 11:05 AM EDT documented as of this encounter Care Teams Saddle Stitch Operator Relationship Specialty Start Date End Date Romulo Gleason MD [address] [place] [address] [place] [address] PCP - General Internal Medicine 01/20/23 documented as of this encounter
--- OUTSIDE RECORDS SUMMARY | 2024-03-19 07:59 | XMS_ITS | Encounter Summary ---
Author Organization Healthcare Address [address] [place] [address] Care Team Providers Care Pest Control Operator Name Role Phone Romulo Gleason MD Primary Care Provider + [phone] Reason for Visit * Reason Comments Arm Injury Encounter Details Date Type Department Care Team ([facility] st Contact Info) Description 01/21/2023 10:27 AM EDT - 01/21/2023 3:16 PM EDT Emergency [facility] Emergency Department [address] [place] [id number] Darius To MD [address] [place] [phone] Irma Rosenberg MD [address] [place] [phone] Ezio Clark MD [address] [place] [phone] Closed fracture of shaft of left humerus, unspecified fracture morphology, initial encounter (Primary Dx); Closed fracture of distal end of left radius, unspecified fracture morphology, initial encounter Discharge Disposition: Home or Self [...] Sign Reading Time Taken Comments Blood Pressure 151/77 01/21/2023 2:00 PM EDT Pulse 88 01/21/2023 2:21 PM EDT Temperature 36.6 ??C (97.8 ??F) 01/21/2023 1:18 PM ED T Respiratory Rate 19 01/21/2023 2:21 PM EDT Oxygen Saturation 96% 01/21/2023 2:21 PM EDT Inhaled Oxygen Concentration - - Weight 73.5 kg (162 lb) 01/21/2023 10:16 AM EDT Height 162.6 cm (5' 4 ) 01/21/2023 10:16 AM EDT Body Mass Index 27.81 01/21/2023 10:16 AM EDT documented in this encounter Discharge Instructions * Discharge Instructions* Romulo Liu MD - 01/21/2023 3:01 PM EDT At this time it is felt you are safe to be discharged. If new or worsening symptoms develop, pleasereturn to the emergency department for further evaluation. Please follow up with your primary care provider after discharge. Please follow-up with your orthopedic surgeon after discharge. You will likely need follow-up in 1 week. documented in this encounter Medications at Time [...] this encounter Miscellaneous Notes * Consults - Radha Solomon, TRANSPORT TANK TECHNICIAN - 01/21/2023 12:12 PM EDTAssociated Order(s): IP CONSULT TO ORTHOPAEDICS Chief Complaint: LUE pain HPI: Patient is a 72 yr old RHD female with PMH of DM type II who presents to the ED as transferfrom Clinic for a closed reduction of known Orthopedic injuries the patient sustained a fall 2 days ago and went to her local ED where she was found to have a L distal radius fx and L mid-shaft humerus fx. She was placed into a sugar tong splint and given an appointment with Dr. Ely carmona at . Past Medical History: Past Medical History: Diagnosis [...] Date ANKLE SURGERY N/A Ankle Surgery from [facility] CATARACT EXTRACTION N/A Cataract Surgery from [facility] COLONOSCOPY N/A Colonoscopy from [facility] LUNG LOBECTOMY N/A Lung Lobectomy from [facility] NECK SURGERY N/A Neck Surgery from [facility] OTHER SURGICAL HISTORY N/A Spinal Stereotaxis Stimulation Of Cord from [facility] WRIST SURGERY N/A Wrist Surgery from [facility] Family History: family history includes Asthma in an other family member; Cardiac disorder in an other family member; Depression in an other family member; Kidney disease in an other family member; Other cancer in an other family member; Stroke in an other family member; Thyroid disease in an other family member; Tuberculosis in an other family member. Reviewed and found to be non contributory to HPI/CC. Family or Personal History of DVT/PE?: denies Allergies: Allergies Allergen Reactions Hydrocodone Unknown - Patient states they do not know rxn details Prednisone Unknown - Patient states they do not know rxn details Sulfamethoxazole-Trimethoprim Unknown - Patient states they do not know rxn details Metal Allergy: No Social History: Tobacco: denies Alcohol: denies Illicit substance use: denies Lives in [place], [place] Employment: ROS: A 14 point review of systems was conducted and was negative except aforementioned in the HPI, and if present the following systems listed below: Physical Exam: General:NAD Vitals: Visit Vitals BP 136/83 Pulse 92 Temp 36.5 ??C (97.7 ??F) Ht 1.626 m (5' 4 ) Wt 73.5 kg (162 lb) SpO2 96% BMI 27.81 kg/m?? Psych: AOx3, Appropriate mood and affect Eyes: EOMI, PERRLA, Sclera Anicteric HENMT: NCAT, mmm, good dentition GI: Soft, NT, No organomegaly Resp: Good effort, symmetrical chest rise CV: No evidence of lymphedema, Pulses as below. Skin: No palpable masses, No rashes or lesions, except specificaly mentioned below on each extremity Musculoskeletal Exam: Neck: Neck non tender to palpation, no step-off Chest: Clavicles non tender to palpation Spine: Cervical spine non tender to palpation, no step-off, Thoracic spine non tender to palpation, no step-off Lumbar spine non tender to palpation, no step-off Pelvis: stable to AP/Lat compression RUE: skin intact, no deformity, soft compartments, no pain with passive stretch, non tender to palpation ROM: Full/painless/stable at shoulder, elbow, and wrist Motor: 5/5 ER/IR, 5/5 Delt, 5/5 Bic, 5/5 Tri, 5/5 WF, 5/5 WE, 5/5 FF, 5/5 FE, 5/5 Fabd, 5/5 EPL, 5/5 FPL Sensory: Sensation intact to light touch axillary, radial, median, ulnar nn. Vascular: 2+ radial pulse, cap refill <2 sec LUE: skin intact, exam limited 2/2 pain, globally TTP to wrist and humerus ROM: limited 2/2 injuries Motor: fires WF, WE FF, FE, Fabd, EPL, FPL Sensory: Sensation intact to light touch axillary, radial, median, ulnar nn. Parasthesias to thumb and 2nd digit distally Vascular: 2+ radial pulse, cap refill <2 sec RLE: skin intact, no deformity, soft compartments, no pain with passive stretch, non tender to palpation ROM: Full/painless/stable at hip, knee, and ankle Motor: 5/5 HAbd, 5/5 HF, 5/5 KE, 5/5 KF, 5/5 TA, 5/5 GSC, 5/5 EHL, 5/5 FHL, 5/5 Ever Sensory: Sensation intact to light touch deep peroneal, superficial peroneal, tibial, sural, saphenous nn. Vascular:2+ dorsalis pedis and posterior tibial pulse, cap refill <2 sec LLE: skin intact, no deformity, soft compartments, no pain with passive stretch, non tender to palpation ROM: Full/painless/stable at hip, knee, and ankle Motor: 5/5 HAbd, 5/5 HF, 5/5 KE, 5/5 KF, 5/5 TA, 5/5 GSC, 5/5 EHL, 5/5 FHL, 5/5 Ever Sensory: Sensation intact to light touch deep peroneal, superficial peroneal, tibial, sural, saphenous nn. Vascular: 2+ dorsalis pedis and posterior tibial pulse, cap refill <2 sec Imaging: Xrays of the following, reviewed and requested by me demonstrate the following: Left distal radius fx, L mid-shaft humerus fx Assessment: 72 yr old female with Left distal radius fx, L mid-shaft humerus fx Plan: -tentatively plan for non-op treatment -NWB LUE in Martin brace, short arm cast and cuff and collar -pain control per ED -ok to discharge from Ortho standpoint -follow up on 01/[address] Ely Solomon APRN Department of Orthopedic Surgery and Sports Medicine Consult Pager: [phone] Service Pager: [phone] Cosigned by Rodney Graves MD at 01/21/2023 2:58 PM EDT Associated attestation - Rodney Graves MD - 01/21/2023 2:58 PM EDT I discussed the procedure with KELLY Solomon and agree with her plan. * Discharge Instr - Activity - Vick Quach RN - 01/21/2023 11:30 AM EDT Move around as you are able. Do not drive while taking narcotic medications. Use assistive equipment as instructed. No lifting with left arm until cleared by an Orthopedic MD. No weight through left arm. Wear left arm Martin brace at all times except for skin checks and hygiene. Tighten left arm Martin brace at least three times a day. Remove left arm Martin braceat least once daily for skin check and hygiene. While brace is removed, keep limb in neutral (flat)position. Left wrist splint must remain clean, dry, and intact at all times. If you must shower, cover the splint with plastic. * ED Procedure Note - Romulo Liu MD - 01/21/2023 10:09 AM EDTAssociated Order(s): Moderate Sedation Procedure Reason: Left radius fracture Moderate Sedation Performed by: Romulo Liu MD Authorized by: Darius To MD Consent: Consent obtained: Verbal and written Consent given by: Patient Risks, benefits, and alternatives were discussed: yes Risks discussed: Allergic reaction, prolonged hypoxia resulting in organ damage, prolonged sedationnecessitating reversal, dysrhythmia, inadequate sedation, respiratory compromise necessitating ventilatory assistance and intubation, vomiting and nausea Alternatives discussed: Analgesia without sedation and anxiolysis [place] protocol: Procedure explained and questions answered to patient or proxy's satisfaction: yes Relevant documents present and verified: yes Test results available: yes Imaging studies available: yes Required blood products, implants, devices, and special equipment available: yes Site/side marked: yes Immediately prior to procedure, a time out was called: yes Patient identity confirmed: Verbally with patient, hospital-assigned identification number and arm band Indications: Procedure performed: Fracture reduction Procedure necessitating sedation performed by: Different physician Intended level of sedation: Moderate Pre-sedation assessment: NPO status caution: urgency dictates proceeding with non-ideal NPO status Neck mobility: normal Pre-sedation assessments completed and reviewed: airway patency, anesthesia/sedation history, cardiovascular function, hydration status, mental status, nausea/vomiting, pain level, respiratory function and temperature History of difficult intubation: no Pre-sedation assessment completed: 01/21/2023 12:10 PM Immediate pre-procedure details: Reassessment: Patient reassessed immediately prior to procedure Reviewed: vital signs, relevant labs/tests and NPO status Verified: bag valve mask available, emergency equipment available, intubation equipment available, IV patency confirmed, oxygen available, reversal medications available and suction available Procedure details (see MAR for exact dosages): Sedation start time: 01/21/2023 12:23 PM Preoxygenation: Nasal cannula Sedation: Ketamine (propofol) Intra-procedure monitoring: Blood pressure monitoring, continuous capnometry, frequent LOC assessments, frequent vital sign checks, continuous pulse oximetry and threat monitoring analyst Intra-procedure events: none Sedation end time: 01/21/2023 1:18 PM Total sedation time (minutes): 55 Post-procedure details: Post-sedation assessment completed: 01/21/2023 2:45 PM Attendance: Constant attendance by certified staff until patient recovered Recovery: Patient returned to pre-procedure baseline Post-sedation assessments completed and reviewed: airway patency, cardiovascular function, hydration status, mental status, nausea/vomiting, pain level, respiratory function and temperature Specimens recovered: None Patient is stable for discharge or admission: yes Procedure completion: Tolerated well, no immediate complications Romulo Liu MD Resident 01/21/23 1512 Cosigned by Darius To MD at 01/21/2023 7:26 PM EDT Associated attestation - Darius To MD - 01/21/2023 7:26 PM EDT I saw and evaluated the patient with the resident/fellow. I discussed the case with the resident/fellow and agree with the findings and plan as documented. I was present for the entirety of the procedure. * ED Provider Notes - Romulo Liu MD - 01/21/2023 10:09 AM EDT Images from the original note were not included. - HPI Chief Complaint Patient presents with Arm Injury Ms. Domonique Pennington is a 72 year old woman with a history of osteoporosis and type 2 diabetes who presents from orthopedic clinic with a left distal radius and midshaft humerus fractures. She fell 2days ago and sustained the fractures and was evaluated at an OSH where she was splinted. She followed up in clinic this morning and the orthopedist sent her to the ED for closed reduction of the distal humerus fracture. She denies injuries to any other part of her body during the fall. She does nottake blood thinners. There are no other acute complaints at this time. [place] Coma Scale Score: 15 Patient History Past Medical History: Diagnosis Date [...] Date ANKLE SURGERY N/A Ankle Surgery from [facility] CATARACT EXTRACTION N/A Cataract Surgery from [facility] COLONOSCOPY N/A Colonoscopy from [facility] LUNG LOBECTOMY N/A Lung Lobectomy from [facility] NECK SURGERY N/A Neck Surgery from [facility] OTHER SURGICAL HISTORY N/A Spinal Stereotaxis Stimulation Of Cord from [facility] WRIST SURGERY N/A Wrist Surgery from [facility] Family History Problem Relation Name Age of Onset Asthma Other Cardiac disorder Other Stroke Other Depression Other Kidney disease Other Other cancer Other Thyroid disease Other Tuberculosis Other Tobacco Use Smoking status: Former Immunization History Immunization History: reviewed Allergies: Allergies Allergen Reactions Hydrocodone Unknown - Patient states they do not know rxn details Prednisone Unknown - Patient states they do not know rxn details Sulfamethoxazole-Trimethoprim Unknown - Patient states they do not know rxn details Review of Systems Review of Systems Constitutional: Negative for chills and fever. HENT: Negative for ear pain and sore throat. Eyes: Negative for pain and visual disturbance. Respiratory: Negative for cough and shortness of breath. Cardiovascular: Negative for chest pain and palpitations. Gastrointestinal: Negative for abdominal pain, nausea and vomiting. Genitourinary: Negative for dysuria and hematuria. Musculoskeletal: Negative for arthralgias and back pain. Left arm pain Skin: Negative for color change and rash. Neurological: Negative for seizures and syncope. All other systems reviewed and are negative. Physical Exam ED Triage Vitals [01/21/23 1016] Temp Heart Rate Resp BP 36.5 ??C (97.7 ??F) 92 16 (!) 136/92 SpO2 Temp src Heart Rate Source Patient Position 96 % -- -- Sitting BP Location FiO2 (%) Right arm -- Physical Exam Vitals and nursing note reviewed. Constitutional: General: She is not in acute distress. Appearance: Normal appearance. She is not toxic-appearing. HENT: Head: Normocephalic and atraumatic. Nose: Nose normal. Mouth/Throat: Mouth: Mucous membranes are moist. Pharynx: Oropharynx is clear. No oropharyngeal exudate or posterior oropharyngeal erythema. Eyes: General: No scleral icterus. Extraocular Movements: Extraocular movements intact. Conjunctiva/sclera: Conjunctivae normal. Pupils: Pupils are equal, round, and reactive to light. Cardiovascular: Rate and Rhythm: Normal rate and regular rhythm. Pulses: Normal pulses. Heart sounds: Normal heart sounds. No murmur heard. No friction rub. No gallop. Pulmonary: Effort: Pulmonary effort is normal. No respiratory distress. Breath sounds: Normal breath sounds. Abdominal: General: Abdomen is flat. Bowel sounds are normal. There is no distension. Palpations: Abdomen is soft. There is no mass. Tenderness: There is no abdominal tenderness. Musculoskeletal: General: Swelling, tenderness and deformity (left upper arm) present. Cervical back: Normal range of motion and neck supple. No tenderness. Right lower leg: No edema. Left lower leg: No edema. Skin: General: Skin is warm and dry. Capillary Refill: Capillary refill takes less than 2 seconds. Findings: No lesion or rash. Neurological: General: No focal deficit present. Mental Status: She is alert and oriented to person, place, and time. Cranial Nerves: No cranial nerve deficit. Gait: Gait normal. Comments: She is able to wiggle the fingers of her left hand but cannot extend the wrist. Psychiatric: Mood and Affect: Mood normal. Behavior: Behavior normal. Thought Content: Thought content normal. ED Course & MDM Clinical Impressions as of 01/21/23 1719 Closed fracture of shaft of left humerus, unspecified fracture morphology, initial encounter Closed fracture of distal end of left radius, unspecified fracture morphology, initial encounter - Medical Decision Making In summary, this 72 y.o. female presents to the emergency department with left midshaft humerus anddistal radial fractures. On initial evaluation she is vitally stable. On exam, she has deformity ofthe left upper arm. Differential diagnosis includes but is not limited to left midshaft humerus fracture, left distal radius fracture, neurologic or vascular injury of the left arm. Comorbidities of current condition include osteoporosis and type 2 diabetes. Based on these concerns, the following were ordered: Orders Placed This Encounter XR Hand 3+ Views Left XR Wrist Left 3+ Views XR Forearm Left 2 Views XR Elbow Left 3+ Views XR Humerus Left 2+ Views XR Shoulder Left 2+ Views Consult to Orthopaedics Surgery Patient received fentanyl for treatment. XR of the left arm was personally interpreted and shows fractures to the humerus and distal radius.Radiology read in agreement. On reassessment she continues to be comfortable. Her case was discussed with orthopedics who reduced the fracture at bedside under conscious sedation. Reduction was confirmed with xray imaging. Admission was considered and deemed unnecessary at this time. Patient's prescriptions were reviewed. Ms. Pennington's workup indicates a successful reduction of her fracture. She is stable for discharge home with orthopedic follow up. Patient is agreeable with plan. ED Prescriptions None IBalta MD, saw and evaluated the patient with the medical student. I discussed the case with the medical student and agree with the findings and plan as documented. I personally performed the physical examination and medical decision making. Discharge Instructions At this time it is felt you are safe to be discharged. If new or worsening symptoms develop, pleasereturn to the emergency department for further evaluation. Please follow up with your primary care provider after discharge. Please follow-up with your orthopedic surgeon after discharge. You will likely need follow-up in 1 week. Disposition Discharge AVS (Printed 01/21/2023) Sign Off Checklist Clinical Impression: Complete ED Disposition: Complete - Romulo Liu MD Resident 01/21/23 1719 Cosigned by Darius To MD at 02/04/2023 9:36 AM EDT Associated attestation - Darius To MD - 02/04/2023 9:36 AM EDT I, Darius To MD, personally verified the history, examined the patient, discussed with the student and resident and performed the medical decision making. I agree with the documentation and plan of care. * ED Triage Notes - Kim Duncan RN - 01/21/2023 10:09 AM EDT Fell Friday and broke her arm, went to OSH and was sent to follow up with ortho this morning, went to the ortho clinic this am and was sent here. Took one percocet this am around 0600 documented in this encounter Plan of Treatment Not on file documented as of this encounter Procedures Procedure Name Priority Date/Time Associated Diagnosis Comments XR HUMERUS LEFT 2+ VIEWS Routine 01/21/2023 1:12 PM EDT XR WRIST LEFT 3+ VIEWS STAT 01/21/2023 12:58 PM EDT XR WRIST LEFT 3+ VIEWS STAT 01/21/2023 12:42 PM EDT XR HAND LEFT 3+ VIEWS STAT 01/21/2023 11:27 AM EDT XR WRIST LEFT 3+ VIEWS STAT 01/21/2023 11:27 AM EDT XR FOREARM LEFT 2 VIEWS STAT 01/21/2023 11:27 AM EDT XR ELBOW LEFT 3+ VIEWS STAT 01/21/2023 11:27 AM EDT XR HUMERUS LEFT 2+ VIEWS STAT 01/21/2023 11:27 AM EDT XR SHOULDER LEFT 2+ VIEWS STAT 01/21/2023 11:27 AM EDT HC MOD SED OTHER PHYS/QHP EACH ADDL 15 MINS Routine 01/21/2023 10:09 AM EDT HC MOD SED OTHER PHYS/QHP EACH ADDL 15 MINS Routine 01/21/2023 10:09 AM EDT HC MOD SED OTHER PHYS/QHP EACH ADDL 15 MINS Routine 01/21/2023 10:09 AM EDT HC MOD SED OTHER PHYS/QHP INITIAL 15 MINS 5/> YRS Routine 01/21/2023 10:09 AM EDT OK MOD SED OTHER PHYS/QHP EACH ADDL 15 MINS Routine 01/21/2023 10:09 AM EDT OK MOD SED OTHER PHYS/QHP EACH ADDL 15 MINS Routine 01/21/2023 10:09 AM EDT OK MOD SED OTHER PHYS/QHP EACH ADDL 15 MINS Routine 01/21/2023 10:09 AM EDT OK MOD SED OTHER PHYS/QHP INITIAL 15 MINS 5/> YRS Routine 01/21/2023 10:09 AM EDT documented in this encounter Results * XR Humerus Left 2+ Views (01/21/2023 1:12 PM EDT) Anatomical Region Laterality Modality Upper Extremities, Humerus Left Compu stephania Radiography Impressions 01/21/2023 1:45 PM EDT Status post reduction and retraction of the mid humeral diaphyseal fracture. CRITICAL RESULT: ?? No. COMMUNICATION: Per this written report. By electronically signing this report, I, the attending physician, attest that I have personally reviewed the images/data for the above examination(s) and agree with the final edited report. Drafted by Jasvir Villarreal MD on 01/21/2023 1:30 PM Final report signed by Germain Antoine MD on 01/21/2023 1:45 PM Narrative 01/21/2023 1:45 PM EDT CLINICAL INDICATION: S/p Martin placement TECHNIQUE: XR HUMERUS ??LEFT 2+ VIEWS COMPARISON: XR humerus, January 21, 2023, 11:00. FINDINGS: Status post Martin placement. Redemonstrated displaced fracture of the mid diaphysis of the humerus with improvement in retraction and and persistent slight anterolateral apex angulation. Procedure Note Germain Antoine MD - 01/21/2023 CLINICAL INDICATION: S/p Martin placement TECHNIQUE: XR HUMERUS LEFT 2+ VIEWS COMPARISON: XR humerus, January 21, 2023, 11:00. FINDINGS: Status post Martin placement. Redemonstrated displaced fracture of themid diaphysis of the humerus with improvement in retraction and andpersistent slight anterolateral apex angulation. IMPRESSION: Status post reduction and retraction of the mid humeral diaphysealfracture. CRITICAL RESULT: No. COMMUNICATION: Per this written report. By electronically signing this report, I, the attending physician, attestthat I have personally reviewed the images/data for the aboveexamination(s) and agree with the final edited report. Drafted by Jasvir Villarreal MD on 01/21/2023 1:30 PM Final report signed by Germain Antoine MD on 01/21/2023 1:45 PM us Radha Solomon TRANSPORT TANK TECHNICIAN IMG XR PROCEDURES Final Re sult * XR Wrist Left 3+ Views (01/21/2023 12:58 PM EDT) Anatomical Region Laterality Modality Upper Extremities, Wrist Left Digital Radiography Impressions 01/21/2023 1:40 PM EDT Previous reduction of the comminuted, intra-articular distal left radial fracture with interval casting of the left wrist. CRITICAL RESULT: ?? No. COMMUNICATION: Per this written report. By electronically signing this report, I, the attending physician, attest that I have personally reviewed the images/data for the above examination(s) and agree with the final edited report. Drafted by Jasvir Villarreal MD on 01/21/2023 1:21 PM Final report signed by Germain Antoine MD on 01/21/2023 1:40 PM Narrative 01/21/2023 1:40 PM EDT CLINICAL INDICATION: S/p cast placement TECHNIQUE: XR WRIST LEFT 3+ VIEWS COMPARISON: XR left wrist, January 21, 2023,12:31. FINDINGS: Interval casting of the left wrist with reduction of comminuted, intra-articular distal left radial fracture, in near anatomic alignment. Ulnar styloid fracture again seen. No obvious carpal bone fracture is identified. Overlying cast obscures fine details of soft tissues and osseous structures. Interval improvement of scapholunate distraction. Procedure Note Germain Antoine MD - 01/21/2023 CLINICAL INDICATION: S/p cast placement TECHNIQUE: XR WRIST LEFT 3+ VIEWS COMPARISON: XR left wrist, January 21, 2023,12:31. FINDINGS: Interval casting of the left wrist with reduction of comminuted,intra-articular distal left radial fracture, in near anatomic alignment.Ulnar styloid fracture again seen. No obvious carpal bone fracture isidentified. Overlying cast obscures fine details of soft tissues andosseous structures. Interval improvement of scapholunate distraction. IMPRESSION: Previous reduction of the comminuted, intra-articular distal left radialfracture with interval casting of the left wrist. CRITICAL RESULT: No. COMMUNICATION: Per this written report. By electronically signing this report, I, the attending physician, attestthat I have personally reviewed the images/data for the aboveexamination(s) and agree with the final edited report. Drafted by Jasvir Villarreal MD on 01/21/2023 1:21 PM Final report signed by Germain Antoine MD on 01/21/2023 1:40 PM us Radha Solomon TRANSPORT TANK TECHNICIAN IMG XR PROCEDURES Final Re sult * XR Wrist Left 3+ Views (01/21/2023 12:42 PM EDT) Anatomical Region Laterality Modality Upper Extremities, Wrist Left Digital Radiography Impressions 01/21/2023 1:11 PM EDT Interval reduction of the comminuted, intra-articular distal left radial fracture. Interval finding suggestive of abnormal alignment of the carpal bones consistent with carpal instability/dislocation. CRITICAL RESULT: ?? No. COMMUNICATION: Per this written report. Drafted by Germain Antoine MD on 01/21/2023 1:03 PM Final report signed by Germain Antoine MD on 01/21/2023 1:11 PM Narrative 01/21/2023 1:11 PM EDT CLINICAL INDICATION: s/p reduction TECHNIQUE: Left wrist radiographs 3 views COMPARISON: Same-day radiographs. FINDINGS: Interval reduction of the comminuted, intra-articular distal left radial fracture, now in near anatomic alignment. Ulnar styloid fracture again seen. Joint effusion. Degenerative changes of the distal radioulnar joint. There is abnormal distraction of the lunate compared to the capitate bone. The scapholunate interval is also abnormal. No obvious carpal bone fracture is identified. Findings consistent with carpal instability/dislocation. Procedure Note Germain Antoine MD - 01/21/2023 CLINICAL INDICATION: s/p reduction TECHNIQUE: Left wrist radiographs 3 views COMPARISON: Same-day radiographs. FINDINGS: Interval reduction of the comminuted, intra-articular distal left radialfracture, now in near anatomic alignment. Ulnar styloid fracture againseen. Joint effusion. Degenerative changes of the distal radioulnar joint.There is abnormal distraction of the lunate compared to the capitate bone.The scapholunate interval is also abnormal. No obvious carpal bonefracture is identified. Findings consistent with carpalinstability/dislocation. IMPRESSION: Interval reduction of the comminuted, intra-articular distal left radialfracture. Interval finding suggestive of abnormal alignment of the carpal bonesconsistent with carpal instability/dislocation. CRITICAL RESULT: No. COMMUNICATION: Per this written report. Drafted by Germain Antoine MD on 01/21/2023 1:03 PM Final report signed by Germain Antoine MD on 01/21/2023 1:11 PM us Radha Solomon [employer] IMG XR PROCEDURES Final Re sult * XR Shoulder Left 2+ Views (01/21/2023 11:27 AM EDT) Anatomical Region Laterality Modality Upper Extremities, Shoulder Left Digi leonor Radiography Impressions 01/21/2023 11:56 AM EDT Displaced fracture of the mid humeral diaphysis. Intra-articular fractures of the distal radius. CRITICAL RESULT: ?? No. COMMUNICATION: Per this written report. By electronically signing this report, I, the attending physician, attest that I have personally reviewed the images/data for the above examination(s) and agree with the final edited report. Drafted by Jasvir Villarreal MD on 01/21/2023 11:33 AM Final report signed by Germain Antoine MD on 01/21/2023 11:56 AM Narrative 01/21/2023 11:56 AM EDT CLINICAL INDICATION: Out of splint TECHNIQUE: XR SHOULDER LEFT 2+ VIEWS, XR HAND LEFT 3+ VIEWS, XR ELBOW LEFT 3+ VIEWS, XR FOREARM LEFT 2 VIEWS, XR HUMERUS ??LEFT 2+ VIEWS, XR WRIST LEFT 3+ VIEWS COMPARISON: None. FINDINGS: Left shoulder: No evidence of acute fracture, subluxation, or dislocation is identified. Moderate degenerative changes of the glenohumeral and acromioclavicular joints. The glenohumeral joint is well approximated. No abnormalities in the visualized portions of the lungs. Left humerus: Displaced fracture of the mid diaphysis of the humerus with retraction and lateral apex angulation. Soft tissue swelling surrounding the site of fracture. Left elbow: No evidence of acute fracture, subluxation, or dislocation is identified. The humeroradial, humeroulnar, and radioulnar joints are well articulated. No soft tissue abnormalities identified. Left forearm: Comminuted, impacted fracture involving the distal radius with volar apex angulation. Degenerative changes of the distal radioulnar joint. Left wrist: Osseous fragment proximal to the base of the first digit consistent with calcific tendinosis and associated degenerative changes of the first digit DIP. No evidence of subluxation, or dislocation is identified. The carpal rows are intact. Scapholunate interval appears normal. Soft tissues are unremarkable. Left hand: No evidence of acute fracture, subluxation, or dislocation. Mild degenerative changes of the first MCP and IP joint. Procedure Note Germain Antoine MD - 01/21/2023 CLINICAL INDICATION: Out of splint TECHNIQUE: XR SHOULDER LEFT 2+ VIEWS, XR HAND LEFT 3+ VIEWS, XR ELBOW LEFT 3+ VIEWS,XR FOREARM LEFT 2 VIEWS, XR HUMERUS LEFT 2+ VIEWS, XR WRIST LEFT 3+VIEWS COMPARISON: None. FINDINGS: Left shoulder: No evidence of acute fracture, subluxation, or dislocationis identified. Moderate degenerative changes of the glenohumeral andacromioclavicular joints. The glenohumeral joint is well approximated. Noabnormalities in the visualized portions of the lungs. Left humerus: Displaced fracture of the mid diaphysis of the humerus withretraction and lateral apex angulation. Soft tissue swelling surroundingthe site of fracture. Left elbow: No evidence of acute fracture, subluxation, or dislocation isidentified. The humeroradial, humeroulnar, and radioulnar joints are wellarticulated. No soft tissue abnormalities identified. Left forearm: Comminuted, impacted fracture involving the distal radiuswith volar apex angulation. Degenerative changes of the distal radioulnarjoint. Left wrist: Osseous fragment proximal to the base of the first digitconsistent with calcific tendinosis and associated degenerative changes ofthe first digit DIP. No evidence of subluxation, or dislocation isidentified. The carpal rows are intact. Scapholunate interval appearsnormal. Soft tissues are unremarkable. Left hand: No evidence of acute fracture, subluxation, or dislocation.Mild degenerative changes of the first MCP and IP joint. IMPRESSION: Displaced fracture of the mid humeral diaphysis. Intra-articular fractures of the distal radius. CRITICAL RESULT: No. COMMUNICATION: Per this written report. By electronically signing this report, I, the attending physician, alma I have personally reviewed the images/data for the aboveexamination(s) and agree with the final edited report. Drafted by Jasvir Villarreal MD on 01/21/2023 11:33 AM Final report signed by Germain Antoine MD on 01/21/2023 11:56 AM us Radha Solomon [employer] IMG XR PROCEDURES Final Re sult * XR Humerus Left 2+ Views (01/21/2023 11:27 AM EDT) Anatomical Region Laterality Modality Upper Extremities, Humerus Left Digit al Radiography Impressions 01/21/2023 11:56 AM EDT Displaced fracture of the mid humeral diaphysis. Intra-articular fractures of the distal radius. CRITICAL RESULT: ?? No. COMMUNICATION: Per this written report. By electronically signing this report, I, the attending physician, attest that I have personally reviewed the images/data for the above examination(s) and agree with the final edited report. Drafted by Jasvir Villarreal MD on 01/21/2023 11:33 AM Final report signed by Germain Antoine MD on 01/21/2023 11:56 AM Narrative 01/21/2023 11:56 AM EDT CLINICAL INDICATION: Out of splint TECHNIQUE: XR SHOULDER LEFT 2+ VIEWS, XR HAND LEFT 3+ VIEWS, XR ELBOW LEFT 3+ VIEWS, XR FOREARM LEFT 2 VIEWS, XR HUMERUS ??LEFT 2+ VIEWS, XR WRIST LEFT 3+ VIEWS COMPARISON: None. FINDINGS: Left shoulder: No evidence of acute fracture, subluxation, or dislocation is identified. Moderate degenerative changes of the glenohumeral and acromioclavicular joints. The glenohumeral joint is well approximated. No abnormalities in the visualized portions of the lungs. Left humerus: Displaced fracture of the mid diaphysis of the humerus with retraction and lateral apex angulation. Soft tissue swelling surrounding the site of fracture. Left elbow: No evidence of acute fracture, subluxation, or dislocation is identified. The humeroradial, humeroulnar, and radioulnar joints are well articulated. No soft tissue abnormalities identified. Left forearm: Comminuted, impacted fracture involving the distal radius with volar apex angulation. Degenerative changes of the distal radioulnar joint. Left wrist: Osseous fragment proximal to the base of the first digit consistent with calcific tendinosis and associated degenerative changes of the first digit DIP. No evidence of subluxation, or dislocation is identified. The carpal rows are intact. Scapholunate interval appears normal. Soft tissues are unremarkable. Left hand: No evidence of acute fracture, subluxation, or dislocation. Mild degenerative changes of the first MCP and IP joint. Procedure Note Germain Antoine MD - 01/21/2023 CLINICAL INDICATION: Out of splint TECHNIQUE: XR SHOULDER LEFT 2+ VIEWS, XR HAND LEFT 3+ VIEWS, XR ELBOW LEFT 3+ VIEWS,XR FOREARM LEFT 2 VIEWS, XR HUMERUS LEFT 2+ VIEWS, XR WRIST LEFT 3+VIEWS COMPARISON: None. FINDINGS: Left shoulder: No evidence of acute fracture, subluxation, or dislocationis identified. Moderate degenerative changes of the glenohumeral andacromioclavicular joints. The glenohumeral joint is well approximated. Noabnormalities in the visualized portions of the lungs. Left humerus: Displaced fracture of the mid diaphysis of the humerus withretraction and lateral apex angulation. Soft tissue swelling surroundingthe site of fracture. Left elbow: No evidence of acute fracture, subluxation, or dislocation isidentified. The humeroradial, humeroulnar, and radioulnar joints are wellarticulated. No soft tissue abnormalities identified. Left forearm: Comminuted, impacted fracture involving the distal radiuswith volar apex angulation. Degenerative changes of the distal radioulnarjoint. Left wrist: Osseous fragment proximal to the base of the first digitconsistent with calcific tendinosis and associated degenerative changes ofthe first digit DIP. No evidence of subluxation, or dislocation isidentified. The carpal rows are intact. Scapholunate interval appearsnormal. Soft tissues are unremarkable. Left hand: No evidence of acute fracture, subluxation, or dislocation.Mild degenerative changes of the first MCP and IP joint. IMPRESSION: Displaced fracture of the mid humeral diaphysis. Intra-articular fractures of the distal radius. CRITICAL RESULT: No. COMMUNICATION: Per this written report. By electronically signing this report, I, the attending physician, alma I have personally reviewed the images/data for the aboveexamination(s) and agree with the final edited report. Drafted by Jasvir Villarreal MD on 01/21/2023 11:33 AM Final report signed by Germain Antoine MD on 01/21/2023 11:56 AM us Radha Solomon [employer] IMG XR PROCEDURES Final Re sult * XR Elbow Left 3+ Views (01/21/2023 11:27 AM EDT) Anatomical Region Laterality Modality Upper Extremities, Elbow Left Digital Radiography Impressions 01/21/2023 11:56 AM EDT Displaced fracture of the mid humeral diaphysis. Intra-articular fractures of the distal radius. CRITICAL RESULT: ?? No. COMMUNICATION: Per this written report. By electronically signing this report, I, the attending physician, attest that I have personally reviewed the images/data for the above examination(s) and agree with the final edited report. Drafted by Jasvir Villarreal MD on 01/21/2023 11:33 AM Final report signed by Germain Antoine MD on 01/21/2023 11:56 AM Narrative 01/21/2023 11:56 AM EDT CLINICAL INDICATION: Out of splint TECHNIQUE: XR SHOULDER LEFT 2+ VIEWS, XR HAND LEFT 3+ VIEWS, XR ELBOW LEFT 3+ VIEWS, XR FOREARM LEFT 2 VIEWS, XR HUMERUS ??LEFT 2+ VIEWS, XR WRIST LEFT 3+ VIEWS COMPARISON: None. FINDINGS: Left shoulder: No evidence of acute fracture, subluxation, or dislocation is identified. Moderate degenerative changes of the glenohumeral and acromioclavicular joints. The glenohumeral joint is well approximated. No abnormalities in the visualized portions of the lungs. Left humerus: Displaced fracture of the mid diaphysis of the humerus with retraction and lateral apex angulation. Soft tissue swelling surrounding the site of fracture. Left elbow: No evidence of acute fracture, subluxation, or dislocation is identified. The humeroradial, humeroulnar, and radioulnar joints are well articulated. No soft tissue abnormalities identified. Left forearm: Comminuted, impacted fracture involving the distal radius with volar apex angulation. Degenerative changes of the distal radioulnar joint. Left wrist: Osseous fragment proximal to the base of the first digit consistent with calcific tendinosis and associated degenerative changes of the first digit DIP. No evidence of subluxation, or dislocation is identified. The carpal rows are intact. Scapholunate interval appears normal. Soft tissues are unremarkable. Left hand: No evidence of acute fracture, subluxation, or dislocation. Mild degenerative changes of the first MCP and IP joint. Procedure Note Germain Antoine MD - 01/21/2023 CLINICAL INDICATION: Out of splint TECHNIQUE: XR SHOULDER LEFT 2+ VIEWS, XR HAND LEFT 3+ VIEWS, XR ELBOW LEFT 3+ VIEWS,XR FOREARM LEFT 2 VIEWS, XR HUMERUS LEFT 2+ VIEWS, XR WRIST LEFT 3+VIEWS COMPARISON: None. FINDINGS: Left shoulder: No evidence of acute fracture, subluxation, or dislocationis identified. Moderate degenerative changes of the glenohumeral andacromioclavicular joints. The glenohumeral joint is well approximated. Noabnormalities in the visualized portions of the lungs. Left humerus: Displaced fracture of the mid diaphysis of the humerus withretraction and lateral apex angulation. Soft tissue swelling surroundingthe site of fracture. Left elbow: No evidence of acute fracture, subluxation, or dislocation isidentified. The humeroradial, humeroulnar, and radioulnar joints are wellarticulated. No soft tissue abnormalities identified. Left forearm: Comminuted, impacted fracture involving the distal radiuswith volar apex angulation. Degenerative changes of the distal radioulnarjoint. Left wrist: Osseous fragment proximal to the base of the first digitconsistent with calcific tendinosis and associated degenerative changes ofthe first digit DIP. No evidence of subluxation, or dislocation isidentified. The carpal rows are intact. Scapholunate interval appearsnormal. Soft tissues are unremarkable. Left hand: No evidence of acute fracture, subluxation, or dislocation.Mild degenerative changes of the first MCP and IP joint. IMPRESSION: Displaced fracture of the mid humeral diaphysis. Intra-articular fractures of the distal radius. CRITICAL RESULT: No. COMMUNICATION: Per this written report. By electronically signing this report, I, the attending physician, attestthat I have personally reviewed the images/data for the aboveexamination(s) and agree with the final edited report. Drafted by Jasvir Villarreal MD on 01/21/2023 11:33 AM Final report signed by Germain Antoine MD on 01/21/2023 11:56 AM us Radha N Solomon [employer] TECH[employer] IMG XR PROCEDURES Final Re sult * XR Forearm Left 2 Views (01/21/2023 11:27 AM EDT) Anatomical Region Laterality Modality Upper Extremities, Forearm Left Digit al Radiography Impressions 01/21/2023 11:56 AM EDT Displaced fracture of the mid humeral diaphysis. Intra-articular fractures of the distal radius. CRITICAL RESULT: ?? No. COMMUNICATION: Per this written report. By electronically signing this report, I, the attending physician, attest that I have personally reviewed the images/data for the above examination(s) and agree with the final edited report. Drafted by Jasvir Villarreal MD on 01/21/2023 11:33 AM Final report signed by Germain Antoine MD on 01/21/2023 11:56 AM Narrative 01/21/2023 11:56 AM EDT CLINICAL INDICATION: Out of splint TECHNIQUE: XR SHOULDER LEFT 2+ VIEWS, XR HAND LEFT 3+ VIEWS, XR ELBOW LEFT 3+ VIEWS, XR FOREARM LEFT 2 VIEWS, XR HUMERUS ??LEFT 2+ VIEWS, XR WRIST LEFT 3+ VIEWS COMPARISON: None. FINDINGS: Left shoulder: No evidence of acute fracture, subluxation, or dislocation is identified. Moderate degenerative changes of the glenohumeral and acromioclavicular joints. The glenohumeral joint is well approximated. No abnormalities in the visualized portions of the lungs. Left humerus: Displaced fracture of the mid diaphysis of the humerus with retraction and lateral apex angulation. Soft tissue swelling surrounding the site of fracture. Left elbow: No evidence of acute fracture, subluxation, or dislocation is identified. The humeroradial, humeroulnar, and radioulnar joints are well articulated. No soft tissue abnormalities identified. Left forearm: Comminuted, impacted fracture involving the distal radius with volar apex angulation. Degenerative changes of the distal radioulnar joint. Left wrist: Osseous fragment proximal to the base of the first digit consistent with calcific tendinosis and associated degenerative changes of the first digit DIP. No evidence of subluxation, or dislocation is identified. The carpal rows are intact. Scapholunate interval appears normal. Soft tissues are unremarkable. Left hand: No evidence of acute fracture, subluxation, or dislocation. Mild degenerative changes of the first MCP and IP joint. Procedure Note Germain Antoine MD - 01/21/2023 CLINICAL INDICATION: Out of splint TECHNIQUE: XR SHOULDER LEFT 2+ VIEWS, XR HAND LEFT 3+ VIEWS, XR ELBOW LEFT 3+ VIEWS,XR FOREARM LEFT 2 VIEWS, XR HUMERUS LEFT 2+ VIEWS, XR WRIST LEFT 3+VIEWS COMPARISON: None. FINDINGS: Left shoulder: No evidence of acute fracture, subluxation, or dislocationis identified. Moderate degenerative changes of the glenohumeral andacromioclavicular joints. The glenohumeral joint is well approximated. Noabnormalities in the visualized portions of the lungs. Left humerus: Displaced fracture of the mid diaphysis of the humerus withretraction and lateral apex angulation. Soft tissue swelling surroundingthe site of fracture. Left elbow: No evidence of acute fracture, subluxation, or dislocation isidentified. The humeroradial, humeroulnar, and radioulnar joints are wellarticulated. No soft tissue abnormalities identified. Left forearm: Comminuted, impacted fracture involving the distal radiuswith volar apex angulation. Degenerative changes of the distal radioulnarjoint. Left wrist: Osseous fragment proximal to the base of the first digitconsistent with calcific tendinosis and associated degenerative changes ofthe first digit DIP. No evidence of subluxation, or dislocation isidentified. The carpal rows are intact. Scapholunate interval appearsnormal. Soft tissues are unremarkable. Left hand: No evidence of acute fracture, subluxation, or dislocation.Mild degenerative changes of the first MCP and IP joint. IMPRESSION: Displaced fracture of the mid humeral diaphysis. Intra-articular fractures of the distal radius. CRITICAL RESULT: No. COMMUNICATION: Per this written report. By electronically signing this report, I, the attending physician, attestthat I have personally reviewed the images/data for the aboveexamination(s) and agree with the final edited report. Drafted by Jasvir Villarreal MD on 01/21/2023 11:33 AM Final report signed by Germain Antoine MD on 01/21/2023 11:56 AM us Radha Solomon [employer]CH[employer] IMG XR PROCEDURES Final Re sult * XR Wrist Left 3+ Views (01/21/2023 11:27 AM EDT) Anatomical Region Laterality Modality Upper Extremities, Wrist Left Digital Radiography Impressions 01/21/2023 11:56 AM EDT Displaced fracture of the mid humeral diaphysis. Intra-articular fractures of the distal radius. CRITICAL RESULT: ?? No. COMMUNICATION: Per this written report. By electronically signing this report, I, the attending physician, attest that I have personally reviewed the images/data for the above examination(s) and agree with the final edited report. Drafted by Jasvir Villarreal MD on 01/21/2023 11:33 AM Final report signed by Germain Antoine MD on 01/21/2023 11:56 AM Narrative 01/21/2023 11:56 AM EDT CLINICAL INDICATION: Out of splint TECHNIQUE: XR SHOULDER LEFT 2+ VIEWS, XR HAND LEFT 3+ VIEWS, XR ELBOW LEFT 3+ VIEWS, XR FOREARM LEFT 2 VIEWS, XR HUMERUS ??LEFT 2+ VIEWS, XR WRIST LEFT 3+ VIEWS COMPARISON: None. FINDINGS: Left shoulder: No evidence of acute fracture, subluxation, or dislocation is identified. Moderate degenerative changes of the glenohumeral and acromioclavicular joints. The glenohumeral joint is well approximated. No abnormalities in the visualized portions of the lungs. Left humerus: Displaced fracture of the mid diaphysis of the humerus with retraction and lateral apex angulation. Soft tissue swelling surrounding the site of fracture. Left elbow: No evidence of acute fracture, subluxation, or dislocation is identified. The humeroradial, humeroulnar, and radioulnar joints are well articulated. No soft tissue abnormalities identified. Left forearm: Comminuted, impacted fracture involving the distal radius with volar apex angulation. Degenerative changes of the distal radioulnar joint. Left wrist: Osseous fragment proximal to the base of the first digit consistent with calcific tendinosis and associated degenerative changes of the first digit DIP. No evidence of subluxation, or dislocation is identified. The carpal rows are intact. Scapholunate interval appears normal. Soft tissues are unremarkable. Left hand: No evidence of acute fracture, subluxation, or dislocation. Mild degenerative changes of the first MCP and IP joint. Procedure Note Shabila, Germain H, MD - 01/21/2023 CLINICAL INDICATION: Out of splint TECHNIQUE: XR SHOULDER LEFT 2+ VIEWS, XR HAND LEFT 3+ VIEWS, XR ELBOW LEFT 3+ VIEWS,XR FOREARM LEFT 2 VIEWS, XR HUMERUS LEFT 2+ VIEWS, XR WRIST LEFT 3+VIEWS COMPARISON: None. FINDINGS: Left shoulder: No evidence of acute fracture, subluxation, or dislocationis identified. Moderate degenerative changes of the glenohumeral andacromioclavicular joints. The glenohumeral joint is well approximated. Noabnormalities in the visualized portions of the lungs. Left humerus: Displaced fracture of the mid diaphysis of the humerus withretraction and lateral apex angulation. Soft tissue swelling surroundingthe site of fracture. Left elbow: No evidence of acute fracture, subluxation, or dislocation isidentified. The humeroradial, humeroulnar, and radioulnar joints are wellarticulated. No soft tissue abnormalities identified. Left forearm: Comminuted, impacted fracture involving the distal radiuswith volar apex angulation. Degenerative changes of the distal radioulnarjoint. Left wrist: Osseous fragment proximal to the base of the first digitconsistent with calcific tendinosis and associated degenerative changes ofthe first digit DIP. No evidence of subluxation, or dislocation isidentified. The carpal rows are intact. Scapholunate interval appearsnormal. Soft tissues are unremarkable. Left hand: No evidence of acute fracture, subluxation, or dislocation.Mild degenerative changes of the first MCP and IP joint. IMPRESSION: Displaced fracture of the mid humeral diaphysis. Intra-articular fractures of the distal radius. CRITICAL RESULT: No. COMMUNICATION: Per this written report. By electronically signing this report, I, the attending physician, attestthat I have personally reviewed the images/data for the aboveexamination(s) and agree with the final edited report. Drafted by Jasvir Villarreal MD on 01/21/2023 11:33 AM Final report signed by Germain Antoine MD on 01/21/2023 11:56 AM us Radha Solomon [employer]CH[employer] IMG XR PROCEDURES Final Re sult * XR Hand 3+ Views Left (01/21/2023 11:27 AM EDT) Anatomical Region Laterality Modality Upper Extremities, Hand Left Digital Radiography Impressions 01/21/2023 11:56 AM EDT Displaced fracture of the mid humeral diaphysis. Intra-articular fractures of the distal radius. CRITICAL RESULT: ?? No. COMMUNICATION: Per this written report. By electronically signing this report, I, the attending physician, attest that I have personally reviewed the images/data for the above examination(s) and agree with the final edited report. Drafted by Jasvir Villarreal MD on 01/21/2023 11:33 AM Final report signed by Germain Antoine MD on 01/21/2023 11:56 AM Narrative 01/21/2023 11:56 AM EDT CLINICAL INDICATION: Out of splint TECHNIQUE: XR SHOULDER LEFT 2+ VIEWS, XR HAND LEFT 3+ VIEWS, XR ELBOW LEFT 3+ VIEWS, XR FOREARM LEFT 2 VIEWS, XR HUMERUS ??LEFT 2+ VIEWS, XR WRIST LEFT 3+ VIEWS COMPARISON: None. FINDINGS: Left shoulder: No evidence of acute fracture, subluxation, or dislocation is identified. Moderate degenerative changes of the glenohumeral and acromioclavicular joints. The glenohumeral joint is well approximated. No abnormalities in the visualized portions of the lungs. Left humerus: Displaced fracture of the mid diaphysis of the humerus with retraction and lateral apex angulation. Soft tissue swelling surrounding the site of fracture. Left elbow: No evidence of acute fracture, subluxation, or dislocation is identified. The humeroradial, humeroulnar, and radioulnar joints are well articulated. No soft tissue abnormalities identified. Left forearm: Comminuted, impacted fracture involving the distal radius with volar apex angulation. Degenerative changes of the distal radioulnar joint. Left wrist: Osseous fragment proximal to the base of the first digit consistent with calcific tendinosis and associated degenerative changes of the first digit DIP. No evidence of subluxation, or dislocation is identified. The carpal rows are intact. Scapholunate interval appears normal. Soft tissues are unremarkable. Left hand: No evidence of acute fracture, subluxation, or dislocation. Mild degenerative changes of the first MCP and IP joint. Procedure Note Germain Antoine MD - 01/21/2023 CLINICAL INDICATION: Out of splint TECHNIQUE: XR SHOULDER LEFT 2+ VIEWS, XR HAND LEFT 3+ VIEWS, XR ELBOW LEFT 3+ VIEWS,XR FOREARM LEFT 2 VIEWS, XR HUMERUS LEFT 2+ VIEWS, XR WRIST LEFT 3+VIEWS COMPARISON: None. FINDINGS: Left shoulder: No evidence of acute fracture, subluxation, or dislocationis identified. Moderate degenerative changes of the glenohumeral andacromioclavicular joints. The glenohumeral joint is well approximated. Noabnormalities in the visualized portions of the lungs. Left humerus: Displaced fracture of the mid diaphysis of the humerus withretraction and lateral apex angulation. Soft tissue swelling surroundingthe site of fracture. Left elbow: No evidence of acute fracture, subluxation, or dislocation isidentified. The humeroradial, humeroulnar, and radioulnar joints are wellarticulated. No soft tissue abnormalities identified. Left forearm: Comminuted, impacted fracture involving the distal radiuswith volar apex angulation. Degenerative changes of the distal radioulnarjoint. Left wrist: Osseous fragment proximal to the base of the first digitconsistent with calcific tendinosis and associated degenerative changes ofthe first digit DIP. No evidence of subluxation, or dislocation isidentified. The carpal rows are intact. Scapholunate interval appearsnormal. Soft tissues are unremarkable. Left hand: No evidence of acute fracture, subluxation, or dislocation.Mild degenerative changes of the first MCP and IP joint. IMPRESSION: Displaced fracture of the mid humeral diaphysis. Intra-articular fractures of the distal radius. CRITICAL RESULT: No. COMMUNICATION: Per this written report. By electronically signing this report, I, the attending physician, attestthat I have personally reviewed the images/data for the aboveexamination(s) and agree with the final edited report. Drafted by Jasvir Villarreal MD on 01/21/2023 11:33 AM Final report signed by Germain Antoine MD on 01/21/2023 11:56 AM us Radha Solomon TRANSPORT TANK TECHNICIAN IMG XR PROCEDURES Final Re sult * OK MOD SED OTHER PHYS/QHP INITIAL 15 MINS 5/> YRS, OK MOD SED OTHER PHYS/QHP EACH ADDL 15 MINS, OK MOD SED OTHER PHYS/QHP EACH ADDL 15 MINS, OK MOD SED OTHER PHYS/QHP EACH ADDL 15 MINS, HC MOD SEDOTHER PHYS/QHP INITIAL 15 MINS 5/> YRS, HC MOD SED OTHER PHYS/QHP EACH ADDL 15 MINS, HC MOD SED OTHER PHYS/QHP EACH ADDL 15 MINS, HC MOD SED OTHER PHYS/QHP EACH ADDL 15 MINS (01/21/2023 10:09 AM EDT) Narrative Darius To MD - 01/21/2023 10:09 AM EDT Romulo Liu MD ? 01/21/2023 ??3:12 PM Moderate Sedation Performed by: Romulo Liu MD Authorized by: Darius To MD ?? Consent: ??Consent obtained: ??Verbal and written ??Consent given by: ??Patient ??Risks, benefits, and alternatives were discussed: yes ?Risks discussed: ??Allergic reaction, prolonged hypoxia resulting in organ damage, prolonged sedation necessitating reversal, dysrhythmia, inadequate sedation, respiratory compromise necessitating ventilatory assistance and intubation, vomiting and nausea ??Alternatives discussed: ??Analgesia without sedation and anxiolysis [place] protocol: ??Procedure explained and questions answered to patient or proxy's satisfaction: yes ?Relevant documents present and verified: yes ?Test results available: yes ?Imaging studies available: yes ?Required blood products, implants, devices, and special equipment available: yes ?Site/side marked: yes ?Immediately prior to procedure, a time out was called: yes ?Patient identity confirmed: ??Verbally with patient, hospital-assigned identification number and arm band Indications: ??Procedure performed: ??Fracture reduction ??Procedure necessitating sedation performed by: ??Different physician ??Intended level of sedation: ??Moderate Pre-sedation assessment: ??NPO status caution: urgency dictates proceeding with non-ideal NPO status ?Neck mobility: normal ?Pre-sedation assessments completed and reviewed: airway patency, anesthesia/sedation history, cardiovascular function, hydration status, mental status, nausea/vomiting, pain level, respiratory function and temperature ?History of difficult intubation: no ?Pre-sedation assessment completed: ??01/21/2023 12:10 PM Immediate pre-procedure details: ??Reassessment: Patient reassessed immediately prior to procedure ?Reviewed: vital signs, relevant labs/tests and NPO status ?Verified: bag valve mask available, emergency equipment available, intubation equipment available, IV patency confirmed, oxygen available, reversal medications available and suction available ?? Procedure details (see MAR for exact dosages): ??Sedation start time: ??01/21/2023 12:23 PM ??Preoxygenation: ??Nasal cannula ??Sedation: ??Ketamine (propofol) ??Intra-procedure monitoring: ??Blood pressure monitoring, continuous capnometry, frequent LOC assessments, frequent vital sign checks, continuous pulse oximetry and threat monitoring analyst ??Intra-procedure events: none ?Sedation end time: ??01/21/2023 1:18 PM ??Total sedation time (minutes): ??55 Post-procedure details: ??Post-sedation assessment completed: ??01/21/2023 2:45 PM ??Attendance: Constant attendance by certified staff until patient recovered ?Recovery: Patient returned to pre-procedure baseline ?Post-sedation assessments completed and reviewed: airway patency, cardiovascular function, hydration status, mental status, nausea/vomiting, pain level, respiratory function and temperature ?Specimens recovered: ??None ??Patient is stable for discharge or admission: yes ?Procedure completion: ??Tolerated well, no immediate complications us Darius To MD IN CLINIC/BEDSIDE ORDERAB LES Final Result documented in this encounter Visit Diagnoses Diagnosis Closed fracture of shaft of left humerus, unspecified fracture morphology, initial encounter- Primary Closed fracture of distal end of left radius, unspecified fracture morphology, initial encounter documented in this encounter Administered Medications Inactive Administered Medications - up to 3 most recent administrations Medication Order MAR Action Action Date Dose Rate Site acetaminophen (Tylenol) tablet 1,000 mg 1,000 mg, Oral, Once, 1 dose, On Fri01/21/23 at 1430, Routine Given 01/21/2023 2:52 PM EDT 1,000 mg fentaNYL (Sublimaze) 50 mcg/mL injection - Pyxis Override Pull 1 dose, Starting on Fri01/21/23 at 1045, Until Fri01/21/23 at 1052 fentaNYL (Sublimaze) injection 50 mcg 50 mcg, Intravenous, Once, 1 dose, On Fri01/21/23 at 1045, STAT Given 01/21/2023 10:52 AM EDT 50 mcg ketamine (Ketalar) injection Intravenous, Code/trauma/sedation medication, Starting on Fri01/21/23 at 1223, Until Fri01/21/23 at 1244, Routine Given 01/21/2023 12:44 PM EDT 10 mg Given 01/21/2023 12:42 PM EDT 10 mg Given 01/21/2023 12:41 PM EDT 10 mg ondansetron (Zofran) 4 MG/2ML injection - Pyxis Override Pull 1 dose, Starting on Fri01/21/23 at 1045, Until Fri01/21/23 at 1051 ondansetron (Zofran) injection 4 mg 4 mg, Intravenous, Every 6 hours PRN, Starting on Fri01/21/23 at 1040, Until Fri01/22/23 at 0823, STAT, nausea, vomiting Given 01/21/2023 10:51 AM EDT 4 m g propofol (Diprivan) injection Intravenous, Code/trauma/sedation medication, Starting on Fri01/21/23 at 1224, Until Fri01/21/23 at 1249, Routine Given 01/21/2023 12:49 PM EDT 10 mg Given 01/21/2023 12:47 PM EDT 10 mg Given 01/21/2023 12:44 PM EDT 20 mg sodium chloride 0.9 % bolus Code/trauma/sedation continuous med, Starting on Fri01/21/23 at 1220, Until Fri01/21/23 at 1220, Administer over 15 Minutes, Routine New Bag 01/21/2023 12:20 PM EDT 1,000 mL documented in this encounter Active and Recently Administered Medications Times are shown in EDT. Scheduled Medication Order 01/19/2023 01/20/2023 01/21/2023 acetaminophen (Tylenol) tablet 1,000 mg (COMPLETED) 1,000 mg, Oral, Once, 1 dose, On Fri01/21/23 at 1430, Routine 1452 (Given - Provid er: Tiara Gaxiola RN) fentaNYL (Sublimaze) injection 50 mcg (COMPLETED) 50 mcg, Intravenous, Once, 1 dose, On Fri01/21/23 at 1045, STAT 1052 (Given - Provid er: Aure Perry, ILDEFONSO) ibuprofen tablet 800 mg 800 mg, Oral, Once, 1 dose, On Fri01/21/23 at 1430, STAT 1453 (Not Given - Pr ovider: Tiara Gaxiola RN - Reason: Patient/family refused) PRN Medication Order 01/19/2023 01/20/2023 01/21/2023 ketamine (Ketalar) injection (COMPLETED) Intravenous, Code/trauma/sedation medication, Starting on Fri01/21/23 at 1223, Until Fri01/21/23 at 1244, Routine 1223 (Given - Provid er: Romulo Liu MD)1227 (Given - Provider: Romulo Liu MD)1233 (Given - Provider: Romulo Liu MD)1241 (Given - Provider: Romulo Liu MD)1242 (Given - Provider: Romulo Liu MD)1244 (Given - Provider: Romulo Liu MD) ondansetron (Zofran) injection 4 mg 4 mg, Intravenous, Every 6 hours PRN, Starting on Fri01/21/23 at 1040, Until Fri01/22/23 at 0823, STAT, nausea, vomiting 1051 (Given - Provid er: Aure Perry, ILDEFONSO) propofol (Diprivan) injection (COMPLETED) Intravenous, Code/trauma/sedation medication, Starting on Fri01/21/23 at 1224, Until Fri01/21/23 at 1249, Routine 1224 (Given - Provid er: Romulo Liu MD)1226 (Given - Provider: Romulo Liu MD)1227 (Given - Provider: Romulo Liu MD)1229 (Given - Provider: Romulo Liu MD)1231 (Given - Provider: Romulo Liu MD)1237 (Given - Provider: Romulo Liu MD)1240 (Given - Provider: Romulo Liu MD)1241 (Given - Provider: Romulo Liu MD)1244 (Given - Provider: Romulo Liu MD)1247 (Given - Provider: Romulo Liu MD)1249 (Given - Provider: Romulo Liu MD) sodium chloride 0.9 % bolus (COMPLETED) Code/trauma/sedation continuous med, Starting on Fri01/21/23 at 1220, Until Fri01/21/23 at 1220, Administer over 15 Minutes, Routine 1220 (New Bag - Prov ider: Romulo Liu MD)1330 (Stopped - Provider: Aure Perry RN) documented in this encounter Additional Health Concerns Assessment Noted Time A fall risk assessment has been complete d for the patient 01/21/2023 9:05 AM EDT A Body Mass Index follow-up plan has been documented for the patient 01/24/2023 12:03 PM EDT documented as of this encounter Care Teams Pest Control Operator Relationship Specialty Start Date End Date Romulo Gleason MD [address] [place] [address] PCP - General Internal Medicine 01/20/23 documented as of this encounter
--- OUTSIDE RECORDS SUMMARY | 2024-03-19 07:59 | XMS_ITS | Clinical Summary ---
Author Organization Healthcare Address [address] [id number] Care Team Providers Care Woodworking Belt Sander Name Role Phone Romulo Gleason MD Primary Care Provider + [phone] Allergies Active Allergy Reactions Criticality Noted Date Comments Hydrocodone Unknown - Patient states they do not know rxn details Low 10/13/2018 Ibuprofen Other - please docum ent in the comment field Low 08/08/2022 Prednisone Unknown - Patient states they do not know rxn details Low 10/12/2018 Sulfamethoxazole Hives High 08/08/2022 Sulfamethoxazole-Trimethoprim Unknown - Patient states they do not know rxn details Low 10/13/2018 Trimethoprim Hives High 08/08/2022 Medications alendronate (Fosamax) 70 MG tablet Take 1 tablet (70 mg) by mouth. 3 Active calcium carbonate-felisa min D 600-200 MG-UNIT tablet 9 Active Xigduo XR 10-1000 MG TAKE 1 TABLET BY MOUTH ONCE DAILY IN THE MORNING FOR 30 DAYS 3 Active escitalopram (Lexapro) 20 MG tablet Take 2 tablets (40 mg) by mouth 1 (one) time each day. 3 Active hydrOXYzine HCl (Atarax) 25 MG tablet TAKE 1 TABLET BY MOUTH 4 TIMES DAILY NEEDED 3 Active omeprazole (PriLOSEC) [address] capsule TAKE 1 CAPSULE BY MOUTH 30 MINUTES BEFORE MORNING MEAL 3 Active oxyCODONE (Roxicodone) 5 MG immediate release tablet TAKE 1 TABLET BY MOUTH EVERY 8 HOURS NEEDED FOR PAIN. DO NOT COMBINE WITH OTHER OPIATES 3 Active rosuvastatin (Crestor) 20 MG tablet Take 1 tablet (20 mg) by mouth 1 (one) time each day. 3 Active methocarbamol (Robaxin) 500 MG tabletIndicati ons:Other closed intra-articula r fracture of distal end of left radius, initial encounter Take 1 tablet (500 mg) by mouth 4 (four) times a day for 10 days. 40 tablet 3 Active fexofenadine (Mary) 60 MG tablet Take 1 tablet (60 mg) by mouth 2 (two) times a day. 4 Active Basaglar KwikPen 100 UNIT/ML injection pen INJECT 15 UNITS SUBCUTANEOUSLY IN THE EVENING 4 Active oxyCODONE-acet aminophen (Percocet) 5-325 MG tablet Take 1 tablet by mouth 4 (four) times a day. 4 Active Active Problems Problem Noted Date Diagnosed Date Closed fracture of left distal radius 02/03/2023 Closed displaced comminuted fracture of shaft of left humerus 02/03/2023 Family History Medical History Relation Name Comments Asthma Other 1 Cardiac disorder Other 2 Stroke Other 3 Depression Other 4 Kidney disease Other 5 Other cancer Other 6 Thyroid disease Other 7 Tuberculosis Other 8 Relation Name Status Comments Other 1 Other 2 Other 3 Other 4 Other 5 Other 6 Other 7 Other 8 Social History Tobacco Use Types Packs/Day Years [...] Sign Reading Time Taken Comments Blood Pressure 115/78 08/18/2023 1:39 PM EDT Pulse 91 08/18/2023 1:39 PM EDT Temperature 36.3 ??C (97.3 ??F) 08/18/2023 1:39 PM ED T Respiratory Rate 16 01/27/2023 7:23 PM EDT Oxygen Saturation 96% 08/18/2023 1:39 PM EDT Inhaled Oxygen Concentration - - Weight 65.8 kg (145 lb) 08/18/2023 1:39 PM EDT Height 162.6 cm (5' 4 ) 08/18/2023 1:39 PM EDT Body Mass Index 24.89 08/18/2023 1:39 PM EDT Plan of Treatment Health Maintenance Due Date Last Done Comments Dental Oral Exam 1950 Dental Prophylaxis 1950 Dental X-Ray: Bitewings 1950 Dental X-Ray: Full Mouth 1950 [facility]-Bone Density Scan 1950 [facility]-Hepatitis C Screening 1950 [facility]-Medicare Annual Wellness (AWV) 1950 [facility]-/Child/Adol SDOH Screenings 1950 [facility]- SDOH Screenings 1968 [facility]-Adult SDOH Screenings 1968 [facility]-DTaP,Tdap,and Td Vaccine s (1 - Tdap) 1969 CT Colonography 11/27/1995 Colonoscopy 11/27/1995 FIT-DNA 11/27/1995 FIT 11/27/1995 FOBT 11/27/1995 Sigmoidoscopy 11/27/1995 [facility]-Colorectal Cancer Screening 11/27/1995 [facility]-Breast Cancer Screening 2000 [facility]-Zoster Vaccines (1 of 2) 2000 [facility]-RSV Vaccine: 60+ Years o r (1 - 1-dose 60+ series) 2010 [facility]-Pneumococcal Vaccine: 65 + Years (1 of 1 - PCV) 11/27/2015 [id number] Vaccine (1 - 20 23-24 season) 2024 [facility]-Influenza Vaccine (#1) 2024 [facility]-Depression Screening 02/01/2024 01/31/2023 [facility]-HIB Vaccines Aged Out No longer e ligible based on patient's age to complete this topic [facility]-HPV Vaccines Aged Out No longer e ligible based on patient's age to complete this topic [facility]-Hepatitis A Vaccines Aged Out No longer eligible based on patient's age to complete this topic [facility]-IPV Vaccines Aged Out No longer e ligible based on patient's age to complete this topic [facility]-Rotavirus Vaccines Aged Out No lo nger eligible based on patient's age to complete this topic Goals Goal Patient Goal Type Associated Problems [...] track(2022 10:50 AM EDT) No Sancho Ashraf Insurance [facility]ICARE [facility] Care Teams Woodworking Belt Sander Relationship Specialty Start Date End Date Romulo Gleason MD [address] [place] [address] PCP - General Internal Medicine 01/20/23
--- OUTSIDE RECORDS SUMMARY | 2024-03-19 07:59 | XMS_ITS | Encounter Summary ---
Author Organization [facility] Address [address] [place] [address] Care Team Providers Care Purchasing And Claims Supervisor Name Role Phone Romulo Gleason MD Primary Care Provider + [phone] Reason for Referral * Consultation (Routine) - Authorized Specialty Diagnoses / Procedures Referred By Allie mclaughlin Referred To Contact Occupational Therapy Diagnoses Closed fracture of distal end of left radius with routine healing, unspecified fracture morphology, subsequent encounter Closed displaced comminuted fracture of shaft of left humerus with routine healing CMC arthritis Bonifacio Garcia MD [address] [place] [phone] Phone: tel: fax: Referral ID Status Reason Start Date Expiration Date Visits Requested Visits Authorized [id number] Authorized Specialty Services Required 08/18/2023 02/16/2025 1 1 * Consultation (Routine) - Closed Specialty Diagnoses / Procedures Referred By Allie mclaughlin Referred To Contact Occupational Therapy Diagnoses Closed fracture of distal end of left radius with routine healing, unspecified fracture morphology, subsequent encounter Bonifacio Garcia MD [address] [place] [phone] Phone: tel: fax: Referral ID Status Reason Start Date Expiration Date V isits Requested Visits Authorized [id number] Closed Specialty Services Required 08/18/2023 02/16/2025 1 1 Scheduling Instructions Home exercise program 6 months out from left humerus and left distal radius Reason for Visit * Reason Comments Follow-up Follow-up Encounter Details Date Type Department Care Team (Late st Contact Info) Description 08/18/2023 1:20 PM EDT Office Visit Debra Negron [address] [place] [phone] Bonifacio Garcia MD [address] [place] [address] Closed fracture of distal end of left radius with routine healing, unspecified fracture morphology, subsequent encounter (Primary Dx); Closed displaced comminuted fracture of shaft of left humerus with routine healing; CMC arthritis Social History Tobacco Use Types Packs/Day Years [...] 08/18/2023 1:39 PM ED T Respiratory Rate - - Oxygen Saturation 96% 08/18/2023 1:39 PM EDT Inhaled Oxygen Concentration - - Weight 65.8 kg (145 lb) 08/18/2023 1:39 PM EDT Height 162.6 cm (5' 4 ) 08/18/2023 1:39 PM EDT Body Mass Index 24.89 08/18/2023 1:39 PM EDT documented in this encounter Miscellaneous Notes * Progress Notes - Abbe Ag MD - 08/18/2023 1:20 PM EDT ORTHOPEDIC HAND FOLLOWUP NOTE Interval History: Patient was status post left distal radius open reduction internal fixation and left humeral shaft open reduction internal fixation on 02/04/2023 who could she was have some pain inthe left shoulder, left arm, left wrist, left thumb that is worsened with activity relieved by rest, patient had diffuse paresthesias throughout the hand that have improved over the previous several months since surgical intervention, Exam: Patient had well-healing surgical incision with the volar aspect of the left wrist, well healing surgical incision about the left arm, no erythema, no signs of dehiscence, patient has difficulty opposing the left thumb to base of left 5th metacarpal but was able to do so with encouragement, patient had positive CMC grind intestinal left side, nontender to palpation about the distal radius, nontender to bony palpation about the humeral shaft, range of motion of the elbow from 140?? to 0?? of extension patient was able to demonstrate wrist flexion and wrist extension, IP flexion IP extension, My independent interpretation of radiographic testing shows: good alignment without signs of loosening or complication a both the humeral and distal radius component Notes reviewed: none Results of tests reviewed: previous radiographs Assessment and plan: Closed fracture of distal end of left radius with routine healing, unspecified fracture morphology,subsequent encounter Closed displaced comminuted fracture of shaft of left humerus with routine healing CMC arthritis Orders Placed This Encounter Ambulatory referral to Hand Therapy Hand Therapy No follow-ups on file. 72-year-old right-handed female is 7 months postoperative following left distal radius left humerusopen reduction internal fixation with excellent postoperative healing consistent with some pain andparesthesias that improve, patient was restless understanding and postoperative course and wishes to undergo continued home exercise program for strengthening and range of motion of left wrist, left hand, patient was also given a meta gauge and instrument inspector brace for presumptive CMC arthritis, patient may follow up p.r.n. Cosigned by Bonifacio Garcia MD at 08/19/2023 10:16 AM EDT Associated attestation - Bonifacio Garcia MD - 08/19/2023 10:16 AM EDT I saw and evaluated the patient with the resident/fellow. I discussed the case with the resident/fellow and agree with the findings and plan as documented. documented in this encounter Plan of Treatment Scheduled Referrals Name Type Priority Associated Diagnoses Order Schedule Ambulatory referral to Hand Therapy Outpatient Referral Routine Closed fracture of distal end of left radius with routine healing, unspecified fracture morphology, subsequent encounter 1 Occurrences starting 08/18/2023 until 02/16/2025 Hand Therapy Outpatient Referral Routine Closed fracture of distal end of left radius with routine healing, unspecified fracture morphology, subsequent encounter Closed displaced comminuted fracture of shaft of left humerus with routine healing CMC arthritis Expected: 08/18/2023 (Approximate), Expires: 02/16/2025 documented as of this encounter Goals Goal [...] with routine healing, unspecified fracture morphology, subsequent encounter- Primary Closed displaced comminuted fracture of shaft of left humerus with routine healing CMC arthritis documented in this encounter Additional Health Concerns Assessment Noted Time A fall risk assessment has been complete d for the patient 08/18/2023 1:37 PM EDT A Body Mass Index follow-up plan has been documented for the patient 08/18/2023 2:59 PM EDT documented as of this encounter Care Teams Purchasing And Claims Supervisor Relationship Specialty Start Date End Date Romulo Gleason MD [address] [place] [id number] PCP - General Internal Medicine 01/20/23 documented as of this encounter
--- OUTSIDE RECORDS SUMMARY | 2024-03-19 07:59 | XMS_ITS | Encounter Summary ---
Author Organization Healthcare Address [address] [place] [address] Care Team Providers Care Exhaust And Muffler Repairer Name Role Phone Romulo Gleason MD Primary Care Provider + [phone] Encounter Details Date Type Department Care Team (Late st Contact Info) Description 02/17/2023 Plan of Care Documentation [facility] [address] [place] [phone] Social History Tobacco Use Types Packs/Day Years [...] documented as of this encounter Care Teams Exhaust And Muffler Repairer Relationship Specialty Start Date End Date Romulo Gleason MD [address] [place] [phone] PCP - General Internal Medicine 01/20/23 documented as of this encounter
--- OUTSIDE RECORDS SUMMARY | 2024-03-19 07:59 | XMS_ITS | Encounter Summary ---
Author Organization Healthcare Address [address] [place] [address] Care Team Providers Care Indigo Vat Tender Cloth Name Role Phone Romulo Gleason MD Primary Care Provider + [phone] Reason for Visit * Reason Onset Date Comments HCN Status Update Call #1 01/22/2023 Encounter Details Date Type Department Care Team (Late st Contact Info) Description 01/22/2023 Telephone [facility] Orthopaedic Surgery & Sports Medicine [address], [address] [place] [address] Rodney Graves MD [address] [place] [address] HCN Status Update Call #1 Social History Tobacco Use Types Packs/Day Years [...] encounter Miscellaneous Notes * Telephone Encounter - Jessy Day RN - 01/30/2023 1:22 PM EDT Letter mailed to pt to attempt to contact * Telephone Encounter - Jessy Day RN - 01/30/2023 11:51 AM EDT No VM box * Telephone Encounter - Jessy Day RN - 01/27/2023 2:25 PM EDT No VM box * Telephone Encounter - Jessy Day RN - 01/24/2023 4:43 PM EDT NO VM box * Telephone Encounter - Susan Childers - 01/23/2023 9:48 AM EDT Status Update Call #1 1st call regarding the status of the initial request. Best contact number: [phone] (home) Optimal time of day to reach caller: ANYTIME Additional comments/information from caller: None Note: Please do not reply to this message. Follow-up communication and further actions as a result of this message need to be communicated with the patient directly, if the patient is not active onMyChart. If the patient is active on MyChart, they will receive notification of the communication/outcome via [employer]. * Telephone Encounter - Kelsey Robles - 01/22/2023 12:15 PM EDT Clinical Concern/Question Reason for Call: [facility] patient calling, she is needing to speak with a member of the clinical staffas soon as possible. Patient was sent by [facility] to [facility] on 01/21 for a closed reduction of a L distalhumerus fx. Patient states that a large blister one and half inch wide) has formed at the edge of her cast near her elbow and she is concerned about this due to her diabetes. She is not sure what to do Best contact number: [phone] (home) Optimal time of day to reach caller: ANYTIME Additional comments/information from caller: None Note: Please do not reply to this message. Follow-up communication and further actions as a result of this message need to be communicated with the patient directly, if the patient is not active onMyChart. If the patient is active on MyChart, they will receive notification of the communication/outcome via [employer]. documented in this encounter Plan of Treatment [...] documented as of this encounter Care Teams Indigo Vat Tender Cloth Relationship Specialty Start Date End Date Romulo Gleason MD [address] [place] [address] PCP - General Internal Medicine 01/20/23 documented as of this encounter
[2024-03-19 08:15] VITALS: BP 120/75; PULSE 78; RESP 18; TEMP 36.1; O2SAT 94
--- NOTE | 2024-03-19 08:20 | ECG_ITS ---
APPROVED REPORT Exam: Resting ECG HR:75 bpm ECG Measurements Heart Rate 75 AXES OH 165 P 65 QRSd 96 QRS -34 QT 406 T 37 QTc 434 Conclusion SINUS RHYTHM LEFT AXIS DEVIATION [QRS AXIS < -30] ABNORMAL ECG UNCONFIRMED REPORT Electronically signed by : Romulo Gleason MD 04/02/2024 14:15:17
--- NOTE | 2024-03-19 08:37 | SUR.PREOP ---
Dr. Del Real at bedside talking with pt.
[2024-03-19 08:46] LABS: POC Glucose,Bedside 170 (70-110)
--- NOTE | 2024-03-19 09:32 | SUR.PREOP ---
Procedure cancelled d/t pt having carduac symptoms and abn EKG. MD Del Real and DREW Kahn made mutual decision to cancel procedure and have pt follow up with MD Cleveland's office. Pt scheduled with cardiology on Mar 24 at 2:30pm. PIV taken out and ILDEFONSO Ford updated on cancellation
== END | disposition home or self-care (01) ==
LOC: OR 07:57
PROVIDERS: PCP Internal Medicine Adolescent Medicine; Visit Provider Anesthesiology
DX: R94.31 Abnormal electrocardiogram [ECG] [EKG] (principal); Z53.09 Procedure and treatment not carried out because of other contraindication
CPT/HCPCS: 82962; 93005

== ENCOUNTER 2024-03-29 14:15 | Outpatient (POV) | payer MEDICARE, OTHER, SELFPAY ==
--- OUTSIDE RECORDS SUMMARY | 2024-03-29 14:19 | XMS_ITS | Encounter Summary ---
Author Organization Healthcare Address [address] [place] [address] Care Team Providers Care Java Developer Name Role Phone Romulo Gleason MD Primary Care Provider + [phone] Encounter Details Date Type Department Care Team [...] documented as of this encounter Care Teams Java Developer Relationship Specialty Start Date End Date Romulo Gleason MD [address] [place] [address] PCP - General Internal Medicine 01/20/23 documented as of this encounter
--- OUTSIDE RECORDS SUMMARY | 2024-03-29 14:19 | XMS_ITS | Encounter Summary ---
Author Organization Healthcare Address [address] [place] [address] Care Team Providers Care Brim Pouncer Machine Operator Name Role Phone Romulo Gleason MD Primary Care Provider + [phone] Reason for Visit * Reason Comments Consult Encounter Details Date Type Department Care Team (Late st Contact Info) Description 02/03/2023 12:50 PM EDT Office Visit Debra Negron [address] [place] [address] Bonifacio Garcia MD [address] [address] Other closed intra-articular fracture of [...] 12:29 AM EDT Associated attestation - Bonifacio Garcia MD - 02/04/2023 12:29 AM EDT I [...] - 99 mg/dL 02/03/2023 7:17 PM EDT [facility] BUN, Plasma 12 8 - 23 mg/dL 02/03/2023 7:17 PM EDT [facility] Creatinine, Plasma 0.57(L) 0.60 - 1.10 mg/dL 02/03/2023 7:17 PM EDT [facility] BUN/Creatinine Ratio 21 02/03/2023 7:17 PM EDT [facility] Sodium, Plasma 137 136 - 145 mmol/L 02/03/2023 7:17 PM EDT [facility] Potassium, Plasma 3.6(L) 3.7 - 4.8 mmol/L 02/03/2023 7:17 PM EDT [facility] Chloride, Plasma 101 97 - 107 mmol/L 02/03/2023 7:17 PM EDT [facility] CO2, Plasma 24 22 - 29 mmol/L 02/03/2023 7:17 PM EDT [facility] Anion Gap 12 6 - 16 mmol/L 02/03/2023 7:17 PM EDT [facility] Total Calcium, Plasma 9.0 8.9 - 10.2 mg/dL 02/03/2023 7:17 PM EDT [facility] eGFRcr 96.7 mL/min/1.7 3m*2 02/03/2023 7:17 PM EDT [facility] Comment:Reported eGFRcr in m L/min/1.73m2 is based the CKD-EPI 2020 equation that does not use a race coefficient. Blood Venous blood specimen / Unknown Venipuncture / Unknown 02/03/2023 4:33 PM EDT 02/03/2023 4:34 PM EDT us Bonifacio Garcia MD LAB BLOOD ORDERABLES Final [facility] [address] [place] [address] * CBC W/O Differential (02/03/2023 4:33 PM EDT) WBC Count 6.20 3.70 - 10.30 10*3/uL LAB HEMATOLOGY METHOD 02/03/2023 7:08 PM EDT [facility] RBC Count 4.76 3.90 - 5.20 10*6/uL LAB HEMATOLOGY METHOD 02/03/2023 7:08 PM EDT [facility] HGB 13.3 11.2 - 15.7 g/dL LAB HEMATOLOGY METHOD 02/03/2023 7:08 PM EDT [facility] HCT 41.9 34.0 - 45.0 % LAB HEMATOLOGY METHOD 02/03/2023 7:08 PM EDT [facility] Platelet Count 308 155 - 369 10*3/uL LAB HEMATOLOGY METHOD 02/03/2023 7:08 PM EDT [facility] MCV 88 79 - 98 fL LAB HEMATOLOGY METHOD 02/03/2023 7:08 PM EDT [facility] MCH 27.9 26.0 - 32.0 pg LAB HEMATOLOGY METHOD 02/03/2023 7:08 PM EDT [facility] MCHC 31.7 30.7 - 35.5 g/dL LAB HEMATOLOGY METHOD 02/03/2023 7:08 PM EDT [facility] RDW 14.4 11.5 - 14.5 % LAB HEMATOLOGY METHOD 02/03/2023 7:08 PM EDT [facility] MPV 9.7 8.8 - 12.5 fL LAB HEMATOLOGY METHOD 02/03/2023 7:08 PM EDT [facility] nRBC 0.0 <=0.0 per 100 WBCs LAB HEMATOLOGY METHOD 02/03/2023 7:08 PM EDT [facility] Blood Venous blood specimen / Unknown Venipuncture / Unknown 02/03/2023 4:33 PM EDT 02/03/2023 4:34 PM EDT Bonifacio Garcia MD LAB BLOOD ORDERABLES Final R esult [facility] [address] [place] [address] * Type and screen (02/03/2023 4:33 PM [...] ORDERABL ES Final Result Performing Organization Address City/State/[facility] Co de Phone Number BLOOD BANK [address] [place] [address], documented in this encounter Visit Diagnoses Diagnosis [...] documented as of this encounter Care Teams Brim Pouncer Machine Operator Relationship Specialty Start Date End Date Romulo Gleason MD [address] [place] [address] PCP - General Internal Medicine 01/20/23 documented as of this encounter
--- OUTSIDE RECORDS SUMMARY | 2024-03-29 14:19 | XMS_ITS | Encounter Summary ---
Author Organization Healthcare Address [address] [place] [address] Care Team Providers Care Cutting Machine Tender Helper Name Role Phone Romulo Gleason MD Primary Care Provider + [phone] Encounter Details Date Type Department Care Team (Latest Contact Info) Description 01/31/2023 9:27 AM EDT - 01/31/2023 11:59 PM EDT Hospital [facility] [address], [address]st [place] [address] Pain of left humerus Discharge Disposition: Home [...] documented as of this encounter Care Teams Cutting Machine Tender Helper Relationship Specialty Start Date End Date Romulo Gleason MD [address] [place] [address] PCP - General Internal Medicine 01/20/23 documented as of this encounter
--- OUTSIDE RECORDS SUMMARY | 2024-03-29 14:19 | XMS_ITS | Clinical Summary ---
[facility] Organization [facility] Address [address] [place] [id number] Care Team Providers Care Arts And Humanities Council Director Name Role Phone Romulo Francis MD Primary [...] (1 year) 1950 HEPATITIS C SCREENING 1950 TDAP/TD VACCINES (1 - Tdap) 1969 MAMMOGRAM 1990 ZOSTER VACCINE (1 of 2) 2000 Pneumococcal Vaccine 65+ (1 of 1 - PCV) 11/27/2015 INFLUENZA VACCINE 12/04/2023 COVID-19 Vaccine (1 - 2023- season) 2024 Care Teams Arts And Humanities Council Director Relationship Specialty Start Date End Date Romulo Francis MD PCP - General 03/08/15
--- OUTSIDE RECORDS SUMMARY | 2024-03-29 14:19 | XMS_ITS | Encounter Summary ---
Author Organization [facility] Address [address] [place] [address] Care Team Providers Care Foam Tank Laminator Name Role Phone Unavailable Primary Care Provider Unavailabl e Encounter Details Date Type Department Care Team (Late st Contact Info) Description 03/18/2014 Office Visit Converted [facility]GERY [address] [facility] [address] [place] [address] Deon Yeager MD [address] [facility] [address] [place] [address] Social History Tobacco Use Types Packs/Day Years [...]
--- OUTSIDE RECORDS SUMMARY | 2024-03-29 14:19 | XMS_ITS | Encounter Summary ---
[facility] Organization [facility] Address [address] [place] [address] Care Team Providers Care Benefits Coordinator Name Role Phone Unavailable Primary Care Provider Unavailabl e Encounter Details Date Type Department Care Team (Late st Contact Info) Description 07/22/2008 Conversion Encounter [facility] HISTORICAL CONV [address] [place] [address] Interface, See Report Social History [...] 7:13 AM EDT) 07/22/2008 7:13 AM EDT [facility] LABORATORY - 07/23/2008 12:08 PM EDT [facility] SURGICAL PATHOLOGY REPORT Patient Name: KELLIE PENNINGTON MR#: [id number] : 1950 Gender: F Ordering Physician: JIM PERSON Copy To: PANTERA MATA :36A Location: [place] [address] Collected: 07/22/2008 Received: 07/22/2008 Reported: 07/23/2008 Clinical Diagnosis and History The working history is abnormal pet. 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 ??[facility] Amendments: Electronically Signed Out By Bowen Haddad [...] some giant cells. ??J/mbc Previous Pertinent History [id number], 07/18/2008. ??RIGHT LUNG MASS, FINE NEEDLE ASPIRATE: ??Rare atypical cells suspicious for carcinoma. (See Microscopic). ??(DGD) Procedures/Addenda us See Report Interface PATHOLOGY/CYTOLOGY ORDERABL ES Final Result [facility] [address] [place] [id number], documented in this encounter Visit Diagnoses Not on filedocumented in this encounter
--- OUTSIDE RECORDS SUMMARY | 2024-03-29 14:19 | XMS_ITS | Clinical Summary ---
Author Organization Healthcare Address [address] [place] [id number] Care Team Providers Care Manager Of Enterprise Name Role Phone Romulo Gleason MD Primary Care Provider + [phone] Allergies Active Allergy Reactions Criticality Noted Date [...] 2000 [facility]-Zoster Vaccines (1 of 2) 2000 [facility]-Pneumococcal Vaccine: 65 + Years (1 of 1 - PCV) 11/27/2015 [id number] Vaccine (1 - 20 24-25 season) 2024 [facility]-Influenza Vaccine (#1) 2024 [facility]-Depression Screening 02/01/2024 01/31/2023 [facility]-RSV Vaccine: 60+ Years o r (1 - 1-dose 75+ series) 2025 [facility]-HIB Vaccines Aged Out No longer e [...] AM EDT) No Sancho Ashraf Insurance MEDICARE [facility] Care Teams Manager Of Enterprise Relationship Specialty Start Date End Date Romulo Gleason MD [address] [place] [address] PCP - General Internal Medicine 01/20/23
--- OUTSIDE RECORDS SUMMARY | 2024-03-29 14:19 | XMS_ITS | Encounter Summary ---
Author Organization Healthcare Address [address] [place] [id number] Care Team Providers Care System Support Technician Name Role Phone Romulo Gleason MD Primary Care Provider + [phone] Encounter Details Date Type Department Care Team [...] documented as of this encounter Care Teams System Support Technician Relationship Specialty Start Date End Date Romulo Gleason MD [address] [place] [address] PCP - General Internal Medicine 01/20/23 documented as of this encounter
--- OUTSIDE RECORDS SUMMARY | 2024-03-29 14:19 | XMS_ITS | Encounter Summary ---
Author Organization Healthcare Address [address] [place] [address] Care Team Providers Care Co Chairman Name Role Phone Romulo Gleason MD Primary Care Provider + [phone] Reason for Visit * Reason Comments Wound Check Encounter Details Date Type Department Care Team (Late st Contact Info) Description 01/27/2023 5:15 PM EDT - 01/27/2023 7:24 PM EDT Emergency [facility] Emergency Department [address] [place] [address] Cast discomfort (Primary Dx); Visit [...] history of diabetes type 2 presents to [facility] Emergency Department due to pain on her [...] denies Illicit substance use: denies Lives in [place], [place] Employment: Retired Past Surgical History: Past Surgical History: Procedure Laterality Date ANKLE SURGERY N/A Ankle Surgery from [facility] CATARACT EXTRACTION N/A Cataract Surgery from [facility] COLONOSCOPY N/A Colonoscopy from [facility] LUNG LOBECTOMY N/A Lung Lobectomy from [facility] NECK SURGERY N/A Neck Surgery from [facility] OTHER SURGICAL HISTORY N/A Spinal Stereotaxis Stimulation Of Cord from [facility] WRIST SURGERY N/A Wrist Surgery from [facility] Social History: Tobacco: see HPI EtOH: see [...] appointment on 01/[address] Graves. - Taal Young MD PGY-3, Orthopaedic Surgery Department [facility] Orthopaedic Consults Pager: [phone] Orthopaedic Trauma Service Pager: [phone] Orthopaedic Recon/Spine/Foot and Ankle Service Pager: [phone] Personal Pager: [phone] Cosigned by Rodney Graves MD at 01/28/2023 [...] Touchworks NECK SURGERY N/A Neck Surgery from [facility] OTHER SURGICAL HISTORY N/A Spinal Stereotaxis Stimulation Of Cord from [facility] WRIST SURGERY N/A Wrist Surgery from [facility] Family History Problem Relation Name Age of [...] her hand. Pt reports being seen [facility] and was placed in case and [...] documented as of this encounter Care Teams Co Chairman Relationship Specialty Start Date End Date Romulo Gleason MD [address] [place] [address] PCP - General Internal Medicine 01/20/23 documented as of this encounter
--- OUTSIDE RECORDS SUMMARY | 2024-03-29 14:19 | XMS_ITS | Encounter Summary ---
Author Organization [facility] Address [address] [place] [id number] Care Team Providers Care Senior Electronics Technician Name Role Phone Romulo Gleason MD Primary Care Provider + [phone] Reason for Referral * Consultation (Routine) - Closed Specialty Diagnoses / Procedures Referred By Allie mclaughlin Referred To Contact Occupational Therapy Diagnoses Other closed intra-articular fracture of distal end of left radius, initial encounter Bonifacio Garcia MD [address] [address] Phone: tel: fax: Referral ID Status Reason Start Date Expiration Date V isits Requested Visits Authorized [id number] Closed Specialty Services Required 02/17/2023 08/18/2024 1 1 * Consultation (Routine) - Authorized Specialty Diagnoses / Procedures Referred By Allie mclaughlin Referred To Contact Physical Therapy Diagnoses Other closed intra-articular fracture of distal end of left radius, initial encounter Bonifacio Garcia MD [address] [address] Phone: tel: fax: Provider, External Referral ID Status Reason Start Date Expiration Date Visits Requested Visits Authorized [id number] Authorized Consult and Treat 02/17/2023 08/18/2024 1 [...] Office Visit Debra Negron [address] [place] [address] Bonifacio Garcia MD [address] [place] [address] Other closed intra-articular fracture of [...] documented as of this encounter Care Teams Senior Electronics Technician Relationship Specialty Start Date End Date Romulo Gleason MD [address] [place] [address] PCP - General Internal Medicine 01/20/23 documented as of this encounter
--- OUTSIDE RECORDS SUMMARY | 2024-03-29 14:19 | XMS_ITS | Encounter Summary ---
Author Organization Healthcare Address [address] [place] [address] Care Team Providers Care Automation Analyst Name Role Phone Romulo Gleason MD Primary Care Provider + [phone] Encounter Details Date Type Department Care Team [...] documented as of this encounter Care Teams Automation Analyst Relationship Specialty Start Date End Date Romulo Gleason MD [address] [place] [address] PCP - General Internal Medicine 01/20/23 documented as of this encounter
--- OUTSIDE RECORDS SUMMARY | 2024-03-29 14:19 | XMS_ITS | Encounter Summary ---
Author Organization Healthcare Address [address] [place] [id number] Care Team Providers Care Business Objects Report Developer Name Role Phone Romulo Gleason MD Primary Care Provider + [phone] Encounter Details Date Type Department Care Team (Latest Contact Info) Description 02/17/2023 8:03 AM EDT - 02/17/2023 11:59 PM EDT Hospital Encounter [facility] X-Ray [address] [facility], [address] [place] [address] Other closed intra-articular fracture of [...] documented as of this encounter Care Teams Business Objects Report Developer Relationship Specialty Start Date End Date Romulo Gleason MD [address] [place] [address] PCP - General Internal Medicine 01/20/23 documented as of this encounter
--- OUTSIDE RECORDS SUMMARY | 2024-03-29 14:19 | XMS_ITS | Encounter Summary ---
Author Organization [facility] Address [address] [place] [address] Care Team Providers Care Ornamental Ironworking Supervisor Name Role Phone Unavailable Primary Care Provider Unavailabl e Encounter Details Date Type Department Care Team (Late st Contact Info) Description 07/15/2008 Conversion Encounter [facility] CONV [address] [place] [address] Interface, See Report Social History [...] 7:21 AM EDT) 07/15/2008 7:21 AM EDT [facility] LABORATORY - 07/18/2008 4:[address] [facility] SURGICAL PATHOLOGY REPORT Patient Name: KELLIE PENNINGTON MR#: [id number] : 1950 Gender: F Ordering Physician: MICHAEL MORALES Copy To: PANTERA MATA :36A Location: [place] 1123-1 Collected: 07/15/2008 Received: 07/15/2008 Reported: 07/18/2008 [...] Report Interface PATHOLOGY/CYTOLOGY ORDERABL ES Final Result [facility] [address] [place] [address], documented in this encounter Visit Diagnoses Not on filedocumented in this encounter
--- OUTSIDE RECORDS SUMMARY | 2024-03-29 14:19 | XMS_ITS | Encounter Summary ---
Author Organization Healthcare Address [address] [place] [address] Care Team Providers Care Automatic Clipper And Stripper Name Role Phone Romulo Gleason MD Primary Care Provider + [phone] Encounter Details Date Type Department Care Team [...] documented as of this encounter Care Teams Automatic Clipper And Stripper Relationship Specialty Start Date End Date Romulo Gleason MD [address] [place] [address] PCP - General Internal Medicine 01/20/23 documented as of this encounter
--- OUTSIDE RECORDS SUMMARY | 2024-03-29 14:19 | XMS_ITS | Encounter Summary ---
Author Organization [facility] Address [address] [place] [address] Care Team Providers Care Release Coordinator Name Role Phone Unavailable Primary Care Provider Unavailabl e Encounter Details Date Type Department Care Team (Late st Contact Info) Description 07/28/2008 Conversion Encounter [facility] [address] [place] [address] Interface, See Report Social History [...] 6:17 AM EDT) 07/28/2008 6:17 AM EDT [facility] LABORATORY - 08/01/2008 1:07 PM EDT [facility] SURGICAL PATHOLOGY REPORT Patient Name: KELLIE PENNINGTON MR#: [id number] : 1950 Gender: F Ordering Physician: PANTERA [...] No evidence of metastatic carcinoma. SEE TEMPLATE. [facility]/rw LUNG TEMPLATE: TYPE OF SPECIMEN: Lobectomy [...] each averaging 0.8 cm in greatest dimension. Senior Market Research Analyst sections are submitted for frozen section. ??Summary [...] and Template for details. Previous Pertinent History [id number], 07/22/08. RIGHT LUNG NODULE FNA WITH CELL BLOCK: Poorly differentiated adenocarcinoma. ([facility]FJ) Procedures/Addenda us See Report Interface PATHOLOGY/CYTOLOGY ORDERABL ES Final Result [facility] [address] [place] [address], documented in this encounter Visit Diagnoses Not on filedocumented in this encounter
--- OUTSIDE RECORDS SUMMARY | 2024-03-29 14:19 | XMS_ITS | Encounter Summary ---
Author Organization Healthcare Address [address] [place] [address] Care Team Providers Care Sales Engagement Executive Name Role Phone Romulo Gleason MD Primary Care Provider + [phone] Reason for Visit * Reason Comments Follow-up Encounter Details Date Type Department Care Team (Late st Contact Info) Description 01/31/2023 9:20 AM EDT Office Visit [facility] Orthopaedic Surgery & Sports Medicine [address], [address] [place] [address] Rodney Graves MD [address] [place] [address] Closed fracture of distal end [...] Touchworks NECK SURGERY N/A Neck Surgery from [facility] OTHER SURGICAL HISTORY N/A Spinal Stereotaxis Stimulation Of Cord from [facility] WRIST SURGERY N/A Wrist Surgery from [facility] Social History: Social History Socioeconomic History Marital [...] 12:35 PM Final report signed by Rut aLra MD on 01/31/2023 12:38 PM us Rodney [...] documented as of this encounter Care Teams Sales Engagement Executive Relationship Specialty Start Date End Date Romulo Gleason MD [address] [place] [address] PCP - General Internal Medicine 01/20/23 documented as of this encounter
--- OUTSIDE RECORDS SUMMARY | 2024-03-29 14:19 | XMS_ITS | Encounter Summary ---
Author Organization Healthcare Address [address] [place] [address] Care Team Providers Care Blurb Writer Name Role Phone Romulo Gleason MD Primary Care Provider + [phone] Encounter Details Date Type Department Care Team (Late st Contact Info) Description 02/04/2023 Orders Only [facility] Orthopaedic Surgery & Sports Medicine [address], [address] [place] [address] Romelia Richardson MD [address] [id number] Social History Tobacco Use Types Packs/Day Years [...] documented as of this encounter Care Teams Blurb Writer Relationship Specialty Start Date End Date Romulo Gleason MD [address] [place] [address] [address] [place] [address] PCP - General Internal Medicine 01/20/23 documented as of this encounter
--- OUTSIDE RECORDS SUMMARY | 2024-03-29 14:19 | XMS_ITS | Encounter Summary ---
Author Organization Healthcare Address [address] [place] [address] Care Team Providers Care Cartridge Assembler Name Role Phone Romulo Gleason MD Primary Care Provider + [phone] Encounter Details Date Type Department Care Team (Late st Contact Info) Description 02/17/2023 Plan of Care Documentation [facility] [address] [place] [address] Social History Tobacco Use Types Packs/Day [...] documented as of this encounter Care Teams Cartridge Assembler Relationship Specialty Start Date End Date Romulo Gleason MD [address] [place] [address] PCP - General Internal Medicine 01/20/23 documented as of this encounter
--- OUTSIDE RECORDS SUMMARY | 2024-03-29 14:19 | XMS_ITS | Encounter Summary ---
Author Organization Healthcare Address [address] [place], [place] [id number] Care Team Providers Care Field Artillery Senior Sergeant Name Role Phone Romulo Gleason MD Primary Care Provider + [phone] Reason for Visit * Consultation (Routine) - Closed Specialty Diagnoses / Procedures Referred By Allie mclaughlin Referred To Contact Occupational Therapy Diagnoses Other closed intra-articular fracture of distal end of left radius, initial encounter Bonifacio Garcia MD [address] [address] Phone: tel: fax: Referral ID Status Reason Start Date Expiration Date V isits Requested Visits Authorized [id number] Closed Specialty Services Required 02/17/2023 08/18/2024 1 1 Encounter Details Date Type Department Care Team (Late st Contact Info) Description 02/17/2023 9:30 AM EDT Consult [facility] [address] [place] [address] Sancho Ashraf Other closed intra-articular fracture of [...] Sancho Martines - 02/17/2023 9:30 AM EDT [facility] Occupational Therapy Hand Evaluation Date: 02/17/23 Name: [...] Date ANKLE SURGERY N/A Ankle Surgery from [facility] CATARACT EXTRACTION N/A Cataract Surgery from [facility] COLONOSCOPY N/A Colonoscopy from [facility] LUNG LOBECTOMY N/A Lung Lobectomy from [facility] NECK SURGERY N/A Neck Surgery from [facility] OTHER SURGICAL HISTORY N/A Spinal Stereotaxis Stimulation Of Cord from [facility] WRIST SURGERY N/A Wrist Surgery from [facility] Diagnosis: Encounter Diagnosis Name Primary? Other closed intra-articular fracture of distal end of left radius, initial encounter Yes Rehab Potential/Prognosis: excellent . Complexity: Low Complexity using Standard OT Assessment (52512). Time in: 9:40 am Time out: 10:35 [...] ROM of their left arm/hand. Primary Language: [place] Needs communication device: No Does the patient understand basic information? Yes, able to self manage. Barriers to learning: None Barriers to Rehabilitation: None Cultural/Islam beliefs: None that will affect treatment PLAN Patient to be seen 1-2 times per week for 6-8 weeks. Pt reported interest in therapy here at [facility], but pt lives in [place], [place]. Pt requested that they speak with [...] documented as of this encounter Care Teams Field Artillery Senior Sergeant Relationship Specialty Start Date End Date Romulo Gleason MD [address] [place] [address] PCP - General Internal Medicine 01/20/23 documented as of this encounter
--- OUTSIDE RECORDS SUMMARY | 2024-03-29 14:19 | XMS_ITS | Encounter Summary ---
Author Organization [facility] Address [address] [place] [id number] Care Team Providers Care Validation Engineer Name Role Phone Unavailable Primary Care Provider Unavailabl e Encounter Details Date Type Department Care Team (Late st Contact Info) Description 01/19/2013 Office Visit Converted [facility] CARDI[facility]IC [facility]GERY [address] [facility] [address] [place] [address] Bari Easton MD [address] [facility] [address] [place] [address] Social History Tobacco Use Types [...] 1. Actonel 35 MG Oral Tablet; Therapy: (Recorded:[id number]) to Recorded; Dispense: 0 Days ; #: Sufficient TABS; Refill: 0; Record; Last Updated By: Xuan Zuñiga 2. Ibuprofen CAPS; Therapy: (Recorded:19Jan2013) to Recorded; Dispense: 0 Days ; #: Sufficient CAPS; Refill: 0; Record; Last Updated By: Xuan Zuñiga 3. Meloxicam 15 MG Oral Tablet; Therapy: (Recorded:[id number]) to Recorded; Dispense: 0 Days ; #: [...] 6. Simvastatin 40 MG Oral Tablet; Therapy: (Recorded:[id number]) to Recorded; Dispense: 0 Days ; #: Sufficient TABS; Refill: 0; Record; Last Updated By: Xuan Zuñiga 7. Venlafaxine HCl ER 75 MG Oral Capsule Extended Release 24 Hour; Therapy: (Recorded:[id number]) to Recorded; Dispense: 0 Days ; #: [...] Plan ?? CT CHEST WO CONTRAST - 96712 Requested for: [id number] ?? Follow-up visit in 1 year Evaluation and Treatment Follow-up Done: [id number] Return in one year with a repeat [...] 3. Meloxicam 15 MG Oral Tablet; Therapy: (Recorded:40Zap4873) to Recorded; Dispense: 0 Days ; #: Sufficient TABS; Refill: 0; Record; Last Updated By: Xuan Zuñiga 4. Omeprazole 20 MG Oral Capsule Delayed Release; Therapy: (Recorded:[id number]) to Recorded; Dispense: 0 Days ; #: Sufficient CPDR; Refill: 0; Record; Last Updated By: Xuan Zuñiga 5. Progesterone Micronized 200 MG Oral Capsule; Therapy: (Recorded:69Czp4555) to Recorded; Dispense: 0 Days ; #: Sufficient CAPS; Refill: 0; Record; Last Updated By: Xuan Zuñiga 6. Simvastatin 40 MG Oral Tablet; Therapy: (Recorded:[id number]) to Recorded; Dispense: 0 Days ; #: Sufficient TABS; Refill: 0; Record; Last Updated By: Xuan Zuñiga 7. Venlafaxine HCl ER 75 MG Oral Capsule Extended Release 24 Hour; Therapy: (Recorded:57Gyf3213) to Recorded; Dispense: 0 Days ; #: [...] Plan ?? CT CHEST WO CONTRAST - 43605 Requested for: 57Twn2448 ?? Follow-up visit in 1 year Evaluation and Treatment Follow-up Done: [id number] Return in one year with a repeat CT scan of the chest the Signatures Electronically signed by : Bari Easton M.D.; Jan 22 2013 3:09PM (Author) documented in this encounter Plan of Treatment Not on file documented as of this encounter Visit Diagnoses Not on filedocumented in this encounter
--- OUTSIDE RECORDS SUMMARY | 2024-03-29 14:19 | XMS_ITS | Encounter Summary ---
Author Organization [facility] Address [address] [place] [address] Care Team Providers Care Tongue Trimmer Name Role Phone Unavailable Primary Care Provider Unavailabl e Encounter Details Date Type Department Care Team (Late st Contact Info) Description 01/31/2014 12:54 PM EDT - 01/31/2014 11:59 PM EDT Hospital Encounter [facility] DEPARTMENT [address] [place] [phone] Deon Yeager MD [address] [address] Social History Tobacco Use Types Packs/Day Years [...] ? Released Date Time- 01/31/14 1559 ? Wringer And Setter- D.M.E. Procedure Note Susan Ferrera MD - [...] Radiologist- SUSAN BYRD Released Date Time- 01/31/14 3825 Wringer And Setter- Felipe us Deon Yeager MD IMG CT ORDERABLES Final Resul t documented in this encounter Visit Diagnoses Not on filedocumented in this encounter
--- OUTSIDE RECORDS SUMMARY | 2024-03-29 14:19 | XMS_ITS | Encounter Summary ---
Author Organization [facility] Address [address] [place] [address] Care Team Providers Care Boat Joiner Name Role Phone Romulo Gleason MD Primary Care Provider + [phone] Reason for Referral * Consultation (Routine) - Authorized Specialty Diagnoses / Procedures Referred By Allie mclaughlin Referred To Contact Occupational Therapy Diagnoses Closed fracture of distal end of left radius with routine healing, unspecified fracture morphology, subsequent encounter Closed displaced comminuted fracture of shaft of left humerus with routine healing CMC arthritis Bonifacio Garcia MD [address] [place] [address] Phone: tel: fax: Referral ID Status Reason Start Date Expiration Date Visits Requested Visits Authorized [id number] Authorized Specialty Services Required 08/18/2023 02/16/2025 1 1 * Consultation (Routine) - Closed Specialty Diagnoses / Procedures Referred By Allie mclaughlin Referred To Contact Occupational Therapy Diagnoses Closed fracture of distal end of left radius with routine healing, unspecified fracture morphology, subsequent encounter Bonifacio Garcia MD [address] [place] [address] Phone: tel: fax: Referral ID Status Reason Start Date Expiration Date V isits Requested Visits Authorized [id number] Closed Specialty Services Required 08/18/2023 02/16/2025 1 1 Scheduling Instructions Home exercise program 6 months out from left humerus and left distal radius Reason for Visit * Reason Comments Follow-up Follow-up Encounter Details Date Type Department Care Team (Late st Contact Info) Description 08/18/2023 1:20 PM EDT Office Visit Debra Negron [address] [place] [phone] Bonifacio Garcia MD [address] [place] [address] Closed fracture of distal end [...] hand, patient was also given a meta algebra tutor brace for presumptive CMC arthritis, patient may [...] documented as of this encounter Care Teams Boat Joiner Relationship Specialty Start Date End Date Romulo Gleason MD [address] [place] [address] PCP - General Internal Medicine 01/20/23 documented as of this encounter
--- OUTSIDE RECORDS SUMMARY | 2024-03-29 14:19 | XMS_ITS | Encounter Summary ---
Author Organization Healthcare Address [address] [place] [address] Care Team Providers Care Grounds Maintenance Manager Name Role Phone Romulo Gleason MD Primary Care Provider + [phone] Reason for Visit * Reason Onset Date Comments HCN Status Update Call #1 01/22/2023 Encounter Details Date Type Department Care Team (Late st Contact Info) Description 01/22/2023 Telephone [facility] Orthopaedic Surgery & Sports Medicine [address], [address] [place] [address] Rodney Graves MD [address] [place] [address] HCN Status Update Call #1 [...] of the initial request. Best contact number: [phone] (home) Optimal time of day to reach caller: ANYTIME Additional comments/information from caller: None Note: Please do not reply to this message. Follow-up communication and further actions as a result of this message need to be communicated with the patient directly, if the patient is not active onMyChart. If the patient is active on MyChart, they will receive notification of the communication/outcome via [employer]. * Telephone Encounter - Kelsey Robles - 01/22/2023 12:15 PM EDT Clinical Concern/Question Reason for Call: Ely patient calling, she is needing to speak with a member of the clinical staffas soon as possible. Patient was sent by [facility] to [facility] on 01/21 for a closed reduction of a L distalhumerus fx. Patient states that a large blister one and half inch wide) has formed at the edge of her cast near her elbow and she is concerned about this due to her diabetes. She is not sure what to do Best contact number: [phone] (home) Optimal time of day to reach caller: ANYTIME Additional comments/information from caller: None Note: Please do not reply to this message. Follow-up communication and further actions as a result of this message need to be communicated with the patient directly, if the patient is not active onMyChart. If the patient is active on MyChart, they will receive notification of the communication/outcome via [employer]. documented in this encounter Plan of Treatment [...] documented as of this encounter Care Teams Grounds Maintenance Manager Relationship Specialty Start Date End Date Romulo Gleason MD [address] [place] [address] PCP - General Internal Medicine 01/20/23 documented as of this encounter
--- OUTSIDE RECORDS SUMMARY | 2024-03-29 14:19 | XMS_ITS | Encounter Summary ---
Author Organization [facility] Address [address] [place] [address] Care Team Providers Care Business Technology Professor Name Role Phone Romulo Francis MD Primary Care Provider + Encounter Details Date Type Department Care Team (Latest Contact Info) Description 03/20/2015 2:32 PM EST - 03/20/2015 11:59 PM EST Hospital Encounter [facility] DEPARTMENT [address] [place] [phone] Deon Yeager MD [address] [place] [address] Discharge Disposition: Home or Self Care Social [...] EST) Creatinine 0.8 0.6 - 1.3 mg/dL [facility] Blood specimen (specimen) 03/20/2015 2:52 PM EST 03/21/2015 8:10 AM EST Narrative [facility] - 03/21/2015 8:10 AM EST Specimen Type : Blood Deon Yeager MD POINT OF CARE TEST ORDERABLES Final Result [facility]
[address] [id number], * CT chest w contrast (03/20/2015 2:41 [...] ? Released Date Time- 03/23/15 1420 ? Crisis Mental Health Therapist- Felipe Procedure Note Susan Ferrera MD - [...] SUSAN BYRD Released Date Time- 03/23/15 1420 Crisis Mental Health Therapist- D.M.EKristy Deon LAM CT ORDERABLES Final Resul t documented in this encounter Visit Diagnoses Not on filedocumented in this encounter Care Teams Business Technology Professor Relationship Specialty Start Date End Date Romulo Francis MD PCP - General 03/08/15 documented as of this encounter
--- OUTSIDE RECORDS SUMMARY | 2024-03-29 14:19 | XMS_ITS | Encounter Summary ---
Author Organization Healthcare Address [address] [id number] Care Team Providers Care Printer'S Devil Name Role Phone Romulo Gleason MD Primary Care Provider + [phone] Encounter Details Date Type Department Care Team (Latest Contact Info) Description 08/18/2023 1:43 PM EDT - 08/18/2023 11:59 PM EDT Hospital Encounter [facility] X-[facility] [address] [facility] [place] [address] Other closed intra-articular fracture of [...] Per this written report. Drafted by Howie Tomlni MD on 08/18/2023 2:03 PM Final report [...] documented as of this encounter Care Teams Printer'S Devil Relationship Specialty Start Date End Date Romulo Gleason MD [address] [place] [address] PCP - General Internal Medicine 01/20/23 documented as of this encounter
--- OUTSIDE RECORDS SUMMARY | 2024-03-29 14:19 | XMS_ITS | Encounter Summary ---
Author Organization Healthcare Address [address] [phone] Care Team Providers Care Floor Polisher Name Role Phone Romulo Gleason MD Primary Care Provider + [phone] Encounter Details Date Type Department Care Team [...] documented as of this encounter Care Teams Floor Polisher Relationship Specialty Start Date End Date Romulo Gleason MD [address] [place] [address] PCP - General Internal Medicine 01/20/23 documented as of this encounter
--- OUTSIDE RECORDS SUMMARY | 2024-03-29 14:19 | XMS_ITS | Encounter Summary ---
Author Organization [facility] Address [address] [phone] Care Team Providers Care Microarray Operations Vice President Name Role Phone Romulo Gleason MD Primary Care Provider + [phone] Reason for Visit * Consultation (Routine) - Closed Specialty Diagnoses / Procedures Referred By Allie mclaughlin Referred To Contact Occupational Therapy Diagnoses Closed fracture of distal end of left radius with routine healing, unspecified fracture morphology, subsequent encounter Bonifacio Garcia MD [address] [address] Phone: tel: fax: Referral ID Status Reason Start Date Expiration Date V isits Requested Visits Authorized [id number] Closed Specialty Services Required 08/18/2023 02/16/2025 1 1 Encounter Details Date Type Department Care Team (Late st Contact Info) Description 08/18/2023 2:15 PM EDT [facility] [address] [place] [address] Merline Valadez Closed fracture of distal end [...] Description: aching OBJECTIVE: Quick DASH score: 38.6% Aircraft Steel Fabricator R)44 L)20 2pt p R)8 L)8 Fitting of left Metagrip ([id number]) orthotic per physician orders status post L CMC pain. Patient was educated on orthotic wear, care, donning, doffing and provided with any product information paperwork. Provided HEP for strengthening at home. Access Code: [email or web address] URL: [email or web address] Date: 08/18/2023 Prepared by: Merline Valadez Exercises [...] documented as of this encounter Care Teams Microarray Operations Vice President Relationship Specialty Start Date End Date Romulo Gleason MD [address] [place] [address] PCP - General Internal Medicine 01/20/23 documented as of this encounter
--- OUTSIDE RECORDS SUMMARY | 2024-03-29 14:19 | XMS_ITS | Encounter Summary ---
Author Organization Healthcare Address [address] [place] [address] Care Team Providers Care Driver Medic Name Role Phone Romulo Gleason MD Primary Care Provider + [phone] Encounter Details Date Type Department Care Team (Late st Contact Info) Description 02/05/2023 Orders Only [facility] [address] [place] [address] Bonifacio Garcia MD [address] [facility] [address] [place] [address] Other closed intra-articular fracture of [...] documented as of this encounter Care Teams Driver Medic Relationship Specialty Start Date End Date Romulo Gleason MD [address] [place] [address] PCP - General Internal Medicine 01/20/23 documented as of this encounter
--- OUTSIDE RECORDS SUMMARY | 2024-03-29 14:19 | XMS_ITS | Encounter Summary ---
Author Organization Healthcare Address [address] [place] [address] Care Team Providers Care Saw Maker Name Role Phone Romulo Gleason MD Primary Care Provider + [phone] Reason for Visit * Reason Onset Date Comments HCN Clinical Concern/Question 02/05/2023 Encounter Details Date Type Department Care Team (Late st Contact Info) Description 02/05/2023 Telephone [facility] [address] [place] [address] Bonifacio Garcia MD [address] [address] HCN Clinical Concern/Question Social History [...] a different medication. Best contact number: Other: [phone] Optimal time of day to reach caller: ANYTIME Additional comments/information from caller: Dr. Garcia Note: Please do not reply to this message. Follow-up communication and further actions as a result of this message need to be communicated with the patient directly, if the patient is not active onMyChart. If the patient is active on MyChart, they will receive notification of the communication/outcome via [employer]. documented in this encounter Plan of Treatment [...] documented as of this encounter Care Teams Saw Maker Relationship Specialty Start Date End Date Romulo Gleason MD [address] [place] [address] PCP - General Internal Medicine 01/20/23 documented as of this encounter
--- OUTSIDE RECORDS SUMMARY | 2024-03-29 14:20 | XMS_ITS | Encounter Summary ---
Author Organization Healthcare Address [address] [place] [address] Care Team Providers Care Technical Maintenance Technician Name Role Phone Romulo Gleason MD Primary Care Provider + [phone] Encounter Details Date Type Department Care Team [...] documented as of this encounter Care Teams Technical Maintenance Technician Relationship Specialty Start Date End Date Romulo Gleason MD [address] [place] [address] PCP - General Internal Medicine 01/20/23 documented as of this encounter
--- OUTSIDE RECORDS SUMMARY | 2024-03-29 14:20 | XMS_ITS | Encounter Summary ---
Author Organization Healthcare Address [address] [phone] Care Team Providers Care Childcare Teacher Name Role Phone Romulo Gleason MD Primary Care Provider + [phone] Encounter Details Date Type Department Care Team (Latest Contact Info) Description 01/21/2023 9:09 AM EDT - 01/21/2023 10:26 AM EDT Hospital Encounter [facility] Radiology [address], 1st [place] [address] Pain of left humerus; Left wrist pain [...] 01/21/2023 9:41 AM Final report signed by rPabhu Mello MD on 01/21/2023 9:42 AM Narrative [...] Mello MD on 01/21/2023 9:42 AM Rodney rGaves MD IMG XR PROCEDURES Final Result documented [...] documented as of this encounter Care Teams Childcare Teacher Relationship Specialty Start Date End Date Romulo Gleason MD [address] [place] [address] PCP - General Internal Medicine 01/20/23 documented as of this encounter
--- OUTSIDE RECORDS SUMMARY | 2024-03-29 14:20 | XMS_ITS | Encounter Summary ---
Author Organization Healthcare Address [address] [place] [address] Care Team Providers Care Interdisciplinary Professor Name Role Phone Romulo Gleason MD Primary Care Provider + [phone] Reason for Visit * Reason Comments Arm Injury Encounter Details Date Type Department Care Team ([facility] st Contact Info) Description 01/21/2023 10:27 AM EDT - 01/21/2023 3:16 PM EDT Emergency [facility] Emergency Department [address] [place] [address] Darius To MD [address] [place] [phone] Irma Rosenberg MD [address] [place] [phone] Ezio Clark MD [address] [place] [phone] Closed fracture of shaft of left [...] Miscellaneous Notes * Consults - Radha Solomon, INSPECTOR AND SORTER - 01/21/2023 12:12 PM EDTAssociated Order(s): IP [...] Date ANKLE SURGERY N/A Ankle Surgery from [facility] CATARACT EXTRACTION N/A Cataract Surgery from [facility] COLONOSCOPY N/A Colonoscopy from [facility] LUNG LOBECTOMY N/A Lung Lobectomy from [facility] NECK SURGERY N/A Neck Surgery from [facility] OTHER SURGICAL HISTORY N/A Spinal Stereotaxis Stimulation Of Cord from [facility] WRIST SURGERY N/A Wrist Surgery from [facility] Family History: family history includes Asthma in [...] denies Illicit substance use: denies Lives in [place], [place] Employment: ROS: A 14 point review [...] Orthopedic Surgery and Sports Medicine Consult Pager: [phone] Service Pager: [phone] Cosigned by Rodney Graves MD at 01/21/2023 [...] Alternatives discussed: Analgesia without sedation and anxiolysis [place] protocol: Procedure explained and questions answered to [...] vital sign checks, continuous pulse oximetry and it network administrator Intra-procedure events: none Sedation end time: 01/21/2023 [...] no other acute complaints at this time. [facility] Coma Scale Score: 15 Patient History Past [...] Date ANKLE SURGERY N/A Ankle Surgery from [facility] CATARACT EXTRACTION N/A Cataract Surgery from [facility] COLONOSCOPY N/A Colonoscopy from [facility] LUNG LOBECTOMY N/A Lung Lobectomy from [facility] NECK SURGERY N/A Neck Surgery from [facility] OTHER SURGICAL HISTORY N/A Spinal Stereotaxis Stimulation Of Cord from [facility] WRIST SURGERY N/A Wrist Surgery from [facility] Family History Problem Relation Name Age of [...] 5/> YRS Routine 01/21/2023 10:09 AM EDT IN MOD SED OTHER PHYS/QHP EACH ADDL 15 MINS Routine 01/21/2023 10:09 AM EDT IN MOD SED OTHER PHYS/QHP EACH ADDL 15 MINS Routine 01/21/2023 10:09 AM EDT IN MOD SED OTHER PHYS/QHP EACH ADDL 15 MINS Routine 01/21/2023 10:09 AM EDT IN MOD SED OTHER PHYS/QHP INITIAL 15 MINS [...] on 01/21/2023 1:45 PM us Radha Solomon INSPECTOR AND SORTER IMG XR PROCEDURES Final Re sult * [...] on 01/21/2023 1:40 PM us Radha Solomon INSPECTOR AND SORTER IMG XR PROCEDURES Final Re sult * [...] on 01/21/2023 1:11 PM us Radha Solomon INSPECTOR AND SORTER IMG XR PROCEDURES Final Re sult * [...] on 01/21/2023 11:56 AM us Radha Solomon INSPECTOR AND SORTER IMG XR PROCEDURES Final Re sult * [...] on 01/21/2023 11:56 AM us Radha Solomon INSPECTOR AND SORTER IMG XR PROCEDURES Final Re sult * [...] 01/21/2023 11:56 AM us Radha N Solomon INSPECTOR AND SORTER IMG XR PROCEDURES Final Re sult * [...] on 01/21/2023 11:56 AM us Radha Solomon INSPECTOR AND SORTER IMG XR PROCEDURES Final Re sult * [...] on 01/21/2023 11:56 AM us Radha Solomon INSPECTOR AND SORTER IMG XR PROCEDURES Final Re sult * [...] on 01/21/2023 11:56 AM us Radha Solomon INSPECTOR AND SORTER IMG XR PROCEDURES Final Re sult * IN MOD SED OTHER PHYS/QHP INITIAL 15 MINS 5/> YRS, IN MOD SED OTHER PHYS/QHP EACH ADDL 15 MINS, IN MOD SED OTHER PHYS/QHP EACH ADDL 15 MINS, IN MOD SED OTHER PHYS/QHP EACH ADDL 15 [...] ??Alternatives discussed: ??Analgesia without sedation and anxiolysis [place] protocol: ??Procedure explained and questions answered to [...] vital sign checks, continuous pulse oximetry and it network administrator ??Intra-procedure events: none ?Sedation end time: ??01/21/2023 [...] documented as of this encounter Care Teams Interdisciplinary Professor Relationship Specialty Start Date End Date Romulo Gleason MD [address] [place] [address] PCP - General Internal Medicine 01/20/23 documented as of this encounter
--- OUTSIDE RECORDS SUMMARY | 2024-03-29 14:20 | XMS_ITS | Encounter Summary ---
Author Organization Healthcare Address [address] [place] [address] Care Team Providers Care Production Sampler Name Role Phone Romulo Francis MD Primary Care Provider Encounter Details Date Type Department Care Team (Late st Contact Info) Description 10/23/2020 Abstract DSB [facility] [address] [place] [address] Dental, Provider, DDS [address] [place], [place] [id number] Social History Tobacco Use Types Packs/Day Years [...] on filedocumented in this encounter Care Teams Production Sampler Relationship Specialty Start Date End Date Romulo Francis MD [address] [place] [address] PCP - General 09/15/20 01/19/23 documented as of this encounter
--- OUTSIDE RECORDS SUMMARY | 2024-03-29 14:20 | XMS_ITS | Encounter Summary ---
Author Organization Healthcare Address [address] [place] [address] Care Team Providers Care Retail Services Professional Name Role Phone Romulo Gleason MD Primary Care Provider + [phone] Reason for Visit * Reason Comments Injury Injury Injury Injury Encounter Details Date Type Department Care Team (Late st Contact Info) Description 01/21/2023 8:50 AM EDT Office Visit [facility] Orthopaedic Surgery & Sports Medicine [address] [place] [address] Rodney Graves MD [address] [place] [address] Left wrist pain (Primary Dx); [...] upper extremity. She then was seen in [facility] placed in a sugar-tong splint and a [...] Date ANKLE SURGERY N/A Ankle Surgery from [facility] CATARACT EXTRACTION N/A Cataract Surgery from [facility] COLONOSCOPY N/A Colonoscopy from [facility] LUNG LOBECTOMY N/A Lung Lobectomy from [facility] NECK SURGERY N/A Neck Surgery from [facility] OTHER SURGICAL HISTORY N/A Spinal Stereotaxis Stimulation Of Cord from [facility] WRIST SURGERY N/A Wrist Surgery from [facility] Review of Systems: General: no fatigue, no [...] documented as of this encounter Care Teams Retail Services Professional Relationship Specialty Start Date End Date Romulo Gleason MD [address] [place] [address] PCP - General Internal Medicine 01/20/23 documented as of this encounter
[2024-03-29 14:46] VITALS: BP 123/75; PULSE 92; RESP 16; O2SAT 98; BMI 25.5
--- NOTE | 2024-03-29 15:02 | EXP.PAIN.SOA ---
[facility] Disclaimer: The information contained in this section may have been updated after the patient was seen, as this information can be updated by other users. Medical History (Updated 03/17/24 @ 10:01 by Kristin Lang RN) Hx of temporomandibular joint disorder Diabetes mellitus DDD (degenerative disc disease) Hx of cancer of lung Surgical History (Updated 03/17/24 @ 10:01 by Kristin Lang RN) History of surgery on arm History of lobectomy of lung S/P insertion of spinal cord stimulator Hx of neck surgery History of appendectomy History of section Family History Other Family history of acute heart failure Family history of hyperlipidemia Lung cancer Social History (Updated 03/17/24 @ 10:07 by Kristin Lang RN) Smoking Status: Never smoker second hand exposure: No alcohol intake: never substance use type: denies use current occupational status: other household members: family housing: house marital status: education level: college current occupational exposures/hazards: No caffeine: Yes special alison needs: No agree to transfusion: No do you feel safe at home: Yes victim of physical abuse: No victim of emotional abuse: No victim of sexual abuse: No would you like helpful sources: No PM Subjective & Objective Subjective Subjective:: Patient is a pleasant 73-year-old female who presents today for follow-up and medication refill. Today she rates her pain a 6 out of 10. She denies any new trauma or injury. Patient was previously scheduled for her spinal cord stimulator replacement however the day of the procedure she was having a lot more acid reflux and out of concern they did not want to proceed forward until she had been checked by cardiology. Patient does state that she does not really feel like she has anything going on and that she is scheduled for the follow-up with that office tomorrow. Patient does state that she would like to still proceed forward with the spinal cord stimulator replacements as long as everything is cleared by cardiology. Patient is currently managed with compounded cream and Percocet 5 mg 4 times a day from our office. She denies any side effects from this medication. Her Farhan has been reviewed and is appropriate. Review of Systems: General: No recent weight changes, no fever, no sleep disturbances Respiratory: No cough, no shortness of air, no recurring pulmonary infections Cardiovascular/peripheral vascular: No chest pain, no palpitations, no edema, no shortness of breath Gastrointestinal: No new onset incontinence, normal bowel movements reported Genitourinary: No new onset incontinence Musculoskeletal: Back pain Psychiatric: [Normal mood/affect] Neurological: [Denies weakness in extremities], [denies balance issues] Pain at rest (0-10 scale): 6 Objective Objective:: Physical Exam: General: Alert and oriented x3, no acute distress, pleasant and cooperative Lungs: Respirations even and unlabored, symmetrical chest expansion Eyes: PERRL Musculoskeletal: Flexion and extension of lumbar [spine] somewhat guarded secondary to pain, [antalgic gait noted] Neurological: Speech clear, no gross sensory deficit Has patient had previous pain injection?: No Conservative treatment options previously tried: Home exercise plan Length of treatment: Longer than 12-week Meds Home Medications and Allergies Home Medications ?Medication ?Instructions ?Recorded ?Confirmed ?Type calcium carbonate 500 mg PO DAILY Supplement 01/07/18 03/29/24 History omeprazole 20 mg capsule,delayed 20 mg PO DAILY stomach 01/07/18 03/29/24 History release insulin glargine 100 unit/mL (3 25 unit SQ DAILY Diabetes 01/26/18 03/29/24 History mL) subcutaneous pen dapagliflozin propaned 10 10 - 1,000 tab PO DAILY Diabetes 10/15/21 03/29/24 History mg-metformin ER 1,000 mg tablet,ext rel 24hr alendronate 70 mg effervescent 70 mg PO WEEKLY Osteoarthritis 12/13/21 03/29/24 History tablet rosuvastatin 20 mg tablet 20 mg PO DAILY Cholesterol 08/08/22 03/29/24 History diclofenac sodium 75 mg 75 mg PO BID Pain #60 tabs 08/15/22 03/29/24 Rx tablet,delayed release fexofenadine 60 mg tablet 60 mg PO BID #60 tabs 06/25/23 03/29/24 Rx methocarbamol 500 mg tablet 500 mg PO BID #28 tabs 10/20/23 03/29/24 Rx tizanidine 4 mg tablet (Zanaflex) 4 mg PO BID #28 tabs 11/19/23 03/29/24 Rx oxycodone-acetaminophen 5 mg-325 1 tab PO QID #120 tabs 03/03/24 03/29/24 Rx mg tablet (Percocet) sertraline 25 mg tablet 25 mg PO DAILY 03/17/24 03/29/24 History New Prescriptions to Start Prescriptions: Allergies Allergy/AdvReac Type Severity Reaction Status Date / Time methylprednisolone (From Allergy Intermediate Rash Verified 08/20/22 14:36 Depo-Medrol) prednisone Allergy Intermediate I-HIVES Verified 08/20/22 14:36 sulfamethoxazole (From Allergy Intermediate I-HIVES Verified 08/20/22 14:36 Bactrim) trimethoprim (From Bactrim) Allergy Intermediate I-HIVES Verified 08/20/22 14:36 hydrocodone (From Hycodan Allergy Mild I-HIVES Verified 08/20/22 14:36 (with homatropin)) ibuprofen Allergy Mild Verified 08/20/22 14:36 Corticosteroids Allergy Hives Verified 08/20/22 14:36 (Glucocorticoids) Assessment and Plan *Assessment and plan (1) Lumbar radiculopathy: Status: Acute Category: Medical Code(s): M54.16 - Radiculopathy, lumbar region (2) Degenerative disc disease, lumbar: Status: Acute Category: Medical Code(s): M51.36 - Other intervertebral disc degeneration, lumbar region Plan I did discuss with the patient regarding the risk and benefits of stimulator replacement she still would like to proceed forward with this option. Patient is scheduled to see cardiology tomorrow and we will wait to get cardiac clearance as well as order a thoracic x-ray in order to verify lead placement of her current stimulator. Patient will be tentatively scheduled for spinal cord stimulator replacements in April if everything goes accordingly. Patient agrees with this plan of care. I will refill the patient's Percocet and provide a 1 month supply of this medication. Patient will tentatively follow-up in clinic in 1 month for medication refill. Risks and benefits of the medication have been explained in detail to the patient. The patient does understand the risk of dependence on the medication when given over a prolonged period. Patient has been advised of risks of oversedation with the prescribed medication. Narcan has been offered to the paitent in the event of oversedation. Patient has been advised that a family member should also be educated regarding administration of Narcan. The patient has been advised to consult with his/her primary care provider and pharmacist regarding drug-drug interaction of medications currently prescribed. Patient has been prescribed a controlled substance after being counseled on the medication, medication safety, and possible side effects. Opioid contract was reviewed and signed by the patient, and that they have agreed to all of the terms set forth by our compliance program. Patient has been instructed to contact the clinic with any concerns before the next appointment. Dr. Del Real has reviewed this note and agrees with this plan of care. This note was dictated using voice recognition software and make contain errors or omissions.
== END 2024-03-29 23:59 | disposition home or self-care (01) ==
LOC: SC.PAIN 14:17 → RAD 16:01
PROVIDERS: PCP Internal Medicine Adolescent Medicine; Visit Provider Nurse Practitioner Family
DX: M51.16 Intervertebral disc disorders with radiculopathy, lumbar region (principal)
CPT/HCPCS: 99212; G0463

== ENCOUNTER 2024-03-30 15:35 | Outpatient (CLI) | payer MEDICARE, OTHER, SELFPAY ==
--- OUTSIDE RECORDS SUMMARY | 2024-03-30 15:38 | XMS_ITS | Encounter Summary ---
Author Organization [facility] Address [address] [place] [address] Care Team Providers Care Bell Clerk Name Role Phone Unavailable Primary Care Provider Unavailabl e Encounter Details Date Type Department Care Team (Late st Contact Info) Description 07/22/2008 Conversion Encounter [facility] HISTORICAL CONV [address] [place] [address] Interface, See Report Social History [...] 7:13 AM EDT) 07/22/2008 7:13 AM EDT [facility] - 07/23/2008 12:08 PM EDT [facility] SURGICAL PATHOLOGY REPORT Patient Name: KELLIE PENNINGTON MR#: [id number] : 1950 Gender: F Ordering Physician: JIM PERSON Copy To: PANTERA MATA :36A Location: [facility] 1129-1 Collected: 07/22/2008 Received: 07/22/2008 Reported: 07/23/2008 Clinical Diagnosis and History The working history is abnormal pet. 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 ??[facility] Amendments: Electronically Signed Out By Bowen Haddad [...] some giant cells. ??J/mbc Previous Pertinent History [id number], 07/18/2008. ??RIGHT LUNG MASS, FINE NEEDLE ASPIRATE: ??Rare atypical cells suspicious for carcinoma. (See Microscopic). ??(DGD) Procedures/Addenda us See Report Interface PATHOLOGY/CYTOLOGY ORDERABL ES Final Result [facility] [address] [place] [id number], documented in this encounter Visit Diagnoses Not on filedocumented in this encounter
--- OUTSIDE RECORDS SUMMARY | 2024-03-30 15:38 | XMS_ITS | Encounter Summary ---
Author Organization [facility] Address [address] [place] [address] Care Team Providers Care Customer Facilities Supervisor Name Role Phone Unavailable Primary Care Provider Unavailabl e Encounter Details Date Type Department Care Team (Late st Contact Info) Description 03/18/2014 Office Visit Converted [facility] CARDIOTH[facility]IC SURGERY [address] [facility] [address] [place] [address] Deon Yeager MD [address] [facility] [address] [place] [address] Social History Tobacco Use Types Packs/Day Years [...]
--- OUTSIDE RECORDS SUMMARY | 2024-03-30 15:38 | XMS_ITS | Encounter Summary ---
Author Organization Healthcare Address [address] [place] [address] Care Team Providers Care As400 Administrator Name Role Phone Romulo Gleason MD Primary Care Provider + [phone] Encounter Details Date Type Department Care Team (Late st Contact Info) Description 02/17/2023 Plan of Care Documentation [facility] HAND THERAPY [address] [place] [address] Social History Tobacco Use Types Packs/Day [...] documented as of this encounter Care Teams As400 Administrator Relationship Specialty Start Date End Date Romulo Gleason MD [address] [place] [address] PCP - General Internal Medicine 01/20/23 documented as of this encounter
--- OUTSIDE RECORDS SUMMARY | 2024-03-30 15:38 | XMS_ITS | Encounter Summary ---
Author Organization Healthcare Address [address] [place] [id number] Care Team Providers Care Hand Glass Cutter Name Role Phone Romulo Gleason MD Primary Care Provider + [phone] Encounter Details Date Type Department Care Team [...] documented as of this encounter Care Teams Hand Glass Cutter Relationship Specialty Start Date End Date Romulo Gleason MD [address] [place] [address] PCP - General Internal Medicine 01/20/23 documented as of this encounter
--- OUTSIDE RECORDS SUMMARY | 2024-03-30 15:38 | XMS_ITS | Encounter Summary ---
Author Organization [facility] Address [address] [place] [id number] Care Team Providers Care Lug Loader Name Role Phone Unavailable Primary Care Provider Unavailabl e Encounter Details Date Type Department Care Team (Late st Contact Info) Description 01/19/2013 Office Visit Converted [facility] CARDIOTHORACIC SURGERY [address] [facility] [address] [place] [address] Bari Easton MD [address] [facility] [address] [place] [address] Social History Tobacco Use Types [...] 1. Actonel 35 MG Oral Tablet; Therapy: (Recorded:[id number]) to Recorded; Dispense: 0 Days ; #: Sufficient TABS; Refill: 0; Record; Last Updated By: Xuan Zuñiga 2. Ibuprofen CAPS; Therapy: (Recorded:19Jan2013) to Recorded; Dispense: 0 Days ; #: Sufficient CAPS; Refill: 0; Record; Last Updated By: Xuan Zuñiga 3. Meloxicam 15 MG Oral Tablet; Therapy: (Recorded:[id number]) to Recorded; Dispense: 0 Days ; #: [...] 6. Simvastatin 40 MG Oral Tablet; Therapy: (Recorded:[id number]) to Recorded; Dispense: 0 Days ; #: Sufficient TABS; Refill: 0; Record; Last Updated By: Xuan Zuñiga 7. Venlafaxine HCl ER 75 MG Oral Capsule Extended Release 24 Hour; Therapy: (Recorded:[id number]) to Recorded; Dispense: 0 Days ; #: [...] Plan ?? CT CHEST WO CONTRAST - [address]6748 Requested for: [id number] ?? Follow-up visit in 1 year Evaluation and Treatment Follow-up Done: [id number] Return in one year with a repeat [...] 3. Meloxicam 15 MG Oral Tablet; Therapy: (Recorded:[id number]) to Recorded; Dispense: 0 Days ; #: Sufficient TABS; Refill: 0; Record; Last Updated By: Xuan Zuñiga 4. Omeprazole 20 MG Oral Capsule Delayed Release; Therapy: (Recorded:[id number]) to Recorded; Dispense: 0 Days ; #: Sufficient CPDR; Refill: 0; Record; Last Updated By: Xuan Zuñiga 5. Progesterone Micronized 200 MG Oral Capsule; Therapy: (Recorded:32Hch8912) to Recorded; Dispense: 0 Days ; #: Sufficient CAPS; Refill: 0; Record; Last Updated By: Xuan Zuñiga 6. Simvastatin 40 MG Oral Tablet; Therapy: (Recorded:[id number]) to Recorded; Dispense: 0 Days ; #: Sufficient TABS; Refill: 0; Record; Last Updated By: Xuan Zuñiga 7. Venlafaxine HCl ER 75 MG Oral Capsule Extended Release 24 Hour; Therapy: (Recorded:84Izq1277) to Recorded; Dispense: 0 Days ; #: [...] Plan ?? CT CHEST WO CONTRAST - [address]0320 Requested for: [id number] ?? Follow-up visit in 1 year Evaluation and Treatment Follow-up Done: [id number] Return in one year with a repeat CT scan of the chest the Signatures Electronically signed by : Bari Easton M.D.; Jan 22 2013 3:09PM (Author) documented in this encounter Plan of Treatment Not on file documented as of this encounter Visit Diagnoses Not on filedocumented in this encounter
--- OUTSIDE RECORDS SUMMARY | 2024-03-30 15:38 | XMS_ITS | Encounter Summary ---
Author Organization [facility] Address [address] [place] [address] Care Team Providers Care Wellness Nurse Name Role Phone Unavailable Primary Care Provider Unavailabl e Encounter Details Date Type Department Care Team (Late st Contact Info) Description 01/31/2014 12:54 PM EDT - 01/31/2014 11:59 PM EDT Hospital Encounter [facility] [address] [place] [address] Deon Yeager MD [address] [address] Social History Tobacco Use Types Packs/Day Years [...] ? Released Date Time- 01/31/14 1559 ? Materials Specialist- D.M.E. Procedure Note Susan Ferrera MD - [...] Radiologist- SUSAN BYRD Released Date Time- 01/31/14 7113 Materials Specialist- Felipe us Deon Yeager MD IMG CT ORDERABLES Final Resul t documented in this encounter Visit Diagnoses Not on filedocumented in this encounter
--- OUTSIDE RECORDS SUMMARY | 2024-03-30 15:38 | XMS_ITS | Encounter Summary ---
Author Organization Healthcare Address [address] [id number] Care Team Providers Care Water Resource Specialist Name Role Phone Romulo Gleason MD Primary Care Provider + [phone] Encounter Details Date Type Department Care Team (Latest Contact Info) Description 08/18/2023 1:43 PM EDT - 08/18/2023 11:59 PM EDT Hospital Encounter [facility] X-Ray [address] [facility] [address] [place] [address] Other closed intra-articular fracture of [...] as of this encounter Care Teams Water Resource Specialist Relationship Specialty Start Date End Date Romulo Gleason MD [address] [place] [address] PCP - General Internal Medicine 01/20/23 documented as of this encounter
--- OUTSIDE RECORDS SUMMARY | 2024-03-30 15:38 | XMS_ITS | Clinical Summary ---
Author Organization [facility] Address [address] [place] [phone] Care Team Providers Care Metal Spraying Machine Operator Name Role Phone Romulo Francis MD Primary [...] (1 - 2023- season) 2024 Care Teams Metal Spraying Machine Operator Relationship Specialty Start Date End Date Romulo Francis MD PCP - General 03/08/15
--- OUTSIDE RECORDS SUMMARY | 2024-03-30 15:38 | XMS_ITS | Clinical Summary ---
Author Organization Healthcare Address [address] [place] [phone] Care Team Providers Care Toolroom Checker Name Role Phone Romulo Gleason MD Primary Care Provider + [phone] Allergies Active Allergy Reactions Criticality Noted Date [...] Years (1 of 1 - PCV) 11/27/2015 [id number] Vaccine (1 - 20 24-25 season) 2024 [...] AM EDT) No Sancho Ashraf Insurance MEDICARE [facility] Care Teams Toolroom Checker Relationship Specialty Start Date End Date Romulo Gleason MD [address] [place] [address] PCP - General Internal Medicine 01/20/23
--- OUTSIDE RECORDS SUMMARY | 2024-03-30 15:38 | XMS_ITS | Encounter Summary ---
Author Organization Healthcare Address [address] [place] [id number] Care Team Providers Care Mixing Operator Name Role Phone Romulo Gleason MD Primary Care Provider + [phone] Encounter Details Date Type Department Care Team [...] documented as of this encounter Care Teams Mixing Operator Relationship Specialty Start Date End Date Romulo Gleason MD [address] [place] [address] PCP - General Internal Medicine 01/20/23 documented as of this encounter
--- OUTSIDE RECORDS SUMMARY | 2024-03-30 15:38 | XMS_ITS | Encounter Summary ---
Author Organization Healthcare Address [address] [place] [address] Care Team Providers Care Clinical Resource Coordinator Name Role Phone Romulo Gleason MD Primary Care Provider + [phone] Encounter Details Date Type Department Care Team (Late st Contact Info) Description 02/05/2023 Orders Only [facility] [address] [place] [address] Bonifacio Garcia MD [address] [facility] 2[address] [place] [address] Other closed intra-articular fracture of [...] documented as of this encounter Care Teams Clinical Resource Coordinator Relationship Specialty Start Date End Date Romulo Gleason MD [address] [place] [address] PCP - General Internal Medicine 01/20/23 documented as of this encounter
--- OUTSIDE RECORDS SUMMARY | 2024-03-30 15:38 | XMS_ITS | Encounter Summary ---
Author Organization [facility] Address [address] [place] [address] Care Team Providers Care Machine Cleaner Name Role Phone Unavailable Primary Care Provider Unavailabl e Encounter Details Date Type Department Care Team (Late st Contact Info) Description 07/28/2008 Conversion Encounter [facility] [place] [place] [address] [place] [address] Interface, See Report Social History [...] Hospital LABORATORY - 08/01/2008 1:[address] [facility] SURGICAL PATHOLOGY REPORT Patient Name: KELLIE PENNINGTON MR#: [id number] : 1950 Gender: F Ordering Physician: PANTERA [...] No evidence of metastatic carcinoma. SEE TEMPLATE. [facility]/rw LUNG TEMPLATE: TYPE OF SPECIMEN: Lobectomy [...] each averaging 0.8 cm in greatest dimension. Apartment Leasing Agent sections are submitted for frozen section. ??Summary [...] and Template for details. Previous Pertinent History [id number], 07/22/08. RIGHT LUNG NODULE FNA WITH CELL BLOCK: Poorly differentiated adenocarcinoma. (JFJ) Procedures/Addenda us See Report Interface PATHOLOGY/CYTOLOGY ORDERABL ES Final Result [facility] [address] [place] [address], documented in this encounter Visit Diagnoses Not on filedocumented in this encounter
--- OUTSIDE RECORDS SUMMARY | 2024-03-30 15:38 | XMS_ITS | Encounter Summary ---
Author Organization [facility] Address [address] [place] [address] Care Team Providers Care Senior Merchandiser Name Role Phone Romulo Gleason MD Primary Care Provider + [phone] Reason for Referral * Consultation (Routine) - Authorized Specialty Diagnoses / Procedures Referred By Allie mclaughlin Referred To Contact Occupational Therapy Diagnoses Closed fracture of distal end of left radius with routine healing, unspecified fracture morphology, subsequent encounter Closed displaced comminuted fracture of shaft of left humerus with routine healing CMC arthritis Bonifacio Garcia MD [address] [place] [address] Phone: tel: fax: Referral ID Status Reason Start Date Expiration Date Visits Requested Visits Authorized [id number] Authorized Specialty Services Required 08/18/2023 02/16/2025 1 1 * Consultation (Routine) - Closed Specialty Diagnoses / Procedures Referred By Allie mclaughlin Referred To Contact Occupational Therapy Diagnoses Closed fracture of distal end of left radius with routine healing, unspecified fracture morphology, subsequent encounter Bonifacio Garcia MD [address] [place] [address] Phone: tel: fax: Referral ID Status Reason Start Date Expiration Date V isits Requested Visits Authorized [id number] Closed Specialty Services Required 08/18/2023 02/16/2025 1 1 Scheduling Instructions Home exercise program 6 months out from left humerus and left distal radius Reason for Visit * Reason Comments Follow-up Follow-up Encounter Details Date Type Department Care Team (Late st Contact Info) Description 08/18/2023 1:20 PM EDT Office Visit Debra Negron [address] [place] [phone] Bonifacio Garcia MD [address] [place] [address] Closed fracture of distal end [...] hand, patient was also given a meta meat processing center manager brace for presumptive CMC arthritis, patient may [...] as of this encounter Care Teams Senior Merchandiser Relationship Specialty Start Date End Date Romulo Gleason MD [address] [place] [address] PCP - General Internal Medicine 01/20/23 documented as of this encounter
--- OUTSIDE RECORDS SUMMARY | 2024-03-30 15:38 | XMS_ITS | Encounter Summary ---
Author Organization Healthcare Address [address] [place], [place] [id number] Care Team Providers Care Pharmacovigilance Scientist Name Role Phone Romulo Gleason MD Primary Care Provider + [phone] Reason for Visit * Consultation (Routine) - Closed Specialty Diagnoses / Procedures Referred By Allie mclaughlin Referred To Contact Occupational Therapy Diagnoses Other closed intra-articular fracture of distal end of left radius, initial encounter Bonifacio Garcia MD [address] [address] Phone: tel: fax: Referral ID Status Reason Start Date Expiration Date V isits Requested Visits Authorized [id number] Closed Specialty Services Required 02/17/2023 08/18/2024 1 1 Encounter Details Date Type Department Care Team (Late st Contact Info) Description 02/17/2023 9:30 AM EDT Consult [facility] [address] [place] [address] Sancho Ashraf Other closed intra-articular fracture of [...] Sancho Martines - 02/17/2023 9:30 AM EDT [facility] Occup[facility] Hand Evaluation Date: [...] Date ANKLE SURGERY N/A Ankle Surgery from [facility] CATARACT EXTRACTION N/A Cataract Surgery from [facility] COLONOSCOPY N/A Colonoscopy from [facility] LUNG LOBECTOMY N/A Lung Lobectomy from [facility] NECK SURGERY N/A Neck Surgery from [facility] OTHER SURGICAL HISTORY N/A Spinal Stereotaxis Stimulation Of Cord from [facility] WRIST SURGERY N/A Wrist Surgery from [facility] Diagnosis: Encounter Diagnosis Name Primary? Other closed intra-articular fracture of distal end of left radius, initial encounter Yes Rehab Potential/Prognosis: excellent . Complexity: Low Complexity using Standard OT Assessment (21717). Time in: 9:40 am Time out: 10:35 [...] ROM of their left arm/hand. Primary Language: Paraguayan Needs communication device: No Does the patient understand basic information? Yes, able to self manage. Barriers to learning: None Barriers to Rehabilitation: None Cultural/Hindu beliefs: None that will affect treatment PLAN Patient to be seen 1-2 times per week for 6-8 weeks. Pt reported interest in therapy here at [facility], but pt lives in [place], [place]. Pt requested that they speak with [...] documented as of this encounter Care Teams Pharmacovigilance Scientist Relationship Specialty Start Date End Date Romulo Gleason MD [address] [place] [address] PCP - General Internal Medicine 01/20/23 documented as of this encounter
--- OUTSIDE RECORDS SUMMARY | 2024-03-30 15:38 | XMS_ITS | Encounter Summary ---
Author Organization Healthcare Address [address] [place] [id number] Care Team Providers Care Brick Extruder Operator Name Role Phone Romulo Gleason MD Primary Care Provider + [phone] Encounter Details Date Type Department Care Team (Latest Contact Info) Description 02/17/2023 8:03 AM EDT - 02/17/2023 11:59 PM EDT Hospital Encounter [facility] [address] [facility], [address] [place] [address] Other closed intra-articular fracture of [...] documented as of this encounter Care Teams Brick Extruder Operator Relationship Specialty Start Date End Date Romulo Gleason MD [address] [place] [address] PCP - General Internal Medicine 01/20/23 documented as of this encounter
--- OUTSIDE RECORDS SUMMARY | 2024-03-30 15:38 | XMS_ITS | Encounter Summary ---
Author Organization [facility] Address [address] [place] [address] Care Team Providers Care Senior Microstrategy Developer Name Role Phone Unavailable Primary Care Provider Unavailabl e Encounter Details Date Type Department Care Team (Late st Contact Info) Description 07/15/2008 Conversion Encounter [facility] [place] [facility]ISTORICAL CONV [address] [place] [address] Interface, See Report Social History [...] 7:21 AM EDT) 07/15/2008 7:21 AM EDT [facility] LABORATORY - 07/18/2008 4:18 PM EDT [facility] SURGICAL PATHOLOGY REPORT Patient Name: KELLIE PENNINGTON MR#: [id number] : 1950 Gender: F Ordering Physician: MICHAEL MORALES Copy To: PANTERA MATA :36A Location: [facility] 1123-1 Collected: 07/15/2008 Received: 07/15/2008 Reported: 07/18/2008 [...] Report Interface PATHOLOGY/CYTOLOGY ORDERABL ES Final Result [facility] LABORATORY [address] [place] [address], documented in this encounter Visit Diagnoses Not on filedocumented in this encounter
--- OUTSIDE RECORDS SUMMARY | 2024-03-30 15:38 | XMS_ITS | Encounter Summary ---
Author Organization [facility] Address [address] [place] [address] Care Team Providers Care Deputy County Counsel Name Role Phone Romulo Francis MD Primary Care Provider + Encounter Details Date Type Department Care Team (Latest Contact Info) Description 03/20/2015 2:32 PM EST - 03/20/2015 11:59 PM EST Hospital Encounter [facility] DEPARTMENT [address] [place] [phone] Deon Yeager MD [address] [place] [address] Discharge Disposition: Home or Self Care Social [...] EST) Creatinine 0.8 0.6 - 1.3 mg/dL [facility] Blood specimen (specimen) 03/20/2015 2:52 PM EST 03/21/2015 8:10 AM EST Narrative [facility] - 03/21/2015 8:10 AM EST Specimen Type : Blood Deon Yeager MD POINT OF CARE TEST ORDERABLES Final Result [facility]
[address] [id number], * CT chest w contrast (03/20/2015 2:41 [...] ? Released Date Time- 03/23/15 1420 ? Hypo Dipper- Felipe Procedure Note Susan Ferrera MD - [...] SUSAN BYRD Released Date Time- 03/23/15 1420 Hypo Dipper- D.M.EKristy Deon LAM CT ORDERABLES Final Resul t documented in this encounter Visit Diagnoses Not on filedocumented in this encounter Care Teams Deputy County Counsel Relationship Specialty Start Date End Date Romulo Francis MD PCP - General 03/08/15 documented as of this encounter
--- OUTSIDE RECORDS SUMMARY | 2024-03-30 15:38 | XMS_ITS | Encounter Summary ---
Author Organization [facility] Address [address] [id number] Care Team Providers Care Hardening Machine Operator Helper Name Role Phone Romulo Gleason MD Primary Care Provider + [phone] Reason for Referral * Consultation (Routine) - Closed Specialty Diagnoses / Procedures Referred By Allie mclaughlin Referred To Contact Occupational Therapy Diagnoses Other closed intra-articular fracture of distal end of left radius, initial encounter Bonifacio Garcia MD [address] [address] Phone: tel: fax: Referral ID Status Reason Start Date Expiration Date V isits Requested Visits Authorized [id number] Closed Specialty Services Required 02/17/2023 08/18/2024 1 1 * Consultation (Routine) - Authorized Specialty Diagnoses / Procedures Referred By Allie mclaughlin Referred To Contact Physical Therapy Diagnoses Other closed intra-articular fracture of distal end of left radius, initial encounter Bonifacio Garcia MD [address] [address] Phone: tel: fax: Provider, External Referral ID Status Reason Start Date Expiration Date Visits Requested Visits Authorized [id number] Authorized Consult and Treat 02/17/2023 08/18/2024 1 [...] Office Visit Debra Negron [address] [place] [address] Bonifacio Garcia MD [address] [place] [address] Other closed intra-articular fracture of [...] documented as of this encounter Care Teams Hardening Machine Operator Helper Relationship Specialty Start Date End Date Romulo Gleason MD [address] [place] [address] PCP - General Internal Medicine 01/20/23 documented as of this encounter
--- OUTSIDE RECORDS SUMMARY | 2024-03-30 15:38 | XMS_ITS | Encounter Summary ---
Author Organization [facility] Address [address] [phone] Care Team Providers Care Manager Imaging Name Role Phone Romulo Gleason MD Primary Care Provider + [phone] Reason for Visit * Consultation (Routine) - Closed Specialty Diagnoses / Procedures Referred By Allie mclaughlin Referred To Contact Occupational Therapy Diagnoses Closed fracture of distal end of left radius with routine healing, unspecified fracture morphology, subsequent encounter Bonifacio Garcia MD [address] [address] Phone: tel: fax: Referral ID Status Reason Start Date Expiration Date V isits Requested Visits Authorized [id number] Closed Specialty Services Required 08/18/2023 02/16/2025 1 1 Encounter Details Date Type Department Care Team (Late st Contact Info) Description 08/18/2023 2:15 PM EDT Consult [facility] [address] [place] [address] Merline Valadez Closed fracture of distal end [...] Description: aching OBJECTIVE: Quick DASH score: 38.6% Land Leasing Information Clerk R)44 L)20 2pt p R)8 L)8 Fitting of left Metagrip ([id number]) orthotic per physician orders status post L CMC pain. Patient was educated on orthotic wear, care, donning, doffing and provided with any product information paperwork. Provided HEP for strengthening at home. Access Code: [email or web address] URL: [email or web address] Date: 08/18/2023 Prepared by: Merline Valadez Exercises [...] documented as of this encounter Care Teams Manager Imaging Relationship Specialty Start Date End Date Romulo Gleason MD [address] [place] [address] PCP - General Internal Medicine 01/20/23 documented as of this encounter
--- OUTSIDE RECORDS SUMMARY | 2024-03-30 15:39 | XMS_ITS | Encounter Summary ---
Author Organization Healthcare Address [address] [place] [address] Care Team Providers Care Mailroom Manager Name Role Phone Romulo Gleason MD Primary Care Provider + [phone] Reason for Visit * Reason Comments Follow-up Encounter Details Date Type Department Care Team (Late st Contact Info) Description 01/31/2023 9:20 AM EDT Office Visit [facility] Orthopaedic Surgery & Sports Medicine [address] [place] [address] Rodney Graves MD [address] [place] [address] Closed fracture of distal end [...] Touchworks NECK SURGERY N/A Neck Surgery from [email or web address] OTHER SURGICAL HISTORY N/A Spinal Stereotaxis Stimulation Of Cord from [email or web address] WRIST SURGERY N/A Wrist Surgery from [email or web address] Social History: Social History Socioeconomic History Marital [...] documented as of this encounter Care Teams Mailroom Manager Relationship Specialty Start Date End Date Romulo Gleason MD [address] [place] [address] PCP - General Internal Medicine 01/20/23 documented as of this encounter
--- OUTSIDE RECORDS SUMMARY | 2024-03-30 15:39 | XMS_ITS | Encounter Summary ---
Author Organization Healthcare Address [address] [place] [address] Care Team Providers Care Loss Prevention Auditor Name Role Phone Romulo Gleason MD Primary Care Provider + [phone] Encounter Details Date Type Department Care Team [...] documented as of this encounter Care Teams Loss Prevention Auditor Relationship Specialty Start Date End Date Romulo Gleason MD [address] [place] [address] PCP - General Internal Medicine 01/20/23 documented as of this encounter
--- OUTSIDE RECORDS SUMMARY | 2024-03-30 15:39 | XMS_ITS | Encounter Summary ---
Author Organization Healthcare Address [address] [place] [address] Care Team Providers Care Raw Sampler Name Role Phone Romulo Gleason MD Primary Care Provider + [phone] Reason for Visit * Reason Onset Date Comments HCN Clinical Concern/Question 02/05/2023 Encounter Details Date Type Department Care Team (Late st Contact Info) Description 02/05/2023 Telephone [facility] [address] [place] [address] Bonifacio Garcia MD [address] [address] HCN Clinical Concern/Question Social History [...] a different medication. Best contact number: Other: [phone] Optimal time of day to reach caller: ANYTIME Additional comments/information from caller: Dr. Garcia Note: Please do not reply to this message. Follow-up communication and further actions as a result of this message need to be communicated with the patient directly, if the patient is not active onMyChart. If the patient is active on MyChart, they will receive notification of the communication/outcome via DokDok. documented in this encounter Plan of Treatment [...] documented as of this encounter Care Teams Raw Sampler Relationship Specialty Start Date End Date Romulo Gleason MD [address] [place] [address] PCP - General Internal Medicine 01/20/23 documented as of this encounter
--- OUTSIDE RECORDS SUMMARY | 2024-03-30 15:39 | XMS_ITS | Encounter Summary ---
Author Organization Healthcare Address [address] [place] [address] Care Team Providers Care Cone Treater Name Role Phone Romulo Gleason MD Primary Care Provider + [phone] Encounter Details Date Type Department Care Team (Late st Contact Info) Description 02/04/2023 Orders Only [facility] Orthopaedic Surgery & Sports Medicine [address] [place] [address] Romelia Richardson MD [address] [phone] Social History Tobacco Use Types Packs/Day Years [...] documented as of this encounter Care Teams Cone Treater Relationship Specialty Start Date End Date Romulo Gleason MD [address] [place] [address] [address] [place] [address] PCP - General Internal Medicine 01/20/23 documented as of this encounter
--- OUTSIDE RECORDS SUMMARY | 2024-03-30 15:39 | XMS_ITS | Encounter Summary ---
Author Organization Healthcare Address [address] [place] [address] Care Team Providers Care Pipe Layer Name Role Phone Romulo Gleason MD Primary Care Provider + [phone] Encounter Details Date Type Department Care Team [...] documented as of this encounter Care Teams Pipe Layer Relationship Specialty Start Date End Date Romulo Gleason MD [address] [place] [address] PCP - General Internal Medicine 01/20/23 documented as of this encounter
--- OUTSIDE RECORDS SUMMARY | 2024-03-30 15:39 | XMS_ITS | Encounter Summary ---
Author Organization Healthcare Address [address] [place] [address] Care Team Providers Care Pile Trimmer Name Role Phone Romulo Gleason MD Primary Care Provider + [phone] Reason for Visit * Reason Comments Wound Check Encounter Details Date Type Department Care Team (Late st Contact Info) Description 01/27/2023 5:15 PM EDT - 01/27/2023 7:24 PM EDT Emergency [facility] Emergency Department [address] [place] [address] Cast discomfort (Primary Dx); Visit [...] history of diabetes type [address] [facility] Emergency Department due to pain on her [...] denies Illicit substance use: denies Lives in [place], [place] Employment: Retired Past Surgical History: Past Surgical History: Procedure Laterality Date ANKLE SURGERY N/A Ankle Surgery from [facility] CATARACT EXTRACTION N/A Cataract Surgery from [facility] COLONOSCOPY N/A Colonoscopy from [facility] LUNG LOBECTOMY N/A Lung Lobectomy from [facility] NECK SURGERY N/A Neck Surgery from [facility] OTHER SURGICAL HISTORY N/A Spinal Stereotaxis Stimulation Of Cord from [facility] WRIST SURGERY N/A Wrist Surgery from [facility] Social History: Tobacco: see HPI EtOH: see [...] Tala Young MD PGY-3, Orthopaedic Surgery Department [facility] Orthopaedic Consults Pager: [phone] Orthopaedic Trauma Service Pager: [phone] Orthopaedic Recon/Spine/Foot and Ankle Service Pager: [phone] Personal Pager: [phone] Cosigned by Rodney Graves MD at 01/28/2023 [...] Touchworks NECK SURGERY N/A Neck Surgery from [facility] OTHER SURGICAL HISTORY N/A Spinal Stereotaxis Stimulation Of Cord from [facility] WRIST SURGERY N/A Wrist Surgery from [facility] Family History Problem Relation Name Age of [...] her hand. Pt reports being seen [place] and was placed in case and [...] documented as of this encounter Care Teams Pile Trimmer Relationship Specialty Start Date End Date Romulo Gleason MD [address] [place] [address] PCP - General Internal Medicine 01/20/23 documented as of this encounter
--- OUTSIDE RECORDS SUMMARY | 2024-03-30 15:39 | XMS_ITS | Encounter Summary ---
Author Organization Healthcare Address [address] [place] [address] Care Team Providers Care Duplicator Punch Operator Name Role Phone Romulo Gleason MD Primary Care Provider + [phone] Reason for Visit * Reason Comments Arm Injury Encounter Details Date Type Department Care Team ([facility] st Contact Info) Description 01/21/2023 10:27 AM EDT - 01/21/2023 3:16 PM EDT Emergency [facility] Emergency Department [address] [place] [address] Darius To MD [address] [place] [phone] Irma Rosenberg MD [address] [place] [phone] Ezio Clark MD [address] [place] [phone] Closed fracture of shaft of left [...] Miscellaneous Notes * Consults - Radha Solomon, PRESENTATION SPECIALIST - 01/21/2023 12:12 PM EDTAssociated Order(s): IP [...] Date ANKLE SURGERY N/A Ankle Surgery from [facility] CATARACT EXTRACTION N/A Cataract Surgery from [facility] COLONOSCOPY N/A Colonoscopy from [facility] LUNG LOBECTOMY N/A Lung Lobectomy from [facility] NECK SURGERY N/A Neck Surgery from [facility] OTHER SURGICAL HISTORY N/A Spinal Stereotaxis Stimulation Of Cord from [facility] WRIST SURGERY N/A Wrist Surgery from [facility] Family History: family history includes Asthma in [...] denies Illicit substance use: denies Lives in [place], [place] Employment: ROS: A 14 point review [...] Orthopedic Surgery and Sports Medicine Consult Pager: [phone] Service Pager: [phone] Cosigned by Rodney Graves MD at 01/21/2023 [...] Alternatives discussed: Analgesia without sedation and anxiolysis [place] protocol: Procedure explained and questions answered to [...] vital sign checks, continuous pulse oximetry and library monitor Intra-procedure events: none Sedation end time: 01/21/2023 [...] no other acute complaints at this time. [place] Coma Scale Score: 15 Patient History Past [...] Date ANKLE SURGERY N/A Ankle Surgery from [facility] CATARACT EXTRACTION N/A Cataract Surgery from [facility] COLONOSCOPY N/A Colonoscopy from [facility] LUNG LOBECTOMY N/A Lung Lobectomy from [facility] NECK SURGERY N/A Neck Surgery from [facility] OTHER SURGICAL HISTORY N/A Spinal Stereotaxis Stimulation Of Cord from [facility] WRIST SURGERY N/A Wrist Surgery from [facility] Family History Problem Relation Name Age of [...] 5/> YRS Routine 01/21/2023 10:09 AM EDT [place] MOD SED OTHER PHYS/QHP EACH ADDL 15 MINS Routine 01/21/2023 10:09 AM EDT [place] MOD SED OTHER PHYS/QHP EACH ADDL 15 MINS Routine 01/21/2023 10:09 AM EDT [place] MOD SED OTHER PHYS/QHP EACH ADDL 15 MINS Routine 01/21/2023 10:09 AM EDT [place] MOD SED OTHER PHYS/QHP INITIAL 15 MINS [...] 01/21/2023 1:30 PM Final report signed by Gremain Antoine MD on 01/21/2023 1:45 PM us Radha Solomon PRESENTATION SPECIALIST IMG XR PROCEDURES Final Re sult * [...] on 01/21/2023 1:40 PM us Radha Solomon PRESENTATION SPECIALIST IMG XR PROCEDURES Final Re sult * [...] on 01/21/2023 1:11 PM us Radha Solomon PRESENTATION SPECIALIST IMG XR PROCEDURES Final Re sult * [...] on 01/21/2023 11:56 AM us Radha Solomon PRESENTATION SPECIALIST IMG XR PROCEDURES Final Re sult * [...] on 01/21/2023 11:56 AM us Radha Solomon PRESENTATION SPECIALIST IMG XR PROCEDURES Final Re sult * [...] 01/21/2023 11:56 AM us Radha N Solomon PRESENTATION SPECIALIST IMG XR PROCEDURES Final Re sult * [...] on 01/21/2023 11:56 AM us Radha Solomon PRESENTATION SPECIALIST IMG XR PROCEDURES Final Re sult * [...] on 01/21/2023 11:56 AM us Radha Solomon PRESENTATION SPECIALIST IMG XR PROCEDURES Final Re sult * [...] MCP and IP joint. Procedure Note Germain Antoien MD - 01/21/2023 CLINICAL INDICATION: Out of [...] on 01/21/2023 11:56 AM us Radha Solomon PRESENTATION SPECIALIST IMG XR PROCEDURES Final Re sult * [place] MOD SED OTHER PHYS/QHP INITIAL 15 MINS 5/> YRS, [place] MOD SED OTHER PHYS/QHP EACH ADDL 15 MINS, [place] MOD SED OTHER PHYS/QHP EACH ADDL 15 MINS, [place] MOD SED OTHER PHYS/QHP EACH ADDL 15 [...] ??Alternatives discussed: ??Analgesia without sedation and anxiolysis [place] protocol: ??Procedure explained and questions answered to [...] vital sign checks, continuous pulse oximetry and library monitor ??Intra-procedure events: none ?Sedation end time: ??01/21/2023 [...] documented as of this encounter Care Teams Duplicator Punch Operator Relationship Specialty Start Date End Date Romulo Gleason MD [address] [place] [address] PCP - General Internal Medicine 01/20/23 documented as of this encounter
--- OUTSIDE RECORDS SUMMARY | 2024-03-30 15:39 | XMS_ITS | Encounter Summary ---
Author Organization Healthcare Address [address] [place] [address] Care Team Providers Care Rn Informatics Name Role Phone Romulo Gleason MD Primary Care Provider + [phone] Encounter Details Date Type Department Care Team (Latest Contact Info) Description 01/31/2023 9:27 AM EDT - 01/31/2023 11:59 PM EDT [facility] En[facility] [address], [address] [place] [address] Pain of left humerus Discharge Disposition: Home [...] documented as of this encounter Care Teams Rn Informatics Relationship Specialty Start Date End Date Romulo Gleason MD [address] [place] [address] PCP - General Internal Medicine 01/20/23 documented as of this encounter
--- OUTSIDE RECORDS SUMMARY | 2024-03-30 15:39 | XMS_ITS | Encounter Summary ---
Author Organization Healthcare Address [address] [place] [address] Care Team Providers Care Pharmacy Resident Name Role Phone Romulo Francis MD Primary Care Provider [phone] Encounter Details Date Type Department Care Team (Late st Contact Info) Description 10/23/2020 Abstract DSB [facility] [address] [place] [address] Dental, Provider, DDS [address] [place], [place] [id number] Social History Tobacco Use Types Packs/Day Years [...] on filedocumented in this encounter Care Teams Pharmacy Resident Relationship Specialty Start Date End Date Romulo Francis MD [address] [place] [address] PCP - General 09/15/20 01/19/23 documented as of this encounter
--- OUTSIDE RECORDS SUMMARY | 2024-03-30 15:39 | XMS_ITS | Encounter Summary ---
Author Organization Healthcare Address [address] [place] [address] Care Team Providers Care Business Account Specialist Name Role Phone Romulo Gleason MD Primary Care Provider + [phone] Reason for Visit * Reason Comments Consult Encounter Details Date Type Department Care Team (Late st Contact Info) Description 02/03/2023 12:50 PM EDT Office Visit Debra Negron [address] [place] [phone] Bonifacio Garcia MD [address] [address] Other closed intra-articular fracture of [...] - 99 mg/dL 02/03/2023 7:17 PM EDT [facility] BUN, Plasma 12 8 - 23 mg/dL 02/03/2023 7:17 PM EDT [facility] Creatinine, Plasma 0.57(L) 0.60 - 1.10 mg/dL 02/03/2023 7:17 PM EDT [facility] BUN/Creatinine Ratio 21 02/03/2023 7:17 PM EDT [facility] Sodium, Plasma 137 136 - 145 mmol/L 02/03/2023 7:17 PM EDT [facility] Potassium, Plasma 3.6(L) 3.7 - 4.8 mmol/L 02/03/2023 7:17 PM EDT [facility] Chloride, Plasma 101 97 - 107 mmol/L 02/03/2023 7:17 PM EDT [facility] CO2, Plasma 24 22 - 29 mmol/L 02/03/2023 7:17 PM EDT [facility] Anion Gap 12 6 - 16 mmol/L 02/03/2023 7:17 PM EDT [facility] Total Calcium, Plasma 9.0 8.9 - 10.2 mg/dL 02/03/2023 7:17 PM EDT [facility] eGFRcr 96.7 mL/min/1.7 3m*2 02/03/2023 7:17 PM EDT [facility] Comment:Reported eGFRcr in m L/min/1.73m2 is based the CKD-EPI 2020 equation that does not use a race coefficient. Blood Venous blood specimen / Unknown Venipuncture / Unknown 02/03/2023 4:33 PM EDT 02/03/2023 4:34 PM EDT us Bonifacio Garcia MD LAB BLOOD ORDERABLES Final R esult [facility] [address] [place] [address] * CBC W/O Differential (02/03/2023 4:33 PM EDT) WBC Count 6.20 3.70 - 10.30 10*3/uL LAB HEMATOLOGY METHOD 02/03/2023 7:08 PM EDT [facility] RBC Count 4.76 3.90 - 5.20 10*6/uL LAB HEMATOLOGY METHOD 02/03/2023 7:08 PM EDT [facility] HGB 13.3 11.2 - 15.7 g/dL LAB HEMATOLOGY METHOD 02/03/2023 7:08 PM EDT [facility] HCT 41.9 34.0 - 45.0 % LAB HEMATOLOGY METHOD 02/03/2023 7:08 PM EDT [facility] Platelet Count 308 155 - 369 10*3/uL LAB HEMATOLOGY METHOD 02/03/2023 7:08 PM EDT [facility] MCV 88 79 - 98 fL LAB HEMATOLOGY METHOD 02/03/2023 7:08 PM EDT [facility] MCH 27.9 26.0 - 32.0 pg LAB HEMATOLOGY METHOD 02/03/2023 7:08 PM EDT [facility] MCHC 31.7 30.7 - 35.5 g/dL LAB HEMATOLOGY METHOD 02/03/2023 7:08 PM EDT [facility] RDW 14.4 11.5 - 14.5 % LAB HEMATOLOGY METHOD 02/03/2023 7:08 PM EDT [facility] MPV 9.7 8.8 - 12.5 fL LAB HEMATOLOGY METHOD 02/03/2023 7:08 PM EDT [facility] nRBC 0.0 <=0.0 per 100 WBCs LAB HEMATOLOGY METHOD 02/03/2023 7:08 PM EDT [facility] Blood Venous blood specimen / Unknown Venipuncture / Unknown 02/03/2023 4:33 PM EDT 02/03/2023 4:34 PM EDT Bonifacio Garcia MD LAB BLOOD ORDERABLES Final R esult [facility] [address] [place] [address] * Type and screen (02/03/2023 4:33 PM [...] ES Final Result Performing Organization Address City/State/[facility] Co de Phone Number BLOOD BANK [address] [place] [address], documented in this encounter Visit Diagnoses Diagnosis [...] as of this encounter Care Teams Business Account Specialist Relationship Specialty Start Date End Date Romulo Gleason MD [address] [place] [address] PCP - General Internal Medicine 01/20/23 documented as of this encounter
--- OUTSIDE RECORDS SUMMARY | 2024-03-30 15:39 | XMS_ITS | Encounter Summary ---
Author Organization Healthcare Address [address] [place] [address] Care Team Providers Care Category Analyst Name Role Phone Romulo Gleason MD Primary Care Provider + [phone] Reason for Visit * Reason Onset Date Comments HCN Status Update Call #1 01/22/2023 Encounter Details Date Type Department Care Team (Late st Contact Info) Description 01/22/2023 Telephone [facility]opa[facility] Surgery [facility] Sports Medicine [address], [address] [place] [address] Rodney Graves MD [address] [place] [address] HCN Status Update Call #1 [...] of the initial request. Best contact number: [phone] (home) Optimal time of day to reach caller: ANYTIME Additional comments/information from caller: None Note: Please do not reply to this message. Follow-up communication and further actions as a result of this message need to be communicated with the patient directly, if the patient is not active onMyChart. If the patient is active on MyChart, they will receive notification of the communication/outcome via [employer]. * Telephone Encounter - Kelsey Robles - 01/22/2023 12:15 PM EDT Clinical Concern/Question Reason for Call: [facility] patient calling, she is needing to speak with a member of the clinical staffas soon as possible. Patient was sent by [facility] to [facility] on 01/21 for a closed reduction of a L distalhumerus fx. Patient states that a large blister one and half inch wide) has formed at the edge of her cast near her elbow and she is concerned about this due to her diabetes. She is not sure what to do Best contact number: [phone] (home) Optimal time of day to reach caller: ANYTIME Additional comments/information from caller: None Note: Please do not reply to this message. Follow-up communication and further actions as a result of this message need to be communicated with the patient directly, if the patient is not active onMyChart. If the patient is active on MyChart, they will receive notification of the communication/outcome via [employer]. documented in this encounter Plan of Treatment [...] documented as of this encounter Care Teams Category Analyst Relationship Specialty Start Date End Date Romulo Gleason MD [address] [place] [address] PCP - General Internal Medicine 01/20/23 documented as of this encounter
--- OUTSIDE RECORDS SUMMARY | 2024-03-30 15:39 | XMS_ITS | Encounter Summary ---
Author Organization Healthcare Address [address] [place] [address] Care Team Providers Care Access Developer Name Role Phone Romulo Gleason MD Primary Care Provider + [phone] Encounter Details Date Type Department Care Team (Latest Contact Info) Description 01/21/2023 9:09 AM EDT - 01/21/2023 10:26 AM EDT Hospital Encounter [facility] Radiology [address], [address] [place] [address] Pain of left humerus; Left wrist pain [...] documented as of this encounter Care Teams Access Developer Relationship Specialty Start Date End Date Romulo Gleason MD [address] [place] [address] PCP - General Internal Medicine 01/20/23 documented as of this encounter
--- OUTSIDE RECORDS SUMMARY | 2024-03-30 15:39 | XMS_ITS | Encounter Summary ---
Author Organization Healthcare Address [address] [place] [address] Care Team Providers Care Fire Battalion Chief Name Role Phone Romulo Gleason MD Primary Care Provider + [phone] Encounter Details Date Type Department Care Team [...] documented as of this encounter Care Teams Fire Battalion Chief Relationship Specialty Start Date End Date Romulo Gleason MD [address] [place] [address] PCP - General Internal Medicine 01/20/23 documented as of this encounter
--- OUTSIDE RECORDS SUMMARY | 2024-03-30 15:39 | XMS_ITS | Encounter Summary ---
Author Organization Healthcare Address [address] [place] [address] Care Team Providers Care Project Manager Interior Design Name Role Phone Romulo Gleason MD Primary Care Provider + [phone] Encounter Details Date Type Department Care Team [...] documented as of this encounter Care Teams Project Manager Interior Design Relationship Specialty Start Date End Date Romulo Gleason MD [address] [place] [address] PCP - General Internal Medicine 01/20/23 documented as of this encounter
--- OUTSIDE RECORDS SUMMARY | 2024-03-30 15:39 | XMS_ITS | Encounter Summary ---
Author Organization Healthcare Address [address] [place] [address] Care Team Providers Care Wildland Fire Fighter Specialist Name Role Phone Romulo Gleason MD Primary Care Provider + [phone] Reason for Visit * Reason Comments Injury Injury Injury Injury Encounter Details Date Type Department Care Team (Late st Contact Info) Description 01/21/2023 8:50 AM EDT Office Visit [facility] Orthopaedic Surgery & Sports Medicine [address], [address] [place] [address] Rodney Graves MD [address] [place] [address] Left wrist pain (Primary Dx); [...] upper extremity. She then was seen in [facility] placed in a sugar-tong splint and a [...] Date ANKLE SURGERY N/A Ankle Surgery from [facility] CATARACT EXTRACTION N/A Cataract Surgery from [facility] COLONOSCOPY N/A Colonoscopy from [facility] LUNG LOBECTOMY N/A Lung Lobectomy from [facility] NECK SURGERY N/A Neck Surgery from [facility] OTHER SURGICAL HISTORY N/A Spinal Stereotaxis Stimulation Of Cord from [facility] WRIST SURGERY N/A Wrist Surgery from [facility] Review of Systems: General: no fatigue, no [...] documented as of this encounter Care Teams Wildland Fire Fighter Specialist Relationship Specialty Start Date End Date Romulo Gleason MD [address] [place] [address] PCP - General Internal Medicine 01/20/23 documented as of this encounter
--- NOTE | 2024-03-30 15:40 | XR_ITS ---
FINAL REPORT CLINICAL HISTORY: VERIFY LEAD PLACEMENT FINDINGS: AP and lateral views of the thoracic spine were obtained. There is no prior exam for comparison. There is a mild compression deformity of T5, age-indeterminate. Multilevel degenerative disc disease is identified. Spinal cord stimulator lead is in the posterior canal with tips projecting at T8 and T9. IMPRESSION: Age-indeterminate T5 compression deformity. Spinal cord stimulator as above. Reviewed, Interpreted and Dictated by Layne Miranda MD Transcribed by Jessy Candelaria Authenticated and [facility]
[2024-03-30 16:15] LABS: Basophils # 0.1 K/mm3 (0-0.2); Basophils % 1.3 % (0.1-2.0); Eosinophils # 0.2 K/mm3 (0.0-0.4); Eosinophils % 2.7 % (0.1-12.0); Hematocrit 44.4 % (37.0-47.0); Hemoglobin 14.9 g/dL (12.2-16.2); Lymphocytes # 1.8 K/mm3 (0.7-4.5); Lymphocytes % 29.6 % (10-50); Mean Corpuscular HGB Conc 33.7 g/dL (31.8-35.4); Mean Corpuscular Hemoglobin 28.2 pg (27.0-31.2); Mean Corpuscular Volume 83.6 fl (81-99); Mean Platelet Volume 7.2 fl (7.4-10.4); Monocytes # 0.3 K/mm3 (0.1-1.0); Monocytes % 4.3 % (1.7-9.3); Neutrophils # 3.7 K/mm3 (1.8-7.8); Neutrophils % 62.1 % (37.0-80.0); Platelet Count 229 K/mm3 (142-424); Red Blood Count 5.31 M/mm3 (4.20-5.40); Red Cell Distribution Width 14.7 % (11.5-17.5)
[2024-03-30 16:38] LABS: Alanine Aminotransferase 16 U/L (12-78); Albumin Level 4.4 g/dl (3.5-5.0); Alkaline Phosphatase 77 U/L (38-126); Anion Gap 12.8 mEq/L (5-15); Aspartate Amino Transferase 18 U/L (14-36); Bilirubin,Direct 0.2 mg/dl (0.0-0.4); Bilirubin,Indirect 0.6 mg/dL (0.0-0.9); Bilirubin,Total 0.8 mg/dl (0.2-1.3); Bilirubin,Unconjugated 0.6 mg/dL (0.0-1.1); Blood Urea Nitrogen 12 mg/dl (7-17); Calcium 9.5 mg/dl (8.4-10.2); Carbon Dioxide 25 mmol/L (22.0-30.0); Chloride 105 mmol/L (98-107); Chol/HDL Ratio 4.1 (1-3.5); Cholesterol 120 mg/dl (140-200); Estimated Glomerular Filt Rate 121 ml/min (>60); GFR (African American) 146 ML/MIN (>60); Glucose 121 mg/dl (74-100); HDL Cholesterol 29 mg/dl (40-60); Potassium 3.8 mmoL/L (3.5-5.1); Sodium 139 mmol/L (136-145); Total Protein,Serum 6.6 g/dl (6.3-8.2); Triglycerides 145 mg/dl (30-150); VLDL Cholesterol 29 mg/dL (0-40)
[2024-03-30 16:49] LABS: Direct LDL Cholesterol 70.56 mg/dL (100-129)
[2024-03-30 16:52] LABS: Hemoglobin A1C 7.4 % (4.0-6.0)
[2024-03-30 16:59] LABS: Free T4 (Free Thyroxine) 0.97 ng/dl (0.78-2.19)
[2024-03-30 17:12] LABS: Thyroid Stimulating Hormone 2.07 uIU/mL (0.465-4.68)
== END 2024-03-30 23:59 | disposition home or self-care (01) ==
LOC: LAB 15:37
PROVIDERS: PCP Internal Medicine Adolescent Medicine; Visit Provider Nurse Practitioner
DX: E78.5 Hyperlipidemia, unspecified (principal); E11.9 Type 2 diabetes mellitus without complications; R53.83 Other fatigue; Z45.42 Encounter for adjustment and management of neurostimulator
CPT/HCPCS: 36415; 72072; 80048; 80061; 80076; 83036; 84439; 84443; 85025

== ENCOUNTER 2024-04-16 10:41 | Outpatient (CLI) | payer MEDICARE, OTHER, SELFPAY ==
--- NOTE | 2024-04-16 | CA_ITS ---
APPROVED REPORT Exam: Pharmacologic Technologist: Cynthia Bishop Ht: 5 ft 6 in Wt: 147 lbs BSA: 1.75 m2 HR: 77 bpm BP: 146/81 mmHg Rhythm: Nsr, cannot r/o old anterior [place] Medical History Medical History: Hyperlipidemia, Diabetes Medications: Bupropion HCl XL, Calcium Carbonate, Dapaglifloz propaned-metformin, Prolia, Diclofenac sodium, Fexofenadine, Insulin Glargine, Methocarbamol, Omeprazole, Percocet, Rosuvastatin, Sertraline, Tizanidine Allergies: Trimethoprim, Hydrocodone, Ibuprofen, Corticosteriods, Methylprednisolone, Prednisone, Sulfamethoxazole Cardiac Risk Factors: Hyperlipidemia, Diabetes, FHX of CAD Stress Test Details Test: Lexiscan HR Resting HR: 77 bpm Max Heart Rate (APMHR): 147 bpm Target HR (85% APMHR): 125 bpm Recovery HR: 85 bpm BP Resting BP: 146.0/81.0 mmHg Max BP: 154.0/84.0 mmHg Recovery BP: 142.0/85.0 mmHg ECG Resting ECG: NSR, cannot r/o old anterior [place] Stress ECG Conclusion Pt had soa, mild chest pressure, and head discomfort No significant changes Unremarkable lexiscan stress Electronically signed by : Vivian Franks MD 04/19/2024 11:43:18
--- NOTE | 2024-04-16 10:46 | CA_ITS ---
APPROVED REPORT EXAM: Comprehensive 2D, Doppler, and color-flow Echocardiogram Ice House Supervisor: Lena Wagner CRT Ht: 5 ft 6 in Wt: 146lbs BSA: 1.75 BP: 155/87 mmHg Indications: Pectus excavatum very difficult images to obtain., DM,cp, right lobectomy lung 2D Dimensions LA Volume 31.40 mL LA Volume Index 17.50 mL/m2 (M/F) 16-34 M-Mode Dimensions RVDd 2.64 cm (0.9-2.6) LA Diam 3.04 cm (1.9-4.0) LVDd 3.04 cm (3.5-5.7) LVDs 2.07 cm (3.5-5.7) IVSd 1.89 cm (0.6-1.1) PWd 0.57 cm (0.6-1.1) EF (Teich) 61.60% FS 31.90% EDV (Teich) 36.20 mL TAPSE 0.72 (<1.7) ESV (Teich) 13.90 mL LV Diastology E Decel Time 185 (160-240 msec) E/A Ratio 0.65 MED A' 12.40 cm/s LAT A' 11.90 cm/s Aortic Valve AO Peak GR. 6.40 mmHg Mitral Valve MV E Max Narayan. 47.0 (40-130 cm/s) MV A Velocity 72.0 (40-130 cm/s) E/A Ratio 0.65 MV PHT 54.0 ms Tricuspid Valve TR P. Velocity 333.00 cm/s RAP Estimate 10.00 mmHg RVSP 54.40 mmHg Left Ventricle The left ventricle is normal size. The left ventricular systolic function is normal. The left ventricular ejection fraction is within the normal range. There is increased left ventricular wall thickness. There is normal LV segmental wall motion. Transmitral Doppler flow pattern suggests impaired LV relaxation. LVEF is 55%. Right Ventricle Right ventricle is mildly dilated. The right ventricular systolic function is normal. Atria The left atrium size is normal. The right atrium size is normal. There is no color Doppler evidence of interatrial shunt. Aortic Valve The aortic valve opens well. There is no aortic valvular stenosis. Trace aortic regurgitation. Mitral Valve The mitral valve is normal in structure. No evidence of mitral valve stenosis. Trace mitral regurgitation. Tricuspid Valve Tricuspid valve is grossly normal in structure and function. Trace tricuspid regurgitation. There is insufficient TR jet to estimate RVSP. Pulmonic Valve The pulmonary valve is normal in structure. Trace pulmonic regurgitation. Great Vessels The aortic root is normal in size. IVC is normal in size and collapses >50% with inspiration. Pericardium There is no pericardial effusion. Other Information Study Quality: Technically Difficult Conclusion Technically difficult study due to poor accoustic windows in the setting of pectus excavatum. Normal biventricular systolic function. Mild RV dilation. No significant valvular stenosis or regurgitation. Electronically signed by : Vivian Franks MD 04/28/2024 15:23:53
--- NOTE | 2024-04-16 10:46 | NM_ITS ---
APPROVED REPORT Exam: Nuclear Stress Test Indication: diabetes, hyperlipidemia, c.p., sob, fatigue Patient Location: Outpatient Stress Tech: Cynthia Bishop [place] Tech:Susan Courtney JAVI RT (R)(N)(M) Ht: 5 ft 4 in Wt: 145 lbs Bra Size: 40c HR: 77 bpm BP: 146/81 mmHg BSA: 1.71 m2 TID: 0.94 BMI: 24.8 History: diabetes, hyperlipidemia, c.p., sob, fatigue Procedure: Patient received 0.4 mg of intravenous Lexiscan, resting heart rate 77 bpm, resting blood pressure 146/81 mmHg, with Lexiscan maximum heart rate achieved was 96 bpm which is % of the maximum predicted heart rate and blood pressure was 149/80 mmHg. With Lexiscan, patient denied any complaint of chest pain. Cardiac Stress and Resting SPECT Images: Cardiac Stress and Resting SPECT images were obtained using technetium 99m Myoview 10.75 mCi stress and 32.0 mCi at rest. Resting and stress imaging in supine and prone positions demonstrate no evidence of fixed or reversible perfusion defects. Gated imaging demonstrates normal global and regional LV systolic function. LVEF is calculated at 68%. Conclusion: No evidence of fixed or reversible perfusion defects. Gated imaging demonstrates normal global and regional LV systolic function. LVEF is calculated at 68%. Electronically signed by : Vivian Franks MD 04/18/2024 21:43:58
[2024-04-16] MEDS: SODIUM CHLORIDE 0.9% 10ML SYR (RAD ONLY) 10 ML IV ×2 (14:19)
[2024-04-16] MEDS: REGADENOSON 0.4MG/5ML SYRINGE 0.4 MG IV (14:19)
[2024-04-16] MEDS: ISOTOPE MYOVIEW (PER STUDY) 1 DOSE IV (14:19)
== END 2024-04-16 23:59 | disposition home or self-care (01) ==
LOC: RT 10:43
PROVIDERS: PCP Internal Medicine Adolescent Medicine; Visit Provider Nurse Practitioner
DX: I51.7 Cardiomegaly (principal); R07.9 Chest pain, unspecified; R53.83 Other fatigue
CPT/HCPCS: 78452; 93017; 93018; 93306; A9502; J2785

== ENCOUNTER 2024-05-12 11:43 | Outpatient (POV) | payer MEDICARE, OTHER, SELFPAY ==
--- NOTE | 2024-05-12 11:51 | A.OFFVIS_ITS ---
[facility] Disclaimer: The information contained in this section may have been updated after the patient was seen, as this information can be updated by other users. Medical History (Updated 03/30/24 @ 15:18 by Antonio Pillai RN) HLD (hyperlipidemia) Fatigue Chest pain Hx of temporomandibular joint disorder Diabetes mellitus DDD (degenerative disc disease) Hx of cancer of lung Surgical History History of surgery on arm History of lobectomy of lung S/P insertion of spinal cord stimulator Hx of neck surgery History of appendectomy History of section Family History Other Family history of acute heart failure Family history of hyperlipidemia Lung cancer Social History Smoking Status: Never smoker second hand exposure: No alcohol intake: never substance use type: denies use current occupational status: other Travel in the last 8 weeks: None household members: family housing: house marital status: education level: college current occupational exposures/hazards: No caffeine: Yes special alison needs: No agree to transfusion: No do you feel safe at home: Yes victim of physical abuse: No victim of emotional abuse: No victim of sexual abuse: No would you like helpful sources: No PM Subjective & Objective Subjective Subjective:: Patient is a pleasant 73-year-old female who presents today via telehealth appointment for medication refill. Today she rates her pain as a 6 out of 10. Patient states that she was attempting to come into office for her appointment today and that her brother was cleaning off her car. Is covered in snow. She states that he does have a heart history and that he started having significant chest pain and was doubled over. Patient states that he refuses to go to the hospital to be evaluated however he does have a heart history with defibrillator in place. Patient states that he is visiting from [place] and that he does not have his record press supervisor local. Patient is currently managed with Percocet 5 mg 4 times a day from our office along with compounded cream. She denies any side effects from this medication. She is also in the process of getting checked out by cardiology in order to replace her spinal cord stimulator. Patient states that that appointment was rescheduled from Friday to Friday however that there is additional weather coming in on Friday and feels like most likely they are going to reschedule this appointment as well. Patient states that she is going to call her office and make sure that she gets a follow-up very soon so she can proceed forward with her stimulator replacements. Her Farhan has been reviewed and is appropriate. Review of Systems: General: No recent weight changes, no fever, no sleep disturbances Respiratory: No cough, no shortness of air, no recurring pulmonary infections Cardiovascular/peripheral vascular: No chest pain, no palpitations, no edema, no shortness of breath Gastrointestinal: No new onset incontinence, normal bowel movements reported Genitourinary: No new onset incontinence Musculoskeletal: Low back pain Psychiatric: [Normal mood/affect] Neurological: [Denies weakness in extremities], [denies balance issues] Pain at rest (0-10 scale): 6 Objective Objective:: General: Alert and oriented x3, pleasant and cooperative Lungs: Patient is able to say complete sentences without dyspnea Neurological: Speech clear Has patient had previous pain injection?: No Conservative treatment options previously tried: Prescription medications Length of treatment: Longer than 12 weeks Meds Home Medications and Allergies Home Medications ?Medication ?Instructions ?Recorded ?Confirmed ?Type calcium carbonate 500 mg PO DAILY Supplement 01/07/18 03/30/24 History omeprazole 20 mg capsule,delayed 20 mg PO DAILY stomach 01/07/18 03/30/24 History release insulin glargine 100 unit/mL (3 25 unit SQ DAILY Diabetes 01/26/18 03/30/24 History mL) subcutaneous pen dapagliflozin propaned 10 10 - 1,000 tab PO DAILY Diabetes 10/15/21 03/30/24 History mg-metformin ER 1,000 mg tablet,ext rel 24hr rosuvastatin 20 mg tablet 20 mg PO DAILY Cholesterol 08/08/22 03/30/24 History diclofenac sodium 75 mg 75 mg PO BID Pain #60 tabs 08/15/22 03/30/24 Rx tablet,delayed release sertraline 25 mg tablet 25 mg PO DAILY 03/17/24 03/30/24 History oxycodone-acetaminophen 5 mg-325 1 tab PO QID #120 tabs 03/29/24 03/30/24 Rx mg tablet (Percocet) bupropion HCl 150 mg 24 hr tablet, 150 mg PO ONCE 03/30/24 03/30/24 History extended release denosumab 60 mg/mL subcutaneous 60 mg SQ [id number] 03/30/24 03/30/24 History syringe (Prolia) fexofenadine 60 mg tablet 60 mg PO BID PRN 03/30/24 History methocarbamol 500 mg tablet 500 mg PO BID PRN 03/30/24 History tizanidine 4 mg tablet (Zanaflex) 4 mg PO BID PRN 03/30/24 History oxycodone-acetaminophen 5 mg-325 1 tab PO QID #40 tabs 04/29/24 Rx mg tablet (Percocet) New Prescriptions to Start Prescriptions: Allergies Allergy/AdvReac Type Severity Reaction Status Date / Time methylprednisolone (From Allergy Intermediate Rash Verified 03/30/24 14:59 Depo-Medrol) prednisone Allergy Intermediate I-HIVES Verified 03/30/24 14:59 sulfamethoxazole (From Allergy Intermediate I-HIVES Verified 03/30/24 14:59 Bactrim) trimethoprim (From Bactrim) Allergy Intermediate I-HIVES Verified 03/30/24 14:59 hydrocodone (From Hycodan Allergy Mild I-HIVES Verified 03/30/24 14:59 (with homatropin)) ibuprofen Allergy Mild Verified 03/30/24 14:59 Corticosteroids Allergy Hives Verified 03/30/24 14:59 (Glucocorticoids) Assessment and Plan *Assessment and plan (1) Degenerative disc disease, lumbar: Status: Acute Category: Medical Code(s): M51.369 - Other intervertebral disc degeneration, lumbar region without mention of lumbar back pain or lower extremity pain (2) Lumbar radiculopathy: Status: Acute Category: Medical Code(s): M54.16 - Radiculopathy, lumbar region Plan Patient was very upset and emotional with her brothers ongoing pain from trying to clean off her vehicle to come to this appointment. I did executive assistant to general counsel the patient that she can call the ambulance service and they will come to her and check out his vitals and can at least be beneficial in making sure he is in stable condition or whether or not they would recommend an further evaluation. Patient acknowledges understanding and agrees with this plan of care. She does state that she will be contacting them as soon as we get off the phone today. This visit was occurring at the patient's home and she did give verbal consent for this audio appointment. I will refill the patient's Percocet and provide a 1 month supply of this medication. Patient will be given a 1 month follow-up for our office. We will also continue to monitor her cardiology checkup in order to proceed forward with the stimulator replacement. This visit occurred from [id number]. Risks and benefits of the medication have been explained in detail to the inocencia ent. The patient does understand the risk of dependence on the medication when given over a prolonged period. Patient has been advised of risks of oversedation with the prescribed medication. Narcan has been offered to the paitent in the event of oversedation. Patient has been advised that a family member should also be educated regarding administration of Narcan. The patient has been advised to consult with his/her primary care provider and pharmacist regarding drug-drug interaction of medications currently prescribed. Patient has been prescribed a controlled substance after being counseled on the medication, medication safety, and possible side effects. Opioid contract was reviewed and signed by the patient, and that they have agreed to all of the terms set forth by our compliance program. A UDS is needed to verify patient's compliance with our office pain contract. This is ordered based off specific treatments related to chronic pain with the potential to abuse certain medications. Patient has been instructed to contact the clinic with any concerns before the next appointment. Dr. Del Real has reviewed this note and agrees with this plan of care. This note was dictated using voice recognition software and make contain errors or omissions.
== END 2024-05-12 23:59 | disposition home or self-care (01) ==
PROVIDERS: Visit Provider Nurse Practitioner Family
DX: M51.16 Intervertebral disc disorders with radiculopathy, lumbar region (principal)
CPT/HCPCS: 99212; G0463

== ENCOUNTER 2024-06-11 12:28 | Outpatient (POV) | payer MEDICARE, OTHER, SELFPAY ==
[2024-06-11 13:07] VITALS: BP 126/76; PULSE 76; RESP 18; O2SAT 96; BMI 24.9
--- NOTE | 2024-06-11 13:10 | EXP.PAIN.SOA ---
[facility] Disclaimer: The information contained in this section may have been updated after the patient was seen, as this information can be updated by other users. Medical History HLD (hyperlipidemia) Fatigue Chest pain Hx of temporomandibular joint disorder Diabetes mellitus DDD (degenerative disc disease) Hx of cancer of lung Surgical History History of surgery on arm History of lobectomy of lung S/P insertion of spinal cord stimulator Hx of neck surgery History of appendectomy History of section Family History Other Family history of acute heart failure Family history of hyperlipidemia Lung cancer Social History Smoking Status: Never smoker second hand exposure: No alcohol intake: never substance use type: denies use current occupational status: other Travel in the last 8 weeks: None household members: family housing: house marital status: education level: college current occupational exposures/hazards: No caffeine: Yes special alison needs: No agree to transfusion: No do you feel safe at home: Yes victim of physical abuse: No victim of emotional abuse: No victim of sexual abuse: No would you like helpful sources: No Have you lived/traveled outside [place] in past 30 days?: No Contact w/someone who lives/traveled outside [place] past 30 days?: No Exposure to someone with infectious disease in past 14 days?: No Do you have a fever (greater than 100.4 F or 38 C)?: No Have you tested positive for COVID-19: No Exposed to someone with COVID-19 in past 14 days?: No Do you have a sore throat?: No Do you have a cough?: No Do you have any weakness?: No Do you have any diarrhea?: No Are you experiencing any unusual bleeding?: No Do you have any muscle aches/pain?: No Do you have any abdominal pain?: No Are you experiencing loss of taste or smell?: No PM Subjective & Objective Subjective Subjective:: Patient is a pleasant 73-year-old female who presents today via telehealth appointment for medication refill. Today she rates her pain as a 7 out of 10. She denies any new trauma or injury. She does state that she continues to seem to have increased pain in her low back that does radiate down that right leg. Patient was scheduled to have her stimulator replaced due to end-of-life however ended up having some abnormal EKG and was having to get cleared by cardiology. She does state that she did call and is officially scheduled for an appointment with their office next Friday. Patient does state that she would like to proceed forward with the stimulator replacement as soon as possible if she is given cardiac clearance. Patient is currently managed with Percocet 5 mg 4 times a day from our office along with compounded cream. She denies any side effects from this medication. Her Farhan has been reviewed and is appropriate. Review of Systems: General: No recent weight changes, no fever, no sleep disturbances Respiratory: No cough, no shortness of air, no recurring pulmonary infections Cardiovascular/peripheral vascular: No chest pain, no palpitations, no edema, no shortness of breath Gastrointestinal: No new onset incontinence, normal bowel movements reported Genitourinary: No new onset incontinence Musculoskeletal: Low back pain Psychiatric: [Normal mood/affect] Neurological: [Denies weakness in extremities], [denies balance issues] Pain at rest (0-10 scale): 7 Objective Objective:: Physical Exam: General: Alert and oriented x3, no acute distress, pleasant and cooperative Lungs: Respirations even and unlabored, symmetrical chest expansion Eyes: PERRL Musculoskeletal: Flexion and extension of Lumbar [spine] somewhat guarded secondary to pain, [antalgic gait noted] Neurological: Speech clear, no gross sensory deficit Has patient had previous pain injection?: No Conservative treatment options previously tried: Home exercise plan Length of treatment: Longer than 12 weeks Meds Home Medications and Allergies Home Medications ?Medication ?Instructions ?Recorded ?Confirmed ?Type calcium carbonate 500 mg PO DAILY Supplement 01/07/18 06/11/24 History omeprazole 20 mg capsule,delayed 20 mg PO DAILY stomach 01/07/18 06/11/24 History release insulin glargine 100 unit/mL (3 25 unit SQ DAILY Diabetes 01/26/18 06/11/24 History mL) subcutaneous pen dapagliflozin propaned 10 10 - 1,000 tab PO DAILY Diabetes 10/15/21 06/11/24 History mg-metformin ER 1,000 mg tablet,ext rel 24hr rosuvastatin 20 mg tablet 20 mg PO DAILY Cholesterol 08/08/22 06/11/24 History diclofenac sodium 75 mg 75 mg PO BID Pain #60 tabs 08/15/22 06/11/24 Rx tablet,delayed release sertraline 25 mg tablet 25 mg PO DAILY 03/17/24 06/11/24 History bupropion HCl 150 mg 24 hr tablet, 150 mg PO ONCE 03/30/24 06/11/24 History extended release denosumab 60 mg/mL subcutaneous 60 mg SQ [id number] 03/30/24 06/11/24 History syringe (Prolia) fexofenadine 60 mg tablet 60 mg PO BID PRN Allergic Reaction 03/30/24 06/11/24 History methocarbamol 500 mg tablet 500 mg PO BID PRN Pain 03/30/24 06/11/24 History tizanidine 4 mg tablet (Zanaflex) 4 mg PO BID PRN Muscle Pain 03/30/24 06/11/24 History oxycodone-acetaminophen 5 mg-325 1 tab PO QID #120 tabs 05/12/24 06/11/24 Rx mg tablet (Percocet) New Prescriptions to Start Prescriptions: Allergies Allergy/AdvReac Type Severity Reaction Status Date / Time methylprednisolone (From Allergy Intermediate Rash Verified 06/11/24 13:11 Depo-Medrol) prednisone Allergy Intermediate I-HIVES Verified 06/11/24 13:11 sulfamethoxazole (From Allergy Intermediate I-HIVES Verified 06/11/24 13:11 Bactrim) trimethoprim (From Bactrim) Allergy Intermediate I-HIVES Verified 06/11/24 13:11 hydrocodone (From Hycodan Allergy Mild I-HIVES Verified 06/11/24 13:11 (with homatropin)) ibuprofen Allergy Mild Other Verified 06/11/24 13:11 Corticosteroids Allergy Hives Verified 06/11/24 13:11 (Glucocorticoids) Assessment and Plan *Assessment and plan (1) Lumbar radiculopathy: Status: Acute Category: Medical Code(s): M54.16 - Radiculopathy, lumbar region (2) Degenerative disc disease, lumbar: Status: Acute Category: Medical Code(s): M51.369 - Other intervertebral disc degeneration, lumbar region without mention of lumbar back pain or lower extremity pain Plan I will refill the patient's Percocet and provide a 1 month supply of this medication. Patient is still in the process of getting everything worked out for her spinal cord stimulator replacement. We will continue to monitor her progression. Patient was counseled to call us after her appointment next week if she is given cardiac clearance and we will go ahead and get her tentatively on her OR schedule for the replacement. Patient acknowledges understanding. Patient will return to clinic in 1 month for reevaluation of symptoms and plan of care. Risks and benefits of the medication have been explained in detail to the patient. The patient does understand the risk of dependence on the medication when given over a prolonged period. Patient has been advised of risks of oversedation with the prescribed medication. Narcan has been offered to the paitent in the event of oversedation. Patient has been advised that a family member should also be educated regarding administration of Narcan. The patient has been advised to consult with his/her primary care provider and pharmacist regarding drug-drug interaction of medications currently prescribed. Patient has been prescribed a controlled substance after being counseled on the medication, medication safety, and possible side effects. Opioid contract was reviewed and signed by the patient, and that they have agreed to all of the terms set forth by our compliance program. A UDS is needed to verify patient's compliance with our office pain contract. This is ordered based off specific treatments related to chronic pain with the potential to abuse certain medications. Patient has been instructed to contact the clinic with any concerns before the next appointment. Dr. Del Real has reviewed this note and agrees with this plan of care. This note was dictated using voice recognition software and make contain errors or omissions.
== END 2024-06-11 23:59 | disposition home or self-care (01) ==
PROVIDERS: PCP Internal Medicine Adolescent Medicine; Visit Provider Nurse Practitioner Family
DX: M51.16 Intervertebral disc disorders with radiculopathy, lumbar region (principal)
CPT/HCPCS: 99212; G0463

== ENCOUNTER 2024-07-09 13:37 | Outpatient (POV) | payer MEDICARE, OTHER, SELFPAY ==
[2024-07-09 13:57] VITALS: BP 137/86; PULSE 74; RESP 16; O2SAT 96; BMI 24.9
--- NOTE | 2024-07-09 14:09 | A.OFFVIS_ITS ---
[facility] Disclaimer: The information contained in this section may have been updated after the patient was seen, as this information can be updated by other users. Medical History HLD (hyperlipidemia) Fatigue Chest pain Hx of temporomandibular joint disorder Diabetes mellitus DDD (degenerative disc disease) Hx of cancer of lung Surgical History History of surgery on arm History of lobectomy of lung S/P insertion of spinal cord stimulator Hx of neck surgery History of appendectomy History of section Family History Other Family history of acute heart failure Family history of hyperlipidemia Lung cancer Social History Smoking Status: Never smoker second hand exposure: No alcohol intake: never substance use type: denies use current occupational status: other Travel in the last 8 weeks: None household members: family housing: house marital status: education level: college current occupational exposures/hazards: No caffeine: Yes special alison needs: No agree to transfusion: No do you feel safe at home: Yes victim of physical abuse: No victim of emotional abuse: No victim of sexual abuse: No would you like helpful sources: No PM Subjective & Objective Subjective Subjective:: Patient is a pleasant 73-year-old female who presents today for monthly medication refill. Today she rates her pain a 6 out of 10. Patient does state that she still had a fall about 3 weeks ago related to the weather where she slipped. She states she did have her code on it only fell onto her bottom that was cushioned and does not feel like she did anything significant. Patient does state from her last visit that she ended up having to reschedule her cardiology appointment because she ended up being under the weather. Patient states from her last appointment she has had both flu A and B and is just now getting over her cough. 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 Patient is prescribed compounded cream and Percocet 5 mg 4 times a day from our office. She denies any side effects. Her Farhan has been reviewed and is appropriate. Review of Systems: General: No recent weight changes, no fever, no sleep disturbances Respiratory: No cough, no shortness of air, no recurring pulmonary infections Cardiovascular/peripheral vascular: No chest pain, no palpitations, no edema, no shortness of breath Gastrointestinal: No new onset incontinence, normal bowel movements reported Genitourinary: No new onset incontinence Musculoskeletal: Low back pain Psychiatric: [Normal mood/affect] Neurological: [Denies weakness in extremities], [denies balance issues] Pain at rest (0-10 scale): 6 Objective Objective:: Physical Exam: General: Alert and oriented x3, no acute distress, pleasant and cooperative Lungs: Respirations even and unlabored, symmetrical chest expansion Eyes: PERRL Musculoskeletal: Flexion and extension of lumbar [spine] somewhat guarded secondary to pain, [antalgic gait noted] Neurological: Speech clear, no gross sensory deficit Has patient had previous pain injection?: No Conservative treatment options previously tried: Prescription medications Length of treatment: Longer than 12 weeks Meds Home Medications and Allergies Home Medications ?Medication ?Instructions ?Recorded ?Confirmed ?Type calcium carbonate 500 mg PO DAILY Supplement 01/07/18 07/09/24 History omeprazole 20 mg capsule,delayed 20 mg PO DAILY stomach 01/07/18 07/09/24 History release insulin glargine 100 unit/mL (3 25 unit SQ DAILY Diabetes 01/26/18 07/09/24 History mL) subcutaneous pen dapagliflozin propaned 10 10 - 1,000 tab PO DAILY Diabetes 10/15/21 07/09/24 History mg-metformin ER 1,000 mg tablet,ext rel 24hr rosuvastatin 20 mg tablet 20 mg PO DAILY Cholesterol 08/08/22 07/09/24 History diclofenac sodium 75 mg 75 mg PO BID Pain #60 tabs 08/15/22 07/09/24 Rx tablet,delayed release sertraline 25 mg tablet 25 mg PO DAILY 03/17/24 07/09/24 History bupropion HCl 150 mg 24 hr tablet, 150 mg PO ONCE 03/30/24 07/09/24 History extended release denosumab 60 mg/mL subcutaneous 60 mg SQ [id number] 03/30/24 07/09/24 History syringe (Prolia) fexofenadine 60 mg tablet 60 mg PO BID PRN Allergic Reaction 03/30/24 07/09/24 History methocarbamol 500 mg tablet 500 mg PO BID PRN Pain 03/30/24 07/09/24 History tizanidine 4 mg tablet (Zanaflex) 4 mg PO BID PRN Muscle Pain 03/30/24 07/09/24 History oxycodone-acetaminophen 5 mg-325 1 tab PO QID #120 tabs 06/11/24 07/09/24 Rx mg tablet (Percocet) New Prescriptions to Start Prescriptions: Allergies Allergy/AdvReac Type Severity Reaction Status Date / Time methylprednisolone (From Allergy Intermediate Rash Verified 06/11/24 13:11 Depo-Medrol) prednisone Allergy Intermediate I-HIVES Verified 06/11/24 13:11 sulfamethoxazole (From Allergy Intermediate I-HIVES Verified 06/11/24 13:11 Bactrim) trimethoprim (From Bactrim) Allergy Intermediate I-HIVES Verified 06/11/24 13:11 hydrocodone (From Hycodan Allergy Mild I-HIVES Verified 06/11/24 13:11 (with homatropin)) ibuprofen Allergy Mild Other Verified 06/11/24 13:11 Corticosteroids Allergy Hives Verified 06/11/24 13:11 (Glucocorticoids) Assessment and Plan *Assessment and plan (1) Lumbar radiculopathy: Status: Acute Category: Medical Code(s): M54.16 - Radiculopathy, lumbar region (2) Degenerative disc disease, lumbar: Status: Acute Category: Medical Code(s): M51.369 - Other intervertebral disc degeneration, lumbar region without mention of lumbar back pain or lower extremity pain Plan I will refill the patient's Percocet and provide a 1 month supply of this medication. Patient will return to clinic in 1 month. I have counseled her to let us know how her cardiology appointment goes and we will tentatively plan to get her on the operating room schedule for August as long as she has cardiac clearance. She agrees with this plan of care. Risks and benefits of the medication have been explained in detail to the patient. The patient does understand the risk of dependence on the medication when given over a prolonged period. Patient has been advised of risks of oversedation with the prescribed medicat ion. Narcan has been offered to the paitent in the event of oversedation. Patient has been advised that a family member should also be educated regarding administration of Narcan. The patient has been advised to consult with his/her primary care provider and pharmacist regarding drug-drug interaction of medications currently prescribed. Patient has been prescribed a controlled substance after being counseled on the medication, medication safety, and possible side effects. Opioid contract was reviewed and signed by the patient, and that they have agreed to all of the terms set forth by our compliance program. A UDS is needed to verify patient's compliance with our office pain contract. This is ordered based off specific treatments related to chronic pain with the potential to abuse certain medications. Patient has been instructed to contact the clinic with any concerns before the next appointment. Dr. Del Real has reviewed this note and agrees with this plan of care. This note was dictated using voice recognition software and make contain errors or omissions.
== END 2024-07-09 23:59 | disposition home or self-care (01) ==
PROVIDERS: PCP Internal Medicine Adolescent Medicine; Visit Provider Nurse Practitioner Family
DX: M51.16 Intervertebral disc disorders with radiculopathy, lumbar region (principal)
CPT/HCPCS: 99212; G0463

== ENCOUNTER 2024-08-09 13:07 | Outpatient (POV) | payer MEDICARE, OTHER, SELFPAY ==
[2024-08-09 13:36] VITALS: BP 134/73; PULSE 74; RESP 18; O2SAT 97; BMI 24.9
--- NOTE | 2024-08-09 13:54 | A.OFFVIS_ITS ---
[facility] Disclaimer: The information contained in this section may have been updated after the patient was seen, as this information can be updated by other users. Medical History HLD (hyperlipidemia) Fatigue Chest pain Hx of temporomandibular joint disorder Diabetes mellitus DDD (degenerative disc disease) Hx of cancer of lung right lobe removed Surgical History History of surgery on arm History of lobectomy of lung S/P insertion of spinal cord stimulator Hx of neck surgery History of appendectomy History of section Family History Other Family history of acute heart failure Family history of hyperlipidemia Lung cancer Social History Smoking Status: Never smoker second hand exposure: No alcohol intake: never substance use type: denies use current occupational status: other Travel in the last 8 weeks: None household members: family housing: house marital status: education level: college current occupational exposures/hazards: No caffeine: Yes special alison needs: No agree to transfusion: No do you feel safe at home: Yes victim of physical abuse: No victim of emotional abuse: No victim of sexual abuse: No would you like helpful sources: No PM Subjective & Objective Subjective Subjective:: Patient is a pleasant 73-year-old female who presents today for medication refill and follow-up. Today she rates her pain a 5 out of 10. She denies any new trauma or injury. She does state that her allergies are flaring up currently and just feels like everything is swollen from her eyes to her face. Patient does state that she has been taking Zyrtec here recently. Patient did get her cardiac clearance to proceed forward with her spinal cord stimulator replacement. Patient is prescribed compounded cream and Percocet 5 mg 4 times a day from our office. She denies any side effects. Her Farhan has been reviewed and is appropriate. Review of Systems: General: No recent weight changes, no fever, no sleep disturbances Respiratory: No cough, no shortness of air, no recurring pulmonary infections Cardiovascular/peripheral vascular: No chest pain, no palpitations, no edema, no shortness of breath Gastrointestinal: No new onset incontinence, normal bowel movements reported Genitourinary: No new onset incontinence Musculoskeletal: Low back pain Psychiatric: [Normal mood/affect] Neurological: [Denies weakness in extremities], [denies balance issues] Pain at rest (0-10 scale): 5 Objective Objective:: Physical Exam: General: Alert and oriented x3, no acute distress, pleasant and cooperative Lungs: Respirations even and unlabored, symmetrical chest expansion Eyes: PERRL Musculoskeletal: Flexion and extension of lumbar [spine] somewhat guarded secondary to pain, [antalgic gait noted] Neurological: Speech clear, no gross sensory deficit Has patient had previous pain injection?: No Conservative treatment options previously tried: Home exercise plan Length of treatment: Longer than 12-week Meds Home Medications and Allergies Home Medications ?Medication ?Instructions ?Recorded ?Confirmed ?Type omeprazole 20 mg capsule,delayed 20 mg PO DAILY stomach 01/07/18 08/09/24 History release insulin glargine 100 unit/mL (3 25 unit SQ DAILY Diabetes 01/26/18 08/09/24 History mL) subcutaneous pen dapagliflozin propaned 10 10 - 1,000 tab PO DAILY Diabetes 10/15/21 08/09/24 History mg-metformin ER 1,000 mg tablet,ext rel 24hr rosuvastatin 20 mg tablet 20 mg PO DAILY Cholesterol 08/08/22 08/09/24 History diclofenac sodium 75 mg 75 mg PO BID Pain #60 tabs 08/15/22 08/09/24 Rx tablet,delayed release sertraline 25 mg tablet 25 mg PO DAILY 03/17/24 08/09/24 History bupropion HCl 150 mg 24 hr tablet, 150 mg PO ONCE 03/30/24 08/09/24 History extended release denosumab 60 mg/mL subcutaneous 60 mg SQ [id number] 03/30/24 08/09/24 History syringe (Prolia) fexofenadine 60 mg tablet 60 mg PO BID PRN Allergic Reaction 03/30/24 08/09/24 History methocarbamol 500 mg tablet 500 mg PO BID PRN Pain 03/30/24 08/09/24 History tizanidine 4 mg tablet (Zanaflex) 4 mg PO BID PRN Muscle Pain 03/30/24 08/09/24 History oxycodone-acetaminophen 5 mg-325 1 tab PO QID #120 tabs 07/09/24 08/09/24 Rx mg tablet (Percocet) ergocalciferol (vitamin D2) 1,250 1,250 mcg PO WEEKLY 07/15/24 08/09/24 History mcg (50,000 unit) capsule New Prescriptions to Start Prescriptions: Allergies Allergy/AdvReac Type Severity Reaction Status Date / Time methylprednisolone (From Allergy Intermediate Rash Verified 07/15/24 13:35 Depo-Medrol) prednisone Allergy Intermediate I-HIVES Verified 07/15/24 13:35 sulfamethoxazole (From Allergy Intermediate I-HIVES Verified 07/15/24 13:35 Bactrim) trimethoprim (From Bactrim) Allergy Intermediate I-HIVES Verified 07/15/24 13:35 hydrocodone (From Hycodan Allergy Mild I-HIVES Verified 07/15/24 13:35 (with homatropin)) ibuprofen Allergy Mild Other Verified 07/15/24 13:35 Corticosteroids Allergy Hives Verified 07/15/24 13:35 (Glucocorticoids) Assessment and Plan *Assessment and plan (1) Degenerative disc disease, lumbar: Status: Acute Category: Medical Code(s): M51.369 - Other intervertebral disc degeneration, lumbar region without mention of lumbar back pain or lower extremity pain (2) Lumbar radiculopathy: Status: Acute Category: Medical Code(s): M54.16 - Radiculopathy, lumbar region Plan We will refill her Percocet and provide a 1 month supply of this medication. Patient will return to clinic in 1 month. Patient was counseled that we will let her know if we have gotten insurance approval to get her on the August surgery date for her stimulator replacement. Patient agrees with this plan of care. Risks and benefits of the medication have been explained in detail to the patient. The patient does understand the risk of dependence on the medication when given over a prolonged period. Patient has been advised of risks of oversedation with the prescribed medication. Narcan has been offered to the paitent in the event of oversedation. Patient has been advised that a family member should also be educated regarding administration of Narcan. The patient has been advised to consult with his/her primary care provider and pharmacist regarding drug-drug interaction of medications currently prescribed. Patient has been prescribed a controlled substance after being counseled on the medication, medication safety, and possible side effects. Opioid contract was reviewed and signed by the patient, and that they have agreed to all of the terms set forth by our compliance program. A UDS is needed to verify patient's compliance with our office pain contract. This is ordered based off specific treatments related to chronic pain with the potential to abuse certain medications. Patient has been instructed to contact the clinic with any concerns before the next appointment. Dr. Del Real has reviewed this note and agrees with this plan of care. This note was dictated using voice recognition software and make contain errors or omissions.
== END 2024-08-09 23:59 | disposition home or self-care (01) ==
PROVIDERS: PCP Internal Medicine Adolescent Medicine; Visit Provider Nurse Practitioner Family
DX: M51.16 Intervertebral disc disorders with radiculopathy, lumbar region (principal)
CPT/HCPCS: 99212; G0463

== ENCOUNTER 2024-09-06 14:10 | Outpatient (POV) | payer MEDICARE, OTHER, SELFPAY ==
[2024-09-06 14:39] VITALS: BP 133/76; PULSE 83; RESP 18; O2SAT 96; BMI 24.9
--- NOTE | 2024-09-06 14:55 | EXP.PAIN.SOA ---
[facility] Disclaimer: The information contained in this section may have been updated after the patient was seen, as this information can be updated by other users. Medical History HLD (hyperlipidemia) Fatigue Chest pain Hx of temporomandibular joint disorder Diabetes mellitus DDD (degenerative disc disease) Hx of cancer of lung right lobe removed Surgical History History of surgery on arm History of lobectomy of lung S/P insertion of spinal cord stimulator Hx of neck surgery History of appendectomy History of section Family History Other Family history of acute heart failure Family history of hyperlipidemia Lung cancer Social History Smoking Status: Never smoker second hand exposure: No alcohol intake: never substance use type: denies use current occupational status: other Travel in the last 8 weeks?: None household members: family housing: house marital status: education level: college current occupational exposures/hazards: No caffeine: Yes special alison needs: No agree to transfusion: No do you feel safe at home: Yes victim of physical abuse: No victim of emotional abuse: No victim of sexual abuse: No would you like helpful sources: No Have you lived/traveled outside [place] in past 30 days?: No Contact w/someone who lives/traveled outside [place] past 30 days?: No Exposure to someone with infectious disease in past 14 days?: No Do you have a fever (greater than 100.4 F or 38 C)?: No Have you tested positive for COVID-19?: No Exposed to someone with COVID-19 in past 14 days?: No Do you have a sore throat?: No Do you have a cough?: No Do you have any weakness?: No Do you have any diarrhea?: No Are you experiencing any unusual bleeding?: No Do you have any muscle aches/pain?: No Do you have any abdominal pain?: No Are you experiencing loss of taste or smell?: No PM Subjective & Objective Subjective Subjective:: Patient is a pleasant 73-year-old female who presents today for medication refill and follow-up. Today she rates her pain as 7 out of 10. She denies any new trauma or injury. Patient is currently managed with compounded cream and Percocet 5 mg 4 times a day from our office. She denies any side effects. Patient is scheduled to have her spinal cord stimulator replaced on Friday and does state that she is going for her preop labs tomorrow. Patient denies any other changes. Patient is still having the same chronic pain throughout her low back that is worse with lifting. Her Farhan has been reviewed and is appropriate. Review of Systems: General: No recent weight changes, no fever, no sleep disturbances Respiratory: No cough, no shortness of air, no recurring pulmonary infections Cardiovascular/peripheral vascular: No chest pain, no palpitations, no edema, no shortness of breath Gastrointestinal: No new onset incontinence, normal bowel movements reported Genitourinary: No new onset incontinence Musculoskeletal: Low back pain, leg pain Psychiatric: [Normal mood/affect] Neurological: [Denies weakness in extremities], [denies balance issues] Pain at rest (0-10 scale): 7 Objective Objective:: Physical Exam: General: Alert and oriented x3, no acute distress, pleasant and cooperative Lungs: Respirations even and unlabored, symmetrical chest expansion Eyes: PERRL Musculoskeletal: Flexion and extension of lumbar [spine] somewhat guarded secondary to pain, [antalgic gait noted] Neurological: Speech clear, no gross sensory deficit Has patient had previous pain injection?: No Conservative treatment options previously tried: Home exercise plan Length of treatment: Longer than 12 weeks Meds Home Medications and Allergies Home Medications ?Medication ?Instructions ?Recorded ?Confirmed ?Type omeprazole 20 mg capsule,delayed 20 mg PO DAILY stomach 01/07/18 09/06/24 History release insulin glargine 100 unit/mL (3 25 unit SQ DAILY Diabetes 01/26/18 09/06/24 History mL) subcutaneous pen dapagliflozin propaned 10 10 - 1,000 tab PO DAILY Diabetes 10/15/21 09/06/24 History mg-metformin ER 1,000 mg tablet,ext rel 24hr rosuvastatin 20 mg tablet 20 mg PO DAILY Cholesterol 08/08/22 09/06/24 History diclofenac sodium 75 mg 75 mg PO BID Pain #60 tabs 08/15/22 09/06/24 Rx tablet,delayed release sertraline 25 mg tablet 25 mg PO DAILY 03/17/24 09/06/24 History bupropion HCl 150 mg 24 hr tablet, 150 mg PO ONCE 03/30/24 09/06/24 History extended release denosumab 60 mg/mL subcutaneous 60 mg SQ [id number] 03/30/24 09/06/24 History syringe (Prolia) fexofenadine 60 mg tablet 60 mg PO BID PRN Allergic Reaction 03/30/24 09/06/24 History methocarbamol 500 mg tablet 500 mg PO BID PRN Pain 03/30/24 09/06/24 History tizanidine 4 mg tablet (Zanaflex) 4 mg PO BID PRN Muscle Pain 03/30/24 09/06/24 History ergocalciferol (vitamin D2) 1,250 1,250 mcg PO WEEKLY 07/15/24 09/06/24 History mcg (50,000 unit) capsule oxycodone-acetaminophen 5 mg-325 1 tab PO QID #120 tabs 08/09/24 09/06/24 Rx mg tablet (Percocet) New Prescriptions to Start Prescriptions: Allergies Allergy/AdvReac Type Severity Reaction Status Date / Time methylprednisolone (From Allergy Intermediate Rash Verified 07/15/24 13:35 Depo-Medrol) prednisone Allergy Intermediate I-HIVES Verified 07/15/24 13:35 sulfamethoxazole (From Allergy Intermediate I-HIVES Verified 07/15/24 13:35 Bactrim) trimethoprim (From Bactrim) Allergy Intermediate I-HIVES Verified 07/15/24 13:35 hydrocodone (From Hycodan Allergy Mild I-HIVES Verified 07/15/24 13:35 (with homatropin)) ibuprofen Allergy Mild Other Verified 07/15/24 13:35 Corticosteroids Allergy Hives Verified 07/15/24 13:35 (Glucocorticoids) Assessment and Plan *Assessment and plan (1) Lumbar radiculopathy: Status: Acute Category: Medical Code(s): M54.16 - Radiculopathy, lumbar region (2) Degenerative disc disease, lumbar: Status: Acute Category: Medical Code(s): M51.369 - Other intervertebral disc degeneration, lumbar region without mention of lumbar back pain or lower extremity pain Plan I will refill her Percocet and provide a 1 month supply of this medication. Patient will return to clinic in 1 month for reevaluation of symptoms and plan of care. Risks and benefits of the medication have been explained in detail to the patient. The patient does understand the risk of dependence on the medication when given over a prolonged period. Patient has been advised of risks of oversedation with the prescribed medication. Narcan has been offered to the paitent in the event of oversedation. Patient has been advised that a family member should also be educated regarding administration of Narcan. The patient has been advised to consult with his/her primary care provider and pharmacist regarding drug-drug interaction of medications currently prescribed. Patient has been prescribed a controlled substance after being counseled on the medication, medication safety, and possible side effects. Opioid contract was reviewed and signed by the patient, and that they have agreed to all of the terms set forth by our compliance program. A UDS is needed to verify patient's compliance with our office pain contract. This is ordered based off specific treatments related to chronic pain with the potential to abuse certain medications. Patient has been instructed to contact the clinic with any concerns before the next appointment. Dr. Del Real has reviewed this note and agrees with this plan of care. This note was dictated using voice recognition software and make contain errors or omissions.
== END 2024-09-06 23:59 | disposition home or self-care (01) ==
PROVIDERS: PCP Internal Medicine Adolescent Medicine; Visit Provider Nurse Practitioner Family
DX: M51.16 Intervertebral disc disorders with radiculopathy, lumbar region (principal)
CPT/HCPCS: 99212; G0463

== ENCOUNTER 2024-09-07 13:26 | Outpatient (CLI) | payer MEDICARE, OTHER, SELFPAY ==
[2024-09-07 14:18] LABS: Chloride 110 mmol/L (98-107); Sodium 139 mmol/L (136-145)
[2024-09-07 14:19] LABS: Potassium 4.3 mmoL/L (3.5-5.1)
[2024-09-07 14:21] LABS: Basophils % 0.6 % (0.1-2.0); Eosinophils # 0.1 Kmm3 (0.0-0.4); Eosinophils % 1.8 % (0.1-12.0); Hematocrit 42.2 % (37.0-47.0); Hemoglobin 14.4 g/dL (12.2-16.2); Immature Granulocytes # 0.02 10^3uL; Immature Granulocytes % 0.3 %; Lymphocytes # 1.6 K/mm3 (0.7-4.5); Lymphocytes % 23.2 % (10-50); Mean Corpuscular HGB Conc 34.1 g/dL (31.8-35.4); Mean Corpuscular Hemoglobin 28.3 pg (27.0-31.2); Mean Corpuscular Volume 83.1 fl (81-99); Mean Platelet Volume 9.2 fl (7.4-10.4); Monocytes # 0.3 K/mm3 (0.1-1.0); Monocytes % 4.4 % (1.7-9.3); Neutrophils # 4.9 K/mm3 (1.8-7.8); Neutrophils % 69.7 % (37.0-80.0); Nucleated Red Blood Cells # 0 10^3/uL; Nucleated Red Blood Cells % 0 %; Platelet Count 238 K/mm3 (142-424); Red Blood Count 5.08 M/mm3 (4.20-5.40); Red Cell Distribution Width 14.2 % (11.5-17.5); Red Cell Distribution Width-SD 42.8 fL
[2024-09-07 14:22] LABS: Anion Gap 12.3 mEq/L (5-15); Blood Urea Nitrogen 12 mg/dl (7-17); Calcium 8.7 mg/dl (8.4-10.2); Carbon Dioxide 21 mmol/L (22.0-30.0); Estimated Glomerular Filt Rate 121 ml/min (>60); GFR (African American) 146 ML/MIN (>60); Glucose 149 mg/dl (74-100)
== END 2024-09-07 23:59 | disposition home or self-care (01) ==
LOC: PREOP 13:27
PROVIDERS: PCP Internal Medicine Adolescent Medicine; Visit Provider Anesthesiology
DX: Z01.812 Encounter for preprocedural laboratory examination (principal); M54.16 Radiculopathy, lumbar region
CPT/HCPCS: 80048; 85025

== ENCOUNTER 2024-09-10 06:02 | Day surgery (SDC) | payer MEDICARE, OTHER, SELFPAY ==
[2024-09-07 14:15] VITALS: BMI 24.9
[2024-09-10] MEDS: LACTATED RINGERS 1000ML 1,000 ML 25 ML IV (06:18)
[2024-09-10 06:22] VITALS: BP 132/81; PULSE 79; RESP 18; TEMP 36.6; O2SAT 95
[2024-09-10 06:45] LABS: POC Glucose,Bedside 173 (70-110)
--- NOTE | 2024-09-10 07:05 | P.PNANES_ITS ---
[facility] Disclaimer: The information contained in this section may have been updated after the patient was seen, as this information can be updated by other users. Medical History HLD (hyperlipidemia) Fatigue Chest pain Hx of temporomandibular joint disorder Diabetes mellitus DDD (degenerative disc disease) Hx of cancer of lung right lobe removed Surgical History History of surgery on arm History of lobectomy of lung S/P insertion of spinal cord stimulator Hx of neck surgery History of appendectomy History of section Family History Other Family history of acute heart failure Family history of hyperlipidemia Lung cancer Social History Smoking Status: Never smoker second hand exposure: No alcohol intake: never substance use type: denies use current occupational status: retired Travel in the last 8 weeks?: Inside the [place] household members: family housing: house marital status: education level: college current occupational exposures/hazards: No caffeine: Yes special alison needs: No agree to transfusion: No do you feel safe at home: Yes victim of physical abuse: No victim of emotional abuse: No victim of sexual abuse: No would you like helpful sources: No Have you lived/traveled outside US in past 30 days?: No Contact w/someone who lives/traveled outside US past 30 days?: No Exposure to someone with infectious disease in past 14 days?: No Do you have a fever (greater than 100.4 F or 38 C)?: No Have you tested positive for COVID-19?: No Exposed to someone with COVID-19 in past 14 days?: No Do you have a sore throat?: No Do you have a cough?: No Do you have any weakness?: No Do you have any diarrhea?: No Are you experiencing any unusual bleeding?: No Do you have any muscle aches/pain?: No Do you have any abdominal pain?: No Are you experiencing loss of taste or smell?: No [facility] Anesthesia Checklist Patient Identification Patient Identification: Arm Band and Family Structural Data Admitted From: Home Planned Operative Procedure/s: SCS Verified Documents: Surgical Consent and History and Physical NPO Status Verified Time NPO: 00:00 Additional verifications Patient : No Anesthesia Reactions: No Hx Blood Transfusions: No Blood Transfusion Reaction: No Cephalosporin Allergy: No Previous Colonoscopy: Yes Airway Assessment Mallampati Score:: Class II C-Spine Mobility Assessed: Yes TMJ Mobility Assessed: Yes Dentition: Good Dentition Neurological Assessment Level of Consciousness: Awake, Alert, Appropriate and Follows Commands Hx Seizures: No Numbness or tingling in extremities: No Anesthesia Plan Anesthesia Risk discussed: Yes ASA Class: II Anesthesia Type: MAC
[2024-09-10] MEDS: CEFAZOLIN SODIUM 1 GM in 0.9 % SODIUM CHLORIDE 50 ML IV (08:30)
[2024-09-10] MEDS: SODIUM CHLORIDE 0.9% 20ML VIAL 40 ML IV (08:49)
[2024-09-10] MEDS: GENTAMICIN 80 MG/2 ML VIAL (08:50)
[2024-09-10] MEDS: LIDOCAINE 1% W/EPI 1:100,000 20ML VIAL 40 ML (08:50)
[2024-09-10 09:07] VITALS: BP 118/73; PULSE 78; RESP 16; TEMP 36.1; O2SAT 95
--- NOTE | 2024-09-10 09:19 | EXP.OP.NOTE ---
Date of procedure: 09/10/24 Pre-op Diagnosis:: End-of-life spinal cord stimulator battery Post-op Diagnosis:: Same Procedure performed:: Replacement spinal cord stimulator battery Surgeon:: Hemant Del Real MD Anesthesia: MAC Estimated blood loss (mL): 5 Clinical Note:: This patient is a pleasant 73-year-old white female who has a [employer] spinal cord stimulator in place. Her battery is currently . She has end-of-life of her battery as she has had issues with charging. We have talked about replacing her battery with a nonrechargeable prime battery. We will plan on doing this as to alleviate her charge burden. We will also check her leads to make sure they are in good position. Operative findings:: None Operative note:: Informed consent was obtained risk and benefits of the procedure were explained to the patient. The patient was taken the operating placed prone on the procedure table. She was prepped and draped in sterile fashion. C-arm fluoroscopy was used to view the leads and generator. The leads were at the T8-T9 and T10 vertebral bodies. They did seem to be in good position. We anesthetized the skin and subcutaneous tissues overlying the battery. We made an incision dissected out the battery. I disconnected the leads. I attached the new leads to the new prime battery. There was 1 contact out on these leads. I made the decision not to replace her leads due to excessive scar tissue. We will continue to monitor this 1 contact in recovery. Other than this the leads were functional impedances were okay and the leads were in good position. The battery was placed in the pocket. The incision was then closed 2-0 Vicryl followed by 4-0 nylon and julius. The patient tolerated the procedure well with no complications. Patient was programmed by the [employer] public service representative with good stimulation in all areas of pain. Condition: stable Disposition: PACU Complications:: none
[2024-09-10 09:22] VITALS: BP 112/70; PULSE 73; RESP 18; O2SAT 96
[2024-09-10 09:40] VITALS: BP 112/70; PULSE 73; RESP 16; O2SAT 96
== END 2024-09-10 09:40 | disposition home or self-care (01) ==
PROVIDERS: PCP Internal Medicine Adolescent Medicine; Visit Provider Anesthesiology
PROC: (CPT 63685; principal; 2024-09-10 07:30)
DX: Z45.42 Encounter for adjustment and management of neurostimulator (principal); M51.16 Intervertebral disc disorders with radiculopathy, lumbar region; E78.5 Hyperlipidemia, unspecified; E11.9 Type 2 diabetes mellitus without complications; Z85.118 Personal history of other malignant neoplasm of bronchus and lung; Z90.2 Acquired absence of lung [part of]; Z88.8 Allergy status to other drugs, medicaments and biological substances; Z88.2 Allergy status to sulfonamides; Z88.5 Allergy status to narcotic agent; Z79.899 Other long term (current) drug therapy
CPT/HCPCS: 63685; 82962; 96374; C1820; J1580; J2003; J2004; J2405; J2704; J7120

== ENCOUNTER 2024-09-16 14:54 | Outpatient (POV) | payer MEDICARE, OTHER, SELFPAY ==
--- NOTE | 2024-09-16 15:20 | A.OFFVIS_ITS ---
[facility] Disclaimer: The information contained in this section may have been updated after the patient was seen, as this information can be updated by other users. Medical History HLD (hyperlipidemia) Fatigue Chest pain Hx of temporomandibular joint disorder Diabetes mellitus DDD (degenerative disc disease) Hx of cancer of lung right lobe removed Surgical History History of surgery on arm History of lobectomy of lung S/P insertion of spinal cord stimulator Hx of neck surgery History of appendectomy History of section Family History Other Family history of acute heart failure Family history of hyperlipidemia Lung cancer Social History Smoking Status: Never smoker second hand exposure: No alcohol intake: never substance use type: denies use current occupational status: retired Travel in the last 8 weeks?: Inside the [employer] [place] household members: family housing: house marital status: education level: college current occupational exposures/hazards: No caffeine: Yes special alison needs: No agree to transfusion: No do you feel safe at home: Yes victim of physical abuse: No victim of emotional abuse: No victim of sexual abuse: No would you like helpful sources: No PM Subjective & Objective Subjective Subjective:: Patient is a pleasant 73-year-old female who presents today for 1 week postop of her [employer] spinal cord stimulator generator replacement. Today she rates her pain a 1 out of 10. She denies any new trauma or injury. Patient does state that overall she has done really well from this procedure and definitely notices a big difference now that the stimulator is back functioning. Patient does state that it does not take all the pain away but it definitely brings it down to a much more manageable level. Patient denies any other changes. She is prescribed Percocet 4 times a day from our office. Her Farhan has been reviewed and is appropriate. Review of Systems: General: No recent weight changes, no fever, no sleep disturbances Respiratory: No cough, no shortness of air, no recurring pulmonary infections Cardiovascular/peripheral vascular: No chest pain, no palpitations, no edema, no shortness of breath Gastrointestinal: No new onset incontinence, normal bowel movements reported Genitourinary: No new onset incontinence Musculoskeletal: Low back pain Psychiatric: [Normal mood/affect] Neurological: [Denies weakness in extremities], [denies balance issues] Pain at rest (0-10 scale): 1 Objective Objective:: Physical Exam: General: Alert and oriented x3, no acute distress, pleasant and cooperative Lungs: Respirations even and unlabored, symmetrical chest expansion Eyes: PERRL Musculoskeletal: Flexion and extension of lumbar [spine] somewhat guarded secondary to pain, [antalgic gait noted] Neurological: Speech clear, no gross sensory deficit Skin: Incision site is clean, dry, well-approximated with mild erythema noted sutures and julius intact Has patient had previous pain injection?: No Conservative treatment options previously tried: Home exercise plan Length of treatment: Longer than 12 weeks Meds Home Medications and Allergies Home Medications ?Medication ?Instructions ?Recorded ?Confirmed ?Type omeprazole 20 mg capsule,delayed 20 mg PO DAILY stomach 01/07/18 09/07/24 History release insulin glargine 100 unit/mL (3 25 unit SQ DAILY Diabetes 01/26/18 09/07/24 History mL) subcutaneous pen dapagliflozin propaned 10 10 - 1,000 tab PO DAILY Diabetes 10/15/21 09/07/24 History mg-metformin ER 1,000 mg tablet,ext rel 24hr rosuvastatin 20 mg tablet 20 mg PO DAILY Cholesterol 08/08/22 09/07/24 History sertraline 25 mg tablet 25 mg PO DAILY 03/17/24 09/07/24 History denosumab 60 mg/mL subcutaneous 60 mg SQ [id number] 03/30/24 09/07/24 History syringe (Prolia) fexofenadine 60 mg tablet 60 mg PO BID PRN Allergic Reaction 03/30/24 09/07/24 History tizanidine 4 mg tablet (Zanaflex) 4 mg PO BID PRN Muscle Pain 03/30/24 09/07/24 History ergocalciferol (vitamin D2) 1,250 1,250 mcg PO WEEKLY 07/15/24 09/07/24 History mcg (50,000 unit) capsule oxycodone-acetaminophen 5 mg-325 1 tab PO QID #120 tabs 09/06/24 09/07/24 Rx mg tablet (Percocet) clindamycin HCl 300 mg capsule 300 mg PO BID #20 caps 09/10/24 Rx New Prescriptions to Start Prescriptions: Allergies Allergy/AdvReac Type Severity Reaction Status Date / Time methylprednisolone (From Allergy Intermediate Rash Verified 09/10/24 06:20 Depo-Medrol) prednisone Allergy Intermediate I-HIVES Verified 09/10/24 06:20 sulfamethoxazole (From Allergy Intermediate I-HIVES Verified 09/10/24 06:20 Bactrim) trimethoprim (From Bactrim) Allergy Intermediate I-HIVES Verified 09/10/24 06:20 hydrocodone (From Hycodan Allergy Mild I-HIVES Verified 09/10/24 06:20 (with homatropin)) ibuprofen Allergy Mild Other Verified 09/10/24 06:20 Corticosteroids Allergy Hives Verified 09/10/24 06:20 (Glucocorticoids) Assessment and Plan *Assessment and plan (1) Degenerative disc disease, lumbar: Status: Acute Category: Medical Code(s): M51.369 - Other intervertebral disc degeneration, lumbar region without mention of lumbar back pain or lower extremity pain (2) Lumbar radiculopathy: Status: Acute Category: Medical Code(s): M54.16 - Radiculopathy, lumbar region Plan I did residential substance abuse counselor the patient to continue her postop restrictions the full 6 weeks. Patient was able to meet with [employer] technical sales representatives today however felt like her programming was doing really well and did not want to make any adjustments. They did go over some of the different type programming such as fast and we will continue to monitor this. Patient was counseled to continue her postop restrictions the full 6 weeks including minimal bending, lifting and twisting, no submerging in water until her incisions are fully healed and to continue to use her abdominal binder from time to time to prevent seroma formation. Patient acknowledges understanding agrees with this plan of care. Patient will return to clinic in 2 weeks for suture and staple removal. Patient agrees with this plan of care. Patient has been instructed to contact the clinic with any concerns before the next appointment. Dr. Del Real has reviewed this note and agrees with this plan of care. This note was dictated using voice recognition software and make contain errors or omissions. All injections are used with Lidocaine, Bupivacaine and dexamethasone. Occasionally urine drug screen is needed to verify patient's compliance with our office pain contract. This is ordered based off specific treatments related to chronic pain with the potential to abuse certain medications.
[2024-09-16 15:39] VITALS: BP 131/82; PULSE 88; RESP 12; O2SAT 94; BMI 24.3
== END 2024-09-16 23:59 | disposition home or self-care (01) ==
LOC: SC.PAIN 14:55
PROVIDERS: PCP Internal Medicine Adolescent Medicine; Visit Provider Nurse Practitioner Family
DX: M51.16 Intervertebral disc disorders with radiculopathy, lumbar region (principal)
CPT/HCPCS: 99212; G0463

== ENCOUNTER 2024-09-22 00:52 | Observation (INO) | payer MEDICARE, OTHER, SELFPAY ==
[2024-09-22] VITALS (9 sets, daily range): BP systolic 118–158; BP diastolic 67–94; PULSE 90–115; RESP 16–29; TEMP 36.8–37.7; O2SAT 94–98; BMI 22.3; BMI 25.4
--- NOTE | 2024-09-22 01:07 | CT_ITS ---
PROCEDURE INFORMATION: Exam: CT Abdomen And Pelvis With Contrast Exam date and time: 09/22/2024 2:14 AM Age: 73 years old Clinical indication: Other: ? Infection; Additional info: Low left back spincal cord stimulator ? infection TECHNIQUE: Imaging protocol: Computed tomography of the abdomen and pelvis with contrast. Radiation optimization: All CT scans at this facility use at least one of these dose optimization techniques: automated exposure control; mA and/or kV adjustment per patient size (includes targeted exams where dose is matched to clinical indication); or iterative reconstruction. Contrast material: ISOVUE; Contrast volume: 75 ml; Contrast route: IV; COMPARISON: CT ABDOMEN PELVIS WO CON 08/18/2023 10:37 AM FINDINGS: Lungs: Scattered areas of atelectasis in the lung bases. Liver: Normal. No mass. Gallbladder and biliary ducts: Normal. No calcified stones. No ductal dilation. Pancreas: Normal. No ductal dilation. Spleen: No change in irregularly shaped hypodense mass involving the spleen measuring 6.1 cm. This could reflect complex cyst or hemangioma but malignancy cannot be ruled out. Adrenal glands: Normal. No mass. Kidneys and ureters: Normal. No hydronephrosis. Stomach and bowel: Unremarkable. No obstruction. No mucosal thickening. Appendix: Appendix not clearly seen. No secondary signs of appendicitis Intraperitoneal space: Unremarkable. No free air. No significant fluid collection. Vasculature: Unremarkable. No abdominal aortic aneurysm. Lymph nodes: Unremarkable. No enlarged lymph nodes. Urinary bladder: Unremarkable as visualized. Reproductive: Unremarkable as visualized. Bones/joints: Unremarkable. No acute fracture. Soft tissues: Unremarkable. IMPRESSION: 1. No acute findings in the abdomen and pelvis. 2. Hypodense mass in the spleen could indicate hemangioma versus malignancy. Outpatient nonemergent ultrasound can be obtained for further evaluation. 3. No evidence for acute cholecystitis 4. Kidneys normal 5. No colitis 6. No small bowel obstruction 7. Appendix not seen
--- NOTE | 2024-09-22 01:14 | XR_ITS ---
PROCEDURE INFORMATION: Exam: XR Chest Exam date and time: 09/22/2024 1:54 AM Age: 73 years old Clinical indication: Other: Sepsis TECHNIQUE: Imaging protocol: Radiologic exam of the chest. Views: 2 views. COMPARISON: CR XR THORACIC SPINE 3V 03/30/2024 3:44 PM FINDINGS: Lungs: COPD. Mild areas of atelectasis in the lung bases.. No consolidation. Pleural spaces: Unremarkable. No pleural effusion. No pneumothorax. Heart/Mediastinum: Unremarkable. No cardiomegaly. Bones/joints: Unremarkable. IMPRESSION: No acute findings.
[2024-09-22 01:43] LABS: Appearance,Urine CLEAR (Clear); Basophils # 0.1 K/mm3 (0-0.2); Basophils % 0.5 % (0.1-2.0); Bilirubin,Urine Negative (Negative); Blood, Urine Negative (Negative); Color,Urine YELLOW (Yellow); Eosinophils # 0.1 Kmm3 (0.0-0.4); Glucose,Urine (UA) 3+ (Negative); Hematocrit 46.1 % (37.0-47.0); Hemoglobin 15.3 g/dL (12.2-16.2); Immature Granulocytes # 0.03 10^3uL; Immature Granulocytes % 0.2 %; Ketones,Urine Negative (Negative); Leukocyte Esterase,Urine Negative (Negative); Lymphocytes % 15.5 % (10-50); Mean Corpuscular HGB Conc 33.2 g/dL (31.8-35.4); Mean Corpuscular Hemoglobin 27.7 pg (27.0-31.2); Mean Corpuscular Volume 83.5 fl (81-99); Mean Platelet Volume 9.1 fl (7.4-10.4); Microscopic, Urine URINE MICROSCOPIC (MICROSCOPIC); Monocytes # 0.6 K/mm3 (0.1-1.0); Monocytes % 4.8 % (1.7-9.3); Neutrophils # 9.8 K/mm3 (1.8-7.8); Nitrate,Urine Negative (Negative); Nucleated Red Blood Cells # 0 10^3/uL; Nucleated Red Blood Cells % 0 %; Platelet Count 270 K/mm3 (142-424); Protein,Urine Negative (Negative); Red Blood Count 5.52 M/mm3 (4.20-5.40); Red Cell Distribution Width 14.2 % (11.5-17.5); Red Cell Distribution Width-SD 42.8 fL; Specific Gravity, Urine 1.015 (1.005-1.030); White Blood Count 12.6 K/mm3 (4.8-10.8)
[2024-09-22] MEDS: CEFTRIAXONE 1 GM 1 GM in 0.9 % SODIUM CHLORIDE 50 ML IV (01:46)
[2024-09-22] MEDS: LACTATED RINGERS 1000ML 1,700 ML 999 ML IV (01:53)
[2024-09-22] MEDS: VANCOMYCIN HCL 1,000 MG in 0.9 % SODIUM CHLORIDE 250 ML 125 MG IV (01:53)
[2024-09-22 01:55] LABS: Chloride 104 mmol/L (98-107)
[2024-09-22 01:56] LABS: Albumin Level 4.8 g/dl (3.5-5.0); Potassium 3.9 mmoL/L (3.5-5.1); Sodium 137 mmol/L (136-145)
[2024-09-22 01:58] LABS: Blood Urea Nitrogen 14 mg/dl (7-17); Creatinine Clearance Estimated 47 mL/min (50-200); Estimated Glomerular Filt Rate 82 ml/min (>60); GFR (African American) 99 ML/MIN (>60)
[2024-09-22 01:59] LABS: Alanine Aminotransferase 14 U/L (12-78); Albumin/Globulin Ratio 1.7 (1.1-1.8); Alkaline Phosphatase 74 U/L (38-126); Anion Gap 12.9 mEq/L (5-15); Aspartate Amino Transferase 19 U/L (14-36); Bilirubin,Total 0.7 mg/dl (0.2-1.3); Calcium 9.6 mg/dl (8.4-10.2); Carbon Dioxide 24 mmol/L (22.0-30.0); Globulin 2.8 g/dL (1.3-3.2); Glucose 145 mg/dl (74-100); Total Protein,Serum 7.6 g/dl (6.3-8.2)
[2024-09-22 01:59] LABS: Lactic Acid 0.9 mmol/L (0.7-2.1)
[2024-09-22 02:04] LABS: C-Reactive Protein 20.1 mg/L (0-4)
--- NOTE | 2024-09-22 02:04 | PC.NURSE ---
pt taken to ct scan at this time via wheelchair
--- NOTE | 2024-09-22 02:09 | ED_ITS ---
Discharge Plan Disposition Patient Disposition: Admitted Condition: Fair Chief Complaint: Wound/Laceration Prescriptions Prescriptions: No Action Prolia 60 mg/mL syringe 60 mg SQ [id number] Patient Comments: INJECT SUBCUTANEOULSY EVERY 6 MONTHS fexofenadine 60 mg tablet 60 mg PO BID PRN (Reason: Allergic Reaction) tizanidine [Zanaflex] 4 mg tablet 4 mg PO BID PRN (Reason: Muscle Pain) ergocalciferol (vitamin D2) 1,250 mcg (50,000 unit) capsule 1,250 mcg PO WEEKLY Patient Comments: TAKE 1 CAPSULE BY MOUTH ONCE A WEEK rosuvastatin 20 mg Tablet 20 mg PO DAILY sertraline 25 mg tablet 25 mg PO DAILY Patient Comments: TAKE 1 TABLET BY MOUTH ONCE DAILY oxycodone-acetaminophen [Percocet] 5-325 mg tablet 1 tab PO QID Qty: 120 0RF omeprazole 20 MG capsule,delayed release(DR/EC) 20 mg PO DAILY insulin glargine 100 UNIT/ML insulin pen 25 unit SQ DAILY dapaglifloz propaned-metformin 1 EACH tablet, IR - ER, biphasic 24hr 10 - 1,000 tab PO DAILY clindamycin HCl 300 mg capsule 300 mg PO BID Qty: 20 0RF Referrals Follow up/Referrals: Romulo Gleason MD [Primary Care Provider] - See instructions Clinical Impressions Clinical Impression: Surgical site infection, Sepsis Instructions Patient Instructions: DI for Laceration Repair Print Language Print Language: [place] Discharge ED Provider: Valentina Lawson General Adult HPI General Chief complaint: Wound/Laceration Stated complaint: spinal implant incision 09/10, redness, fever Time Seen by Provider: 09/22/24 01:06 Mode of Arrival: Ambulatory Source of Information: Patient Description of Symptoms (Recalled from ER Triage Doc. by RN): pt presents for eval of spinal surgical incision. Pt reports having nerve stimulator placed on 09-[address] Del Real with fever noticed today and body aches. History of Present Illness HPI narrative: 73-year-old female with history of spinal cord stimulator battery replacement on 09/10/2024 presents to the ER for evaluation of surgical incision. Patient reports she has had a spinal cord stimulator for many years but had battery replaced with Dr. Del Real on the ninth. She states she took clindamycin after the procedure and never had evidence of infection until tonight she noticed the redness and pain. Thought she maybe had a fever earlier today and is having bodyaches. She states her pain is currently mostly controlled because she took her back pain medicine prior to arrival. She denies any numbness, tingling, or weakness. She states the spinal cord stimulator is functioning the way it is supposed to. She is concerned that she has infection at the surgical site because it is hot, red, painful, swollen. No other complaints or concerns Related Data Home Medications ?Medication ?Instructions ?Recorded ?Confirmed omeprazole 20 mg capsule,delayed 20 mg PO DAILY stomach 01/07/18 09/16/24 release insulin glargine 100 unit/mL (3 25 unit SQ DAILY Diabetes 01/26/18 09/16/24 mL) subcutaneous pen dapagliflozin propaned 10 10 - 1,000 tab PO DAILY Diabetes 10/15/21 09/16/24 mg-metformin ER 1,000 mg tablet,ext rel 24hr rosuvastatin 20 mg tablet 20 mg PO DAILY Cholesterol 08/08/22 09/16/24 sertraline 25 mg tablet 25 mg PO DAILY 03/17/24 09/16/24 denosumab 60 mg/mL subcutaneous 60 mg SQ [id number] 03/30/24 09/16/24 syringe (Prolia) fexofenadine 60 mg tablet 60 mg PO BID PRN Allergic Reaction 03/30/24 09/16/24 tizanidine 4 mg tablet (Zanaflex) 4 mg PO BID PRN Muscle Pain 03/30/24 09/16/24 ergocalciferol (vitamin D2) 1,250 1,250 mcg PO WEEKLY 07/15/24 09/16/24 mcg (50,000 unit) capsule Previous Rx's ?Medication ?Instructions ?Recorded oxycodone-acetaminophen 5 mg-325 1 tab PO QID #120 tabs 09/06/24 mg tablet (Percocet) clindamycin HCl 300 mg capsule 300 mg PO BID #20 caps 09/10/24 Allergies Allergy/AdvReac Type Severity Reaction Status Date / Time methylprednisolone (From Allergy Intermediate Rash Verified 09/10/24 06:20 Depo-Medrol) prednisone Allergy Intermediate I-HIVES Verified 09/10/24 06:20 sulfamethoxazole (From Allergy Intermediate I-HIVES Verified 09/10/24 06:20 Bactrim) trimethoprim (From Bactrim) Allergy Intermediate I-HIVES Verified 09/10/24 06:20 hydrocodone (From Hycodan Allergy Mild I-HIVES Verified 09/10/24 06:20 (with homatropin)) ibuprofen Allergy Mild Other Verified 09/10/24 06:20 Corticosteroids Allergy Hives Verified 09/10/24 06:20 (Glucocorticoids) [facility] Disclaimer: The information contained in this section may have been updated after the patient was seen, as this information can be updated by other users. Medical History HLD (hyperlipidemia) Fatigue Chest pain Hx of temporomandibular joint disorder Diabetes mellitus DDD (degenerative disc disease) Hx of cancer of lung right lobe removed Surgical History History of surgery on arm History of lobectomy of lung S/P insertion of spinal cord stimulator Hx of neck surgery History of appendectomy History of section Family History Other Family history of acute heart failure Family history of hyperlipidemia Lung cancer Social History Smoking Status: Never smoker second hand exposure: No alcohol intake: never substance use type: denies use current occupational status: other Travel in the last 8 weeks?: None household members: family housing: house marital status: education level: college current occupational exposures/hazards: No caffeine: Yes special alison needs: No agree to transfusion: No do you feel safe at home: Yes victim of physical abuse: No victim of emotional abuse: No victim of sexual abuse: No would you like helpful sources: No Have you lived/traveled outside [place] in past 30 days?: No Contact w/someone who lives/traveled outside US past 30 days?: No Exposure to someone with infectious disease in past 14 days?: No Do you have a fever (greater than 100.4 F or 38 C)?: Yes Have you tested positive for COVID-19?: No Exposed to someone with COVID-19 in past 14 days?: No Do you have a sore throat?: No Do you have a cough?: No Do you have any weakness?: No Do you have any diarrhea?: No Are you experiencing any unusual bleeding?: No Do you have any muscle aches/pain?: No Do you have any abdominal pain?: No Are you experiencing loss of taste or smell?: No Other Medical History Have you received the Flu Vaccine for this season: Yes Have you received the Pneumonia Vaccine: Yes ROS Obtained: Yes Systems reviewed as appropriate & no additional complaints except as documented Per HPI Physical Exam General General appearance: alert and in no apparent distress Head Head exam: atraumatic and normocephalic Eye Eye exam: Present PERRL and EOMI ENT ENT exam: Present mucous membranes moist Neck Neck exam: Present normal inspection and full ROM Chest Chest inspection: Present symmetric chest wall rise Respiratory Respiratory exam: Absent respiratory distress or stridor Cardiovascular Cardiovascular exam: Present normal rhythm and tachycardia Abdominal Exam Abdominal exam: Present soft; Absent distention or tenderness Extremities Exam Extremities exam: Present full ROM Back Exam Back exam: Absent CVA tenderness (R), CVA tenderness (L) or vertebral tenderness Back 1 view image: 2 1. 10 to 12 cm diameter patch of erythema, induration surrounding 8 cm surgical incision with julius in place. There is not an obvious area of fluctuance and no discharge from the wound however the surrounding area is hot to the touch. Neurological Exam Neurological exam: Present alert and oriented X3; Absent motor sensory deficit Psychiatric Psychiatric exam: Present normal affect and normal mood Skin Skin exam: Present warm and dry Medical Decision Making Medical Records Medical records reviewed: Yes I reviewed the patient's medical records. Screening: Per USPSTF and CDC recommendations, given the prevalence of disease in our region, it is our hospital?s policy to screen for HIV and viral Hepatitis for all patients aged 18 and over and those with ongoing risk factors. Farhan Inquiry Pt receiving controlled substance: No Vital Signs: 09/22/24 01:05 Temperature 98.6 F Temperature Source Oral Pulse Rate [Radial] 115 H Respiratory Rate 18 Blood Pressure [Right Arm] 158/94 H Blood Pressure Mean [Right Arm] 115 Blood Pressure Position [Right Arm] Sitting 02 Sat by Pulse Oximetry 98 Oxygen Delivery Method Room Air Lab Data Lab Results 09/22/24 01:23: Lactate 0.9 09/22/24 01:38: WBC 12.6 H, RBC 5.52 H, Hgb 15.3, Hct 46.1, MCV 83.5, MCH 27.7, MCHC 33.2, RDW 14.2, Plt Count 270, MPV 9.1, Neut % (Auto) 78.0, Lymph % (Auto) 15.5, [place] % (Auto) 4.8, Eos % (Auto) 1.0, Baso % (Auto) 0.5, Neut # (Auto) 9.8 H, Lymph # (Auto) 2.0, [place] # (Auto) 0.6, Eos # (Auto) 0.1, Baso # (Auto) 0.1, ESR 1, Sodium 137, Potassium 3.9, Chloride 104, Carbon Dioxide 24, Anion Gap 12.9, BUN 14, Creatinine 0.70, Estimated Creat Clear 47, Estimated GFR 82, Est GFR ( Amer) 99, Glucose 145 H, Calcium 9.6, Total Bilirubin 0.7, AST 19, ALT 14, Alkaline Phosphatase 74, C-Reactive Protein 20.1 H, Total Protein 7.6, Albumin 4.8, Globulin 2.8, Albumin/Globulin Ratio 1.7, Urine Color Yellow, Urine Appearance Clear, Urine pH 7.0, Ur Specific [place] 1.015, Urine Protein Negative, Urine Glucose (UA) 3+, Urine Ketones Negative, Urine Blood Negative, Urine Nitrate Negative, Urine Bilirubin Negative, Urine Urobilinogen 1.0, Ur Leukocyte Esterase Negative, Urine RBC None, Urine WBC None, Ur Squamous Epith Cells None, Urine Bacteria None 09/22/24 01:38 09/22/24 01:38 Orders (Tests/Meds): ED MEDICATIONS Generic Name Dose Route Start Last Admin Trade Name Freq PRN Reason Stop Dose Admin Lactated Ringer's 1,700 mls @ 999 mls/hr 09/22/24 01:14 09/22/24 01:53 Lactated Ringer's 1000 Ml Bag IV 09/22/24 02:56 999 mls/hr .[id number] ONE Administration Ceftriaxone Sodium 1 gm/ 50 mls @ 100 mls/hr 09/22/24 01:15 09/22/24 01:46 Sodium Chloride IV 10/02/24 01:14 100 mls/hr Q24H ARIANNA Administration Vancomycin HCl 1,000 mg/ 250 mls @ 125 mls/hr 09/22/24 01:30 09/22/24 01:53 Sodium Chloride IV 09/22/24 03:29 125 mls/hr ONCE ONE Administration Miscellaneous 1 each 09/22/24 01:15 Vancomycin Consult Request NOTAPPLIC 10/22/24 01:14 CONSULT PHARMACY ARIANNA ORDERS Category Date Time Status CT abdomen pelvis w con Stat Cat Scan 09/22/24 01:07 Ordered CXR 2 view (NOT portable) [XR chest 2V] Stat Exams 09/22/24 01:14 Ordered CBC w/Auto Diff [Complete Blood Count Auto Diff] Stat Lab 09/22/24 01:38 Completed CMP [Comprehensive Metabolic Panel] Stat Lab 09/22/24 01:38 Completed CRP [C-Reactive Protein] Stat Lab 09/22/24 01:38 Completed ESR [Erythrocyte Sedimentation Rate] Stat Lab 09/22/24 01:38 Completed HIV Combo Stat Lab 09/22/24 01:38 Received Hepatitis C Ab Qual. W/ RFX Stat Lab 09/22/24 01:23 Received Lactic Acid Stat Lab 09/22/24 01:23 Completed Urinalysis and Microscopic Stat Lab 09/22/24 01:38 Completed Blood Culture Stat Micro 09/22/24 01:47 Received Tissue Perfus/Sepsis Re-Eval Sepsis Re-Evaluation Performed: Yes Date Performed: 09/22/24 Time Performed: 02:51 Medical Decision Narrative: In summary, this 73-year-old female with comorbidities described in the HPI presents to the emergency department today with concerns of subjective fevers, redness, pain, swelling, at recent surgical site. On initial evaluation patient is tachycardic but not hypotensive, afebrile, no chest pain or difficulty breathing, no nausea, vomiting, abdominal pain. Patient is not having any back pain, numbness, tingling, or weakness, she has pain isolated at the left lower back in the area surrounding her spinal cord stimulator surgical site with significant surrounding erythema, induration, no purulence or discharge, no wound dehiscence. Differential diagnosis includes but is not limited to surgical site infection, cellulitis, abscess, phlegmon, I considered the possibility of infection tracking along the spinal cord stimulator leads but I have lower suspicion for this since the leads were not significantly moved or replaced during the surgery and patient is not having any neurologic symptoms. I have concerns for sepsis since patient is tachycardic, I suspect that her workup will indicate she is septic since she has a source of infection and subjective fevers at home. Based on these concerns, I ordered serum labs, blood cultures, CT imaging. Approximately 30 mL/kg bolus of LR to help with tachycardia. With evidence of surgical site infection I started the patient on vancomycin and Rocephin. Labs personally reviewed demonstrate leukocytosis WBC 12.6. This in conjunction with the patient's tachycardia and surgical site infection meets criteria for sepsis. She is already receiving appropriate fluid bolus and broad-spectrum IV antibiotics. Blood cultures have also already been collected. No anemia, CMP nonactionable, CRP elevated at 20.1. UA negative for findings of infection XR personally interpreted demonstrates no acute thoracic abnormality, see radiology read for final interpretation. CT abdomen pelvis personally interpreted does not demonstrate obvious acute intra-abdominal pathology however there is significant fat stranding and evidence of infection at the patient's surgical site surrounding the spinal cord stimulator, possible fluid collection associated however artifact from the spinal cord stimulator limits view. See radiology read for final interpretation. I called the reading radiologist Dr. Bocanegra and spoke with her by phone because her initial report made no comments about the spinal cord stimulator or surrounding tissues. We reviewed the images together and she agrees there are findings of cellulitis. She is going to provide addendum to her final radiology read. I appreciate her assistance. On reassessment patient continues to be stable and heart rate is improving however due to sepsis with surgical site infection I believe requires admission at this time. Patient is agreeable to this. I spoke with the hospitalist, Jose Manuel, and he graciously accepted the patient for admission. Patient admitted in stable condition. Critical Care Critical Care Time Critical Care Time: No
[2024-09-22 02:13] LABS: Erythrocyte Sedimentation Rate 1 mm/hr (0-30)
[2024-09-22] MEDS: IOPAMIDOL-370 (76%);100ML BOTTLE 75 ML IV (02:20)
[2024-09-22] MEDS: SODIUM CHLORIDE 0.9% 10ML SYR (RAD ONLY) 10 ML IV (02:20)
--- NOTE | 2024-09-22 02:21 | PC.NURSE ---
pt returned from ct scan, hooked back to monitoring equipment and IV medications.
--- NOTE | 2024-09-22 03:00 | P.HP_ITS ---
<Statement entered by Bowen Martinez MD - 09/27/24 17:00> Personally evaluated the patient and agree with the plan of care as outlined by the HAND COREMAKER. History of Present Illness *Admission Date: 09/22/24 *Reason for visit:: Redness at surgical site *History of present illness: This is a 73-year-old female who has a past medical history significant for hyperlipidemia, TMJ, diabetes, degenerative disc disease, lung cancer, and lumbar radiculopathy who presents with a chief complaint of pain, body aches, and redness to surgical site. Due to the patient's symptoms, she presented to the emergency room for evaluation. While in the emergency room, CT scan of the abdomen and pelvis revealed no acute intra-abdominal intrapelvic process and surgical incision site where pain stimulator was located revealed stranding in the fatty tissues but there was no abscess or soft tissue gas. Imaging was consistent with mild cellulitis. Moreover, patient had an elevated white blood cell count, elevated heart rate, and source of surgical infection clinically patient is meeting sepsis criteria. Due to these findings, hospital medicine was contacted for further management. During my evaluation of the patient, she states that she is status post battery exchange to her pain stimulator by Dr. Del Real on 06 September. Postoperatively, patient was prescribed clindamycin and she completed this entire antibiotic course. Patient was doing well up until yesterday when she started to experience pain and redness coupled with bodyaches. Patient reports itching at the surgical site. Patient also states she had a subjective fever 102.6. Patient did take Tylenol and her as needed pain medication. She reports that her pain/body aches and fever did not improve. Currently, she is denying any trauma to the surgical incision, drainage, chest pain, lightheadedness, dizziness, rigors, nausea, vomiting, shortness of breath, dyspnea, or diarrhea. Chest x-ray per my read is negative for any acute cardiopulmonary process. Additional pertinent values obtained include a white blood cell count of 12.6, red blood cell count of 5.52, blood glucose of 145, and C-reactive protein of 20.1. [facility] Disclaimer: The information contained in this section may have been updated after the patient was seen, as this information can be updated by other users. Medical History HLD (hyperlipidemia) Fatigue Chest pain Hx of temporomandibular joint disorder Diabetes mellitus DDD (degenerative disc disease) Hx of cancer of lung right lobe removed Surgical History History of surgery on arm History of lobectomy of lung S/P insertion of spinal cord stimulator Hx of neck surgery History of appendectomy History of section Family History Other Family history of acute heart failure Family history of hyperlipidemia Lung cancer Social History Smoking Status: Never smoker second hand exposure: No alcohol intake: never substance use type: denies use current occupational status: other Travel in the last 8 weeks?: None household members: family housing: house marital status: education level: college current occupational exposures/hazards: No caffeine: Yes special alison needs: No agree to transfusion: No do you feel safe at home: Yes victim of physical abuse: No victim of emotional abuse: No victim of sexual abuse: No would you like helpful sources: No Have you lived/traveled outside [place] in past 30 days?: No Contact w/someone who lives/traveled outside US past 30 days?: No Exposure to someone with infectious disease in past 14 days?: No Do you have a fever (greater than 100.4 F or 38 C)?: Yes Have you tested positive for COVID-19?: No Exposed to someone with COVID-19 in past 14 days?: No Do you have a sore throat?: No Do you have a cough?: No Do you have any weakness?: No Do you have any diarrhea?: No Are you experiencing any unusual bleeding?: No Do you have any muscle aches/pain?: No Do you have any abdominal pain?: No Are you experiencing loss of taste or smell?: No Other Medical History Have you received the Flu Vaccine for this season: Yes Have you received the Pneumonia Vaccine: Yes Review of Systems Review of Systems Review of systems:: pertinent systems reviewed and negative unless documented below Constitutional Constitutional: Reports body ache(s) and Reports fever(s) Eyes Eyes: Reports system reviewed and no additional complaints, except as documented ENT Ears, Nose, Mouth, and Throat: Reports system reviewed and no additional complaints, except as documented *Cardiovascular Cardiovascular: Reports system reviewed and no additional complaints, except as documented *Respiratory Respiratory: Reports system reviewed and no additional complaints, except as documented *Gastrointestinal Gastrointestinal: Reports system reviewed and no additional complaints, except as documented *Genitourinary Genitourinary: Reports system reviewed and no additional complaints, except as documented *Musculoskeletal Musculoskeletal: Reports system reviewed and no additional complaints, except as documented Integumentary/Breasts Skin/Breast: Reports erythema *Neurologic Neurologic: Reports system reviewed and no additional complaints, except as documented Psychiatric Psychiatric: Reports system reviewed and no additional complaints, except as documented Endocrine Endocrine: Reports system reviewed and no additional complaints, except as documented Hematologic/Lymphatic Hematologic/Lymphatic: Reports system reviewed and no additional complaints, except as documented Allergic/Immunologic Allergic/Immunologic: Reports system reviewed and no additional complaints, except as documented Meds Home Medications and Allergies Home Medications ?Medication ?Instructions ?Recorded ?Confirmed ?Type omeprazole 20 mg capsule,delayed 20 mg PO DAILY stomach 01/07/18 09/16/24 History release insulin glargine 100 unit/mL (3 25 unit SQ DAILY Diabetes 01/26/18 09/16/24 History mL) subcutaneous pen dapagliflozin propaned 10 10 - 1,000 tab PO DAILY Diabetes 10/15/21 09/16/24 History mg-metformin ER 1,000 mg tablet,ext rel 24hr rosuvastatin 20 mg tablet 20 mg PO DAILY Cholesterol 08/08/22 09/16/24 History sertraline 25 mg tablet 25 mg PO DAILY 03/17/24 09/16/24 History denosumab 60 mg/mL subcutaneous 60 mg SQ [id number] 03/30/24 09/16/24 History syringe (Prolia) fexofenadine 60 mg tablet 60 mg PO BID PRN Allergic Reaction 03/30/24 09/16/24 History tizanidine 4 mg tablet (Zanaflex) 4 mg PO BID PRN Muscle Pain 03/30/24 09/16/24 History ergocalciferol (vitamin D2) 1,250 1,250 mcg PO WEEKLY 07/15/24 09/16/24 History mcg (50,000 unit) capsule oxycodone-acetaminophen 5 mg-325 1 tab PO QID #120 tabs 09/06/24 09/16/24 Rx mg tablet (Percocet) clindamycin HCl 300 mg capsule 300 mg PO BID #20 caps 09/10/24 09/16/24 Rx New Prescriptions to Start Prescriptions: Allergies Allergy/AdvReac Type Severity Reaction Status Date / Time methylprednisolone (From Allergy Intermediate Rash Verified 09/10/24 06:20 Depo-Medrol) prednisone Allergy Intermediate I-HIVES Verified 09/10/24 06:20 sulfamethoxazole (From Allergy Intermediate I-HIVES Verified 09/10/24 06:20 Bactrim) trimethoprim (From Bactrim) Allergy Intermediate I-HIVES Verified 09/10/24 06:20 hydrocodone (From Hycodan Allergy Mild I-HIVES Verified 09/10/24 06:20 (with homatropin)) ibuprofen Allergy Mild Other Verified 09/10/24 06:20 Corticosteroids Allergy Hives Verified 09/10/24 06:20 (Glucocorticoids) Exam Data for Last 24 hours Vital signs and Labs for Last 24 Hours: Temp Pulse Resp BP Pulse Ox O2 Del Method 98.6 F 104 H 29 H 132/75 95 Room Air 09/22/24 01:05 09/22/24 02:30 09/22/24 02:00 09/22/24 02:30 09/22/24 02:30 09/22/24 01:05 Laboratory Results - last 24 hr 09/22/24 01:23: Lactate 0.9 09/22/24 01:38: WBC 12.6 H, RBC 5.52 H, Hgb 15.3, Hct 46.1, MCV 83.5, MCH 27.7, MCHC 33.2, RDW 14.2, Plt Count 270, MPV 9.1, Neut % (Auto) 78.0, Lymph % (Auto) 15.5, [place] % (Auto) 4.8, Eos % (Auto) 1.0, Baso % (Auto) 0.5, Neut # (Auto) 9.8 H, Lymph # (Auto) 2.0, [place] # (Auto) 0.6, Eos # (Auto) 0.1, Baso # (Auto) 0.1, ESR 1, Sodium 137, Potassium 3.9, Chloride 104, Carbon Dioxide 24, Anion Gap 12.9, BUN 14, Creatinine 0.70, Estimated Creat Clear 47, Estimated GFR 82, Est GFR ( Amer) 99, Glucose 145 H, Calcium 9.6, Total Bilirubin 0.7, AST 19, ALT 14, Alkaline Phosphatase 74, C-Reactive Protein 20.1 H, Total Protein 7.6, Albumin 4.8, Globulin 2.8, Albumin/Globulin Ratio 1.7, Urine Color Yellow, Urine Appearance Clear, Urine pH 7.0, Ur Specific [place] 1.015, Urine Protein Negative, Urine Glucose (UA) 3+, Urine Ketones Negative, Urine Blood Negative, Urine Nitrate Negative, Urine Bilirubin Negative, Urine Urobilinogen 1.0, Ur Leukocyte Esterase Negative, Urine RBC None, Urine WBC None, Ur Squamous Epith Cells None, Urine Bacteria None I & O for Last 24 hours: Intake & Output 09/19/24 09/20/24 09/21/24 09/22/24 23:59 23:59 23:59 23:59 Weight 58.967 kg Constitutional Constitutional: no acute distress and cooperative *Routine HEENT Exam Head: Present normocephalic and atraumatic Eye: Present EOMI ENT: Present mucous membranes moist *Routine Neck Exam Neck: Present supple, full ROM and trachea midline *Routine Respiratory Exam Respiratory: Present CTA bilaterally, normal respiratory effort, able to speak in complete sentences and symmetric chest movement *Routine Cardiovascular Exam Cardiovascular: Present RRR, Normal S1 and Normal S2 *Routine Abdominal Exam Abdominal: Present soft and normoactive bowel sounds *Routine Rectal Exam Rectal:: deferred *Routine Genitalia Exam Genitalia:: deferred *Routine Extremities Exam Extremities: Present full ROM, pulses intact and normal capillary refill Routine Back/Spine/Pelvis Exam Back/Spine: Present full ROM Back image: 2 1. Noted left buttock surgical incision is well-approximated, has some erythema noted, is warm to touch, sutures are still intact, no drainage is noted *Routine Skin Exam Skin: Present intact, erythema, warm and normal turgor *Routine Neurological Exam Neurological: Present alert, oriented X3, CN II-XII intact, moving all extremities and normal speech Routine Psychiatric Exam Psychiatric: Present normal affect, normal thought process, cooperative, good insight and good judgment H&P: Result Impressions 73-year-old female who is status post pain stimulator body exchange on 10 September presents with findings consistent with cellulitis and is currently meeting sepsis criteria Assessment and Plan *Assessment and plan (1) Sepsis: Status: Acute Qualifiers: Sepsis type: sepsis due to unspecified organism Sepsis acute organ dysfunction status: unspecified Qualified Code(s): A41.9 - Sepsis, unspecified organism Category: Medical Code(s): A41.9 - Sepsis, unspecified organism (2) Surgical site infection: Status: Acute Category: Medical Code(s): T81.49XA - Infection following a procedure, other surgical site, initial encounter (3) Hyperglycemia: Status: Acute Category: Medical Code(s): R73.9 - Hyperglycemia, unspecified (4) Cellulitis: Status: Acute Qualifiers: Site of cellulitis: buttock Qualified Code(s): L03.317 - Cellulitis of buttock Category: Medical Code(s): L03.90 - Cellulitis, unspecified Plan Assessment: Sepsis: Patient is meeting sepsis criteria with elevated heart rate, elevated white blood cell count, source of cellulitis, and fever - Patient did not receive 30 mL/kg of body weight of IV hydration she has stable blood pressure; she did receive 1 L of LR - Heart rate has improved - Will obtain lactic acid - Blood cultures x 2 have been obtained - Sepsis reperfusion screening performed Surgical site infection/cellulitis - Cefepime 1 g IV twice daily - 1 g of vancomycin IV twice daily-pharmacy to dose Hyperglycemia: Most likely in setting of diabetes - Sliding scale insulin ACH S with mild scale coverage Plan: Admit patient to the MedSurg unit His seventh round of every 4 hours Activity as tolerated Cardiac/1800 ADA diet CBC/BMP daily Obtain procalcitonin Normal saline at 100 mL an hour 25 mg of diphenhydramine p.o. every 8 hours as needed itching 40 mg Lovenox subcu daily for DVT prophylaxis 4 mg Zofran IV push. Hours. Nausea vomit Full code I will discuss this case with attending physician Dr. Martinez and I look forward to more input
--- NOTE | 2024-09-22 03:01 | PC.NURSE ---
report given to Dev FREGOSO on the floor.
--- NOTE | 2024-09-22 03:14 | EXP.SEPSISRE ---
[facility] Tissue Perfusion Eval Sepsis Re-Evaluation Performed: Yes Date Performed: 09/22/24 Time Performed: 03:14
--- NOTE | 2024-09-22 03:31 | PC.NURSE ---
Patient arrived to floor via wheelchair from ED at 03:23.
[2024-09-22 03:50] LABS: HIV Combo NEGATIVE (Negative)
[2024-09-22 03:58] LABS: Hepatitis C Ab Qual. W/ RFX NEGATIVE (Negative)
[2024-09-22] MEDS: 0.9 % SODIUM CHLORIDE 1000ML 1,000 ML 100 ML IV ×3 (04:23→22:44)
[2024-09-22] MEDS: CEFEPIME HCL 1 GM in 0.9 % SODIUM CHLORIDE 50 ML IV ×2 (04:24→16:27)
[2024-09-22] MEDS: diphenhydrAMINE 25MG CAPSULE 25 MG PO (04:25)
[2024-09-22 06:46] LABS: POC Glucose,Bedside 138 (70-110)
[2024-09-22 07:08] LABS: Procalcitonin 0.108 ng/mL (0.0-2.0)
--- NOTE | 2024-09-22 07:20 | P.PN_ITS ---
<Statement entered by Bowen Martinez MD - 09/27/24 17:00> Personally evaluated the patient and agree with the plan of care as outlined by the DIRECTOR COMMUNICATIONS. Subjective *Date: 09/22/24 *Time: 07:20 Interval history: 73-year-old presents with a chief complaint of swelling erythema and pain to surgical site. After close observation of surgical site, is noted the patient has julius not sutures Exam Data for Last 24 hours Vital signs and Labs for Last 24 Hours: Temp Pulse Resp BP Pulse Ox O2 Del Method 98.6 F 106 H 18 141/92 H 96 Room Air 09/22/24 03:03 09/22/24 03:49 09/22/24 03:49 09/22/24 03:49 09/22/24 03:49 09/22/24 06:51 Laboratory Results - last 24 hr 09/22/24 01:23: Lactate 0.9, HCV Ab HATTIE w/Rflx PCR Qn Negative 09/22/24 01:38: WBC 12.6 H, RBC 5.52 H, Hgb 15.3, Hct 46.1, MCV 83.5, MCH 27.7, MCHC 33.2, RDW 14.2, Plt Count 270, MPV 9.1, Neut % (Auto) 78.0, Lymph % (Auto) 15.5, [place] % (Auto) 4.8, Eos % (Auto) 1.0, Baso % (Auto) 0.5, Neut # (Auto) 9.8 H, Lymph # (Auto) 2.0, [place] # (Auto) 0.6, Eos # (Auto) 0.1, Baso # (Auto) 0.1, ESR 1, Sodium 137, Potassium 3.9, Chloride 104, Carbon Dioxide 24, Anion Gap 12.9, BUN 14, Creatinine 0.70, Estimated Creat Clear 47, Estimated GFR 82, Est GFR ( Amer) 99, Glucose 145 H, Calcium 9.6, Total Bilirubin 0.7, AST 19, ALT 14, Alkaline Phosphatase 74, C-Reactive Protein 20.1 H, Total Protein 7.6, Albumin 4.8, Globulin 2.8, Albumin/Globulin Ratio 1.7, Urine Color Yellow, Urine Appearance Clear, Urine pH 7.0, Ur Specific [place] 1.015, Urine Protein Negative, Urine Glucose (UA) 3+, Urine Ketones Negative, Urine Blood Negative, Urine Nitrate Negative, Urine Bilirubin Negative, Urine Urobilinogen 1.0, Ur Leukocyte Esterase Negative, Urine RBC None, Urine WBC None, Ur Squamous Epith Cells None, Urine Bacteria None, HIV Ag/Ab Combo Qual Negative 09/22/24 05:58: POC Glucose 138 H 09/22/24 06:24: Procalcitonin 0.108 I & O for Last 24 hours: Intake & Output 09/19/24 09/20/24 09/21/24 09/22/24 23:59 23:59 23:59 23:59 Output Total 0 / 0 Balance 0 / 0 Weight 67.585 kg Constitutional Constitutional: no acute distress *Routine HEENT Exam Head: Present normocephalic and atraumatic Eye: Present EOMI *Routine Neck Exam Neck: Present supple and full ROM *Routine Respiratory Exam Respiratory: Present CTA bilaterally, able to speak in complete sentences and symmetric chest movement *Routine Cardiovascular Exam Cardiovascular: Present RRR, Normal S1, Normal S2 and tachycardia *Routine Abdominal Exam Abdominal: Present soft and normoactive bowel sounds *Routine Extremities Exam Extremities: Present edema, full ROM, pulses intact and normal capillary refill Routine Back/Spine/Pelvis Exam Back/Spine: Present full ROM Back image: 2 1. Wound is well-approximated with some erythema and warmth julius are intact *Routine Skin Exam Skin: Present intact, dry and warm *Routine Neurological Exam Neurological: Present alert, oriented X3 and CN II-XII intact Routine Psychiatric Exam Psychiatric: Present normal affect, normal thought process, cooperative, good insight and good judgment Assessment and Plan *Assessment and plan (1) Sepsis: Status: Acute Qualifiers: Sepsis acute organ dysfunction status: unspecified Sepsis type: sepsis due to unspecified organism Qualified Code(s): A41.9 - Sepsis, unspecified organism Category: Medical Code(s): A41.9 - Sepsis, unspecified organism (2) Cellulitis: Status: Acute Qualifiers: Site of cellulitis: buttock Qualified Code(s): L03.317 - Cellulitis of buttock Category: Medical Code(s): L03.90 - Cellulitis, unspecified Plan History of Present Illness *Admission Date: 09/22/24 *Reason for visit:: Redness at surgical site *History of present illness: This is a 73-year-old female who has a past medical history significant for hyperlipidemia, TMJ, diabetes, degenerative disc disease, lung cancer, and lumbar radiculopathy who presents with a chief complaint of pain, body aches, and redness to surgical site. Due to the patient's symptoms, she presented to the emergency room for evaluation. While in the emergency room, CT scan of the abdomen and pelvis revealed no acute intra-abdominal intrapelvic process and surgical incision site where pain stimulator was located revealed stranding in the fatty tissues but there was no abscess or soft tissue gas. Imaging was consistent with mild cellulitis. Moreover, patient had an elevated white blood cell count, elevated heart rate, and source of surgical infection clinically patient is meeting sepsis criteria. Due to these findings, hospital medicine was contacted for further management. Assessment: Sepsis: Patient is meeting sepsis criteria with elevated heart rate, elevated white blood cell count, source of cellulitis, and fever - Patient did not receive 30 mL/kg of body weight of IV hydration she has stable blood pressure; she did receive 1 L of LR - Heart rate has improved - Lactate normal - Blood cultures: No growth after 24 hours Surgical site infection/cellulitis - Cefepime 1 g IV twice daily - 1 g of vancomycin IV twice daily-pharmacy to dose Hyperglycemia: Most likely in setting of diabetes - Sliding scale insulin ACH S with mild scale coverage Plan: Will continue to monitor patient closely Will monitor patient's blood cultures Still no drainage from wound Will consider de-escalating antibiotics depending on lab values this morning Lab values are still pending Patient has been afebrile over the course of the night We will give patient another 24 to 48 hours to monitor patient's cultures Will maintain hemodynamics
--- NOTE | 2024-09-22 07:28 | P.CONPHA_ITS ---
Pharmacy Consult Date: 09/22/24 Time: 07:29 Referring provider: DR. DE Reason for Consult:: VANCOMYCIN DOSING Allergies Allergy/AdvReac Type Severity Reaction Status Date / Time methylprednisolone (From Allergy Intermediate Rash Verified 09/10/24 06:20 Depo-Medrol) prednisone Allergy Intermediate I-HIVES Verified 09/10/24 06:20 sulfamethoxazole (From Allergy Intermediate I-HIVES Verified 09/10/24 06:20 Bactrim) trimethoprim (From Bactrim) Allergy Intermediate I-HIVES Verified 09/10/24 06:20 hydrocodone (From Hycodan Allergy Mild I-HIVES Verified 09/10/24 06:20 (with homatropin)) ibuprofen Allergy Mild Other Verified 09/10/24 06:20 Corticosteroids Allergy Hives Verified 09/10/24 06:20 (Glucocorticoids) Home Medications ?Medication ?Instructions ?Recorded ?Confirmed ?Type omeprazole 20 mg capsule,delayed 20 mg PO DAILY stomach 01/07/18 09/22/24 History release dapagliflozin propaned 10 10 - 1,000 tab PO DAILY Diabetes 10/15/21 09/22/24 History mg-metformin ER 1,000 mg tablet,ext rel 24hr rosuvastatin 20 mg tablet 20 mg PO DAILY Cholesterol 08/08/22 09/22/24 History sertraline 25 mg tablet 25 mg PO DAILY 03/17/24 09/22/24 History denosumab 60 mg/mL subcutaneous 60 mg SQ [id number] 03/30/24 09/22/24 History syringe (Prolia) fexofenadine 60 mg tablet 60 mg PO BID PRN Allergic Reaction 03/30/24 09/22/24 History tizanidine 4 mg tablet (Zanaflex) 4 mg PO BID PRN Muscle Pain 03/30/24 09/22/24 History ergocalciferol (vitamin D2) 1,250 1,250 mcg PO WEEKLY 07/15/24 09/22/24 History mcg (50,000 unit) capsule oxycodone-acetaminophen 5 mg-325 1 tab PO QID #120 tabs 09/06/24 09/22/24 Rx mg tablet (Percocet) insulin glargine 100 unit/mL (3 15 unit SQ DAILY 09/22/24 09/22/24 History mL) subcutaneous pen (Basaglar KwikPen U-100 Insulin) New Prescriptions to Start Prescriptions: Height: 1.63 m Weight: 67.585 kg Laboratory Results:: Laboratory Results - last 24 hr 09/22/24 01:23: Lactate 0.9, HCV Ab HATTIE w/Rflx PCR Qn Negative 09/22/24 01:38: WBC 12.6 H, RBC 5.52 H, Hgb 15.3, Hct 46.1, MCV 83.5, MCH 27.7, MCHC 33.2, RDW 14.2, Plt Count 270, MPV 9.1, Neut % (Auto) 78.0, Lymph % (Auto) 15.5, [place] % (Auto) 4.8, Eos % (Auto) 1.0, Baso % (Auto) 0.5, Neut # (Auto) 9.8 H, Lymph # (Auto) 2.0, [place] # (Auto) 0.6, Eos # (Auto) 0.1, Baso # (Auto) 0.1, ESR 1, Sodium 137, Potassium 3.9, Chloride 104, Carbon Dioxide 24, Anion Gap 12.9, BUN 14, Creatinine 0.70, Estimated Creat Clear 47, Estimated GFR 82, Est GFR ( Amer) 99, Glucose 145 H, Calcium 9.6, Total Bilirubin 0.7, AST 19, ALT 14, Alkaline Phosphatase 74, C-Reactive Protein 20.1 H, Total Protein 7.6, Albumin 4.8, Globulin 2.8, Albumin/Globulin Ratio 1.7, Urine Color Yellow, Urine Appearance Clear, Urine pH 7.0, Ur Specific [place] 1.015, Urine Protein Negative, Urine Glucose (UA) 3+, Urine Ketones Negative, Urine Blood Negative, Urine Nitrate Negative, Urine Bilirubin Negative, Urine Urobilinogen 1.0, Ur Leukocyte Esterase Negative, Urine RBC None, Urine WBC None, Ur Squamous Epith Cells None, Urine Bacteria None, HIV Ag/Ab Combo Qual Negative 09/22/24 05:58: POC Glucose 138 H 09/22/24 06:24: Procalcitonin 0.108 Medical History: Medical History (Updated 09/22/24 @ 03:10 by Jose Manuel Hogan APRN) HLD (hyperlipidemia) Fatigue Chest pain Hx of temporomandibular joint disorder Diabetes mellitus DDD (degenerative disc disease) Hx of cancer of lung Assessment and Plan Assessment and plan all Dx Assessment and Plan for all problems:: Pharmacokinetic dosing service Objective: Patient: Floor: Age: 73 yo Serum creatinine: 0.70 mg/dL Height: 64.2 Inches Weight (kg): 67.6 Assessment: IBW (kg): 55.16 Dosing wt(kg): 67.6 Estimated Creatinine clearance (ml/min): 62.3 CRCL method: Cockcroft and Gault using ibw(default). Drug selected: Vancomycin Loading dose (mg): Vd (liters): 54.1 (factor used: 0.8 L/kg) Clemente (hr-1): 0.056 Half life (hrs): 12.38 CLvanco=?? 3.030 L/hr Recommended dose: 1250 mg Interval: 18 hrs Infusion time (hrs): 2.0 Predicted peak (mcg/mL): 34.4 Predicted trough (mcg/mL): 14.04 Total body weight is being used for vancomycin dosing. Recommendations: Give Vancomycin 1250 mg q 18 hrs with an expected Cpeak of 34.4 mcg/ml and an expected Ctrough of 14.04 mcg/ml AUC 0-24 /YURY Data: YURY 0.5 mcg/mL:?? AUC/YURY:? 1100.1 YURY 1.0 mcg/mL:?? AUC/YURY:? 550.1 --------- YURY 1.5 mcg/mL:?? AUC/YURY:? 366.7 YURY 2.0 mcg/mL:?? AUC/YURY:? 275.0 Thank you for the consult, will continue to follow. -JANETH LOPEZ PHARMD
[2024-09-22] MEDS: ENOXAPARIN 40MG/0.4ML SYRINGE 40 MG SUBCUT (08:20)
[2024-09-22 09:18] LABS: Basophils # 0.1 K/mm3 (0-0.2); Basophils % 0.4 % (0.1-2.0); Eosinophils # 0.1 Kmm3 (0.0-0.4); Eosinophils % 0.9 % (0.1-12.0); Hematocrit 39.3 % (37.0-47.0); Immature Granulocytes # 0.05 10^3uL; Immature Granulocytes % 0.4 %; Lymphocytes # 1.8 K/mm3 (0.7-4.5); Lymphocytes % 14.2 % (10-50); Mean Corpuscular HGB Conc 32.8 g/dL (31.8-35.4); Mean Corpuscular Hemoglobin 27.7 pg (27.0-31.2); Mean Corpuscular Volume 84.5 fl (81-99); Mean Platelet Volume 9.7 fl (7.4-10.4); Monocytes # 0.8 K/mm3 (0.1-1.0); Monocytes % 6.6 % (1.7-9.3); Neutrophils # 9.6 K/mm3 (1.8-7.8); Neutrophils % 77.5 % (37.0-80.0); Nucleated Red Blood Cells # 0 10^3/uL; Nucleated Red Blood Cells % 0 %; Platelet Count 215 K/mm3 (142-424); Red Blood Count 4.65 M/mm3 (4.20-5.40); Red Cell Distribution Width 14.4 % (11.5-17.5); Red Cell Distribution Width-SD 43.7 fL; White Blood Count 12.4 K/mm3 (4.8-10.8)
[2024-09-22 09:19] LABS: Hemoglobin 12.9 g/dL (12.2-16.2)
[2024-09-22 15:21] LABS: POC Glucose,Bedside 138 (70-110)
[2024-09-22] MEDS: ACETAMINOPHEN 325MG TAB 650 MG PO (16:26)
--- NOTE | 2024-09-22 17:39 | PC.NURSE ---
AOX4, HAS RESTED IN BED FOR MOST OF SHIFT, MEDICATED FOR BAZAN X2. TOLERATING IV ABX.
[2024-09-22 19:23] LABS: POC Glucose,Bedside 142 (70-110)
[2024-09-22] MEDS: VANCOMYCIN HCL 1,250 MG in 0.9 % SODIUM CHLORIDE 250 ML 125 MG IV (19:48)
[2024-09-22] MEDS: OXYCODONE 5MG W/APAP 325MG TABLET 1 EACH PO (20:24)
[2024-09-22] MEDS: PANTOPRAZOLE 40MG TABLET 40 MG PO (20:40)
[2024-09-22 20:53] LABS: POC Glucose,Bedside 139 (70-110)
[2024-09-23] VITALS: BP 106/61; PULSE 79; RESP 16; TEMP 36.8; O2SAT 95
[2024-09-23 04:00] VITALS: BP 124/76; PULSE 91; RESP 16; TEMP 37.1; O2SAT 95; BMI 25.0
[2024-09-23] MEDS: CEFEPIME HCL 1 GM in 0.9 % SODIUM CHLORIDE 50 ML IV (04:20)
--- NOTE | 2024-09-23 05:47 | PC.NURSE ---
Pt. is alert and orientated x4. Pt is on room air. Pt. here for post op infection. Pt. had a nerve stimulator implanted to left lower back, sacral area. Surgical incision, red, warm to touch. Pt. has julius in place. Pt. had one dose of pain meds for surgical incision pain. Pt. has c/o headache all day. She states that it it a sinus headache. Tylenol did not help the headache. Percocet for the back pain took the edge off the headache. Pt. resting off and on this shift. Pt. up and ambulates to the bathroom this shift. IV fluids infusing, IV antibiotics were given this shift. Personal items and call george in reach.
[2024-09-23 06:17] LABS: POC Glucose,Bedside 145 (70-110)
[2024-09-23 06:48] LABS: Basophils % 0.4 % (0.1-2.0); Eosinophils # 0.1 Kmm3 (0.0-0.4); Eosinophils % 1.2 % (0.1-12.0); Hematocrit 38.9 % (37.0-47.0); Hemoglobin 12.8 g/dL (12.2-16.2); Immature Granulocytes # 0.03 10^3uL; Immature Granulocytes % 0.3 %; Lymphocytes # 1.6 K/mm3 (0.7-4.5); Lymphocytes % 16.9 % (10-50); Mean Corpuscular HGB Conc 32.9 g/dL (31.8-35.4); Mean Corpuscular Hemoglobin 27.6 pg (27.0-31.2); Mean Corpuscular Volume 83.8 fl (81-99); Mean Platelet Volume 9.2 fl (7.4-10.4); Monocytes # 0.4 K/mm3 (0.1-1.0); Monocytes % 4.2 % (1.7-9.3); Neutrophils # 7.3 K/mm3 (1.8-7.8); Nucleated Red Blood Cells # 0 10^3/uL; Nucleated Red Blood Cells % 0 %; Platelet Count 198 K/mm3 (142-424); Red Blood Count 4.64 M/mm3 (4.20-5.40); Red Cell Distribution Width 14.3 % (11.5-17.5); Red Cell Distribution Width-SD 43.5 fL; White Blood Count 9.5 K/mm3 (4.8-10.8)
[2024-09-23 07:03] LABS: Anion Gap 9.7 mEq/L (5-15); Blood Urea Nitrogen 6 mg/dl (7-17); Calcium 8.5 mg/dl (8.4-10.2); Carbon Dioxide 22 mmol/L (22.0-30.0); Chloride 108 mmol/L (98-107); Creatinine Clearance Estimated 53 mL/min (50-200); Estimated Glomerular Filt Rate 156 ml/min (>60); GFR (African American) 189 ML/MIN (>60); Glucose 152 mg/dl (74-100); Potassium 3.7 mmoL/L (3.5-5.1); Sodium 136 mmol/L (136-145)
[2024-09-23 08:00] VITALS: BP 139/81; PULSE 91; RESP 18; TEMP 37.2; O2SAT 97
[2024-09-23] MEDS: DAPAGLIFLOZIN PROPANEDIOL 10 MG TABLET PO (09:04)
[2024-09-23] MEDS: ERGOCALCIFEROL 50,000 UNITS (1.25MG) CAPSULE 50000 UNIT PO (09:04)
[2024-09-23] MEDS: LORATADINE 10MG TABLET 10 MG PO (09:05)
[2024-09-23] MEDS: METFORMIN 500MG TABLET 500 MG PO (09:05)
[2024-09-23] MEDS: SERTRALINE 50MG TABLET 25 MG PO (09:05)
--- NOTE | 2024-09-23 10:52 | HMH.PROCNOTE ---
[facility] Procedure Note Date: 09/23/24 Time: 09:45 Procedure Note:: Patient is a pleasant 73-year-old female who is a patient of our office that we did get a consult from [facility] following her admission. We did see her at our office on the and everything was doing well overall. She states that it really all started on Friday. She initially started feeling unwell and thought it was more related to the rainy weather and her arthritis. Patient states by that evening she was experiencing chills, worsening body aches and a fever. Patient had just recently had her spinal cord stimulator replaced about 2 weeks prior. Patient states that she felt like the incision had more pressure and redness but denies that there was drainage. Patient does have a history of infection following surgery and felt like out of precaution that she would go into the ER. Patient was admitted with sepsis protocol and has been on antibiotics since. Today she states that she is feeling better overall however is currently experiencing a sinus headache. Patient does have severe allergies and has issues with this every year. Patient overall feels like her incision does seem to be better. She denies any other changes from when we saw her last. I did discuss with the patient that her incision is clean, dry, well-approximated with sutures and julius intact. It is still warm to touch and does have more erythema along the lateral left side. I did review over with her that her labs this morning were within normal range and she did not have an elevated white count. We did discuss that I do anticipate her to be discharged either today or tomorrow as long as her numbers continue to do well. We will continue to monitor her progress on the floor and still plan on following up with her in our office on October 05. Patient agrees with this plan of care. We will most likely leave her julius and sutures intact for a little bit longer than a routine incisions. She was counseled that she is still on her postop restrictions. She denies any issues with the coverage she currently has on her stimulator. I did also review with the patient once she is discharged if she has any issues whatsoever to please call our office immediately and that we will get her in for additional follow-up. She agrees with this plan of care.
[2024-09-23 11:23] LABS: POC Glucose,Bedside 113 (70-110)
[2024-09-23 12:00] VITALS: BP 150/76; PULSE 96; RESP 20; TEMP 37; O2SAT 97
--- NOTE | 2024-09-23 12:36 | EXP.DC.SUM ---
General Admission date:: 09/22/24 HPI HPI HPI: This is a 73-year-old female who has a past medical history significant for hyperlipidemia, TMJ, diabetes, degenerative disc disease, lung cancer, and lumbar radiculopathy who presents with a chief complaint of pain, body aches, and redness to surgical site. Due to the patient's symptoms, she presented to the emergency room for evaluation. While in the emergency room, CT scan of the abdomen and pelvis revealed no acute intra-abdominal intrapelvic process and surgical incision site where pain stimulator was located revealed stranding in the fatty tissues but there was no abscess or soft tissue gas. Imaging was consistent with mild cellulitis. Moreover, patient had an elevated white blood cell count, elevated heart rate, and source of surgical infection clinically patient is meeting sepsis criteria. Due to these findings, hospital medicine was contacted for further management. During my evaluation of the patient, she states that she is status post battery exchange to her pain stimulator by Dr. Del Real on 06 September. Postoperatively, patient was prescribed clindamycin and she completed this entire antibiotic course. Patient was doing well up until yesterday when she started to experience pain and redness coupled with bodyaches. Patient reports itching at the surgical site. Patient also states she had a subjective fever 102.6. Patient did take Tylenol and her as needed pain medication. She reports that her pain/body aches and fever did not improve. Currently, she is denying any trauma to the surgical incision, drainage, chest pain, lightheadedness, dizziness, rigors, nausea, vomiting, shortness of breath, dyspnea, or diarrhea. Chest x-ray per my read is negative for any acute cardiopulmonary process. Additional pertinent values obtained include a white blood cell count of 12.6, red blood cell count of 5.52, blood glucose of 145, and C-reactive protein of 20.1. Hospital Course Hospital Course Hospital Course: This is a 73-year-old female who has a past medical history significant for hyperlipidemia, TMJ, diabetes, degenerative disc disease, lung cancer, and lumbar radiculopathy who presents with a chief complaint of pain, body aches, and redness to surgical site. Due to the patient's symptoms, she presented to the emergency room for evaluation. While in the emergency room, CT scan of the abdomen and pelvis revealed no acute intra-abdominal intrapelvic process and surgical incision site where pain stimulator was located revealed stranding in the fatty tissues but there was no abscess or soft tissue gas. Imaging was consistent with mild cellulitis. Moreover, patient had an elevated white blood cell count, elevated heart rate, and source of surgical infection clinically patient is meeting sepsis criteria. Due to these findings, hospital medicine was contacted for further management. #Sepsis #Cellulitis #Postop infection ? Mild cellulitis around incision site around lumbar spinal stimulator battery was changed this past week. CT did not indicate abscess or hematoma. ? Initially presented with tachycardia, leukocytosis. ? Clinically improved with vancomycin, cefepime. Patient denies any pain. ? Pain management consulted, no plan for intervention. Will follow-up in clinic within 2 weeks. ? Discharged with doxycycline, levofloxacin for 10 more days. Total time spent on discharge: 31 minutes on chart review, counseling, documentation, and direct care with patient. Exam Data for Last 24 hours Vital signs and Labs for Last 24 Hours: Temp Pulse Resp BP Pulse Ox O2 Del Method 99.0 F 91 H 18 139/81 97 Room Air 09/23/24 08:00 09/23/24 08:00 09/23/24 08:00 09/23/24 08:00 09/23/24 08:00 09/23/24 11:10 Laboratory Results - last 24 hr 09/22/24 11:29: POC Glucose 138 H 09/22/24 16:25: POC Glucose 142 H 09/22/24 20:38: POC Glucose 139 H 09/23/24 06:09: POC Glucose 145 H 09/23/24 06:22: WBC 9.5, RBC 4.64, Hgb 12.8, Hct 38.9, MCV 83.8, MCH 27.6, MCHC 32.9, RDW 14.3, Plt Count 198, MPV 9.2, Neut % (Auto) 77.0, Lymph % (Auto) 16.9, Rawlins % (Auto) 4.2, Eos % (Auto) 1.2, Baso % (Auto) 0.4, Neut # (Auto) 7.3, Lymph # (Auto) 1.6, Rawlins # (Auto) 0.4, Eos # (Auto) 0.1, Baso # (Auto) 0.0, Sodium 136, Potassium 3.7, Chloride 108 H, Carbon Dioxide 22, Anion Gap 9.7, BUN 6 L D, Creatinine 0.40 L D, Estimated Creat Clear 53, Estimated GFR 156, Est GFR ( Amer) 189 D, Glucose 152 H, Calcium 8.5 09/23/24 11:15: POC Glucose 113 H I & O for Last 24 hours: Intake & Output 09/20/24 09/21/24 09/22/24 09/23/24 23:59 23:59 23:59 23:59 Intake Total 600 / 1410 1080 / 1080 Output Total 0 / 0 0 / 0 Balance 600 / 1410 1080 / 1080 Weight 67.585 kg 66.395 kg Microbiology Reports for the Last 24 Hours: Microbiology 09/22/24 01:47 Blood Blood Culture - Preliminary NO GROWTH AFTER 24 HOURS 09/22/24 01:38 Blood Blood Culture - Preliminary NO GROWTH AFTER 24 HOURS Constitutional Constitutional: no acute distress *Routine HEENT Exam Head: Present normocephalic Eye: Present EOMI and PERRL ENT: Present mucous membranes moist *Routine Neck Exam Neck: Present supple; Absent lymphadenopathy *Routine Respiratory Exam Respiratory: Present CTA bilaterally *Routine Cardiovascular Exam Cardiovascular: Present RRR *Routine Abdominal Exam Abdominal: Present soft and normoactive bowel sounds; Absent tenderness *Routine Extremities Exam Extremities: Absent cyanosis, clubbing or edema *Routine Skin Exam Skin: Present erythema and warm; Absent rash *Routine Neurological Exam Neurological: Present alert and oriented X3 Results Data Completed and Pending Labs on day of discharge: Labs from last 24 hours 09/23/24 09/23/24 09/23/24 11:15 06:22 06:09 WBC 9.5 RBC 4.64 Hgb 12.8 Hct 38.9 MCV 83.8 MCH 27.6 MCHC 32.9 RDW 14.3 Plt Count 198 MPV 9.2 Neut % (Auto) 77.0 Lymph % (Auto) 16.9 Rawlins % (Auto) 4.2 Eos % (Auto) 1.2 Baso % (Auto) 0.4 Neut # (Auto) 7.3 Lymph # (Auto) 1.6 Rawlins # (Auto) 0.4 Eos # (Auto) 0.1 Baso # (Auto) 0.0 Sodium 136 Potassium 3.7 Chloride 108 H Carbon Dioxide 22 Anion Gap 9.7 BUN 6 L D Creatinine 0.40 L D Estimated Creat Clear 53 Estimated GFR 156 Est GFR ( Amer) 189 D Glucose 152 H POC Glucose 113 H 145 H Calcium 8.5 09/22/24 09/22/24 09/22/24 20:38 16:25 11:29 WBC RBC Hgb Hct MCV MCH MCHC RDW Plt Count MPV Neut % (Auto) Lymph % (Auto) Rawlins % (Auto) Eos % (Auto) Baso % (Auto) Neut # (Auto) Lymph # (Auto) Rawlins # (Auto) Eos # (Auto) Baso # (Auto) Sodium Potassium Chloride Carbon Dioxide Anion Gap BUN Creatinine Estimated Creat Clear Estimated GFR Est GFR ( Amer) Glucose POC Glucose 139 H 142 H 138 H Calcium Preliminary micro results at discharge 09/22/24 01:47 Blood Culture - Preliminary Blood NO GROWTH AFTER 24 HOURS 09/22/24 01:38 Blood Culture - Preliminary Blood NO GROWTH AFTER 24 HOURS DS: Diagnosis Discharge Diagnosis (1) Sepsis: Status: Acute Code(s): A41.9 - Sepsis, unspecified organism Qualifiers: Sepsis acute organ dysfunction status: unspecified Sepsis type: sepsis due to unspecified organism Qualified Code(s): A41.9 - Sepsis, unspecified organism (2) Cellulitis: Status: Acute Code(s): L03.90 - Cellulitis, unspecified Qualifiers: Site of cellulitis: buttock Qualified Code(s): L03.317 - Cellulitis of buttock Meds Home Medications and Allergies Home Medications ?Medication ?Instructions ?Recorded ?Confirmed ?Type omeprazole 20 mg capsule,delayed 20 mg PO DAILY 01/07/18 09/22/24 History release dapagliflozin propaned 10 1 tab PO DAILY 10/1000MG 10/15/21 09/22/24 History mg-metformin ER 1,000 mg tablet,ext rel 24hr rosuvastatin 20 mg tablet 20 mg PO HS 08/08/22 09/22/24 History sertraline 25 mg tablet 25 mg PO DAILY 03/17/24 09/22/24 History fexofenadine 60 mg tablet 60 mg PO BID PRN Allergic Reaction 03/30/24 09/22/24 History tizanidine 4 mg tablet (Zanaflex) 4 mg PO BID PRN Muscle Pain 03/30/24 09/22/24 History ergocalciferol (vitamin D2) 1,250 1,250 mcg PO WEEKLY 07/15/24 09/22/24 History mcg (50,000 unit) capsule oxycodone-acetaminophen 5 mg-325 1 tab PO QID #120 tabs 09/06/24 09/22/24 Rx mg tablet (Percocet) insulin glargine 100 unit/mL (3 15 unit SQ DAILY 09/22/24 09/22/24 History mL) subcutaneous pen (Basaglar KwikPen U-100 Insulin) doxycycline hyclate 100 mg tablet 100 mg PO BID 10 days #20 tabs 09/23/24 Rx levofloxacin 750 mg tablet 750 mg PO DAILY 10 days #10 tabs 09/23/24 Rx New Prescriptions to Start Prescriptions: doxycycline hyclate Bowen Martinez levofloxacin Bowen Martinez Allergies Allergy/AdvReac Type Severity Reaction Status Date / Time methylprednisolone (From Allergy Intermediate Rash Verified 09/10/24 06:20 Depo-Medrol) prednisone Allergy Intermediate I-HIVES Verified 09/10/24 06:20 sulfamethoxazole (From Allergy Intermediate I-HIVES Verified 09/10/24 06:20 Bactrim) trimethoprim (From Bactrim) Allergy Intermediate I-HIVES Verified 09/10/24 06:20 hydrocodone (From Hycodan Allergy Mild I-HIVES Verified 09/10/24 06:20 (with homatropin)) ibuprofen Allergy Mild Other Verified 09/10/24 06:20 Corticosteroids Allergy Hives Verified 09/10/24 06:20 (Glucocorticoids) Discharge Plan Disposition Patient Disposition: Home, Self-Care Condition: Fair Follow up Plan Follow up with: Romulo Gleason MD [Primary Care Provider, Internal Medicine] - 10/01/24 12:30 pm Prescriptions/Medication Reconciliation: New doxycycline hyclate 100 mg tablet 100 mg PO BID 10 Days Qty: 20 0RF levofloxacin 750 mg tablet 750 mg PO DAILY 10 Days Qty: 10 0RF Continued fexofenadine 60 mg tablet 60 mg PO BID PRN (Reason: Allergic Reaction) tizanidine [Zanaflex] 4 mg tablet 4 mg PO BID PRN (Reason: Muscle Pain) ergocalciferol (vitamin D2) 1,250 mcg (50,000 unit) capsule 1,250 mcg PO WEEKLY Patient Comments: TAKE 1 CAPSULE BY MOUTH ONCE A WEEK rosuvastatin 20 mg Tablet 20 mg PO HS sertraline 25 mg tablet 25 mg PO DAILY Patient Comments: TAKE 1 TABLET BY MOUTH ONCE DAILY oxycodone-acetaminophen [Percocet] 5-325 mg tablet 1 tab PO QID Qty: 120 0RF insulin glargine [Basaglar KwikPen U-100 Insulin] 100 unit/mL (3 mL) insulin pen 15 unit SQ DAILY omeprazole 20 MG capsule,delayed release(DR/EC) 20 mg PO DAILY dapaglifloz propaned-metformin 1 EACH tablet, IR - ER, biphasic 24hr 1 tab PO DAILY Problem Reconciliation Problems Reviewed?: Yes Patient Discharge Instructions Patient Instructions: DI for Cellulitis -- Adult, DI for Surgical Site Infection, DI for Sepsis -- Adult Print Language: German Providers Primary Care Provider: Romulo Gleason Admit Provider: Bowen Martinez Attending Provider: Bowen Martinez
--- NOTE | 2024-09-28 14:20 | CARE MANAGER ---
Contacted patient related to hospital discharge. She states she had new medications before she went home. She is aware of follow up appointment and denies questions or concerns.
== END 2024-09-23 13:54 | disposition home or self-care (01) ==
LOC: ER 02:43 → 2ND 02:59
PROVIDERS: Nurse Practitioner Family; Admitting Provider Student in an Organized Health Care Education/Training Program; Emergency Provider Emergency Medicine; PCP Internal Medicine Adolescent Medicine; Visit Provider Student in an Organized Health Care Education/Training Program
DX: A41.9 Sepsis, unspecified organism (principal); L03.317 Cellulitis of buttock; T81.49XA Infection following a procedure, other surgical site, initial encounter; E78.5 Hyperlipidemia, unspecified; Z85.118 Personal history of other malignant neoplasm of bronchus and lung; Z90.2 Acquired absence of lung [part of]; Z80.1 Family history of malignant neoplasm of trachea, bronchus and lung; Z83.42 Family history of familial hypercholesterolemia; Z88.8 Allergy status to other drugs, medicaments and biological substances; Z88.2 Allergy status to sulfonamides; Z79.899 Other long term (current) drug therapy; Z79.4 Long term (current) use of insulin; M51.16 Intervertebral disc disorders with radiculopathy, lumbar region; Z96.82 Presence of neurostimulator; E11.65 Type 2 diabetes mellitus with hyperglycemia
CPT/HCPCS: 36415; 71046; 74177; 80048; 80053; 81001; 82962; 83605; 84145; 85025; 85651; 86140; 86803; 87040; 87389; 99285; G0378; J0692; J0696; J1650; J3370; J7030; J7050; J7120; Q9967

== ENCOUNTER 2024-10-05 13:20 | Outpatient (POV) | payer MEDICARE, OTHER, SELFPAY ==
[2024-10-05 13:55] VITALS: BP 113/78; PULSE 88; RESP 16; O2SAT 95; BMI 24.7
--- NOTE | 2024-10-05 14:11 | EXP.PAIN.SOA ---
[facility] Disclaimer: The information contained in this section may have been updated after the patient was seen, as this information can be updated by other users. Medical History HLD (hyperlipidemia) Fatigue Chest pain Hx of temporomandibular joint disorder Diabetes mellitus DDD (degenerative disc disease) Hx of cancer of lung right lobe removed Surgical History History of surgery on arm History of lobectomy of lung S/P insertion of spinal cord stimulator Hx of neck surgery History of appendectomy History of section Family History Other Family history of acute heart failure Family history of hyperlipidemia Lung cancer Social History Smoking Status: Never smoker second hand exposure: No alcohol intake: never substance use type: denies use current occupational status: other Travel in the last 8 weeks?: None household members: family housing: house marital status: education level: college current occupational exposures/hazards: No caffeine: Yes special alison needs: No agree to transfusion: No do you feel safe at home: Yes victim of physical abuse: No victim of emotional abuse: No victim of sexual abuse: No would you like helpful sources: No PM Subjective & Objective Subjective Subjective:: Patient is a pleasant 73-year-old female who presents today for suture and staple removal. Today she rates her pain a 8 out of 10. Patient denies any new falls or injuries. She does state from our last appointment that overall her incision she feels like is done well. She does state that she is just having a lot more knee pain that does radiate down to her bilateral ankles. Patient just feels like they are sore all over. Patient feels like she does have fluid on her knees as well as a knot behind her right joint. Patient is unsure whether or not her infection that she was hospitalized for may be playing a role with this. Patient does have her spinal cord stimulator in place and feels like the programming is still doing good and does not need additional reprogramming. Her Farhan has been reviewed and is appropriate. Patient is prescribed Percocet 4 times a day from our office. Review of Systems: General: No recent weight changes, no fever, no sleep disturbances Respiratory: No cough, no shortness of air, no recurring pulmonary infections Cardiovascular/peripheral vascular: No chest pain, no palpitations, no edema, no shortness of breath Gastrointestinal: No new onset incontinence, normal bowel movements reported Genitourinary: No new onset incontinence Musculoskeletal: Bilateral knee pain, ankle pain Psychiatric: [Normal mood/affect] Neurological: [Denies weakness in extremities], [denies balance issues] Pain at rest (0-10 scale): 8 Objective Objective:: Physical Exam: General: Alert and oriented x3, no acute distress, pleasant and cooperative Lungs: Respirations even and unlabored, symmetrical chest expansion Eyes: PERRL Musculoskeletal: Flexion and extension of bilateral knees somewhat guarded secondary to pain, [antalgic gait noted] Neurological: Speech clear, no gross sensory deficit Skin: Incision site is clean, dry, well-approximated with minimal erythema sutures and julius intact Has patient had previous pain injection?: No Conservative treatment options previously tried: Home exercise plan Length of treatment: Longer than 12 weeks Meds Home Medications and Allergies Home Medications ?Medication ?Instructions ?Recorded ?Confirmed ?Type omeprazole 20 mg capsule,delayed 20 mg PO DAILY 01/07/18 10/05/24 History release dapagliflozin propaned 10 1 tab PO DAILY 10/1000MG 10/15/21 10/05/24 History mg-metformin ER 1,000 mg tablet,ext rel 24hr rosuvastatin 20 mg tablet 20 mg PO HS 08/08/22 10/05/24 History sertraline 25 mg tablet 25 mg PO DAILY 03/17/24 10/05/24 History fexofenadine 60 mg tablet 60 mg PO BID PRN Allergic Reaction 03/30/24 10/05/24 History tizanidine 4 mg tablet (Zanaflex) 4 mg PO BID PRN Muscle Pain 03/30/24 10/05/24 History ergocalciferol (vitamin D2) 1,250 1,250 mcg PO WEEKLY 07/15/24 10/05/24 History mcg (50,000 unit) capsule oxycodone-acetaminophen 5 mg-325 1 tab PO QID #120 tabs 09/06/24 10/05/24 Rx mg tablet (Percocet) insulin glargine 100 unit/mL (3 15 unit SQ DAILY 09/22/24 10/05/24 History mL) subcutaneous pen (Basaglar KwikPen U-100 Insulin) doxycycline hyclate 100 mg tablet 100 mg PO BID 10 days #20 tabs 09/23/24 10/05/24 Rx levofloxacin 750 mg tablet 750 mg PO DAILY 10 days #10 tabs 09/23/24 10/05/24 Rx New Prescriptions to Start Prescriptions: Allergies Allergy/AdvReac Type Severity Reaction Status Date / Time methylprednisolone (From Allergy Intermediate Rash Verified 09/10/24 06:20 Depo-Medrol) prednisone Allergy Intermediate I-HIVES Verified 09/10/24 06:20 sulfamethoxazole (From Allergy Intermediate I-HIVES Verified 09/10/24 06:20 Bactrim) trimethoprim (From Bactrim) Allergy Intermediate I-HIVES Verified 09/10/24 06:20 hydrocodone (From Hycodan Allergy Mild I-HIVES Verified 09/10/24 06:20 (with homatropin)) ibuprofen Allergy Mild Other Verified 09/10/24 06:20 Corticosteroids Allergy Hives Verified 09/10/24 06:20 (Glucocorticoids) Assessment and Plan *Assessment and plan (1) Lumbar radiculopathy: Status: Acute Category: Medical Code(s): M54.16 - Radiculopathy, lumbar region (2) Degenerative disc disease, lumbar: Status: Acute Category: Medical Code(s): M51.369 - Other intervertebral disc degeneration, lumbar region without mention of lumbar back pain or lower extremity pain Plan I will refill the patient's Percocet and provide a 1 month supply of this medication. I did discuss with the patient that I will send in tizanidine 4 mg at bedtime to see if this helps with her sleeping over the next couple of weeks. 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 Patient did end up recalling that she has been told she has had these but it has been a very long time ago and had completely forgotten. We will continue to monitor this. Patient was able to have part of her julius removed and all of her sutures. We did leave in half of the julius as a precaution due to her previous infection and will have her return to clinic in 1 week to have the remainder removed. Patient agrees with this plan of care. Risks and benefits of the medication have been explained in detail to the patient. The patient does understand the risk of dependence on the medication when given over a prolonged period. Patient has been advised of risks of oversedation with the prescribed medication. Narcan has been offered to the paitent in the event of oversedation. Patient has been advised that a family member should also be educated regarding administration of Narcan. The patient has been advised to consult with his/her primary care provider and pharmacist regarding drug-drug interaction of medications currently prescribed. Patient has been prescribed a controlled substance after being counseled on the medication, medication safety, and possible side effects. Opioid contract was reviewed and signed by the patient, and that they have agreed to all of the terms set forth by our compliance program. A UDS is needed to verify patient's compliance with our office pain contract. This is ordered based off specific treatments related to chronic pain with the potential to abuse certain medications. Patient has been instructed to contact the clinic with any concerns before the next appointment. Dr. Del Real has reviewed this note and agrees with this plan of care. This note was dictated using voice recognition software and make contain errors or omissions.
== END 2024-10-05 23:59 | disposition home or self-care (01) ==
PROVIDERS: PCP Internal Medicine Adolescent Medicine; Visit Provider Nurse Practitioner Family
DX: M51.16 Intervertebral disc disorders with radiculopathy, lumbar region (principal); Z96.82 Presence of neurostimulator
CPT/HCPCS: 99212; 99213; G0463

== ENCOUNTER 2024-10-08 09:56 | Outpatient (CLI) | payer MEDICARE, OTHER, SELFPAY ==
--- OUTSIDE RECORDS SUMMARY | 2024-10-08 10:00 | XMS_ITS | Clinical Summary ---
Author Organization [facility] Address [address] [place] [address] Care Team Providers Care Security Director Name Role Phone Romulo Gleason MD Primary Care Provider + [phone] Allergies Active Allergy Reactions Criticality Noted Date [...] 91 08/18/2023 1:39 PM EDT Temperature 36.3 C (97.3 F) 08/18/2023 1:39 PM EDT Respiratory Rate 16 01/27/2023 7:23 PM EDT [...] Cancer Screening 11/27/1995 [facility]-Breast Cancer Screening 2000 [facility]-Pneumococcal Vaccine: 50 + Years (1 of 1 - PCV) 2000 [facility]-Zoster Vaccines (1 of 2) 2000 [id number] Vaccine (1 - 20 24-25 season) 2024 [facility]-Depression Screening 02/01/2024 01/31/2023 [facility]-Influenza Vaccine (Seas[place] n Ended) 2025 [facility]-RSV Vaccine: 60+ Years o r (1 - 1-dose 75+ series) 2025 HPV Vaccines Aged Out No longer eligi ble based on patient's age to complete this topic [facility]-HIB Vaccines Aged Out No longer e [...] AM EDT) No Sancho Ashraf Insurance MEDICARE [facility] Care Teams Security Director Relationship Specialty Start Date End Date Romulo Gleason MD [address] [place] [address] [place] [id number] PCP - General Internal Medicine 01/20/23
--- NOTE | 2024-10-08 10:02 | XR_ITS ---
FINAL REPORT TECHNIQUE: 3 views right knee CLINICAL HISTORY: right knee pain COMPARISON: I am FINDINGS: AP, lateral and oblique views of the right knee were obtained. There is no prior exam for comparison. There is no acute osseous abnormality of the right knee. Degenerative joint disease is present, most pronounced in the patellofemoral compartment. The soft tissues are normal. A small joint effusion is present. IMPRESSION: No acute osseous abnormality of the right knee. Degenerative joint disease, with a small joint effusion. Reviewed, Interpreted and Dictated by Layne Miranda MD Transcribed by Danyell Freire Authenticated and . [facility]
--- NOTE | 2024-10-08 10:02 | XR_ITS ---
FINAL REPORT CLINICAL HISTORY: PAIN COMPARISON: None FINDINGS: AP, lateral and oblique views of the left knee were obtained. There is no prior exam for comparison. Is present. There is a small calcification adjacent to the medial tibial plateau, and a small avulsion fracture is not excluded. Chondrocalcinosis is present. The soft tissues are normal. A moderate joint effusion is noted. IMPRESSION: Small calcification adjacent to the medial tibial plateau, small avulsion fracture not excluded. Chondrocalcinosis and a moderate joint effusion are present. Consider MRI for further evaluation if clinically indicated. Reviewed, Interpreted and Dictated by Layne Miranda MD Transcribed by Danyell Freire Authenticated and [facility]
== END 2024-10-08 23:59 | disposition home or self-care (01) ==
LOC: RAD 09:58
PROVIDERS: PCP Internal Medicine Adolescent Medicine; Visit Provider Internal Medicine Adolescent Medicine
DX: M17.11 Unilateral primary osteoarthritis, right knee (principal); M25.462 Effusion, left knee; M25.461 Effusion, right knee; M11.262 Other chondrocalcinosis, left knee; M25.862 Other specified joint disorders, left knee
CPT/HCPCS: 73562

== ENCOUNTER 2024-10-13 11:05 | Outpatient (POV) | payer MEDICARE, OTHER, SELFPAY ==
--- OUTSIDE RECORDS SUMMARY | 2024-10-13 11:09 | XMS_ITS | Clinical Summary ---
Author Organization [facility] Address [address] [place] [address] Care Team Providers Care Fiscal Economist Name Role Phone Romulo Gleason MD Primary Care Provider + [phone] Allergies Active Allergy Reactions Criticality Noted Date [...] Screening 1950 UKY-Medicare Annual Wellness (AWV) 1950 UKY-Infant/Child/Adol SDOH Screenings 1950 UKY- SDOH Screenings 1968 UKY-Adult SDOH Screenings 1968 UKY-DTaP,Tdap,and Td Vaccine s (1 - Tdap) 1969 CT Colonography 11/27/1995 Colonoscopy 11/27/1995 FIT-DNA 11/27/1995 FIT 11/27/1995 FOBT 11/27/1995 Sigmoidoscopy 11/27/1995 UKY-Colorectal Cancer Screening 11/27/1995 UKY-Breast Cancer Screening 2000 UKY-Pneumococcal Vaccine: 50 + Years (1 of 1 - PCV) 2000 UKY-Zoster Vaccines (1 of 2) 2000 [id number] Vaccine (1 - 20 24-25 season) 2024 [...] EDT) No Sancho Ashraf Insurance MEDICARE [facility] Care Teams Fiscal Economist Relationship Specialty Start Date End Date Romulo Gleason MD [address] [place] [address] PCP - General Internal Medicine 01/20/23
--- NOTE | 2024-10-13 11:41 | EXP.PAIN.SOA ---
[facility] Disclaimer: The information contained in this section may have been updated after the patient was seen, as this information can be updated by other users. Medical History HLD (hyperlipidemia) Fatigue Chest pain Hx of temporomandibular joint disorder Diabetes mellitus DDD (degenerative disc disease) Hx of cancer of lung right lobe removed Surgical History History of surgery on arm History of lobectomy of lung S/P insertion of spinal cord stimulator Hx of neck surgery History of appendectomy History of section Family History Other Family history of acute heart failure Family history of hyperlipidemia Lung cancer Social History Smoking Status: Never smoker second hand exposure: No alcohol intake: never substance use type: denies use current occupational status: other Travel in the last 8 weeks?: None household members: family housing: house marital status: education level: college current occupational exposures/hazards: No caffeine: Yes special alison needs: No agree to transfusion: No do you feel safe at home: Yes victim of physical abuse: No victim of emotional abuse: No victim of sexual abuse: No would you like helpful sources: No PM Subjective & Objective Subjective Subjective:: Patient is a pleasant 73-year-old female who presents today for suture and staple removal on her left lateral incision from her spinal cord stimulator replacement. Today she rates her pain a 6 out of 10. Patient does state that she is still having the bilateral knee pain that we spoke about at our last visit. She does state that her PCP did order some updated x-rays and is sending her for referral to Dr. Singh here at [facility] on October 16. Patient is currently managed from our office with Percocet 5 mg 4 times a day and compounded cream. She denies any side effects. Her Farhan has been reviewed and is appropriate. Review of Systems: General: No recent weight changes, no fever, no sleep disturbances Respiratory: No cough, no shortness of air, no recurring pulmonary infections Cardiovascular/peripheral vascular: No chest pain, no palpitations, no edema, no shortness of breath Gastrointestinal: No new onset incontinence, normal bowel movements reported Genitourinary: No new onset incontinence Musculoskeletal: Chronic back pain Psychiatric: [Normal mood/affect] Neurological: [Denies weakness in extremities], [denies balance issues] Pain at rest (0-10 scale): 6 Objective Objective:: Physical Exam: General: Alert and oriented x3, no acute distress, pleasant and cooperative Lungs: Respirations even and unlabored, symmetrical chest expansion Eyes: PERRL Musculoskeletal: Flexion and extension of lumbar [spine] somewhat guarded secondary to pain, [antalgic gait noted] Neurological: Speech clear, no gross sensory deficit Skin: Incision site is clean, dry, well-approximated with julius intact, minimal erythema noted Has patient had previous pain injection?: No Conservative treatment options previously tried: Home exercise plan Length of treatment: Than 12 weeks Meds Home Medications and Allergies Home Medications ?Medication ?Instructions ?Recorded ?Confirmed ?Type omeprazole 20 mg capsule,delayed 20 mg PO DAILY 01/07/18 10/05/24 History release dapagliflozin propaned 10 1 tab PO DAILY 10/1000MG 10/15/21 10/05/24 History mg-metformin ER 1,000 mg tablet,ext rel 24hr rosuvastatin 20 mg tablet 20 mg PO HS 08/08/22 10/05/24 History sertraline 25 mg tablet 25 mg PO DAILY 03/17/24 10/05/24 History fexofenadine 60 mg tablet 60 mg PO BID PRN Allergic Reaction 03/30/24 10/05/24 History tizanidine 4 mg tablet (Zanaflex) 4 mg PO BID PRN Muscle Pain 03/30/24 10/05/24 History ergocalciferol (vitamin D2) 1,250 1,250 mcg PO WEEKLY 07/15/24 10/05/24 History mcg (50,000 unit) capsule insulin glargine 100 unit/mL (3 15 unit SQ DAILY 09/22/24 10/05/24 History mL) subcutaneous pen (Don Kitchen U-100 Insulin) doxycycline hyclate 100 mg tablet 100 mg PO BID 10 days #20 tabs 09/23/24 10/05/24 Rx levofloxacin 750 mg tablet 750 mg PO DAILY 10 days #10 tabs 25 10/05/24 Rx oxycodone-acetaminophen 5 mg-325 1 tab PO QID #120 tabs 10/05/24 Rx mg tablet (Percocet) tizanidine 4 mg tablet (Zanaflex) 4 mg PO HS #14 tabs 10/05/24 Rx New Prescriptions to Start Prescriptions: Allergies Allergy/AdvReac Type Severity Reaction Status Date / Time methylprednisolone (From Allergy Intermediate Rash Verified 09/10/24 06:20 Depo-Medrol) prednisone Allergy Intermediate I-HIVES Verified 09/10/24 06:20 sulfamethoxazole (From Allergy Intermediate I-HIVES Verified 09/10/24 06:20 Bactrim) trimethoprim (From Bactrim) Allergy Intermediate I-HIVES Verified 09/10/24 06:20 hydrocodone (From Hycodan Allergy Mild I-HIVES Verified 09/10/24 06:20 (with homatropin)) ibuprofen Allergy Mild Other Verified 09/10/24 06:20 Corticosteroids Allergy Hives Verified 09/10/24 06:20 (Glucocorticoids) Assessment and Plan *Assessment and plan (1) Lumbar radiculopathy: Status: Acute Category: Medical Code(s): M54.16 - Radiculopathy, lumbar region (2) Degenerative disc disease, lumbar: Status: Acute Category: Medical Code(s): M51.369 - Other intervertebral disc degeneration, lumbar region without mention of lumbar back pain or lower extremity pain Plan We were able to remove the remainder of her julius and apply skin glue and Steri-Strips. Patient was counseled that she is still on her postop restrictions the full 6 weeks. Patient will return to clinic in 3 weeks for reevaluation of symptoms and medication refill. Patient agrees with this plan of care. Patient has been instructed to contact the clinic with any concerns before the next appointment. Dr. Del Real has reviewed this note and agrees with this plan of care. This note was dictated using voice recognition software and make contain errors or omissions. All injections are used with Lidocaine, Bupivacaine and dexamethasone. Occasionally urine drug screen is needed to verify patient's compliance with our office pain contract. This is ordered based off specific treatments related to chronic pain with the potential to abuse certain medications.
[2024-10-13 12:30] VITALS: BP 126/70; PULSE 80; RESP 18; O2SAT 96; BMI 25.2
== END 2024-10-13 23:59 | disposition home or self-care (01) ==
LOC: SC.PAIN 11:07
PROVIDERS: PCP Internal Medicine Adolescent Medicine; Visit Provider Nurse Practitioner Family
DX: M51.16 Intervertebral disc disorders with radiculopathy, lumbar region (principal); M25.561 Pain in right knee; Z79.891 Long term (current) use of opiate analgesic; M25.562 Pain in left knee
CPT/HCPCS: 99213; G0463

== ENCOUNTER 2024-11-03 09:10 | Outpatient (POV) | payer MEDICARE, OTHER, SELFPAY ==
--- OUTSIDE RECORDS SUMMARY | 2024-11-03 09:14 | XMS_ITS | Clinical Summary ---
Author Organization [facility] Address [address] [place] [address] Care Team Providers Care Roller Machine Operator Name Role Phone Romulo Gleason MD Primary Care Provider + [phone] Allergies Active Allergy Reactions Criticality Noted Date [...] Health Maintenance Due Date Last Done Comments UKY-Bone Density Scan 1950 UKY-Hepatitis C Screening [...] 2000 UKY-Zoster Vaccines (1 of 2) 2000 [id number] Vaccine (1 - 20 24-25 season) 2024 [...] AM EDT) No Sancho [place] [address] [facility] Care Teams Roller Machine Operator Relationship Specialty Start Date End Date Romulo Gleason MD [address] [place] [address] PCP - General Internal Medicine 01/20/23
--- NOTE | 2024-11-03 09:38 | EXP.PAIN.SOA ---
[facility] Disclaimer: The information contained in this section may have been updated after the patient was seen, as this information can be updated by other users. Medical History HLD (hyperlipidemia) Fatigue Chest pain Hx of temporomandibular joint disorder Diabetes mellitus DDD (degenerative disc disease) Hx of cancer of lung right lobe removed Surgical History History of surgery on arm History of lobectomy of lung S/P insertion of spinal cord stimulator Hx of neck surgery History of appendectomy History of section Family History Other Family history of acute heart failure Family history of hyperlipidemia Lung cancer Social History Smoking Status: Never smoker second hand exposure: No alcohol intake: never substance use type: denies use current occupational status: other Travel in the last 8 weeks?: None household members: family housing: house marital status: education level: college current occupational exposures/hazards: No caffeine: Yes special alison needs: No agree to transfusion: No do you feel safe at home: Yes victim of physical abuse: No victim of emotional abuse: No victim of sexual abuse: No would you like helpful sources: No PM Subjective & Objective Subjective Subjective:: Patient is a pleasant 73-year-old female who presents today for medication refill and follow-up. Today she rates her pain a 7 out of 10. She denies any new trauma or injury. She does state that her incision from her stimulator replacement has completely healed and she is doing well with this. Patient does forget occasionally about using her stimulator. She states that the programming is still doing wonderful but she does feel like it works best when she is in a seated position. Patient is also managed with Percocet 5 mg 4 times a day and compounded cream from our office. She denies any side effects. Patient is scheduled to see orthopedics tomorrow for her knee pain. She does state that it has improved. Her Farhan has been reviewed and is appropriate. Review of Systems: General: No recent weight changes, no fever, no sleep disturbances Respiratory: No cough, no shortness of air, no recurring pulmonary infections Cardiovascular/peripheral vascular: No chest pain, no palpitations, no edema, no shortness of breath Gastrointestinal: No new onset incontinence, normal bowel movements reported Genitourinary: No new onset incontinence Musculoskeletal: Low back pain Psychiatric: [Normal mood/affect] Neurological: [Denies weakness in extremities], [denies balance issues] Pain at rest (0-10 scale): 7 Objective Objective:: Physical Exam: General: Alert and oriented x3, no acute distress, pleasant and cooperative Lungs: Respirations even and unlabored, symmetrical chest expansion Eyes: PERRL Musculoskeletal: Flexion and extension of lumbar [spine] somewhat guarded secondary to pain, [antalgic gait noted] Neurological: Speech clear, no gross sensory deficit Has patient had previous pain injection?: No Conservative treatment options previously tried: Home exercise plan Length of treatment: Longer than 12 weeks Meds Home Medications and Allergies Home Medications ?Medication ?Instructions ?Recorded ?Confirmed ?Type omeprazole 20 mg capsule,delayed 20 mg PO DAILY 01/07/18 10/13/24 History release dapagliflozin propaned 10 1 tab PO DAILY 10/1000MG 10/15/21 10/13/24 History mg-metformin ER 1,000 mg tablet,ext rel 24hr rosuvastatin 20 mg tablet 20 mg PO HS 08/08/22 10/13/24 History sertraline 25 mg tablet 25 mg PO DAILY 03/17/24 10/13/24 History fexofenadine 60 mg tablet 60 mg PO BID PRN Allergic Reaction 03/30/24 10/13/24 History tizanidine 4 mg tablet (Zanaflex) 4 mg PO BID PRN Muscle Pain 03/30/24 10/13/24 History ergocalciferol (vitamin D2) 1,250 1,250 mcg PO WEEKLY 07/15/24 10/13/24 History mcg (50,000 unit) capsule insulin glargine 100 unit/mL (3 15 unit SQ DAILY 09/22/24 10/13/24 History mL) subcutaneous pen (Chloéaglar SamanthaPen U-100 Insulin) doxycycline hyclate 100 mg tablet 100 mg PO BID 10 days #20 tabs 09/23/24 10/13/24 Rx levofloxacin 750 mg tablet 750 mg PO DAILY 10 days #10 tabs 09/23/24 10/13/24 Rx oxycodone-acetaminophen 5 mg-325 1 tab PO QID #120 tabs 10/05/24 10/13/24 Rx mg tablet (Percocet) tizanidine 4 mg tablet (Zanaflex) 4 mg PO HS #14 tabs 10/05/24 10/13/24 Rx New Prescriptions to Start Prescriptions: Allergies Allergy/AdvReac Type Severity Reaction Status Date / Time methylprednisolone (From Allergy Intermediate Rash Verified 09/10/24 06:20 Depo-Medrol) prednisone Allergy Intermediate I-HIVES Verified 09/10/24 06:20 sulfamethoxazole (From Allergy Intermediate I-HIVES Verified 09/10/24 06:20 Bactrim) trimethoprim (From Bactrim) Allergy Intermediate I-HIVES Verified 09/10/24 06:20 hydrocodone (From Hycodan Allergy Mild I-HIVES Verified 09/10/24 06:20 (with homatropin)) ibuprofen Allergy Mild Other Verified 09/10/24 06:20 Corticosteroids Allergy Hives Verified 09/10/24 06:20 (Glucocorticoids) Assessment and Plan *Assessment and plan (1) Degenerative disc disease, lumbar: Status: Acute Category: Medical Code(s): M51.369 - Other intervertebral disc degeneration, lumbar region without mention of lumbar back pain or lower extremity pain (2) Lumbar radiculopathy: Status: Acute Category: Medical Code(s): M54.16 - Radiculopathy, lumbar region Plan I will refill the patient's Percocet and provide a 1 month supply of this medication. Patient will return to clinic in 1 month for reevaluation of symptoms and plan of care. Risks and benefits of the medication have been explained in detail to the patient. The patient does understand the risk of dependence on the medication when given over a prolonged period. Patient has been advised of risks of oversedation with the prescribed medication. Narcan has been offered to the paitent in the event of oversedation. Patient has been advised that a family member should also be educated regarding administration of Narcan. The patient has been advised to consult with his/her primary care provider and pharmacist regarding drug-drug interaction of medications currently prescribed. Patient has been prescribed a controlled substance after being counseled on the medication, medication safety, and possible side effects. Opioid contract was reviewed and signed by the patient, and that they have agreed to all of the terms set forth by our compliance program. A UDS is needed to verify patient's compliance with our office pain contract. This is ordered based off specific treatments related to chronic pain with the potential to abuse certain medications. Patient has been instructed to contact the clinic with any concerns before the next appointment. Dr. Del Real has reviewed this note and agrees with this plan of care. This note was dictated using voice recognition software and make contain errors or omissions.
[2024-11-03 09:48] VITALS: BP 136/78; PULSE 84; RESP 18; O2SAT 96; BMI 24.9
== END 2024-11-03 23:59 | disposition home or self-care (01) ==
PROVIDERS: PCP Internal Medicine Adolescent Medicine; Visit Provider Nurse Practitioner Family
DX: M51.16 Intervertebral disc disorders with radiculopathy, lumbar region (principal); Z79.891 Long term (current) use of opiate analgesic
CPT/HCPCS: 99212; G0463

== ENCOUNTER 2024-12-06 11:48 | Outpatient (POV) | payer MEDICARE, OTHER, SELFPAY ==
--- OUTSIDE RECORDS SUMMARY | 2024-12-06 11:51 | XMS_ITS | Clinical Summary ---
Author Organization [facility] Address [address] [place] [address] Care Team Providers Care Library Circulation Technician Name Role Phone Romulo Gleason MD Primary Care Provider + [phone] Allergies Active Allergy Reactions Criticality Noted Date [...] 2000 UKY-Zoster Vaccines (1 of 2) 2000 [id number] Vaccine (1 - 20 24-25 season) 2024 UKY-Depression Screening 02/01/2024 01/31/2023 UKY-Influenza Vaccine (#1) 2025 UKY-RSV Vaccine: 60+ Years o r [...] AM EDT) No Sancho [place] [address] [facility] Care Teams Library Circulation Technician Relationship Specialty Start Date End Date Romulo Gleason MD [address] [place] [address] PCP - General Internal Medicine 01/20/23
--- OUTSIDE RECORDS SUMMARY | 2024-12-06 11:51 | XMS_ITS | Clinical Summary ---
Author Organization [facility] Address [address] [place] [id number] Care Team Providers Care Entertainment Manager Name Role Phone Romulo Francis MD Primary [...] 90 01/19/2013 3:11 PM EDT Temperature 35.8 C (96.4 F) 03/18/2014 10:09 AM EST Respiratory Rate - - Oxygen Saturation 94% 01/19/2013 3:11 PM EDT Inhaled Oxygen Concentration - - Weight 72.6 kg (160 lb 0.2 oz) 03/18/2014 10:09 AM EST Height 165.1 cm (5' 5 ) 03/18/2014 10:09 AM EST Body Mass Index 26.63 03/18/2014 10:09 AM EST Plan of Treatment Health Maintenance Due Date Last Done Comments ANNUAL PHYSICAL 1950 DXA SCAN 1950 HEPATITIS C SCREENING 1950 TDAP/TD VACCINES (1 - Tdap) 1969 MAMMOGRAM 1990 COLOGUARD 11/27/1995 COLON CANCER SCREENING 5 YEAR SIGMOIDOSCOPY 11/27/1995 COLONOSCOPY 11/27/1995 COLORECTAL CANCER SCREENING 11/27/1995 CT COLONOGRAPHY 11/27/1995 FECAL OCCULT BLOOD TEST 11/27/1995 FIT Testing (1 year) 11/27/1995 Pneumococcal Vaccine 50+ (1 of 1 - PCV) 2000 ZOSTER VACCINE (1 of 2) 2000 COVID-19 Vaccine (1 - season) 2024 INFLUENZA VACCINE 02/02/2025 Care Teams Entertainment Manager Relationship Specialty Start Date End Date Romulo Frnacis MD PCP - General 03/08/15
--- NOTE | 2024-12-06 11:57 | EXP.PAIN.SOA ---
[facility] Disclaimer: The information contained in this section may have been updated after the patient was seen, as this information can be updated by other users. Medical History HLD (hyperlipidemia) Fatigue Chest pain Hx of temporomandibular joint disorder Diabetes mellitus DDD (degenerative disc disease) Hx of cancer of lung right lobe removed Surgical History History of surgery on arm History of lobectomy of lung S/P insertion of spinal cord stimulator Hx of neck surgery History of appendectomy History of section Family History Other Family history of acute heart failure Family history of hyperlipidemia Lung cancer Social History Smoking Status: Never smoker second hand exposure: No alcohol intake: never substance use type: denies use current occupational status: other Travel in the last 8 weeks?: None household members: family housing: house marital status: education level: college current occupational exposures/hazards: No caffeine: Yes special alison needs: No agree to transfusion: No do you feel safe at home: Yes victim of physical abuse: No victim of emotional abuse: No victim of sexual abuse: No would you like helpful sources: No PM Subjective & Objective Subjective Subjective:: Patient is a pleasant 74-year-old female who presents today for medication refill and 1 month follow-up. She denies any new changes from our last appointment. She does state that she has had a little bit more pain but it is because she has been doing more. She states that her brother had another heart attack and he is currently up in the ICU so she has had a lot on her plate here recently. She is currently prescribed Percocet 5 mg 4 times a day along with compounded cream. She denies any side effects or changes to her pharmacy. Patient does have her Kagera spinal cord stimulator in place and states that the programming is still working well.Her Farhan has been reviewed and is appropriate. Review of Systems: General: No recent weight changes, no fever, no sleep disturbances Respiratory: No cough, no shortness of air, no recurring pulmonary infections Cardiovascular/peripheral vascular: No chest pain, no palpitations, no edema, no shortness of breath Gastrointestinal: No new onset incontinence, normal bowel movements reported Genitourinary: No new onset incontinence Musculoskeletal: Back pain Psychiatric: [Normal mood/affect] Neurological: [Denies weakness in extremities], [denies balance issues] Pain at rest (0-10 scale): 4 Objective Objective:: Physical Exam: General: Alert and oriented x3, no acute distress, pleasant and cooperative Lungs: Respirations even and unlabored, symmetrical chest expansion Eyes: PERRL Musculoskeletal: Flexion and extension of lumbar [spine] somewhat guarded secondary to pain, [antalgic gait noted] Neurological: Speech clear, no gross sensory deficit Has patient had previous pain injection?: No Conservative treatment options previously tried: Home exercise plan Length of treatment: Longer than 12 weeks Meds Home Medications and Allergies Home Medications ?Medication ?Instructions ?Recorded ?Confirmed ?Type omeprazole 20 mg capsule,delayed 20 mg PO DAILY 01/07/18 11/03/24 History release dapagliflozin propaned 10 1 tab PO DAILY 10/1000MG 10/15/21 11/03/24 History mg-metformin ER 1,000 mg tablet,ext rel 24hr rosuvastatin 20 mg tablet 20 mg PO HS 08/08/22 11/03/24 History sertraline 25 mg tablet 25 mg PO DAILY 03/17/24 11/03/24 History fexofenadine 60 mg tablet 60 mg PO BID PRN Allergic Reaction 03/30/24 11/03/24 History ergocalciferol (vitamin D2) 1,250 1,250 mcg PO WEEKLY 07/15/24 11/03/24 History mcg (50,000 unit) capsule insulin glargine 100 unit/mL (3 15 unit SQ DAILY 09/22/24 11/03/24 History mL) subcutaneous pen (Basaglar KwikPen U-100 Insulin) tizanidine 4 mg tablet (Zanaflex) 4 mg PO HS #14 tabs 10/05/24 11/03/24 Rx oxycodone-acetaminophen 5 mg-325 1 tab PO QID #120 tabs 11/03/24 Rx mg tablet (Percocet) denosumab 60 mg/mL subcutaneous mg SQ 11/04/24 11/04/24 History syringe (Prolia) meloxicam 7.5 mg tablet mg PO 11/04/24 11/04/24 History New Prescriptions to Start Prescriptions: Allergies Allergy/AdvReac Type Severity Reaction Status Date / Time methylprednisolone (From Allergy Intermediate Rash Verified 11/04/24 10:11 Depo-Medrol) prednisone Allergy Intermediate I-HIVES Verified 11/04/24 10:11 sulfamethoxazole (From Allergy Intermediate I-HIVES Verified 11/04/24 10:11 Bactrim) trimethoprim (From Bactrim) Allergy Intermediate I-HIVES Verified 11/04/24 10:11 hydrocodone (From Hycodan Allergy Mild I-HIVES Verified 11/04/24 10:11 (with homatropin)) ibuprofen Allergy Mild Other Verified 11/04/24 10:11 Corticosteroids Allergy Hives Verified 11/04/24 10:11 (Glucocorticoids) Assessment and Plan *Assessment and plan (1) Lumbar radiculopathy: Status: Acute Category: Medical Code(s): M54.16 - Radiculopathy, lumbar region (2) Degenerative disc disease, lumbar: Status: Acute Category: Medical Code(s): M51.369 - Other intervertebral disc degeneration, lumbar region without mention of lumbar back pain or lower extremity pain Plan We will refill her Percocet and provide a 1 month supply of this medication. Patient will return to clinic in 1 month. Risks and benefits of the medication have been explained in detail to the patient. The patient does understand the risk of dependence on the medication when given over a prolonged period. Patient has been advised of risks of oversedation with the prescribed medication. Narcan has been offered to the paitent in the event of oversedation. Patient has been advised that a family member should also be educated regarding administration of Narcan. The patient has been advised to consult with his/her primary care provider and pharmacist regarding drug-drug interaction of medications currently prescribed. Patient has been prescribed a controlled substance after being counseled on the medication, medication safety, and possible side effects. Opioid contract was reviewed and signed by the patient, and that they have agreed to all of the terms set forth by our compliance program. A UDS is needed to verify patient's compliance with our office pain contract. This is ordered based off specific treatments related to chronic pain with the potential to abuse certain medications. Patient has been instructed to contact the clinic with any concerns before the next appointment. Dr. Del Real has reviewed this note and agrees with this plan of care. This note was dictated using voice recognition software and make contain errors or omissions.
[2024-12-06 11:58] VITALS: BP 116/76; PULSE 75; RESP 14; O2SAT 98; BMI 24.9
== END 2024-12-06 23:59 | disposition home or self-care (01) ==
PROVIDERS: PCP Internal Medicine Adolescent Medicine; Visit Provider Nurse Practitioner Family
DX: M51.16 Intervertebral disc disorders with radiculopathy, lumbar region (principal); Z79.891 Long term (current) use of opiate analgesic
CPT/HCPCS: 99212; G0463

== ENCOUNTER 2025-03-21 11:00 | Outpatient (RCR) | payer MEDICARE, OTHER, SELFPAY ==
--- NOTE | 2025-03-21 16:25 | HMH.PTOPEV ---
PT Evaluation Rehab PT Outpatient Evaluation Start: 03/21/25 11:08 Freq: Status: Active Protocol: Document 03/21/25 14:56 PHORNE (Rec: 03/21/25 16:25 PHORNE [id number]) E-signed By Darryl Jimenez, PT Outpatient Therapy Subjective History Subjective History This is the initial PT eval for Domonique Pennington, 74 yowf who presents with c/o dizziness for many years, but much worse x ~ 6 mos. She reports, i don't feel like everything is spinning, but I just feel off. She reports long history of sinus issues and previous R ear problems related to them. 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 She also reports receiving new eyeglasses around the same time which she now feels are causing some vision issues for her. She also reports fairly recent diagnosis of GERD and IBS. She has had several changes in medication recently, but unsure of exactly which ones they were. Chief Complaint Other Symptom Type Other Symptoms Relieved By Rest/Positioning Symptoms Aggravated Standing,Bending/Stooping,Physical Activity,Twisting, By Walking Prior Functional None Limitations Current Functional Housework,Driving,Standing,Recreation Activity,Walking, Limitations Balance Symptom Description Intermittent Dynamic Gait Index Test Protocol Gait Level Surface Normal Query Text: Instructions: Walk at your normal speed from here to the next teresa (20'). Grading: Teresa the lowest category that applies. Change in Gait Speed Normal Query Text: Instructions: Begin walking at your normal pace (for 5') , when I tell you go , walk as fast as you can (for 5'). When I tell you slow , walk as slowly as you can ( for 5'). Grading: Teresa the lowest category that applies. Gait with Horizontal Mild Impairment Head Turns Query Text: Instructions: Begin walking at your normal pace. When I tell you to look right , keep walking straight, but turn you head to the right. Keep looking to the right unit I tell you look left , then keep walking straight and turn your head to the left. Keep your head to the left until I tell you look straight , then keep walking straight, but return you head to the center. Grading: Teresa the lowest category that applies. Gait with Vertical Mild Impairment Head Turns Query Text: Instructions: Begin walking at your normal pace. When I tell you to look up , keep walking staight, but tip your head up. Keep looking up until I tell you to look down , then keep walking straight and tip your head down. Keep your head down until I tell you look straight , then keep walking straight, but return your head to the center. Grading: Teresa the lowest category that applies. Gait and Pivot Turn Mild Impairment Query Text: Instructions: Begin walking at your normal pace. When I tell you turn and stop , turn as quickly as you can to face the opposite direction and stop. Grading: Teresa the lowest category that applies. Step Over Obstacle Mild Impairment Query Text: Instructions: Begin walking at your normal speed. When you come to the shoebox, step over it, not around it and keep walking. Grading: Teresa the lowest category that applies. Step Around Normal Obstacles Query Text: Instructions: Begin walking at normal speed. When you come to the first cone (about 6' away) , walk around the right side of it. When you come to the second cone (6' past first cone), walk around it to the left. Grading: Teresa the lowest category that applies. Steps Mild Impairment Query Text: Instructions: Walk up these stairs as you would at home. At the top, turn around and walk down . Grading: Teresa the lowest category that applies. Scoring Dynamic Gait Index 19 Score Vertigo Eval Oculomotor Examination Smooth Pursuits: Normal Saccades: Normal Gaze-Evoked Absent Nystagmus: Vergence: Normal Vestibular-Ocular Reflex (VOR) VOR Vertical: Symptomatic Comment: VOR testing results in increased symptoms, but no nystagmus noted. Motion Sensitivity Testing Symptoms Provoked By Turning head quickly : Positional Testing Kirsten-Hallpike Right: Negative Kirsten-Hallpike Left: Negative Roll Test Right: Negative Roll Test Left: Negative Comment: Pt reports symptoms with all testing, worse with L side [place]-hallpike, but no nystagmus noted with any test positions. Gait Assessment Assistive Device: None Gait Quality Normal Outpatient Therapy Assessment Impairments Problems/ Impaired Endurance,Impaired Transfers,Impaired Gait Impairmments Pattern,Impaired Walking,Impaired Standing,Impaired Sitting,Impaired Driving,Impaired Shower/Bathing, Impaired Household Care,Impaired Stair Climbing, Impaired Incline Stepping,Impaired Stepping on Uneven Surface,Impaired Bending,Impaired Recreational Activities,Impaired Balance,Impaired DGI Score,Impaired Self Care/Self Management Prognosis Rehab Potential Good Comment Skilled therapy is indicated to improve pt balance, decrease dizziness c/o with ambulation, and improve overall functional mobility in order to aid pt return to PLOF. Clinical Impression Consistent with Yes Diagnosis PT Patient Goals PT Patient Goals PT Short Term In 2 wks pt will complete these goals in order to aid Patient Goals improvement in function specifically with all ADLs: 1) Report only MILD dizziness with ambulation PT Jail Patient In 4 wks pt will complete these goals in order to aid Goals improvement in function specifically with all ADLs: 1) Report NO dizziness with ambulation on level surfaces 2) Reports NO dizziness with transfer from supine to sit 3) increase DGI score to 23 Outpatient Therapy Plan of Care Treatment Plan May Include Therapeutic Exercise Yes Including Home Exercise Program Manual Therapy Yes Techniques Neuromuscular Re- Yes education Therapeutic Yes Activities to Return to Previous Functional/Work Level Gait Training Yes ADL/Self Care Yes Education Eval/Re-Eval Yes Canalith Yes Repositioning Technique Frequency Times per week 2 Duration Number of Weeks 4 Addendums This patient is a No candidate for social or vocational rehab ? Patient/Guardian Yes verbally acknowledges understanding of treatment program and consents to further treatment? Patient/Guardian Yes verbally acknowledges understanding of diagnosis, prognosis and goals for treatment? Eval Complexity PT Charges 00938 - High Complexity Shoulder/Elbow Eval Shoulder Objective Measurements Elbow Objective Measurements PHYSICIAN CERTIFICATION: I certify the specified therapy services for Domonique Pennington are required, authorized, and reviewed every 30 days.
== END 2025-03-21 23:59 | disposition home or self-care (01) ==
LOC: PT 11:00
PROVIDERS: PCP Internal Medicine Adolescent Medicine; Visit Provider Internal Medicine Adolescent Medicine
DX: R42 Dizziness and giddiness (principal)
CPT/HCPCS: 97163